=== PATIENT | female | born 1945 | race Caucasian/White ===

== ENCOUNTER → 2020-03-07 12:46 | Outpatient (BNVA) | payer MEDICARE, SELFPAY | PROVIDERS: PCP Internal Medicine; Referring Provider Internal Medicine; Visit Provider Surgery | DX: M67.442 Ganglion, left hand (principal) | CPT/HCPCS: 10160; 20612; 99212 ==

== ENCOUNTER 2020-04-12 14:21 | Outpatient (REF) | payer MEDICARE, SELFPAY ==
--- NOTE | 2020-04-12 14:32 | MM_ITS ---
EXAMINATION: MM SCREENING DIGITAL BREAST TOMOSYNTHESIS, BILATERAL CLINICAL INFORMATION: Screening. Asymptomatic. The lifetime risk of breast cancer based on the Tyrer-Cuzick Model is 5.7%. COMPARISON: Mammography: 03/27/2019 and studies dating back to 02/03/2012 TECHNIQUE: Digital breast tomosynthesis is performed in both the craniocaudal and mediolateral oblique views along with computer-aided detection (CAD). Synthesized 2D images are generated from the tomosynthesis. FINDINGS: There are scattered areas of fibroglandular density (ACR BI-RADS breast composition Category b). In the retroareolar region of the right breast slightly inferiorly and approximately 3 cm from nipple, there is a 5 mm circumscribed density which has been enlarging over time. Ultrasound of this is recommended. In the retroareolar region of the left breast on mediolateral oblique film only, there is a question of architectural distortion likely representing superimposition of fibroglandular tissue. Adjacent to this, there is also noted to be a small density with calcification in it just inferior to the nipple. Spot magnification view in mediolateral oblique and 90 degree mediolateral view recommended. MM/MM tomosynthesis screening BI IMPRESSION: Bilateral breast findings for supplementary imaging, as described. ASSESSMENT: BI-RADS 0: Incomplete - Need additional imaging evaluation. RECOMMENDATION: Right breast ultrasound. Left breast spot magnification films possibly with ultrasound to follow. This patient's information was entered into a reminder system with a target due date for their next mammogram.
--- NOTE | 2020-04-12 14:32 | MM_ITS ---
EXAMINATION: BONE DENSITOMETRY CLINICAL INDICATION: Osteoporosis. COMPARISON: None (current study represents initial baseline exam). TECHNIQUE: Using a [employer] DXA System (software version: 13.1) manufactured by [employer], dual-energy x-ray absorptiometry was performed of the lumbar spine and left hip. The images are of good technical quality. Summary results are attached. FINDINGS: AP SPINE L1-L3 (excluding L4): The data of L1-L4 has been changed to exclude the L4 vertebral body, because degenerative changes at this level may cause overestimation of lumbar spine density. BMD 1.489 g/cm2, Z-score 3.8, T-score 2.7, normal. LEFT FEMUR, NECK: BMD 0.885 g/cm2, Z-score 0.4, T-score -1.1, osteopenia. LEFT FEMUR, TOTAL: BMD 0.987 g/cm2, Z-score 1.1, T-score -0.2, normal. IDENTIFIED RISK FACTORS: Menopause, family history (parental hip fracture). HISTORY OF FRACTURE: None listed. MEDICATIONS: Calcium supplements or multivitamin, vitamin D. MM/XR DEXA axial skeleton IMPRESSION: 1. DIAGNOSIS: Osteopenia based on the lowest T-score value of -1.1 in the femoral neck applying World Health Organization criteria. 2. 10-YEAR FRACTURE RISK PREDICTION, FRAX: Major osteoporotic fracture (clinical spine, forearm, hip or shoulder) 15.0%. Hip fracture 6.0%. 3. Treatment Recommendations: NOF guidelines recommend consideration for treatment in postmenopausal women and men age 50 and older presenting with the following: -A hip or vertebral (clinical or morphometric) fracture. -T-score less than or equal to -2.5 at the femoral neck or spine after appropriate evaluation to exclude secondary causes. -Low bone mass at the hip or spine and a 10-year fracture probability by FRAX of greater than or equal to 3% for hip fracture or greater than or equal to 20% for major osteoporotic fracture based on the [place] adapted WHO algorithm. 4. Other Recommendations: All treatment decisions require clinical judgment and consideration of individual patient factors, including patient preferences, comorbidities, previous drug use, risk factors not captured in the FRAX model (e.g. frailty, falls, vitamin D deficiency, increased bone turnover, interval significant decline in bone density) and possible under or overestimation of fracture risk by FRAX. Additional medical evaluation for secondary cause of low bone mineral density may be appropriate. FUTURE SCAN RECOMMENDATION: People with diagnosed cases of osteoporosis or at high risk for fracture should have regular bone mineral density tests. For patients eligible for Medicare, routine testing is allowed once every 2 years. The testing frequency can be increased to one year for patients who have rapidly progressing disease, those who are receiving or discontinuing medical therapy to restore bone mass, or have additional risk factors.
== END 2020-04-12 14:22 | disposition home or self-care (01) ==
LOC: HO.MAMMO 14:21
PROVIDERS: PCP Internal Medicine; Visit Provider Obstetrics & Gynecology
DX: Z13.820 Encounter for screening for osteoporosis (principal); Z78.0 Asymptomatic menopausal state; Z12.31 Encounter for screening mammogram for malignant neoplasm of breast
CPT/HCPCS: 77063; 77067; 77080

== ENCOUNTER → 2020-04-22 12:11 | Outpatient (BNVA) | payer MEDICARE, SELFPAY | PROVIDERS: Visit Provider Obstetrics & Gynecology | DX: Z91.89 Other specified personal risk factors, not elsewhere classified (principal) | CPT/HCPCS: 99212 ==

== ENCOUNTER 2020-05-09 10:19 | Outpatient (REF) | payer MEDICARE, SELFPAY ==
--- NOTE | 2020-05-09 | US_ITS ---
EXAMINATION: MM DIAGNOSTIC DIGITAL MAMMOGRAPHY, LEFT US DIAGNOSTIC ULTRASOUND BREAST, RIGHT CLINICAL INFORMATION: Recall from screening for ultrasound assessment nodule anterior right breast and for 2 findings left MLO view, architectural changes superior retroareolar and question calcification/nodule inferior retroareolar. COMPARISON: Mammography: 04/12/2020, 03/27/2019, 03/17/2018, 03/11/2017 TECHNIQUE: Digital mammography is performed in the following views: Magnification left CC, magnification left ML x3, magnification left MLO. Ultrasound right breast is targeted to the area of clinical concern anterior lower outer breast. Grayscale imaging and color Doppler are performed without and with harmonics. FINDINGS: Mammography: There are scattered areas of fibroglandular density (ACR BI-RADS breast composition Category b). Additional views left breast demonstrates no architectural abnormality or nodule. There are some scattered calcifications in the breast without interval changes inferior retroareolar. Left breast may be reassessed again at next bilateral screening mammography, due in 12 months. Ultrasound: Targeted ultrasound demonstrates a circumscribed nearly anechoic nodule retroareolar 8:00 position measuring around 4 mm. There is no associated color flow. There is likely slight increased through-transmission of sound breast seen on ultrasound image 04/20. Increased through-transmission of sound difficult to perceive at real-time imaging. There is no posterior shadowing. As a precaution, this will be reassessed with ultrasound in 6 months. Results are discussed with the patient at time of visit. US/US breast RT limited IMPRESSION: 1. Right: Probable small cyst retroareolar 8:00 position. 2. Left: Additional views show no suspicious finding. ASSESSMENT: BI-RADS 3: Probably Benign RECOMMENDATION: Targeted right breast ultrasound in 6 months. This patient's information was entered into a reminder system with a target due date for their next mammogram.
== END 2020-05-09 10:20 | disposition home or self-care (01) ==
LOC: HO.MAMMO 10:19
PROVIDERS: PCP Internal Medicine; Visit Provider Obstetrics & Gynecology
DX: R92.2 Inconclusive mammogram (principal)
CPT/HCPCS: 76642; 77065

== ENCOUNTER → 2020-05-23 11:43 | Outpatient (BNVA) | payer MEDICARE, SELFPAY | PROVIDERS: PCP Internal Medicine; Visit Provider Obstetrics & Gynecology | DX: N63.0 Unspecified lump in unspecified breast (principal) | CPT/HCPCS: Q3014 ==

== ENCOUNTER → 2020-06-04 13:05 | Outpatient (BNVA) | payer MEDICARE, SELFPAY | PROVIDERS: PCP Internal Medicine; Visit Provider Surgery | DX: N63.0 Unspecified lump in unspecified breast (principal) | CPT/HCPCS: 99202 ==

== ENCOUNTER 2020-11-06 11:59 | Outpatient (REF) | payer MEDICARE, SELFPAY ==
--- NOTE | ~2020-11-06 | US_ITS ---
EXAMINATION: US DIAGNOSTIC ULTRASOUND BREAST, RIGHT CLINICAL INFORMATION: Right breast retroareolar density. Question complex cyst. COMPARISON: 05/09/2020 TECHNIQUE: Ultrasound of the breast is performed with real-time bravo-scale imaging and color Doppler. FINDINGS: In the retroareolar region of the right breast, there is again noted to be smoothly marginated hypoechoic lesion with some mild posterior through sound transmission and no distal sound shadowing identified. This likely represents a complex cyst. Results are discussed with the patient at time of visit. US/US breast RT limited IMPRESSION: Stable right breast retroareolar lesion most likely representing a complex cyst. Repeat right breast ultrasound recommended at time of yearly bilateral mammography in 6 months. ASSESSMENT: BI-RADS 3: Probably Benign. RECOMMENDATION: Diagnostic right breast ultrasound in 6 months at time of yearly screening mammogram. This patient's information was entered into a reminder system with a target due date for their next mammogram.
== END 2020-11-06 12:00 | disposition home or self-care (01) ==
LOC: HO.MAMMO 11:59
PROVIDERS: PCP Internal Medicine; Visit Provider Internal Medicine
DX: R92.2 Inconclusive mammogram (principal)
CPT/HCPCS: 76642

== ENCOUNTER 2020-11-16 11:36 | Emergency (ER) | payer MEDICARE, SELFPAY ==
--- NOTE | ~2020-11-16 | XR_ITS ---
EXAMINATION: XR ABDOMEN KUB CLINICAL INDICATION: Evaluate for constipation COMPARISON: None TECHNIQUE: AP view of the abdomen. FINDINGS: No bowel dilatation to suggest obstruction. Moderate stool burden within the large bowel. XR/XR abdomen 1V IMPRESSION: Moderate stool burden. No obstruction.
[2020-11-16 11:41] VITALS: BP 151/85; PULSE 74; RESP 16; TEMP 35.7; O2SAT 100; BMI 25.0
--- NOTE | 2020-11-16 13:37 | ED_ITS ---
HPI - General Adult General Chief complaint: General Medical Stated complaint: CONSTIPATION UNABLE TO SIT DOWN Time Seen by Provider: 11/16/20 12:55 Source: patient Mode of arrival: ambulatory Limitations: no limitations History of Present Illness HPI narrative: 75-year-old female came in for evaluation of burning sensation in the rectum for 1 day. 75-year-old female with history of constipation using stool softener, patient had 3 bowel movement this morning, passing gas, no abdominal pain, no fever, no chills. Patient feels pressure in the rectal area. Patient declined nausea or vomiting. Related Data Home Medications Medication Instructions Recorded Confirmed calcium-vitamin D3-vitamin K 500 1 tab PO DAILY 02/14/20 11/14/20 mg-100 unit-40 mcg chewable tablet cholecalciferol (vitamin D3) 25 25 mcg PO DAILY 02/14/20 11/14/20 mcg (1,000 unit) capsule docusate sodium 100 mg capsule 100 mg PO BID 02/14/20 11/14/20 polyethylene glycol 3350 17 gram 17 g PO DAILY 02/14/20 11/14/20 oral powder packet multivitamin with minerals-folic tab PO 03/07/20 11/14/20 acid 0.4 mg tablet alendronate 70 mg tablet 70 mg PO QWEEK 05/23/20 11/14/20 Previous Rx's Medication Instructions Recorded lorazepam 0.5 mg tablet 0.5 mg PO DAILY PRN #90 tab 06/24/20 zolpidem 10 mg tablet 10 mg PO BEDTIME #90 tab 06/24/20 amoxicillin 250 mg capsule 250 mg PO Q8H #30 cap 10/23/20 Allergies Allergy/AdvReac Type Severity Reaction Status Date / Time No Known Allergies Allergy Verified 11/14/20 11:04 Review of Systems Review of Systems: All other systems are reviewed and are negative Constitutional: Reports as per HPI and Reports no additional constitutional complaints Eyes: Reports as per HPI and Reports no additional eye complaints Reports system reviewed and no additional complaints, except as documented Cardiovascular: Reports as per HPI and Reports no additional cardiovascular complaints Respiratory: Reports as per HPI and Reports no additional respiratory complaints Gastrointestinal: Reports as per HPI and Reports no additional gastrointestinal complaints Genitourinary: Reports no additional female genitourinary complaints Musculoskeletal: Reports no additional musculoskeletal complaints Skin/Breast: Reports system reviewed and no additional complaints, except as docu Psychiatric: Reports no additional psychiatric complaints Endocrine: Reports no additional endocrine complaints Hematologic/Lymphatic: Reports no additional hematologic/lymphatic complaints Allergic/Immunologic: Reports no additional allergic/immunologic complaints Reports system reviewed and no additional complaints, except as documented and Reports Abnormal speech present [facility] Past Medical History Medical History Anxiety Chronic constipation Epidermal cyst Ganglion cyst of finger Surgical History No pertinent past surgical history Family History Family History Father No problems noted. Mother No problems noted. Social History Social History Housing: Condominium Alcohol intake: current Alcohol intake frequency: holidays/special occasions only Patient Tobacco Use Status: Former Tobacco user Tobacco use type: Cigarette e-Cigarette/Vaping Use: Never Used Second Hand Smoke Exposure: No Advance Directives: Yes Advance Directives Information Provided: No Advance Directives on File: No service: No Current occupational status: retired Physical Exam Vital Signs: Vital Signs: Last Vital Signs Temp 97.4 F 11/16/20 13:40 Pulse 64 11/16/20 13:40 Resp 18 11/16/20 13:40 BP 100/83 11/16/20 13:40 Pulse Ox 96 11/16/20 13:40 Body Mass Index 25.0 Vital signs have been reviewed as appeared to be correct. Blood pressure normal. Heart rate normal. Respiration rate normal. Temperature normal. Oxygen saturation normal. Appearance: Alert. Oriented X3. No acute distress. Head: Normal external exam. Normocephalic. Atraumatic. No Damon signs noted. No raccoon eyes noted Eyes: PERRLA. EOMI. Conjunctiva and sclera normal. Eyelids normal. ENT: TM's Normal. Pharynx normal. Uvula midline. Moist mucous membranes. No trismus noted. No drooling noted. No muffled voice noted. Neck: Normal inspection. Neck supple. FROM. No adenopathy. Thyroid Normal. No meningeal signs. No neck mass noted. CVS: Normal heart rate and rhythm. Heart sound normal. No murmurs noted. Pulses normal throughout. Respiratory: No respiratory distress. Painless inspiration. Breath sounds normal. No wheezes/rales/rhonchi noted. Chest nontender. No accessory muscle usage noted or decreased air movement noted. Abdomen: Soft and nontender. Bowel sounds normal in all 4 quadrants. No distention noted. No organomegaly noted. No visible injury noted. Rectal exam: Empty vault, no external/internal hemorrhoid, no fluctuation, no mass. Back: No CVA tenderness. Full range of motion noted. Skin: Skin warm and dry. Normal skin color. Normal skin turgor. No rashes/lesions/lacerations noted. Extremities: No lower extremity edema. Extremities exhibit normal range of motion. Extremities nontender. Neuro: Oriented X 3. No motor deficit. No sensory deficit. Reflexes normal. Course Course Course Narrative: Assessment and plan. This is a 75-year-old female very anxious came in with rectal burning, patient with history of constipation, patient had 3 bowel movements this morning, no abdominal pain, no abdominal tenderness. No stool in the rectal vault, x-ray of the abdomen and pelvis showed stool but no bowel obstruction pattern, labs are unremarkable no leukocytosis with normal electrolytes. Patient was reassured follow-up with her PCP. Medical Decision Making Lab Data Lab results reviewed: Yes I reviewed the patient's lab results. Result diagrams: 11/16/20 13:36 11/16/20 13:36 Labs: Lab Results 11/16/20 11/16/20 Range/Units 13:36 13:36 WBC 6.7 (4.8-10.8) X10*3/uL RBC 4.16 L (4.20-5.50) X10*6/uL Hgb 12.3 (12.0-16.0) g/dl Hct 38.9 (37-47) % MCV 93.5 (80-98) fL MCH 29.6 (27.0-33.0) pg MCHC 31.6 (31.0-35.0) g/dl RDW 13.0 (11.0-16.0) % Plt Count 292 (160-400) X10*3/uL MPV 9.2 L (9.4-12.3) fL Immature Gran % (Auto) 0.1 (0.0-0.4) % Neut % (Auto) 79.3 H (45-73) % Lymph % (Auto) 13.6 L (20-40) % [place] % (Auto) 6.3 (2-11) % Eos % (Auto) 0.6 (0-4) % Baso % (Auto) 0.1 (0-2) % Lymph # (Auto) 0.9 L (1.2-4.9) X10*3/uL [place] # (Auto) 0.4 (0.1-1.2) X10*3/uL Eos # (Auto) 0.0 (0.0-0.4) X10*3/uL Baso # (Auto) 0.0 (0.0-0.2) X10*3/uL Abs Immat Gran (auto) 0.01 (0.00-0.03) X10*3/uL Absolute Neuts (auto) 5.3 (2.0-8.3) X10*3/uL Absolute Nucleated RBC 0.000 (0.0-0.012) X10*3/uL Nucleated RBC % (auto) 0.0 (0.0-0.2) /100WBC Sodium 143 (135-145) mmol/L Potassium 4.4 (3.3-5.1) mmol/L Chloride 108 (96-108) mmol/L Carbon Dioxide 27 (22-29) mmol/L Anion Gap 12 (12-20) BUN 9 (9-16) mg/dL Creatinine 0.76 (0.5-1.4) mg/dL Estim Creat Clear Calc 62.1 Estimated GFR > 60 Random Glucose 100 (60-115) mg/dL Calcium 9.7 (8.4-10.2) mg/dL Total Bilirubin 0.5 (0.0-1.0) mg/dL AST 15 (5-31) U/L ALT 14 (0-31) U/L Alkaline Phosphatase 54 (39-117) U/L Total Protein 6.4 L (6.5-8.0) g/dL Albumin 3.9 (3.5-5.0) g/dL Imaging Data KUB: Radiologist's impression: Moderate stool burden. No obstruction. Discharge Plan Discharge Clinical Impression: Anxiety, Anal or rectal pain Patient Disposition: Home, Self-Care Instructions: Rectal Pain (ED) Prescriptions: No Action amoxicillin 250 mg capsule 250 mg PO Q8H Qty: 30 RF: 0 zolpidem 10 mg tablet 10 mg PO BEDTIME Qty: 90 RF: 5 lorazepam 0.5 mg tablet 0.5 mg PO DAILY PRN (Reason: agitation) Qty: 90 RF: 5 calcium-vitamin D3-vitamin K 500-100-40 mg-unit-mcg tablet,chewable 1 tab PO DAILY RF: 0 cholecalciferol (vitamin D3) 25 mcg (1,000 unit) capsule 25 mcg PO DAILY RF: 0 polyethylene glycol 3350 [Miralax] 17 gram powder in packet 17 g PO DAILY RF: 0 docusate sodium [Colace] 100 mg capsule 100 mg PO BID RF: 0 alendronate [Fosamax] 70 mg tablet 70 mg PO QWEEK RF: 0 One Daily Womens 50 Plus 0.4 mg tablet PO RF: 0 Referrals: Levi Hunt MD [Primary Care Provider] - 2 days
[2020-11-16 13:40] VITALS: BP 100/83; PULSE 64; RESP 18; TEMP 36.3; O2SAT 96
[2020-11-16 13:42] LABS: MANUAL DIFF FLAG NO
[2020-11-16 13:43] LABS: Basophils Percent Auto 0.1 % (0-2); Eosinophils Percent Auto 0.6 % (0-4); Hematocrit 38.9 % (37-47); Hemoglobin 12.3 g/dl (12.0-16.0); Imm Gran Abs Auto 0.01 X10*3/uL (0.00-0.03); Imm Gran Pct Auto 0.1 % (0.0-0.4); Lymphocytes Absolute Auto 0.9 X10*3/uL (1.2-4.9); Lymphocytes Percent Auto 13.6 % (20-40); Mean Corpuscular HGB Conc 31.6 g/dl (31.0-35.0); Mean Corpuscular Hemoglobin 29.6 pg (27.0-33.0); Mean Corpuscular Volume 93.5 fL (80-98); Mean Platelet Volume 9.2 fL (9.4-12.3); Monocytes Absolute Auto 0.4 X10*3/uL (0.1-1.2); Monocytes Percent Auto 6.3 % (2-11); Neutrophils Absolute Auto 5.3 X10*3/uL (2.0-8.3); Neutrophils Percent Auto 79.3 % (45-73); Platelet Count 292 X10*3/uL (160-400); Red Blood Count 4.16 X10*6/uL (4.20-5.50); White Blood Count 6.7 X10*3/uL (4.8-10.8)
[2020-11-16 14:16] LABS: Alanine Aminotransferase 14 U/L (0-31); Albumin Level 3.9 g/dL (3.5-5.0); Alkaline Phosphatase 54 U/L (39-117); Anion Gap 12 (12-20); Aspartate Amino Transferase 15 U/L (5-31); Bilirubin Total 0.5 mg/dL (0.0-1.0); Blood Urea Nitrogen 9 mg/dL (9-16); Calcium 9.7 mg/dL (8.4-10.2); Carbon Dioxide 27 mmol/L (22-29); Chloride 108 mmol/L (96-108); Creatinine Clr Calc Pharmacy 62.1; Estimated Glomerular Filt Rate > 60; Glucose Random 100 mg/dL (60-115); Potassium 4.4 mmol/L (3.3-5.1); Sodium 143 mmol/L (135-145); Total Protein 6.4 g/dL (6.5-8.0)
== END 2020-11-16 14:54 | disposition home or self-care (01) ==
PROVIDERS: Emergency Provider Emergency Medicine; PCP Internal Medicine
DX: K62.89 Other specified diseases of anus and rectum (principal); F41.9 Anxiety disorder, unspecified; Z79.899 Other long term (current) drug therapy
CPT/HCPCS: 36415; 74018; 80053; 85025; 99283; 99284

== ENCOUNTER 2020-11-18 14:39 | Outpatient (REF) | payer MEDICARE, SELFPAY ==
--- NOTE | ~2020-11-18 | XR_ITS ---
EXAMINATION: XR LUMBOSACRAL SPINE CLINICAL INFORMATION: Back pain COMPARISON: None TECHNIQUE: Three views of the lumbosacral spine. FINDINGS: There is mild curvature of the mid lumbar spine to the left. Bone alignment is otherwise normal. No fracture or dislocation is seen. There is evidence of multilevel degenerative spondylosis and degenerative disc disease greatest at L1-L2, L4-L5 and L5-S1. There is lower lumbar spine facet arthritis. XR/XR lumbar spine 2-3V IMPRESSION: Mild scoliosis and multilevel degenerative changes.
== END 2020-11-18 14:40 | disposition home or self-care (01) ==
LOC: HO.LAB 14:39
PROVIDERS: PCP Internal Medicine; Visit Provider Internal Medicine
DX: M54.9 Dorsalgia, unspecified (principal)
CPT/HCPCS: 72100

== ENCOUNTER 2020-11-24 11:26 | Emergency (ER) | payer MEDICARE, SELFPAY ==
--- NOTE | ~2020-11-24 | CT_ITS ---
EXAMINATION: CT PELVIS WITH CONTRAST CLINICAL INFORMATION: Sacral edema/swelling/tenderness. Rule out fluid collection. COMPARISON: CT abdomen and pelvis 01/01/2019 TECHNIQUE: Helical scanning was performed with submillimeter collimation through the pelvis with the use of oral contrast and during bolus intravenous injection of 85 mL of Omnipaque 350 intravenous contrast. Sagittal and coronal multiplanar 2-D reconstructions were obtained. This CT examination was performed using dose optimization techniques as appropriate, variously including the following: *Automated exposure control *Adjustment of mA and/or kV according to patient size (this includes techniques or standardized protocols for targeted exams where dose is matched to indication/reason for exam; i.e. extremities or head) *Use of iterative reconstruction technique DLP: 291 mGy-cm FINDINGS: PELVIS: The imaged small and large bowel are normal in caliber. No bowel inflammatory changes are appreciated. There is no free pelvic fluid. There is a coarse calcification within the left aspect of the uterine body likely relating to calcified, degenerated fibroids. The bladder is decompressed and normal in contour. No ureteral or bladder calculi are seen. The distal aorta is normal in caliber. Unremarkable appearance of the iliac arteries and the proximal femoral vessels are patent. No significant hernia identified. No pelvic lymphadenopathy is seen. OSSEOUS STRUCTURES: There are degenerative changes of the imaged lumbosacral spine without acute or aggressive bony abnormality identified. Joint space narrowing of the bilateral hips compatible degenerative osteoarthritis and mild/moderate degenerative changes of the sacroiliac joints are present. There is mild soft tissue edema overlying the soft tissues posterior and distal to the coccyx without underlying fluid collection identified. Would correlate with physical exam findings for sacral decubitus ulcer. CT/CT pelvis w con IMPRESSION: Soft tissue edema overlying and distal to the distal coccyx may relate to decubitus ulcer. No evidence of an underlying fluid collection or osseous erosion is identified.
[2020-11-24 11:40] VITALS: BP 155/80; PULSE 72; RESP 17; TEMP 36.8; O2SAT 94; BMI 25.2
--- NOTE | 2020-11-24 12:54 | ED_ITS ---
HPI - Back Pain/Injury General Chief Complaint: Back Pain/Injury Stated Complaint: Lower bone pain Time Seen by Provider: 11/24/20 11:43 Source: patient Mode of arrival: ambulatory Limitations: no limitations History of Present Illness HPI Narrative: 75-year-old female with a past medical history of anxiety here with complaints of low back pain for approximately 1 week. She tells me she was seen here about 6 days ago in the emergency department and had lab work and an x-ray of her abdominal area because she was also having some associated diarrhea. This was all normal and was recommended she follow-up with her primary care doctor. She saw her primary care doctor on November 18 and had an outpatient x-ray of her low spine which showed degenerative changes but no other acute findings. She has had continued pain. She is unable to sit down because of the pain that she experiences in her low spine. It is improved if she is lying on her static or standing. No radiation of pain. No numbness or tingling. No bowel or bladder incontinence. She was suffering from constipation and so was taking a stool softener and now she has had some loose stools which alternates day by day. She may have 3 episodes of loose stool 1 day and 4-5 the next day. No associated abdominal pain. No black or bloody stools. She does have urinary urgency and frequency which is quite common for her and she does not feel like this is worsened. No fevers or chills. Related Data Home Medications Medication Instructions Recorded Confirmed calcium-vitamin D3-vitamin K 500 1 tab PO DAILY 02/14/20 11/14/20 mg-100 unit-40 mcg chewable tablet cholecalciferol (vitamin D3) 25 25 mcg PO DAILY 02/14/20 11/14/20 mcg (1,000 unit) capsule docusate sodium 100 mg capsule 100 mg PO BID 02/14/20 11/14/20 polyethylene glycol 3350 17 gram 17 g PO DAILY 02/14/20 11/14/20 oral powder packet multivitamin with minerals-folic tab PO 03/07/20 11/14/20 acid 0.4 mg tablet alendronate 70 mg tablet 70 mg PO QWEEK 05/23/20 11/14/20 Previous Rx's Medication Instructions Recorded lorazepam 0.5 mg tablet 0.5 mg PO DAILY PRN #90 tab 06/24/20 zolpidem 10 mg tablet 10 mg PO BEDTIME #90 tab 06/24/20 amoxicillin 250 mg capsule 250 mg PO Q8H #30 cap 10/23/20 cyclobenzaprine 5 mg PO TID 3 Days #9 tab 11/24/20 lidocaine [Lidoderm] 1 patch TOPICAL DAILY #15 ea 11/24/20 Allergies Allergy/AdvReac Type Severity Reaction Status Date / Time No Known Allergies Allergy Verified 11/24/20 11:40 Review of Systems Review of Systems: Yes all other systems are reviewed and are negative Constitutional: Constitutional: Reports no additional constitutional complaints, Denies body ache(s), Denies chills, Denies fever(s), Denies headache(s) and Denies weakness Eyes: Eyes: Reports no additional eye complaints and Denies change in vision ENT: Reports system reviewed and no additional complaints, except as documented, Denies dizziness, Denies headache(s), Denies nasal congestion, Denies nasal discharge and Denies neck pain Cardiovascular: Cardiovascular: Reports no additional cardiovascular complaints, Denies chest pain, Denies leg edema and Denies dyspnea Respiratory: Respiratory: Reports no additional respiratory complaints, Denies cough and Denies dyspnea Gastrointestinal: Gastrointestinal: Reports no additional gastrointestinal complaints, Denies abdominal pain, Denies diarrhea, Reports loose stools, Denies nausea and Denies vomiting Genitourinary: Genitourinary: Reports no additional female genitourinary complaints and Denies urinary incontinence Comments: urinary frequency Musculoskeletal: Musculoskeletal: Reports no additional musculoskeletal complaints, Reports back pain, Denies arthralgias, Denies joint swelling, Denies neck pain, Denies numbness and Denies tingling Integumentary/Breasts: Skin/Breast: Reports system reviewed and no additional complaints, except as docu and Denies rash Neurologic: Reports system reviewed and no additional complaints, except as documented, Denies Abnormal speech present, Denies dizziness, Denies headache(s), Denies numbness, Denies tingling and Denies weakness PMFSH Past Medical History Attestation statement: The following information was validated with the patient. Source: old records reviewed and nursing notes reviewed Medical History Anxiety Back pain Chronic constipation Epidermal cyst Ganglion cyst of finger Surgical History No pertinent past surgical history Family History Family History Father No problems noted. Mother No problems noted. Social History Social History Housing: [facility] Alcohol intake: current Alcohol intake frequency: holidays/special occasions only Patient Tobacco Use Status: Former Tobacco user Tobacco use type: Cigarette e-Cigarette/Vaping Use: Never Used Second Hand Smoke Exposure: No Use of substances other than those prescribed or required for medical reasons: No Advance Directives: Yes Advance Directives Information Provided: Yes Advance Directives on File: No service: No Current occupational status: retired Physical Exam Vital Signs: Vital Signs: Last Vital Signs Temp 97.6 F 11/24/20 14:45 Pulse 92 11/24/20 14:45 Resp 16 11/24/20 14:45 BP 147/77 H 11/24/20 14:45 Pulse Ox 97 11/24/20 14:45 Body Mass Index 25.2 Const: General: cooperative, healthy appearing, comfortable and no acute d istress Orientation/consciousness: patient oriented x3 Limitations: no limitations HENMT: Head: Yes normal to inspection Ears: hearing grossly normal bilaterally General nose exam: Normal external nose present Face and sinus: Yes normal facial exam Mouth: Normal oral and palatal mucosa present Throat: Yes posterior oropharynx normal Eyes: General: appearance normal, both eyes and all related structures Pupils: Equal, round and reactive pupils present Neck: Neck: Yes normal visual inspection Chest: Chest palpation & inspection: normal inspection of the chest Resp: Effort & Inspection: normal respiratory effort Auscultation: clear to auscultation bilaterally Cardio: Rate: regular rate Rhythm: regular rhythm Peripheral pulses: Peripheral pulses 2+ throughout GI: Inspection: Yes normal to inspection Palpation (GI): Soft to palpation and nontender Auscultation: normal bowel sounds Back/Spine/Pelvis: Other: To the left lower sacral spine there is an area of swelling. There is tenderness over this site as well as over the central sacrum. There is no obvious warmth, redness, induration. Nonpitting edema. Patient does not have pain with straight leg raise.. Thoracic/Lumbar Spine: thoracic and lumbar spine normal to inspection Skin: General skin exam: no rashes or lesions noted Neuro: General: patient oriented x3, no focal motor deficits and normal sensation to monofilament Cranial nerves: Yes CN's II-XII intact bilaterally, Yes Equal, round and reactive pupils present, Yes Bilaterally intact EOM present, Yes Nystagmus not present, Yes Normal facial strength present and Yes Midline tongue present Cognition (Neuro): normal cognition Speech: No Abnormal speech present Gait exam (Neuro): Normal gait present Motor exam (neuro): 5/5 motor strength present throughout Sensory Exam: Normal double simultaneous stimulation for sensation Deep tendon reflexes (DTR's): Right patellar reflex intensity grade: 2+ and Left patellar reflex intensity grade: 2+ Extrem: General: Yes normal to inspection Course Course Course Narrative: Continues low back pain for greater than 1 week despite supportive care. Did have outpatient lumbar x-rays by her primary care doctor which showed degenerative changes but no acute bony abnormality. She is now having continued pain which seems now worsened specially with sitting or lying down. No red flag symptoms or neurological deficits on exam. However, she does have an area of sacral swelling to the left side with quite a bit of tenderness over this site as well as her sacral mid spine. Will check labs, UA, CT to eval further. 1640- IMPRESSION: Soft tissue edema overlying and distal to the distal coccyx may relate to decubitus ulcer. No evidence of an underlying fluid collection or osseous erosion is identified. There are degenerative changes of the imaged lumbosacral spine without acute or aggressive bony abnormality identified. Joint space narrowing of the bilateral hips compatible degenerative osteoarthritis and mild/moderate degenerative changes of the sacroiliac joints are present. Labs and urine are unremarkable. ?lumbar strain. For persistent pain we discussed patient following up with PCP for possible MRI or physical therapy. No need for emergent MRI today with no red flag symptoms or neurological deficits. Patient is ambulatory with a steady gait. Will discharge home. Recommended [id number] Tylenol, low-dose muscle relaxants and medicated patches with PCP follow-up. Reviewed worrisome signs and symptoms and when to return to the emergency department. Comfortable d ischarge home. MDM - Back Pain/Injury Differential Diagnosis Differential diagnosis: Likely lumbar radiculopathy, sciatica and strain of lumbar region Medical Records Attestation: I reviewed the patient's medical records. Lab Data Attestation: I reviewed the patient's lab results. Result diagrams: 11/24/20 12:55 11/24/20 12:55 Labs: Lab Results 11/24/20 11/24/20 11/24/20 Range/Units 12:55 12:55 12:57 WBC 8.1 (4.8-10.8) X10*3/uL RBC 4.48 (4.20-5.50) X10*6/uL Hgb 13.4 (12.0-16.0) g/dl Hct 42.3 (37-47) % MCV 94.4 (80-98) fL MCH 29.9 (27.0-33.0) pg MCHC 31.7 (31.0-35.0) g/dl RDW 13.1 (11.0-16.0) % Plt Count 330 (160-400) X10*3/uL MPV 9.2 L (9.4-12.3) fL Immature Gran % (Auto) 0.2 (0.0-0.4) % Neut % (Auto) 79.2 H (45-73) % Lymph % (Auto) 13.3 L (20-40) % Mccreary % (Auto) 6.4 (2-11) % Eos % (Auto) 0.7 (0-4) % Baso % (Auto) 0.2 (0-2) % Lymph # (Auto) 1.1 L (1.2-4.9) X10*3/uL Mccreary # (Auto) 0.5 (0.1-1.2) X10*3/uL Eos # (Auto) 0.1 (0.0-0.4) X10*3/uL Baso # (Auto) 0.0 (0.0-0.2) X10*3/uL Abs Immat Gran (auto) 0.02 (0.00-0.03) X10*3/uL Absolute Neuts (auto) 6.4 (2.0-8.3) X10*3/uL Absolute Nucleated RBC 0.000 (0.0-0.012) X10*3/uL Nucleated RBC % (auto) 0.0 (0.0-0.2) /100WBC Sodium 141 (135-145) mmol/L Potassium 4.4 (3.3-5.1) mmol/L Chloride 105 (96-108) mmol/L Carbon Dioxide 30 H (22-29) mmol/L Anion Gap 10 L (12-20) BUN 10 (9-16) mg/dL Creatinine 0.83 (0.5-1.4) mg/dL Estim Creat Clear Calc 57.0 Estimated GFR > 60 Random Glucose 97 (60-115) mg/dL Calcium 10.6 H D (8.4-10.2) mg/dL Urine Color STRAW Urine Appearance CLEAR Urine pH 6.5 (5.0-8.0) Ur Specific [place] <= 1.005 (1.005-1.025) Urine Protein NEG (NEG-TRACE) MG/DL Urine Glucose (UA) NEG (NEG) MG/DL Urine Ketones NEG (NEG) MG/DL Urine Blood NEG (NEG) Urine Nitrite NEG (NEG) Ur Leukocyte Esterase 1+ H (NEG) Urine RBC 0 (0) /HPF Urine WBC 1-4 (0-4) /HPF Ur Squamous Epith Cells 1+ /LPF Urine Bacteria NONE /LPF Imaging Data CT scan - abdomen: Attestation: I personally reviewed and interpreted this imaging study as follows: Radiologist's impression: IMPRESSION: Soft tissue edema overlying and distal to the distal coccyx may relate to decubitus ulcer. No evidence of an underlying fluid collection or osseous erosion is identified. Discharge Plan Discharge Clinical Impression: Strain of lumbar region Patient Disposition: Home, Self-Care Instructions: Acute Low Back Pain (ED) Additional Instructions: Your CT scan shows age related changes in the spine but no fractures. There is a small area of swelling we discussed but no fluid collection Apply heat or ice to the area whichever feels better Take tylenol 1000mg every 6 hours as needed for pain. Max dose in 24 hrs (4000mg). Take the flexeril at nighttime at first to see how you feel. It might make you a little bit sleepy. Follow-up with your primary care doctor this week. Prescriptions: New lidocaine [Lidoderm] 5 % adhesive patch,medicated 1 patch topical DAILY Qty: 15 RF: 0 cyclobenzaprine 5 mg tablet 5 mg PO TID 3 Days Qty: 9 RF: 0 No Action amoxicillin 250 mg capsule 250 mg PO Q8H Qty: 30 RF: 0 zolpidem 10 mg tablet 10 mg PO BEDTIME Qty: 90 RF: 5 lorazepam 0.5 mg tablet 0.5 mg PO DAILY PRN (Reason: agitation) Qty: 90 RF: 5 calcium-vitamin D3-vitamin K 500-100-40 mg-unit-mcg tablet,chewable 1 tab PO DAILY RF: 0 cholecalciferol (vitamin D3) 25 mcg (1,000 unit) capsule 25 mcg PO DAILY RF: 0 polyethylene glycol 3350 [Miralax] 17 gram powder in packet 17 g PO DAILY RF: 0 docusate sodium [Colace] 100 mg capsule 100 mg PO BID RF: 0 alendronate [Fosamax] 70 mg tablet 70 mg PO QWEEK RF: 0 One Daily Womens 50 Plus 0.4 mg tablet PO RF: 0 Referrals: Levi Hunt MD [Primary Care Provider] - 2 days Interventions: ED Discharge Assessment Last Done: 11/24/20 16:09 Discharge Date/Time: 11/24/20 16:10
[2020-11-24 13:04] LABS: Glucose Urine UA NEG (NEG); Leukocyte Esterase Urine 1+ (NEG); Nitrite Urine NEG (NEG); PH 6.5 (5.0-8.0); Specific Gravity - Urine <= 1.005 (1.005-1.025); UACC Culture Trigger YES; Urine Blood NEG (NEG); Urine Ketones NEG (NEG); Urine Protein NEG (NEG-TRACE)
[2020-11-24 13:05] LABS: Appearance Urine CLEAR; Color Urine STRAW
[2020-11-24 13:05] LABS: Basophils Percent Auto 0.2 % (0-2); Eosinophils Absolute Auto 0.1 X10*3/uL (0.0-0.4); Eosinophils Percent Auto 0.7 % (0-4); Hematocrit 42.3 % (37-47); Hemoglobin 13.4 g/dl (12.0-16.0); Imm Gran Abs Auto 0.02 X10*3/uL (0.00-0.03); Imm Gran Pct Auto 0.2 % (0.0-0.4); Lymphocytes Absolute Auto 1.1 X10*3/uL (1.2-4.9); Lymphocytes Percent Auto 13.3 % (20-40); MANUAL DIFF FLAG NO; Mean Corpuscular HGB Conc 31.7 g/dl (31.0-35.0); Mean Corpuscular Hemoglobin 29.9 pg (27.0-33.0); Mean Corpuscular Volume 94.4 fL (80-98); Mean Platelet Volume 9.2 fL (9.4-12.3); Monocytes Absolute Auto 0.5 X10*3/uL (0.1-1.2); Monocytes Percent Auto 6.4 % (2-11); Neutrophils Absolute Auto 6.4 X10*3/uL (2.0-8.3); Neutrophils Percent Auto 79.2 % (45-73); Platelet Count 330 X10*3/uL (160-400); Red Blood Count 4.48 X10*6/uL (4.20-5.50); Red Cell Distribution Width 13.1 % (11.0-16.0); White Blood Count 8.1 X10*3/uL (4.8-10.8)
[2020-11-24 13:31] LABS: RBC Urine 0 /HPF (0); Squamous Epithelial Cell Urine 1+ /LPF
[2020-11-24 13:35] LABS: Anion Gap 10 (12-20); Blood Urea Nitrogen 10 mg/dL (9-16); Calcium 10.6 mg/dL (8.4-10.2); Carbon Dioxide 30 mmol/L (22-29); Chloride 105 mmol/L (96-108); Estimated Glomerular Filt Rate > 60; Glucose Random 97 mg/dL (60-115); Potassium 4.4 mmol/L (3.3-5.1); Sodium 141 mmol/L (135-145)
[2020-11-24 14:45] VITALS: BP 147/77; PULSE 92; RESP 16; TEMP 36.4; O2SAT 97
[2020-11-24] MEDS: iohexoL 350 MG/ML 100 ML INFUS..BTL IV (14:53)
== END 2020-11-24 16:10 | disposition home or self-care (01) ==
PROVIDERS: Nurse Practitioner Family; Emergency Provider Emergency Medicine; PCP Internal Medicine
DX: S39.012A Strain of muscle, fascia and tendon of lower back, initial encounter (principal); X58.XXXA Exposure to other specified factors, initial encounter; Y93.9 Activity, unspecified; Y92.9 Unspecified place or not applicable; Y99.9 Unspecified external cause status; Z79.899 Other long term (current) drug therapy; F17.210 Nicotine dependence, cigarettes, uncomplicated; Z71.6 Tobacco abuse counseling
CPT/HCPCS: 36415; 72193; 80048; 81001; 81003; 85025; 87086; 99284; Q9967

== ENCOUNTER → 2020-12-24 09:13 | Outpatient (BNVA) | payer MEDICARE, SELFPAY | PROVIDERS: PCP Internal Medicine; Referring Provider Internal Medicine; Visit Provider Nurse Practitioner Family | DX: K59.1 Functional diarrhea (principal); K58.2 Mixed irritable bowel syndrome; K64.9 Unspecified hemorrhoids | CPT/HCPCS: 99202 ==

== ENCOUNTER 2020-12-26 09:25 | Outpatient (REF) | payer MEDICARE, SELFPAY ==
--- NOTE | ~2020-12-26 | US_ITS ---
EXAMINATION: MM DIAGNOSTIC DIGITAL BREAST TOMOSYNTHESIS, BILATERAL US DIAGNOSTIC ULTRASOUND BREAST, BILATERAL CLINICAL INFORMATION: Due for yearly. Also follow-up probable small complicated cyst 8:00 right breast. The lifetime risk of breast cancer based on the Tyrer-Cuzick Model is 2%. COMPARISON: Mammography: 05/09/2020, 04/12/2020 (BI-RADS 0), 03/27/2019, 03/17/2018, 03/11/2017; targeted ultrasound right breast 05/09/2020, 11/06/2020. TECHNIQUE: Digital breast tomosynthesis is performed in both the craniocaudal and mediolateral oblique views along with computer-aided detection (CAD). Synthesized 2D images are generated from the tomosynthesis. Ultrasound right breast is targeted to the retroareolar lower outer breast. Grayscale imaging and color Doppler are performed without and with harmonics. FINDINGS: There are scattered areas of fibroglandular density (ACR BI-RADS breast composition Category b). Parenchymal pattern is similar to prior study. There is no developing density or interval mass or architectural abnormality or abnormal calcifications. The left breast is unremarkable. The right breast has biopsy clip marker upper outer quadrant. Small nodularity for follow-up mid 8:00 position is stable. No interval architectural abnormality. No abnormal calcifications. Ultrasound right breast demonstrates nearly anechoic circumscribed nodule 7:00-8:00 position 2 cm from nipple just under 5 mm. No associated color flow. No posterior shadowing. No significant change from prior ultrasound exams. Finding will be reassessed again at time of next bilateral annual diagnostic mammography, due in 12 months. Results are discussed with the patient at time of visit.
[2020-12-26 10:13] LABS: MANUAL DIFF FLAG NO
[2020-12-26 10:24] LABS: Basophils Percent Auto 0.1 % (0-2); Eosinophils Absolute Auto 0.1 X10*3/uL (0.0-0.4); Eosinophils Percent Auto 1.2 % (0-4); Hematocrit 42.6 % (37-47); Hemoglobin 13.7 g/dl (12.0-16.0); Imm Gran Abs Auto 0.02 X10*3/uL (0.00-0.03); Imm Gran Pct Auto 0.3 % (0.0-0.4); Lymphocytes Absolute Auto 1.1 X10*3/uL (1.2-4.9); Lymphocytes Percent Auto 14.2 % (20-40); Mean Corpuscular HGB Conc 32.2 g/dl (31.0-35.0); Mean Corpuscular Hemoglobin 29.7 pg (27.0-33.0); Mean Corpuscular Volume 92.4 fL (80-98); Mean Platelet Volume 9.4 fL (9.4-12.3); Monocytes Absolute Auto 0.4 X10*3/uL (0.1-1.2); Neutrophils Absolute Auto 6.1 X10*3/uL (2.0-8.3); Neutrophils Percent Auto 79.2 % (45-73); Platelet Count 332 X10*3/uL (160-400); Red Blood Count 4.61 X10*6/uL (4.20-5.50); Red Cell Distribution Width 12.9 % (11.0-16.0); White Blood Count 7.7 X10*3/uL (4.8-10.8)
[2020-12-26 10:53] LABS: C Reactive Protein 0.17 mg/dL (< or = 0.50)
[2020-12-26 11:11] LABS: Alanine Aminotransferase 15 U/L (0-31); Albumin Level 4.3 g/dL (3.5-5.0); Alkaline Phosphatase 65 U/L (39-117); Anion Gap 13 (12-20); Aspartate Amino Transferase 17 U/L (5-31); Bilirubin Total 0.6 mg/dL (0.0-1.0); Blood Urea Nitrogen 13 mg/dL (9-16); Calcium 9.6 mg/dL (8.4-10.2); Carbon Dioxide 25 mmol/L (22-29); Chloride 106 mmol/L (96-108); Cholesterol 196 mg/dL; Estimated Glomerular Filt Rate > 60; Glucose Fasting 124 mg/dL (60-99); HDL Cholesterol 57 mg/dL; LDL Cholesterol Calculated 117 mg/dl; Potassium 4.4 mmol/L (3.3-5.1); Sodium 140 mmol/L (135-145); Total Protein 7.1 g/dL (6.5-8.0); Triglycerides 110 mg/dL
[2020-12-26 11:17] LABS: Thyroid Stimulating Hormone 0.59 uIU/mL (0.32-4.0)
== END 2020-12-26 09:26 | disposition home or self-care (01) ==
LOC: HO.LAB 09:25
PROVIDERS: Absent Provider Internal Medicine; PCP Internal Medicine; Visit Provider Nurse Practitioner Family
DX: Z00.00 Encounter for general adult medical examination without abnormal findings (principal); K58.9 Irritable bowel syndrome, unspecified; R19.7 Diarrhea, unspecified; E03.9 Hypothyroidism, unspecified; E11.9 Type 2 diabetes mellitus without complications
CPT/HCPCS: 36415; 80053; 80061; 83993; 84443; 85025; 86140; 87045; 87046; 87177; 87209

== ENCOUNTER 2021-01-18 14:16 | Emergency (ER) | payer MEDICARE, SELFPAY ==
[2021-01-18 17:21] VITALS: BP 166/89; PULSE 71; RESP 18; TEMP 36.8; O2SAT 98; BMI 24.2
--- NOTE | 2021-01-18 17:57 | ED.GENADULT ---
HPI - General Adult General Chief complaint: Extremity Problem Stated complaint: leg weakness Time Seen by Provider: 01/18/21 17:23 Source: patient Mode of arrival: ambulatory Limitations: no limitations History of Present Illness HPI narrative: 75-year-old female who presents emergency department for evaluation of weakness of her lower extremities. The patient states that she has been having difficulty with her bowels over the past 3-6 weeks. She states that she has had episodes of constipation and she has also had frequent soft bowel movements. She states that she has been a managed by GI and is currently taking a fiber supplement, Senokot and is on a gluten free diet. She states that over the past 3 weeks she has had 4-5 soft bowel movements per day. She denied any blood or mucus in her bowel movements. She states that since Wednesday (6 days prior to evaluation) she has been feeling weakness in her lower extremities. She states that she has no difficulty walking. She states however when she stands for period of time she feels like her legs are weak. She states that this happens especially when she is taking a shower she feels like standing in the shower her legs get weak and she may fall. She denied any numbness of her lower extremities. She denied any lower back pain. She denied fever, chills, nausea, vomiting, chest pain, shortness of breath, abdominal pain. Related Data Home Medications Medication Instructions Recorded Confirmed calcium-vitamin D3-vitamin K 500 1 tab PO DAILY 02/14/20 01/16/21 mg-100 unit-40 mcg chewable tablet cholecalciferol (vitamin D3) 25 25 mcg PO DAILY 02/14/20 01/16/21 mcg (1,000 unit) capsule multivitamin with minerals-folic tab PO 03/07/20 01/16/21 acid 0.4 mg tablet (One Daily Womens 50 Plus) artifi.tears(hypromellose)(PF) 0.3 1 drp OPHTHALMIC (EYE) Q2-4H PRN 12/24/20 01/16/21 % eye drops Previous Rx's Medication Instructions Recorded methylcellulose (laxative) 500 mg 500 mg PO DAILY #30 tab 12/24/20 tablet (Citrucel) lorazepam 0.5 mg tablet 0.5 mg PO DAILY PRN #90 tab 12/31/20 zolpidem 10 mg tablet 10 mg PO BEDTIME #90 tab 12/31/20 sennosides 8.6 mg tablet (Natural 8.6 mg PO DAILY #30 tab 01/07/21 Senna Laxative) Allergies Allergy/AdvReac Type Severity Reaction Status Date / Time No Known Allergies Allergy Verified 01/16/21 13:27 Review of Systems Review of Systems: Yes all other systems are reviewed and are negative ON LICENSE OF [facility] Past Medical History ON LICENSE OF [facility] Narrative: Social history: The patient denies tobacco use. She is a former smoker and stop smoking in 2000. She believes that she smoked for 30 years. She occasionally drinks alcohol. She denies drug use. Medical History Anxiety Back pain Chronic constipation Epidermal cyst Ganglion cyst of finger Surgical History No pertinent past surgical history Family History Family History Father No problems noted. Mother No problems noted. Social History [facility] Alcohol intake: current Alcohol intake frequency: holidays/special occasions only Patient Tobacco Use Status: Former Tobacco user Tobacco use type: Cigarette e-Cigarette/Vaping Use: Never Used Second Hand Smoke Exposure: No Advance Directives: No service: No Current occupational status: retired Physical Exam Vital Signs: Vital Signs: Last Vital Signs Temp 98.3 F 01/18/21 17:21 Pulse 71 01/18/21 17:21 Resp 18 01/18/21 17:21 BP 166/89 H 01/18/21 17:21 Pulse Ox 98 01/18/21 17:21 Body Mass Index 24.2 Const: General: cooperative and no acute distress Orientation/consciousness: oriented to person and oriented to place Limitations: no limitations HENMT: Head: Yes normal to inspection, Yes normocephalic and Yes atraumatic Ears: external ears normal General nose exam: Normal external nose present Face and sinus: Yes normal facial exam Mouth: Normal oral and palatal mucosa present Throat: Yes posterior oropharynx normal Eyes: General: appearance normal, both eyes and all related structures Pupils: Equal, round and reactive pupils present Neck: Neck: Yes normal visual inspection, Yes no lymphadenopathy, Yes trachea midline and Yes supple Chest: Chest palpation & inspection: normal inspection of the chest and normal palpation of entire chest wall Resp: Effort & Inspection: normal respiratory effort and able to speak in complete sentences Auscultation: clear to auscultation bilaterally Cardio: Rate: regular rate Rhythm: regular rhythm Heart sounds: S1 normal heart sound present, S2 normal heart sound present and no murmurs GI: Inspection: Yes normal to inspection Palpation (GI): Soft to palpation, nontender and no guarding Auscultation: normal bowel sounds : General: Yes no CVA tenderness Back/Spine/Pelvis: Back: no CVA tenderness Skin: General skin exam: no rashes or lesions noted Neuro: General: oriented to person and oriented to place Cranial nerves: Yes CN's II-XII intact bilaterally and Yes Equal, round and reactive pupils present Cognition (Neuro): normal cognition Motor exam (neuro): 5/5 motor strength present throughout Sensory Exam: other (Normal light touch to both lower extremities) Extrem: General: Yes normal to inspection Psych: Appearance: grossly normal Speech and movement: Normal speech and movement present Affect: normal affect Attitude: cooperative Thought process: Normal thought process present Thought content: Normal thought content present Course Course Course Narrative: 75-year-old female who presents emergency department for evaluation of weakness of her lower extremities x6 days. The patient has been having issues with her bowels and is currently taking fiber supplements, Senokot and is on a gluten free diet. She states that she has no difficulty walking but feels that her legs are weak especially if she standing in the shower. The patient's physical examination revealed a normal neurologic exam with normal strength of her lower extremities and normal light touch. At this time I do not have a clear etiology for the patient's perceived weakness but I will check a CBC and electrolytes to make sure that there is no electrolyte abnormality causing the symptoms. 2023: The patient's laboratory evaluation was unremarkable. At this time I do not have a clear etiology for the patient's symptoms. I advised the patient to stay on her recommendations from her GI doctor. I told her however if her weakness and got worse to the point where she is having difficulty walking or falling or if she develops numbness or weakness in other parts of her body then she should return to the emergency department otherwise she should follow-up with her PCP for re-evaluation. Medical Decision Making Lab Data Result diagrams: 01/18/21 18:13 01/18/21 18:14 Labs: Lab Results 01/18/21 01/18/21 01/18/21 Range/Units 18:13 18:13 18:14 WBC 7.5 (4.8-10.8) X10*3/uL RBC 4.58 (4.20-5.50) X10*6/uL Hgb 13.8 (12.0-16.0) g/dl Hct 42.7 (37-47) % MCV 93.2 (80-98) fL MCH 30.1 (27.0-33.0) pg MCHC 32.3 (31.0-35.0) g/dl RDW 13.1 (11.0-16.0) % Plt Count 312 (160-400) X10*3/uL MPV 9.3 L (9.4-12.3) fL Immature Gran % (Auto) 0.3 (0.0-0.4) % Neut % (Auto) 74.6 H (45-73) % Lymph % (Auto) 19.6 L (20-40) % [place]ell % (Auto) 4.7 (2-11) % Eos % (Auto) 0.7 (0-4) % Baso % (Auto) 0.1 (0-2) % Lymph # (Auto) 1.5 (1.2-4.9) X10*3/uL [place]ell # (Auto) 0.4 (0.1-1.2) X10*3/uL Eos # (Auto) 0.1 (0.0-0.4) X10*3/uL Baso # (Auto) 0.0 (0.0-0.2) X10*3/uL Abs Immat Gran (auto) 0.02 (0.00-0.03) X10*3/uL Absolute Neuts (auto) 5.6 (2.0-8.3) X10*3/uL Absolute Nucleated RBC 0.000 (0.0-0.012) X10*3/uL Nucleated RBC % (auto) 0.0 (0.0-0.2) /100WBC Sodium 143 (135-145) mmol/L Potassium 4.2 (3.3-5.1) mmol/L Chloride 106 (96-108) mmol/L Carbon Dioxide 30 H (22-29) mmol/L Anion Gap 11 L (12-20) BUN 7 L (9-16) mg/dL Creatinine 0.78 (0.5-1.4) mg/dL Estim Creat Clear Calc 58.3 Estimated GFR > 60 Random Glucose 111 (60-115) mg/dL Calcium 10.0 (8.4-10.2) mg/dL Magnesium 2.3 (1.6-2.6) mg/dL Total Bilirubin 0.5 (0.0-1.0) mg/dL AST 16 (5-31) U/L ALT 16 (0-31) U/L Alkaline Phosphatase 60 (39-117) U/L Total Protein 7.0 (6.5-8.0) g/dL Albumin 4.3 (3.5-5.0) g/dL Lipase 20 (8-78) U/L Discharge Plan Discharge Clinical Impression: Bilateral leg weakness Patient Disposition: Home, Self-Care Additional Instructions: On your physical examination you have normal sensation and normal strength of your legs which is reassuring. We did a complete blood count and comprehensive metabolic panel and magnesium level on you. All of these tests were normal which is reassuring. I do not have a clear cause for your weakness in your legs but I think it is okay to send you home. If the weakness gets worse to the point where having trouble walking or your falling or if she started developed numbness in your legs or numbness or weakness in your arms then please return to the emergency department so we can re-evaluate you. Follow-up with your doctor in 2 days. Please return to the emergency department if your symptoms get worse or if you develop any symptoms that are concerning to you. Prescriptions: No Action lorazepam 0.5 mg tablet 0.5 mg PO DAILY PRN (Reason: agitation) Qty: 90 RF: 5 zolpidem 10 mg tablet 10 mg PO BEDTIME Qty: 90 RF: 5 sennosides [Natural Senna Laxative] 8.6 mg tablet 8.6 mg PO DAILY Qty: 30 RF: 2 calcium-vitamin D3-vitamin K 500-100-40 mg-unit-mcg tablet,chewable 1 tab PO DAILY RF: 0 cholecalciferol (vitamin D3) 25 mcg (1,000 unit) capsule 25 mcg PO DAILY RF: 0 One Daily Womens 50 Plus 0.4 mg tablet PO RF: 0 artifi.tears(hypromellose)(PF) 0.3 % drops 1 drp ophthalmic (eye) Q2-4H PRNRF: 0 Citrucel 500 mg tablet 500 mg PO DAILY Qty: 30 RF: 2
[2021-01-18 18:18] LABS: MANUAL DIFF FLAG NO
[2021-01-18 18:37] LABS: Basophils Percent Auto 0.1 % (0-2); Eosinophils Absolute Auto 0.1 X10*3/uL (0.0-0.4); Eosinophils Percent Auto 0.7 % (0-4); Hematocrit 42.7 % (37-47); Hemoglobin 13.8 g/dl (12.0-16.0); Imm Gran Abs Auto 0.02 X10*3/uL (0.00-0.03); Imm Gran Pct Auto 0.3 % (0.0-0.4); Lymphocytes Absolute Auto 1.5 X10*3/uL (1.2-4.9); Lymphocytes Percent Auto 19.6 % (20-40); Mean Corpuscular HGB Conc 32.3 g/dl (31.0-35.0); Mean Corpuscular Hemoglobin 30.1 pg (27.0-33.0); Mean Corpuscular Volume 93.2 fL (80-98); Mean Platelet Volume 9.3 fL (9.4-12.3); Monocytes Absolute Auto 0.4 X10*3/uL (0.1-1.2); Monocytes Percent Auto 4.7 % (2-11); Neutrophils Absolute Auto 5.6 X10*3/uL (2.0-8.3); Neutrophils Percent Auto 74.6 % (45-73); Platelet Count 312 X10*3/uL (160-400); Red Blood Count 4.58 X10*6/uL (4.20-5.50); Red Cell Distribution Width 13.1 % (11.0-16.0); White Blood Count 7.5 X10*3/uL (4.8-10.8)
[2021-01-18 18:42] LABS: Magnesium 2.3 mg/dL (1.6-2.6)
[2021-01-18 18:44] LABS: Alanine Aminotransferase 16 U/L (0-31); Albumin Level 4.3 g/dL (3.5-5.0); Alkaline Phosphatase 60 U/L (39-117); Anion Gap 11 (12-20); Aspartate Amino Transferase 16 U/L (5-31); Bilirubin Total 0.5 mg/dL (0.0-1.0); Blood Urea Nitrogen 7 mg/dL (9-16); Carbon Dioxide 30 mmol/L (22-29); Chloride 106 mmol/L (96-108); Creatinine Clr Calc Pharmacy 58.3; Estimated Glomerular Filt Rate > 60; Glucose Random 111 mg/dL (60-115); Lipase 20 U/L (8-78); Potassium 4.2 mmol/L (3.3-5.1); Sodium 143 mmol/L (135-145)
[2021-01-18 20:29] VITALS: BP 150/88; PULSE 66; RESP 16; O2SAT 96
== END 2021-01-18 20:32 | disposition home or self-care (01) ==
PROVIDERS: Emergency Provider Emergency Medicine Emergency Medical Services; PCP Internal Medicine
DX: R53.1 Weakness (principal)
CPT/HCPCS: 36415; 80053; 83690; 83735; 85025; 99283; 99284

== ENCOUNTER → 2021-01-28 09:01 | Outpatient (BNVA) | payer MEDICARE, SELFPAY | PROVIDERS: PCP Internal Medicine; Visit Provider Nurse Practitioner Family | DX: K58.2 Mixed irritable bowel syndrome (principal); K59.00 Constipation, unspecified; K64.9 Unspecified hemorrhoids; R19.7 Diarrhea, unspecified | CPT/HCPCS: Q3014 ==

== ENCOUNTER 2021-02-13 12:22 | Emergency (ER) | payer MEDICARE, SELFPAY ==
--- NOTE | ~2021-02-13 | CT_ITS ---
EXAMINATION: CT SINUS WITHOUT CONTRAST CLINICAL INFORMATION: Head pressure COMPARISON: None TECHNIQUE: Axial images obtained through the sinuses. Coronal and sagittal reformatted images are performed at the CT scanner. This CT examination was performed using dose optimization techniques as appropriate, variously including the following: *Automated exposure control *Adjustment of mA and/or kV according to patient size (this includes techniques or standardized protocols for targeted exams where dose is matched to indication/reason for exam; i.e. extremities or head) *Use of iterative reconstruction technique DLP: 90.07 mGy-cm FINDINGS: FRONTAL SINUSES AND DRAINAGE PATHWAYS: Normal. MAXILLARY SINUSES AND DRAINAGE PATHWAYS: Normal. The infundibula are patent. ETHMOID SINUSES: Normal. No mucosal thickening or fluid collection. SPHENOID SINUSES AND DRAINAGE PATHWAYS: Normal. The sphenoid ostia are patent. NASAL CAVITY/NASOPHARYNX: The nasal cavity is clear. There is no nasal septal deviation/spurring. The nasopharynx is symmetric. Orbits and retrobulbar structures are unremarkable. TMJ joints are normal. CT/CT sinus wo con IMPRESSION: Normal paranasal sinuses.
--- NOTE | ~2021-02-13 | CT_ITS ---
EXAMINATION: CT HEAD WITHOUT CONTRAST CLINICAL INFORMATION: Head pressure. COMPARISON: None TECHNIQUE: Contiguous axial imaging was performed from the skull base to vertex without intravenous administration of contrast. Coronal and sagittal reformatted images are performed at CT scanner This CT examination was performed using dose optimization techniques as appropriate, variously including the following: *Automated exposure control *Adjustment of mA and/or kV according to patient size (this includes techniques or standardized protocols for targeted exams where dose is matched to indication/reason for exam; i.e. extremities or head) *Use of iterative reconstruction technique DLP: 642.91 mGy-cm FINDINGS: There is no evidence of acute intracranial hemorrhage or territorial infarction. No abnormal mass effect or midline shift is seen. [place] to white matter differentiation is well preserved. No extra-axial fluid collections are identified. There is generalized global volume loss. There is moderate prominence of the ventricles and the sulci . There is mild hypodensity of the periventricular white matter due to chronic small vessel ischemic disease. There are vascular calcifications of the internal carotid arteries bilaterally. The osseous structures and soft tissues are normal. The mastoid air cells and visualized portions of the paranasal sinuses are well aerated. CT/CT head/brain wo con IMPRESSION: No acute intracranial pathology.
[2021-02-13 12:43] VITALS: BP 126/84; PULSE 65; RESP 18; TEMP 36.8; O2SAT 97; BMI 23.5
[2021-02-13 13:10] LABS: COVID-19 Test Negative (Negative)
--- NOTE | 2021-02-13 21:03 | ED.GENADULT ---
HPI - General Adult General Chief complaint: Headache Stated complaint: head pressure Time Seen by Provider: 02/13/21 17:35 Source: patient Limitations: no limitations History of Present Illness HPI narrative: This is a 75-year-old female who complains of a feeling of pressure in her head for the last few days. She notes it is worse when she is in certain positions or when she turns her head. She does have a history of sinusitis and does have some pressure in sinuses. She has a feeling of pressure especially in her forehead. She denies any nausea vomiting. She denies any neck pain. She denies any fever. She notes that the pressure feeling is much worse when she is lying down. She has had sensation of seeing spots in her vision. She denies any history of migraines. She said it is not a headache per se that she has been more of a feeling of pressure. She notes she did take lorazepam this morning, does not take it every day. Related Data Home Medications Medication Instructions Recorded Confirmed calcium-vitamin D3-vitamin K 500 1 tab PO DAILY 02/14/20 02/10/21 mg-100 unit-40 mcg chewable tablet cholecalciferol (vitamin D3) 25 25 mcg PO DAILY 02/14/20 02/10/21 mcg (1,000 unit) capsule multivitamin with minerals-folic tab PO 03/07/20 02/10/21 acid 0.4 mg tablet (One Daily Womens 50 Plus) artifi.tears(hypromellose)(PF) 0.3 1 drp OPHTHALMIC (EYE) Q2-4H PRN 12/24/20 02/10/21 % eye drops polyethylene glycol 3350 17 17 g PO DAILY 02/10/21 02/10/21 gram/dose oral powder (Miralax) Previous Rx's Medication Instructions Recorded lorazepam 0.5 mg tablet 0.5 mg PO DAILY PRN #90 tab 12/31/20 zolpidem 10 mg tablet 10 mg PO BEDTIME #90 tab 12/31/20 sennosides 8.6 mg tablet (Natural 8.6 mg PO DAILY #30 tab 01/07/21 Senna Laxative) methylcellulose (laxative) 500 mg 500 mg PO BID #60 tab 01/21/21 tablet (Citrucel) hydrocortisone 2.5 % topical cream 1 appl SC BID PRN #30 g 01/28/21 with perineal applicator (Proctosol HC) fluticasone propionate 50 2 spray INTRANASAL DAILY #16 g 02/13/21 mcg/actuation nasal spray,suspension (Children's Flonase Allergy Relief) Allergies Allergy/AdvReac Type Severity Reaction Status Date / Time No Known Allergies Allergy Verified 02/13/21 12:43 Review of Systems Review of Systems: Yes all other systems are reviewed and are negative Constitutional: Constitutional: Reports as per HPI, Denies chills and Denies fever(s) Eyes: Eyes: Reports as per HPI ENT: Denies nasal congestion Cardiovascular: Cardiovascular: Reports no additional cardiovascular complaints Respiratory: Respiratory: Reports no additional respiratory complaints Gastrointestinal: Gastrointestinal: Denies nausea and Denies vomiting Neurologic: Denies Sensory deficit (Neuro) [facility] Past Medical History Medical History Anxiety Back pain Chronic constipation Epidermal cyst Ganglion cyst of finger Surgical History No pertinent past surgical history Family History Family History Father No problems noted. Mother No problems noted. Social History Social History Housing: Condominium Alcohol intake: current Alcohol intake frequency: holidays/special occasions only Patient Tobacco Use Status: Former Tobacco user Tobacco use type: Cigarette e-Cigarette/Vaping Use: Never Used Second Hand Smoke Exposure: No Advance Directives: No Advance Directives Information Provided: No service: No Current occupational status: retired Physical Exam Vital Signs: Vital Signs: Last Vital Signs Temp 98.3 F 02/13/21 12:43 Pulse 65 02/13/21 12:43 Resp 18 02/13/21 12:43 BP 126/84 02/13/21 12:43 Pulse Ox 97 02/13/21 12:43 Body Mass Index 23.5 Const: Other: Patient no distress, sitting up on edge of the gurney, polite General: cooperative, no acute distress and alert Orientation/consciousness: patient oriented x3 HENMT: Head: Yes normal to inspection Face and sinus: Yes other (No tenderness over the frontal or maxillary sinuses. No temporal tendernes) Eyes: General: appearance normal, both eyes and all related structures Eyelids: Yes eyelids normal Conjunctivae: conjunctivae normal Pupils: Equal, round and reactive pupils present Neck: Neck: Yes normal visual inspection and Yes supple Chest: Chest palpation & inspection: normal inspection of the chest Resp: Effort & Inspection: normal respiratory effort Auscultation: clear to auscultation bilaterally Cardio: Rate: regular rate Rhythm: regular rhythm Heart sounds: S1 normal heart sound present, S2 normal heart sound present, no gallops, no murmurs and no rubs GI: Palpation (GI): Soft to palpation, nontender and Other GI palpation findings present (Non-distended) Auscultation: normal bowel sounds Skin: General skin exam: no rashes or lesions noted Neuro: General: patient oriented x3, no focal motor deficits and CN's II-XI intact bilaterally Cranial nerves: Yes Equal, round and reactive pupils present Cognition (Neuro): normal cognition Motor exam (neuro): 5/5 motor strength present throughout Sensory Exam: No Sensory deficit (Neuro) Extrem: General: Yes normal to inspection and Yes no pedal edema Psych: Appearance: grossly normal Affect: normal affect Medical Decision Making MDM Narrative Medical decision making narrative: Patient with complaints of pressure in her head, feeling like her sinuses are blocked, not responding to saline drops. Patient seems perhaps mildly demented, but is polite and thankful. Patient reassured that her brain and sinus CTs were negative. Patient seems to have some anxiety component. Will treat with Flonase to see if that helps her symptoms, patient is safe for outpatient follow-up with her primary care physician Lab Data Labs: Lab Results 02/13/21 Range/Units 12:48 COVID-19 (SAEED) Negative (Negative) COVID-19 Clin Com See Note Imaging Data CT scan - head: Radiologist's impression: FINDINGS: There is no evidence of acute intracranial hemorrhage or territorial infarction. No abnormal mass effect or midline shift is seen. [place] to white matter differentiation is well preserved. No extra-axial fluid collections are identified. There is generalized global volume loss. There is moderate prominence of the ventricles and the sulci . There is mild hypodensity of the periventricular white matter due to chronic small vessel ischemic disease. There are vascular calcifications of the internal carotid arteries bilaterally. The osseous structures and soft tissues are normal. The mastoid air cells and visualized portions of the paranasal sinuses are well aerated. ? CT/CT head/brain wo con IMPRESSION: No acute intracranial pathology. CT sinuses: Radiologist's impression: ?IMPRESSION: Normal paranasal sinuses.? ? Discharge Plan Discharge Clinical Impression: Sinus pressure Patient Disposition: Home, Self-Care Instructions: Acute Headache (ED) Additional Instructions: Try the Flonase as prescribed. [facility]. Prescriptions: New fluticasone propionate [Children's Flonase Allergy Rlf] 50 mcg/actuation spray,suspension 2 spray intranasal DAILY Qty: 16 RF: 0 No Action lorazepam 0.5 mg tablet 0.5 mg PO DAILY PRN (Reason: agitation) Qty: 90 RF: 5 zolpidem 10 mg tablet 10 mg PO BEDTIME Qty: 90 RF: 5 sennosides [Natural Senna Laxative] 8.6 mg tablet 8.6 mg PO DAILY Qty: 30 RF: 2 Citrucel 500 mg tablet 500 mg PO BID Qty: 60 RF: 2 calcium-vitamin D3-vitamin K 500-100-40 mg-unit-mcg tablet,chewable 1 tab PO DAILY RF: 0 cholecalciferol (vitamin D3) 25 mcg (1,000 unit) capsule 25 mcg PO DAILY RF: 0 polyethylene glycol 3350 [Miralax] 17 gram/dose powder 17 g PO DAILY RF: 0 hydrocortisone [Proctosol HC] 2.5 % cream with perineal applicator 1 appl SC BID PRN (Reason: hemorrhoids) Qty: 30 RF: 0 One Daily Womens 50 Plus 0.4 mg tablet PO RF: 0 artifi.tears(hypromellose)(PF) 0.3 % drops 1 drp ophthalmic (eye) Q2-4H PRNRF: 0
[2021-02-13] MEDS: LORazepam 0.5 MG TABLET PO (21:07)
[2021-02-13 22:00] VITALS: BP 142/89; PULSE 72; RESP 18; TEMP 36.4; O2SAT 95
--- NOTE | 2021-02-13 22:28 | PC.NURSE ---
pt a&o , no sob or chest pain. pt reports improvement of headache. pt denies any dizziness or lightheadedness. pt has a stable gait. Plan is to discharge home.
== END 2021-02-13 23:02 | disposition home or self-care (01) ==
PROVIDERS: Emergency Provider Emergency Medicine; PCP Internal Medicine
DX: J34.89 Other specified disorders of nose and nasal sinuses (principal); Z20.822 Contact with and (suspected) exposure to COVID-19
CPT/HCPCS: 36415; 70450; 70486; 87635; 99284

== ENCOUNTER 2021-02-15 14:13 | Emergency (ER) | payer MEDICARE, SELFPAY ==
[2021-02-15 15:20] VITALS: BP 143/77; PULSE 65; RESP 16; TEMP 37; O2SAT 97; BMI 23.5
[2021-02-15 18:01] VITALS: BP 155/74; PULSE 57
--- NOTE | 2021-02-15 18:01 | ECG_ITS ---
Test Reason : HEADACHE Blood Pressure : / mmHG Vent. Rate : 061 BPM Atrial Rate : 061 BPM P-R Int : 190 ms QRS Dur : 070 ms QT Int : 418 ms P-R-T Axes : 038 017 022 degrees QTc Int : 420 ms Sinus rhythm with Premature supraventricular complexes Otherwise normal ECG No previous ECGs available Referred By: Lyndsay Asencio Electronically Signed By:JOVITA AYALA MD
[2021-02-15 18:02] VITALS: BP 146/80; PULSE 73
[2021-02-15 18:03] VITALS: BP 146/85; PULSE 72
[2021-02-15 18:04] VITALS: RESP 17; O2SAT 99
[2021-02-15] MEDS: 0.9 % Sodium Chloride 1,000 ML 999 ML IV (18:22)
[2021-02-15 18:28] LABS: MANUAL DIFF FLAG NO
[2021-02-15] MEDS: Acetaminophen 325 MG TABLET 650 MG PO (18:28)
[2021-02-15 18:30] LABS: Basophils Percent Auto 0.3 % (0-2); Eosinophils Absolute Auto 0.1 X10*3/uL (0.0-0.4); Eosinophils Percent Auto 1.5 % (0-4); Hematocrit 43.7 % (37-47); Hemoglobin 14.6 g/dl (12.0-16.0); Imm Gran Abs Auto 0.01 X10*3/uL (0.00-0.03); Imm Gran Pct Auto 0.1 % (0.0-0.4); Lymphocytes Absolute Auto 1.7 X10*3/uL (1.2-4.9); Lymphocytes Percent Auto 25.6 % (20-40); Mean Corpuscular HGB Conc 33.4 g/dl (31.0-35.0); Mean Corpuscular Hemoglobin 30.5 pg (27.0-33.0); Mean Corpuscular Volume 91.2 fL (80-98); Mean Platelet Volume 9.1 fL (9.4-12.3); Monocytes Absolute Auto 0.4 X10*3/uL (0.1-1.2); Neutrophils Absolute Auto 4.4 X10*3/uL (2.0-8.3); Neutrophils Percent Auto 66.5 % (45-73); Platelet Count 320 X10*3/uL (160-400); Red Blood Count 4.79 X10*6/uL (4.20-5.50); Red Cell Distribution Width 12.8 % (11.0-16.0); White Blood Count 6.7 X10*3/uL (4.8-10.8)
--- NOTE | 2021-02-15 18:41 | ED_ITS ---
HPI - General Adult General Chief complaint: Headache Stated complaint: headache, blurred vision Time Seen by Provider: 02/15/21 16:27 Source: patient Mode of arrival: ambulatory Limitations: no limitations History of Present Illness HPI narrative: 75-year-old female presents with complaints of pressure in her head during bowel movements and seeing white spots during bowel movements. States when she stands up she gets lightheaded, and feels that her sinuses become full.. These symptoms have been going on for 2 days, but today at 11:30 a.m. she felt more lightheaded than usual and her headache was worse. States her headache has common gone since when she was seen in the ER. On February 13, two days ago, she was seen in the emergency department, and had a normal head CT and a normal sinus CT, and was diagnosed with sinus pressure and given Flonase, which she has been using. On February 10 she saw her PCP for multiple complaints of dizziness and seeing spots. States she became very nervous and took lorazepam at noon today. States she has been having more bowel movements than normal today. She is on fiber to bulk up her stool, but she had 6 bowel movements today, all of which were normal, no diarrhea, no dark, tarry, or bloody stool. complaint: headche Onset (ago): day(s) (3) Location: head Radiation: non-radiation Severity: mild Severity scale (1-10): 3 Quality: aching Pain Consistency: intermittent Relieving factors: medication Exacerbating factors: movement Associated symptoms: denies other symptoms Treatments prior to arrival: other (tylenol this morning) Related Data Home Medications Medication Instructions Recorded Confirmed calcium-vitamin D3-vitamin K 500 1 tab PO DAILY 02/14/20 02/10/21 mg-100 unit-40 mcg chewable tablet cholecalciferol (vitamin D3) 25 25 mcg PO DAILY 02/14/20 02/10/21 mcg (1,000 unit) capsule multivitamin with minerals-folic tab PO 03/07/20 02/10/21 acid 0.4 mg tablet (One Daily Womens 50 Plus) artifi.tears(hypromellose)(PF) 0.3 1 drp OPHTHALMIC (EYE) Q2-4H PRN 12/24/20 02/10/21 % eye drops polyethylene glycol 3350 17 17 g PO DAILY 02/10/21 02/10/21 gram/dose oral powder (Miralax) Previous Rx's Medication Instructions Recorded lorazepam 0.5 mg tablet 0.5 mg PO DAILY PRN #90 tab 12/31/20 zolpidem 10 mg tablet 10 mg PO BEDTIME #90 tab 12/31/20 sennosides 8.6 mg tablet (Natural 8.6 mg PO DAILY #30 tab 01/07/21 Senna Laxative) methylcellulose (laxative) 500 mg 500 mg PO BID #60 tab 01/21/21 tablet (Citrucel) hydrocortisone 2.5 % topical cream 1 appl LA BID PRN #30 g 01/28/21 with perineal applicator (Proctosol HC) fluticasone propionate 50 2 spray INTRANASAL DAILY #16 g 02/13/21 mcg/actuation nasal spray,suspension (Children's Flonase Allergy Relief) amoxicillin 875 mg-potassium 1 tab PO BID 10 Days #20 tab 02/15/21 clavulanate 125 mg tablet (Augmentin) Allergies Allergy/AdvReac Type Severity Reaction Status Date / Time No Known Allergies Allergy Verified 02/13/21 12:43 Review of Systems Constitutional: Constitutional: Denies anorexia, Denies body ache(s), Denies chills, Denies fatigue, Denies fever(s), Reports headache(s), Denies malaise, Denies poor appetite and Denies weakness Eyes: Eyes: Denies blurry vision, Denies diplopia and Reports spots in vision ENT: Denies vertigo, Reports dizziness, Denies otalgia, Denies facial pain, Reports headache(s), Denies mouth pain, Reports nasal congestion, Denies nasal discharge, Denies post nasal drip, Reports sinus pain, Reports sinus pressure and Denies sore throat Cardiovascular: Cardiovascular: Denies chest pain, Denies syncope, Denies leg edema, Reports lightheadedness, Denies Loss of Consciousness, Denies palpitations and Denies dyspnea Respiratory: Respiratory: Denies chest congestion, Denies cough and Denies dyspnea Gastrointestinal: Gastrointestinal: Denies abdominal pain, Denies hematochezia, Denies constipation, Denies diarrhea and Denies vomiting Comments: Frequent stools Musculoskeletal: Musculoskeletal: Reports no additional musculoskeletal complaints Integumentary/Breasts: Skin/Breast: Reports rash (Around the anus) Neurologic: Denies Abnormal speech present, Denies confusion, Denies vertigo, Reports dizziness, Denies syncope, Reports headache(s), Denies Sensory deficit (Neuro) and Denies weakness Psychiatric: Psychiatric: Reports anxiety, Denies confusion and Denies depression Endocrine: Endocrine: Denies fatigue and Denies palpitations PMFSH Past Medical History Medical History Anxiety Back pain Chronic constipation Epidermal cyst Ganglion cyst of finger Surgical History No pertinent past surgical history Family History Family History Father No problems noted. Mother No problems noted. Social History Social History Housing: [facility] Alcohol intake: never Patient Tobacco Use Status: Former Tobacco user Tobacco use type: Cigarette e-Cigarette/Vaping Use: Never Used Second Hand Smoke Exposure: No Use of substances other than those prescribed or required for medical reasons: No Advance Directives: No Advance Directives Information Provided: No service: No Current occupational status: retired Physical Exam Vital Signs: Vital Signs: Last Vital Signs Temp 98.8 F 02/15/21 19: Pulse 62 02/15/21 19:01 Resp 16 02/15/21 19:01 BP 132/61 02/15/21 19: Pulse Ox 99 02/15/21 19:01 Body Mass Index 23.5 Const: General: no acute distress, alert and awake; No confusion Nutritional Appearance: well nourished Orientation/consciousness: patient oriented x3 and No confusion Limitations: no limitations HENMT: Head: Yes normal to inspection, Yes normocephalic and Yes atraumatic Ears: hearing grossly normal bilaterally, external ears normal and Abnormal EAC present excessive cerumen bilateral General nose exam: Normal external nose present Face and sinus: Yes normal facial exam, No sinuses nontender and Yes sinus tenderness (Frontal) Mouth: Normal oral and palatal mucosa present Throat: Yes posterior oropharynx normal Eyes: Conjunctivae: conjunctivae normal Pupils: Equal, round and reactive pupils present EOM: EOMs intact bilaterally and No Nystagmus present Neck: Neck: Yes full ROM, Yes no lymphadenopathy and Yes supple Resp: Effort & Inspection: normal respiratory effort and able to speak in complete sentences Auscultation: clear to auscultation bilaterally, no crackles, no rales, no rhonchi and no wheezes Cardio: Rate: regular rate Rhythm: regular rhythm Heart sounds: S1 normal heart sound present and S2 normal heart sound present GI: Inspection: Yes normal to inspection Palpation (GI): Soft to palpation, nontender, no guarding and not rigid Percussion: Yes normal to percussion Auscultation: normal bowel sounds Rectal Exam - Female: External hemorrhoid(s) present, No Lesions present (GI), No Anal fissure(s) present, hemorrhoids and No tenderness Skin: Other: Erythema around anus Neuro: General: patient oriented x3 and No confusion Cranial nerves: Yes CN's II-XII intact bilaterally, Yes Facial sensation intact/muscles of mastication intact, Yes Equal, round and reactive pupils present, Yes Normal accommodation reflex present, Yes Bilaterally intact EOM present, Yes Normal f acial strength present, Yes Midline tongue present, Yes Ability to bilaterally rotate head present, Yes Ability to bilaterally elevate shoulders present and No Nystagmus present Cognition (Neuro): normal cognition Speech: No Abnormal speech present Gait exam (Neuro): Normal gait present Motor exam (neuro): 5/5 motor strength present throughout and Pronator motor function not present Sensory Exam: No Sensory deficit (Neuro) Deep tendon reflexes (DTR's): Right patellar reflex intensity grade: 1+ and Left patellar reflex intensity grade: 1+ Coordination: [id number] test normal, [id number] test normal, tandem gait normal, does not sway with eyes open and Normal rapid alternating movements of the distal upper extremity present (Neuro) Romberg Test: Negative Pupils: Normal pupillary reactivity/response: bilateral Extrem: General: Yes normal to inspection and Yes full ROM Psych: Appearance: grossly normal Affect: normal affect Attitude: cooperative Thought process: Normal thought process present Course Course Course Narrative: 75-year-old female with a past medical history of constipation and anxiety presents for a headache today when standing up. Patient has had several days feeling full in her head, visual complaints, and feeling lightheaded after a bowel movement. Patient states she had many stools today and her anus is sore. On exam, patient has a normal neurological exam, she can walk. Patient is tender over her frontal sinuses to palpation. She has hemorrhoids that are not swollen or tender, but she does have redness around her anus. Patient had a normal head CT and sinus CT 2 days ago. Discussed utility of more imaging with Dr. Woodson, decided against another CT; we will get labs, ekg, check troponin. Patient's orthostatics are negative. Patient's EKG shows sinus at a rate of 61, no ST depressions or elevations. Reevaluation(s) Reevaluation #1: Labs within normal limits, a troponin 7.6 with symptoms that have gone on for at least 2 days. Patient's friend is at bedside and reminds her that she was treated with a Z-Richar for sinusitis 1 month ago. Patient is feeling better with Tylenol and fluids. States her headache has resolved completely. Will treat with Augmentin, told patient to use Desitin diaper cream for her sore anus. Counseled patient to follow-up with her primary care provider. Medical Decision Making Lab Data Result diagrams: 02/15/21 18:13 02/15/21 18:13 Labs: Lab Results 02/15/21 02/15/21 02/15/21 Range/Units 18:13 18:13 18:13 WBC 6.7 (4.8-10.8) X10*3/uL RBC 4.79 (4.20-5.50) X10*6/uL Hgb 14.6 (12.0-16.0) g/dl Hct 43.7 (37-47) % MCV 91.2 (80-98) fL MCH 30.5 (27.0-33.0) pg MCHC 33.4 (31.0-35.0) g/dl RDW 12.8 (11.0-16.0) % Plt Count 320 (160-400) X10*3/uL MPV 9.1 L (9.4-12.3) fL Immature Gran % (Auto) 0.1 (0.0-0.4) % Neut % (Auto) 66.5 (45-73) % Lymph % (Auto) 25.6 (20-40) % Henry % (Auto) 6.0 (2-11) % Eos % (Auto) 1.5 (0-4) % Baso % (Auto) 0.3 (0-2) % Lymph # (Auto) 1.7 (1.2-4.9) X10*3/uL Henry # (Auto) 0.4 (0.1-1.2) X10*3/uL Eos # (Auto) 0.1 (0.0-0.4) X10*3/uL Baso # (Auto) 0.0 (0.0-0.2) X10*3/uL Abs Immat Gran (auto) 0.01 (0.00-0.03) X10*3/uL Absolute Neuts (auto) 4.4 (2.0-8.3) X10*3/uL Absolute Nucleated RBC 0.000 (0.0-0.012) X10*3/uL Nucleated RBC % (auto) 0.0 (0.0-0.2) /100WBC Sodium 141 (135-145) mmol/L Potassium 3.7 (3.3-5.1) mmol/L Chloride 104 (96-108) mmol/L Carbon Dioxide 28 (22-29) mmol/L Anion Gap 13 (12-20) BUN 6 L (9-16) mg/dL Creatinine 0.77 (0.5-1.4) mg/dL Estim Creat Clear Calc 61.4 Estimated GFR > 60 Random Glucose 98 (60-115) mg/dL Calcium 10.1 (8.4-10.2) mg/dL Total Bilirubin 0.9 (0.0-1.0) mg/dL AST 21 (5-31) U/L ALT 18 (0-31) U/L Alkaline Phosphatase 64 (39-117) U/L Troponin I High Sens 7.6 (<3.5-17.0) ng/L Total Protein 7.6 (6.5-8.0) g/dL Albumin 4.5 (3.5-5.0) g/dL ECG Data Interpretation: Normal sinus at a rate of 61, LA 190, QRS 70, QTC 420, normal axis, no ST depressions or ST elevations, T-wave inversion in lead V1. Otherwise normal EKG Discharge Plan Discharge Clinical Impression: Sinusitis Qualifiers: Sinusitis location: frontal Chronicity: acute Recurrence: non-recurrent Qualified Code(s): J01.10 - Acute frontal sinusitis, unspecified Patient Disposition: Home, Self-Care Instructions: Sinusitis (ED) Additional Instructions: Please fill the prescription for antibiotic and take it twice a day every 12 hours. Please start tonight. Please get [id number] diaper rash ointment, one brand I think works well as called Desitin. Apply that around your anus after a bowel movement. Please call your primary care provider for follow-up from today's emergency room visit on Wednesday. Please return to the emergency room if you have sudden worsening headache, changes in your ability to walk, weakness on 1 side of her body or the other, chest pain, shortness of breath, or any other new or concerning symptoms Prescriptions: New amoxicillin-pot clavulanate [Augmentin] 875-125 mg tablet 1 tab PO BID 10 Days Qty: 20 RF: 0 No Action lorazepam 0.5 mg tablet 0.5 mg PO DAILY PRN (Reason: agitation) Qty: 90 RF: 5 zolpidem 10 mg tablet 10 mg PO BEDTIME Qty: 90 RF: 5 sennosides [Natural Senna Laxative] 8.6 mg tablet 8.6 mg PO DAILY Qty: 30 RF: 2 Citrucel 500 mg tablet 500 mg PO BID Qty: 60 RF: 2 fluticasone propionate [Children's Flonase Allergy Rlf] 50 mcg/actuation spray,suspension 2 spray intranasal DAILY Qty: 16 RF: 0 calcium-vitamin D3-vitamin K 500-100-40 mg-unit-mcg tablet,chewable 1 tab PO DAILY RF: 0 cholecalciferol (vitamin D3) 25 mcg (1,000 unit) capsule 25 mcg PO DAILY RF: 0 polyethylene glycol 3350 [Miralax] 17 gram/dose powder 17 g PO DAILY RF: 0 hydrocortisone [Proctosol HC] 2.5 % cream with perineal applicator 1 appl LA BID PRN (Reason: hemorrhoids) Qty: 30 RF: 0 One Daily Womens 50 Plus 0.4 mg tablet PO RF: 0 artifi.tears(hypromellose)(PF) 0.3 % drops 1 drp ophthalmic (eye) Q2-4H PRNRF: 0
[2021-02-15 18:53] LABS: Alanine Aminotransferase 18 U/L (0-31); Albumin Level 4.5 g/dL (3.5-5.0); Alkaline Phosphatase 64 U/L (39-117); Anion Gap 13 (12-20); Aspartate Amino Transferase 21 U/L (5-31); Bilirubin Total 0.9 mg/dL (0.0-1.0); Blood Urea Nitrogen 6 mg/dL (9-16); Calcium 10.1 mg/dL (8.4-10.2); Carbon Dioxide 28 mmol/L (22-29); Chloride 104 mmol/L (96-108); Creatinine Clr Calc Pharmacy 61.4; Estimated Glomerular Filt Rate > 60; Glucose Random 98 mg/dL (60-115); Potassium 3.7 mmol/L (3.3-5.1); Sodium 141 mmol/L (135-145); Total Protein 7.6 g/dL (6.5-8.0)
[2021-02-15 18:55] LABS: Troponin-I High Sensitivity 7.6 ng/L (<3.5-17.0)
[2021-02-15 19:01] VITALS: BP 132/61; PULSE 62; RESP 16; TEMP 37.1; O2SAT 99
--- NOTE | 2021-02-15 19:05 | PC.NURSE ---
assumed care of pt. PT RESTING IN STRETCHER, ORTHO BEING OBTAINED. WILL CONTINUE TO MONITOR PT. PT AWAKE AND SITTING UP IN STRETCHER AND SPEAKING WITH FRIEND AT BEDSIDE.
== END 2021-02-15 19:53 | disposition home or self-care (01) ==
PROVIDERS: Physician Assistant; Emergency Provider Emergency Medicine; PCP Internal Medicine
DX: J01.10 Acute frontal sinusitis, unspecified (principal); H53.8 Other visual disturbances; R51.9 Headache, unspecified; Z79.899 Other long term (current) drug therapy; Z87.891 Personal history of nicotine dependence
CPT/HCPCS: 36415; 80053; 84484; 85025; 93005; 96360; 99284; 99285

== ENCOUNTER 2021-02-22 13:07 | Emergency (ER) | payer MEDICARE, SELFPAY ==
--- NOTE | ~2021-02-22 | CT_ITS ---
EXAMINATION: CT HEAD WITHOUT CONTRAST CLINICAL INFORMATION: Dizziness COMPARISON: 02/13/2021 TECHNIQUE: Contiguous axial imaging was performed from the skull base to vertex without intravenous administration of contrast. This CT examination was performed using dose optimization techniques as appropriate, variously including the following: *Automated exposure control *Adjustment of mA and/or kV according to patient size (this includes techniques or standardized protocols for targeted exams where dose is matched to indication/reason for exam; i.e. extremities or head) *Use of iterative reconstruction technique DLP: 633 mGy-cm FINDINGS: There is no evidence of acute intracranial hemorrhage or territorial infarction. No abnormal mass effect or midline shift is seen. [place] to white matter differentiation is well preserved. No extra-axial fluid collections are identified. The ventricles are normal in size. There is no abnormal attenuation within the brain parenchyma. The osseous structures and soft tissues are normal. The mastoid air cells and visualized portions of the paranasal sinuses are well aerated. CT/CT head/brain wo con IMPRESSION: No acute intracranial pathology.
--- NOTE | ~2021-02-22 | CT_ITS ---
EXAMINATION: CT ANGIOGRAM HEAD AND NECK CLINICAL INFORMATION: Dizziness. Visual changes with changes in head position. COMPARISON: 02/13/2021 TECHNIQUE: Test bolus sequences followed by intravenous administration 70 mL of Omnipaque 350 intravenous contrast. Helical imaging was performed in the axial plane from the mediastinum to the skull vertex. Delayed postcontrast imaging of the head was also performed. The data was processed at the echo technologist's workstation for generation of MIP sequences. Three-dimensional volume rendered reformatted images were also generated at an offline 3-D workstation. This CT examination was performed using dose optimization techniques as appropriate, variously including the following: *Automated exposure control *Adjustment of mA and/or kV according to patient size (this includes techniques or standardized protocols for targeted exams where dose is matched to indication/reason for exam; i.e. extremities or head) *Use of iterative reconstruction technique The degree of stenosis determined by NASCET criteria. DLP: 1416 mGy-cm FINDINGS: SOFT TISSUES AND LUNG APICES: Mild centrilobular emphysema. CTA NECK: The aortic arch has a classic configuration and the major arch vessel origins are non-stenotic. Left vertebral artery is dominant. Both vertebral origins are widely patent. Both common carotid arteries are normal in course and caliber. Both internal carotid arteries demonstrate mild atherosclerotic plaque without significant stenosis. CTA HEAD: There is normal opacification of the major intracranial vessels. No acute proximal large vessel occlusion, focal flow-limiting stenosis, or saccular intracranial aneurysm is identified. No abnormal parenchymal enhancement or regional oligemia is visualized. HEAD (delayed): No intracranial mass, intercerebral edema, hemorrhage, or midline shift is evident. The ventricles and sulci are stable in size and configuration. No extra-axial collections are appreciated. No pathologic intracranial enhancement. Dural sinuses are patent. The paranasal sinuses are well-aerated and clear. CT/CT angio head neck IMPRESSION: No arterial occlusion within the intracranial or extracranial arterial vasculature.
[2021-02-22 13:28] VITALS: BP 134/75; PULSE 62; RESP 16; TEMP 36.2; O2SAT 95; BMI 23.5
[2021-02-22 16:10] LABS: MANUAL DIFF FLAG NO
[2021-02-22 16:16] LABS: Basophils Percent Auto 0.3 % (0-2); Eosinophils Absolute Auto 0.1 X10*3/uL (0.0-0.4); Eosinophils Percent Auto 1.1 % (0-4); Hematocrit 41.2 % (37-47); Hemoglobin 13.3 g/dl (12.0-16.0); Imm Gran Abs Auto 0.01 X10*3/uL (0.00-0.03); Imm Gran Pct Auto 0.1 % (0.0-0.4); Lymphocytes Absolute Auto 1.8 X10*3/uL (1.2-4.9); Lymphocytes Percent Auto 25.8 % (20-40); Mean Corpuscular HGB Conc 32.3 g/dl (31.0-35.0); Mean Corpuscular Hemoglobin 29.8 pg (27.0-33.0); Mean Corpuscular Volume 92.4 fL (80-98); Mean Platelet Volume 9.6 fL (9.4-12.3); Monocytes Absolute Auto 0.4 X10*3/uL (0.1-1.2); Neutrophils Absolute Auto 4.7 X10*3/uL (2.0-8.3); Neutrophils Percent Auto 67.7 % (45-73); Platelet Count 288 X10*3/uL (160-400); Red Blood Count 4.46 X10*6/uL (4.20-5.50); Red Cell Distribution Width 13.2 % (11.0-16.0)
[2021-02-22 16:26] LABS: COVID-19 Test Negative (Negative); IDNOW Serial# 9DD0AD1C
[2021-02-22 16:30] LABS: Alanine Aminotransferase 15 U/L (0-31); Albumin Level 4.1 g/dL (3.5-5.0); Alkaline Phosphatase 52 U/L (39-117); Anion Gap 12 (12-20); Aspartate Amino Transferase 16 U/L (5-31); Bilirubin Total 0.5 mg/dL (0.0-1.0); Blood Urea Nitrogen 6 mg/dL (9-16); Calcium 9.5 mg/dL (8.4-10.2); Carbon Dioxide 29 mmol/L (22-29); Chloride 104 mmol/L (96-108); Creatinine Clr Calc Pharmacy 60.5; Estimated Glomerular Filt Rate > 60; Glucose Random 90 mg/dL (60-115); Potassium 4.2 mmol/L (3.3-5.1); Sodium 141 mmol/L (135-145); Total Protein 6.6 g/dL (6.5-8.0)
[2021-02-22 17:36] VITALS: BP 143/83; PULSE 63; RESP 14; O2SAT 97
--- NOTE | 2021-02-22 17:55 | ECG_ITS ---
Test Reason : head pressure Blood Pressure : / mmHG Vent. Rate : 053 BPM Atrial Rate : 053 BPM P-R Int : 156 ms QRS Dur : 066 ms QT Int : 426 ms P-R-T Axes : 052 000 006 degrees QTc Int : 399 ms Sinus bradycardia Otherwise normal ECG When compared with ECG of 15-FEB-2021 18:59, Premature supraventricular complexes are no longer Present Referred By: Kate Donaldson Electronically Signed By:JOVITA AYALA MD
[2021-02-22] MEDS: Meclizine HCl 25 MG TABLET 50 MG PO (19:30)
[2021-02-22] MEDS: LORazepam 0.5 MG TABLET PO (19:31)
--- NOTE | 2021-02-22 19:35 | ED.DIZZY ---
HPI - Dizziness General Chief Complaint: Dizziness <JENNIFER Carr Last Filed: 02/22/21 21:02> Stated Complaint: DIZZY FACIAL SWELLING <JENNIFER Carr Last Filed: 02/22/21 21:02> Time Seen by Provider: 02/22/21 17:31 <JENNIFER Carr Last Filed: 02/22/21 21:02> Source: patient <JENNIFER Carr Last Filed: 02/22/21 21:02> Mode of arrival: ambulatory <JENNIFER Carr Last Filed: 02/22/21 21:02> Limitations: no limitations <JENNIFER Carr Last Filed: 02/22/21 21:02> History of Present Illness HPI Narrative: 75-year-old female with a past medical history of anxiety disorder, chronic back pain, and chronic constipation presenting to the ED with complaints of a head pressure on the top of her head that started approximately 2 weeks ago and has been intermittent for the past 2 weeks. She reports every time she stands up she also has associated dizziness. She feels like she is spinning not the room. She reports she has associated visual changes when she looks up she sees to clear have circles. She reports she was seen here and diagnosed with a sinus infection and sent home on nasal spray and Augmentin although the Augmentin made her severely constipated therefore her PCP told her to discontinue the Augmentin. She denies any head trauma, neck pain/stiffness, chest pain or shortness of breath, palpitations, dyspnea exertion, orthopnea, sore throat, cough, abdominal pain, back pain at this time, dysuria, hematuria, focal weakness, general weakness, rashes, black or bloody stools, hematuria, recent travel or sick contacts or any other symptoms complaints or concerns at this time. <JENNIFER Carr Last Filed: 02/22/21 21:02> MD elicited complaint: dizziness and other (And headaches) <JENNIFER Carr Last Filed: 02/22/21 21:02> Onset (ago): week(s) (For the past 2 weeks) <JENNIFER Carr Last Filed: 02/22/21 21:02> Timing: gradual onset and intermittent <JENNIFER Carr Last Filed: 02/22/21 21:02> Severity: similar to previous episodes <JENNIFER Carr - Last Filed: 02/22/21 21:02> Description: sense of movement <JENNIFER Carr - Last Filed: 02/22/21 21:02> Context: change in body position <JENNIFER Carr - Last Filed: 02/22/21 21:02> History of similar symptoms: Yes <JENNIFER Carr - Last Filed: 02/22/21 21:02> Exacerbating factors: movement/ambulation, change in body position and standing <JENNIFER Carr - Last Filed: 02/22/21 21:02> Relieving factors: rest <JENNIFER Carr - Last Filed: 02/22/21 21:02> Associated symptoms: other (Headaches) <JENNIFER Carr - Last Filed: 02/22/21 21:02> Associated neuro symptoms: vision changes <JENNIFER Carr - Last Filed: 02/22/21 21:02> Related Data Home Medications: Home Medications Medication Instructions Recorded Confirmed calcium-vitamin D3-vitamin K 500 1 tab PO DAILY 02/14/20 02/18/21 mg-100 unit-40 mcg chewable tablet cholecalciferol (vitamin D3) 25 25 mcg PO DAILY 02/14/20 02/18/21 mcg (1,000 unit) capsule multivitamin with minerals-folic tab PO 03/07/20 02/18/21 acid 0.4 mg tablet (One Daily Womens 50 Plus) artifi.tears(hypromellose)(PF) 0.3 1 drp OPHTHALMIC (EYE) Q2-4H PRN 12/24/20 02/18/21 % eye drops polyethylene glycol 3350 17 17 g PO DAILY 02/10/21 02/18/21 gram/dose oral powder (Miralax) Previous Rx's Medication Instructions Recorded lorazepam 0.5 mg tablet 0.5 mg PO DAILY PRN #90 tab 12/31/20 zolpidem 10 mg tablet 10 mg PO BEDTIME #90 tab 12/31/20 sennosides 8.6 mg tablet (Natural 8.6 mg PO DAILY #30 tab 01/07/21 Senna Laxative) methylcellulose (laxative) 500 mg 500 mg PO BID #60 tab 01/21/21 tablet (Citrucel) hydrocortisone 2.5 % topical cream 1 appl NH BID PRN #30 g 01/28/21 with perineal applicator (Proctosol HC) amoxicillin 875 mg-potassium 1 tab PO BID 10 Days #20 tab 02/15/21 clavulanate 125 mg tablet (Augmentin) fluticasone propionate 50 2 spray INTRANASAL DAILY #16 g 02/18/21 mcg/actuation nasal spray,suspension (Children's Flonase Allergy Relief) meclizine 50 mg tablet (Antivert) 50 mg PO DAILY PRN #14 tab 02/22/21 <JENNIFER Carr Last Filed: 02/22/21 21:02> Allergies/Adverse Reactions: Allergies Allergy/AdvReac Type Severity Reaction Status Date / Time No Known Allergies Allergy Verified 02/18/21 09:59 <JENNIFER Carr Last Filed: 02/22/21 21:02> Review of Systems Review of Systems: Constitutional : No Fever, No Chills, No Night Sweats, No Fatigue, No Malaise ENT/Mouth : No Ear Pain, No Nasal Congestion, No Sinus Pain, No sore throat, No Rhinorrhea Eyes: No Eye Pain, No Swelling, No Redness, No Foreign Body, No Discharge, No Vision Changes Cardiovascular : No Chest Pain, No SOB, No Dyspnea on Exertion, No Orthopnea, No Palpitations Respiratory : No Cough, No Sputum, No Wheezing, No Dyspnea Gastrointestinal : No Nausea, No Vomiting, No Diarrhea, No Constipation, No abdominal Pain, No Hematochezia, No Melena Genitourinary : No Dysuria, No Urinary Frequency, No Urinary Incontinence, No Urgency, No Flank Pain Musculoskeletal : No joint pain, No Myalgias Skin : No lacerations Neuro : Positive intermittent dizziness worse with standing and intermittent head pressure on the top of her head No Focal weakness, no general weakness, No Numbness, No Paresthesias, No Loss of Consciousness <JENNIFER Carr Last Filed: 02/22/21 21:02> Yes all other systems are reviewed and are negative <JENNIFER Carr Last Filed: 02/22/21 21:02> PMFSH Past Medical History Attestation statement: The following information was validated with the patient. <JENNIFER Carr Last Filed: 02/22/21 21:02> Medical History: Medical History Anxiety Back pain Chronic constipation Epidermal cyst Ganglion cyst of finger <JENNIFER Carr - Last Filed: 02/22/21 21:02> Surgical History: Surgical History No pertinent past surgical history <JENNIFER Carr - Last Filed: 02/22/21 21:02> Family History Family History: Family History Father No problems noted. Mother No problems noted. <JENNIFER Carr - Last Filed: 02/22/21 21:02> Social History Social History: Social History Housing: Condominium Alcohol intake: never Patient Tobacco Use Status: Former Tobacco user Tobacco use type: Cigarette e-Cigarette/Vaping Use: Never Used Second Hand Smoke Exposure: Yes Advance Directives: No Advance Directives Information Provided: No service: No Current occupational status: retired <JENNIFER Carr - Last Filed: 02/22/21 21:02> Physical Exam Vital Signs: Vital Signs: Last Vital Signs Temp 98.0 F 02/22/21 22:54 Pulse 62 02/22/21 22:59 Resp 20 02/22/21 22:54 BP 149/68 H 02/22/21 22:59 Pulse Ox 97 02/22/21 22:54 Body Mass Index 23.5 Vital signs have been reviewed as normal and appeared to be correct. Blood pressure normal. Heart rate normal. Respiration rate normal. Temperature normal. Oxygen saturation normal. <JENNIFER Carr - Last Filed: 02/22/21 21:02> Vital Signs: Last Vital Signs Temp 98.0 F 02/22/21 22:54 Pulse 62 02/22/21 22:59 Resp 20 02/22/21 22:54 BP 149/68 H 02/22/21 22:59 Pulse Ox 97 02/22/21 22:54 Body Mass Index 23.5 <Veda Miller MD - Last Filed: 02/23/21 00:23> Vital Signs: Last Vital Signs Temp 98.0 F 02/22/21 22:54 Pulse 62 02/22/21 22:59 Resp 20 02/22/21 22:54 BP 149/68 H 02/22/21 22:59 Pulse Ox 97 02/22/21 22:54 Body Mass Index 23.5 <Graciela Downs ACCESS SPECIALIST - Last Filed: 02/22/21 22:40> Appearance: Alert. Oriented X3. No acute distress. Head: Normal external exam. Normocephalic. Atraumatic. Able to rotate head bilaterally. Eyes: PERRLA. EOMI. No nystagmus noted. Conjunctiva and sclera normal. Eyelids normal. Corneal reflex normal. ENT: EAC normal. TM's Normal. Hearing normal. Pharynx normal. Uvula midline. tongue midline. Moist mucous membranes. No trismus noted. No drooling noted. No muffled voice noted. No nystagmus noted. Neck: Normal inspection. Neck supple. FROM. No adenopathy. Trachea midline. Thyroid Normal. No meningeal signs. No neck mass noted. CVS: Normal heart rate and rhythm. Heart sound normal. No murmurs noted. Pulses normal throughout. Respiratory: No respiratory distress. Painless inspiration. Breath sounds normal. No wheezes/rales/rhonchi noted. Chest nontender. No accessory muscle usage noted or decreased air movement noted. Abdomen: Soft and nontender. Bowel sounds normal in all 4 quadrants. No distention noted. No organomegaly noted. No visible injury noted. Back: No CVA tenderness. Full range of motion noted. Skin: Skin warm and dry. Normal skin color. Normal skin turgor. No rashes/lesions/lacerations noted. Extremities: No lower extremity edema. Extremities exhibit normal range of motion. Extremities nontender. Able to shrug shoulders bilaterally and keep up against resistance. Neuro: Oriented X 3. No motor deficit. No sensory deficit. Reflexes normal. Moving all extremities. No focal motor deficits. Cranial nerves II-XI intact bilaterally. Facial strength normal. Normal cognition. Speech normal. Gait normal. Strength 5/5 throughout. No pronator drift. No tremor noted. No fasciculations noted. No rigidity noted. Muscle tone normal throughout. No asterixis noted. [id number] test normal. Heel to lara test normal. Tandem gait normal. Does not sway with eyes open. Romberg test negative. Rapid alternating movement upper extremity normal. Rapid alternating movement lower extremity normal. Hand drop from overhead Misses face. NIHSS score 0. <JENNIFER Carr - Last Filed: 02/22/21 21:02> Course Course Course Narrative: 17:55pm - 75-year-old female with a past medical history of anxiety disorder, chronic back pain, and chronic constipation presenting to the ED with complaints of a head pressure on the top of her head that started approximately 2 weeks ago and has been intermittent for the past 2 weeks. She reports every time she stands up she also has associated dizziness. She feels like she is spinning not the room. She reports she has associated visual changes when she looks up she sees to clear have circles. She reports she was seen here and diagnosed with a sinus infection and sent home on nasal spray and Augmentin although the Augmentin made her severely constipated therefore her PCP told her to discontinue the Augmentin. On exam patient is alert and oriented x3. Not in any acute distress. No focal neuro deficits are noted. Normal steady gait. NIH SS score 0. Patient not a candidate for tPA as she has non disabling symptoms and her symptoms started approximately 2 weeks ago. Were obtained in triage and all within normal limits. COVID swab negative. Plan: Therefore at this time will repeat CT scan of brain, obtain an EKG and perform orthostatic vitals. Provide Ativan so the patient can tolerate CT scan along with give 50 mg of anti for for possible vertigo then re-evaluate. <JENNIFER Carr - Last Filed: 02/22/21 21:02> Reevaluation(s) Reevaluation #1: - still awaiting CT scan of brain and orthostatic vitals. If negative patient can be discharged with anti for instructions return if any new or worsening symptoms and to follow up with primary care provider. Sign out to RICK Owens at this time pending CT scan and orthostatic vitals. <JENNIFER Carr - Last Filed: 02/22/21 21:02> Time: 21:02 <JENNIFER Carr - Last Filed: 02/22/21 21:02> Reevaluation #2: Patient re-evaluated and all investigations were reviewed. Although patient endorses that she still feels ?funny in the head? she endorses that she is feeling somewhat better. There are no acute findings to better explain patient's presentation as both the noncontrast CT of the head as well as the CT angio of head and neck are within normal limits. Patient was strongly encouraged to continue her workup and evaluation with her primary care provider. <Veda Miller MD - Last Filed: 02/23/21 00:23> MDM - Dizziness Medical Records Attestation: I reviewed the patient's medical records. <JENNIFER Carr - Last Filed: 02/22/21 21:02> Lab Data Attestation: I reviewed the patient's lab results. <JENNIFER Carr - Last Filed: 02/22/21 21:02> Result diagrams: : 02/22/21 16:03 02/22/21 16:02 <JENNIFER Carr - Last Filed: 02/22/21 21:02> Labs: Lab Results 02/22/21 02/22/21 02/22/21 Range/Units 16:02 16:02 16:03 WBC 7.0 (4.8-10.8) X10*3/uL RBC 4.46 (4.20-5.50) X10*6/uL Hgb 13.3 (12.0-16.0) g/dl Hct 41.2 (37-47) % MCV 92.4 (80-98) fL MCH 29.8 (27.0-33.0) pg MCHC 32.3 (31.0-35.0) g/dl RDW 13.2 (11.0-16.0) % Plt Count 288 (160-400) X10*3/uL MPV 9.6 (9.4-12.3) fL Immature Gran % (Auto) 0.1 (0.0-0.4) % Neut % (Auto) 67.7 (45-73) % Lymph % (Auto) 25.8 (20-40) % Pender % (Auto) 5.0 (2-11) % Eos % (Auto) 1.1 (0-4) % Baso % (Auto) 0.3 (0-2) % Lymph # (Auto) 1.8 (1.2-4.9) X10*3/uL Pender # (Auto) 0.4 (0.1-1.2) X10*3/uL Eos # (Auto) 0.1 (0.0-0.4) X10*3/uL Baso # (Auto) 0.0 (0.0-0.2) X10*3/uL Abs Immat Gran (auto) 0.01 (0.00-0.03) X10*3/uL Absolute Neuts (auto) 4.7 (2.0-8.3) X10*3/uL Absolute Nucleated RBC 0.000 (0.0-0.012) X10*3/uL Nucleated RBC % (auto) 0.0 (0.0-0.2) /100WBC Sodium 141 (135-145) mmol/L Potassium 4.2 (3.3-5.1) mmol/L Chloride 104 (96-108) mmol/L Carbon Dioxide 29 (22-29) mmol/L Anion Gap 12 (12-20) BUN 6 L (9-16) mg/dL Creatinine 0.78 (0.5-1.4) mg/dL Estim Creat Clear Calc 60.5 Estimated GFR > 60 Random Glucose 90 (60-115) mg/dL Calcium 9.5 (8.4-10.2) mg/dL Total Bilirubin 0.5 (0.0-1.0) mg/dL AST 16 (5-31) U/L ALT 15 (0-31) U/L Alkaline Phosphatase 52 (39-117) U/L Total Protein 6.6 (6.5-8.0) g/dL Albumin 4.1 (3.5-5.0) g/dL COVID-19 (SAEED) Negative (Negative) COVID-19 Clin Com See Note <JENNIFER Carr - Last Filed: 02/22/21 21:02> Lab Results 02/22/21 02/22/21 02/22/21 Range/Units 16:02 16:02 16:03 WBC 7.0 (4.8-10.8) X10*3/uL RBC 4.46 (4.20-5.50) X10*6/uL Hgb 13.3 (12.0-16.0) g/dl Hct 41.2 (37-47) % MCV 92.4 (80-98) fL MCH 29.8 (27.0-33.0) pg MCHC 32.3 (31.0-35.0) g/dl RDW 13.2 (11.0-16.0) % Plt Count 288 (160-400) X10*3/uL MPV 9.6 (9.4-12.3) fL Immature Gran % (Auto) 0.1 (0.0-0.4) % Neut % (Auto) 67.7 (45-73) % Lymph % (Auto) 25.8 (20-40) % Pender % (Auto) 5.0 (2-11) % Eos % (Auto) 1.1 (0-4) % Baso % (Auto) 0.3 (0-2) % Lymph # (Auto) 1.8 (1.2-4.9) X10*3/uL Pender # (Auto) 0.4 (0.1-1.2) X10*3/uL Eos # (Auto) 0.1 (0.0-0.4) X10*3/uL Baso # (Auto) 0.0 (0.0-0.2) X10*3/uL Abs Immat Gran (auto) 0.01 (0.00-0.03) X10*3/uL Absolute Neuts (auto) 4.7 (2.0-8.3) X10*3/uL Absolute Nucleated RBC 0.000 (0.0-0.012) X10*3/uL Nucleated RBC % (auto) 0.0 (0.0-0.2) /100WBC Sodium 141 (135-145) mmol/L Potassium 4.2 (3.3-5.1) mmol/L Chloride 104 (96-108) mmol/L Carbon Dioxide 29 (22-29) mmol/L Anion Gap 12 (12-20) BUN 6 L (9-16) mg/dL Creatinine 0.78 (0.5-1.4) mg/dL Estim Creat Clear Calc 60.5 Estimated GFR > 60 Random Glucose 90 (60-115) mg/dL Calcium 9.5 (8.4-10.2) mg/dL Total Bilirubin 0.5 (0.0-1.0) mg/dL AST 16 (5-31) U/L ALT 15 (0-31) U/L Alkaline Phosphatase 52 (39-117) U/L Total Protein 6.6 (6.5-8.0) g/dL Albumin 4.1 (3.5-5.0) g/dL COVID-19 (SAEED) Negative (Negative) COVID-19 Clin Com See Note <Veda Miller MD - Last Filed: 02/23/21 00:23> Lab Results 02/22/21 02/22/21 02/22/21 Range/Units 16:02 16:02 16:03 WBC 7.0 (4.8-10.8) X10*3/uL RBC 4.46 (4.20-5.50) X10*6/uL Hgb 13.3 (12.0-16.0) g/dl Hct 41.2 (37-47) % MCV 92.4 (80-98) fL MCH 29.8 (27.0-33.0) pg MCHC 32.3 (31.0-35.0) g/dl RDW 13.2 (11.0-16.0) % Plt Count 288 (160-400) X10*3/uL MPV 9.6 (9.4-12.3) fL Immature Gran % (Auto) 0.1 (0.0-0.4) % Neut % (Auto) 67.7 (45-73) % Lymph % (Auto) 25.8 (20-40) % Pender % (Auto) 5.0 (2-11) % Eos % (Auto) 1.1 (0-4) % Baso % (Auto) 0.3 (0-2) % Lymph # (Auto) 1.8 (1.2-4.9) X10*3/uL Pender # (Auto) 0.4 (0.1-1.2) X10*3/uL Eos # (Auto) 0.1 (0.0-0.4) X10*3/uL Baso # (Auto) 0.0 (0.0-0.2) X10*3/uL Abs Immat Gran (auto) 0.01 (0.00-0.03) X10*3/uL Absolute Neuts (auto) 4.7 (2.0-8.3) X10*3/uL Absolute Nucleated RBC 0.000 (0.0-0.012) X10*3/uL Nucleated RBC % (auto) 0.0 (0.0-0.2) /100WBC Sodium 141 (135-145) mmol/L Potassium 4.2 (3.3-5.1) mmol/L Chloride 104 (96-108) mmol/L Carbon Dioxide 29 (22-29) mmol/L Anion Gap 12 (12-20) BUN 6 L (9-16) mg/dL Creatinine 0.78 (0.5-1.4) mg/dL Estim Creat Clear Calc 60.5 Estimated GFR > 60 Random Glucose 90 (60-115) mg/dL Calcium 9.5 (8.4-10.2) mg/dL Total Bilirubin 0.5 (0.0-1.0) mg/dL AST 16 (5-31) U/L ALT 15 (0-31) U/L Alkaline Phosphatase 52 (39-117) U/L Total Protein 6.6 (6.5-8.0) g/dL Albumin 4.1 (3.5-5.0) g/dL COVID-19 (SAEED) Negative (Negative) COVID-19 Clin Com See Note <Graciela Downs NP - Last Filed: 02/22/21 22:40> ECG Data Attestation: I personally reviewed and interpreted this ECG as follows: <JENNIFER Carr - Last Filed: 02/22/21 21:02> ECG interpretation date: 02/22/21 <JENNIFER Carr - Last Filed: 02/22/21 21:02> ECG interpretation time: 18:37 <JENNIFER Carr - Last Filed: 02/22/21 21:02> Interpretation: Sinus bradycardia ventricular rate of 53 with a normal NH interval normal QRS duration normal QT/QTC interval. No acute ischemic changes are noted. Similar compared to prior EKG on 02/15/2021 <JENNIFER Carr - Last Filed: 02/22/21 21:02> Discharge Plan Discharge Clinical Impression: Dizziness, Generalized headaches <JENNIFER Carr - Last Filed: 02/22/21 21:02> Patient Disposition: Home, Self-Care <JENNIFER Carr - Last Filed: 02/22/21 21:02> Instructions: Dizziness (ED), General Headache (ED) <JENNIFER Carr - Last Filed: 02/22/21 21:02> Additional Instructions: 1. Resume all home medications as prescribed. 2. Follow-up with your primary care provider on Wednesday morning for re-evaluation further outpatient investigations and management. Return to the ER for acute worsening of your symptoms. <JENNIFER Carr - Last Filed: 02/22/21 21:02> Prescriptions: New Antivert 50 mg tablet 50 mg PO DAILY PRN (Reason: dizziness) Qty: 14 RF: 0 No Action lorazepam 0.5 mg tablet 0.5 mg PO DAILY PRN (Reason: agitation) Qty: 90 RF: 5 zolpidem 10 mg tablet 10 mg PO BEDTIME Qty: 90 RF: 5 sennosides [Natural Senna Laxative] 8.6 mg tablet 8.6 mg PO DAILY Qty: 30 RF: 2 Citrucel 500 mg tablet 500 mg PO BID Qty: 60 RF: 2 fluticasone propionate [Children's Flonase Allergy Rlf] 50 mcg/actuation spray,suspension 2 spray intranasal DAILY Qty: 16 RF: 1 amoxicillin-pot clavulanate [Augmentin] 875-125 mg tablet 1 tab PO BID 10 Days Qty: 20 RF: 0 calcium-vitamin D3-vitamin K 500-100-40 mg-unit-mcg tablet,chewable 1 tab PO DAILY RF: 0 cholecalciferol (vitamin D3) 25 mcg (1,000 unit) capsule 25 mcg PO DAILY RF: 0 polyethylene glycol 3350 [Miralax] 17 gram/dose powder 17 g PO DAILY RF: 0 hydrocortisone [Proctosol HC] 2.5 % cream with perineal applicator 1 appl NH BID PRN (Reason: hemorrhoids) Qty: 30 RF: 0 One Daily Womens 50 Plus 0.4 mg tablet PO RF: 0 artifi.tears(hypromellose)(PF) 0.3 % drops 1 drp ophthalmic (eye) Q2-4H PRNRF: 0 <JENNIFER Carr - Last Filed: 02/22/21 21:02> Referrals: Levi Hunt MD [Primary Care Provider] - 2 days <JENNIFER Carr - Last Filed: 02/22/21 21:02> Print Language: Frisian <JENNIFER Carr - Last Filed: 02/22/21 21:02>
[2021-02-22 22:54] VITALS: BP 142/66; PULSE 48; RESP 20; TEMP 36.7; O2SAT 97
[2021-02-22 22:57] VITALS: BP 152/68; PULSE 53
[2021-02-22 22:59] VITALS: BP 149/68; PULSE 62
[2021-02-22] MEDS: iohexoL 350 MG/ML 100 ML INFUS..BTL 70 ML IV (23:44)
== END 2021-02-23 00:52 | disposition home or self-care (01) ==
PROVIDERS: Emergency Provider Internal Medicine; PCP Internal Medicine
DX: R42 Dizziness and giddiness (principal); R51.9 Headache, unspecified; Z20.822 Contact with and (suspected) exposure to COVID-19
CPT/HCPCS: 36415; 70450; 70496; 70498; 80053; 85025; 87635; 93005; 99284; Q9967

== ENCOUNTER → 2021-03-03 09:43 | Outpatient (BNVA) | payer MEDICARE, SELFPAY | PROVIDERS: PCP Internal Medicine; Referring Provider Internal Medicine; Visit Provider Nurse Practitioner Family | DX: K59.09 Other constipation (principal); K58.2 Mixed irritable bowel syndrome; Z87.891 Personal history of nicotine dependence | CPT/HCPCS: 99212 ==

== ENCOUNTER → 2021-03-04 13:40 | Outpatient (BNVA) | payer MEDICARE, SELFPAY | PROVIDERS: PCP Internal Medicine; Visit Provider Obstetrics & Gynecology ==

== ENCOUNTER → 2021-03-05 10:52 | Outpatient (BNVA) | payer MEDICARE, SELFPAY | PROVIDERS: PCP Internal Medicine; Referring Provider Internal Medicine; Visit Provider Surgery | DX: K64.4 Residual hemorrhoidal skin tags (principal); K64.8 Other hemorrhoids | CPT/HCPCS: 46600; 99202 ==

== ENCOUNTER 2021-04-28 11:59 | Outpatient (REF) | payer MEDICARE, SELFPAY ==
--- NOTE | ~2021-04-28 | MM_ITS ---
EXAMINATION: MM DIAGNOSTIC DIGITAL BREAST TOMOSYNTHESIS, BILATERAL US DIAGNOSTIC ULTRASOUND BREAST, BILATERAL CLINICAL INFORMATION: Due for yearly. Also follow-up probable small complicated cyst 8:00 right breast. The lifetime risk of breast cancer based on the Tyrer-Cuzick Model is 2%. COMPARISON: Mammography: 05/09/2020, 04/12/2020 (BI-RADS 0), 03/27/2019, 03/17/2018, 03/11/2017; targeted ultrasound right breast 05/09/2020, 11/06/2020. TECHNIQUE: Digital breast tomosynthesis is performed in both the craniocaudal and mediolateral oblique views along with computer-aided detection (CAD). Synthesized 2D images are generated from the tomosynthesis. Ultrasound right breast is targeted to the retroareolar lower outer breast. Grayscale imaging and color Doppler are performed without and with harmonics. FINDINGS: There are scattered areas of fibroglandular density (ACR BI-RADS breast composition Category b). Parenchymal pattern is similar to prior study. There is no developing density or interval mass or architectural abnormality or abnormal calcifications. The left breast is unremarkable. The right breast has biopsy clip marker upper outer quadrant. Small nodularity for follow-up mid 8:00 position is stable. No interval architectural abnormality. No abnormal calcifications. Ultrasound right breast demonstrates nearly anechoic circumscribed nodule 7:00-8:00 position 2 cm from nipple just under 5 mm. No associated color flow. No posterior shadowing. No significant change from prior ultrasound exams. Finding will be reassessed again at time of next bilateral annual diagnostic mammography, due in 12 months. Results are discussed with the patient at time of visit. MM/MM tomosynthesis diagnostic BI IMPRESSION: 1. Right: Probable small complicated cyst 7:00-8:00 position, stable. 2. Left: No mammographic evidence of malignancy. ASSESSMENT: BI-RADS 3: Probably Benign RECOMMENDATION: Diagnostic mammography and targeted right breast ultrasound at time of next annual exam, due in 12 months. This patient's information was entered into a reminder system with a target due date for their next mammogram.
== END 2021-04-28 12:00 | disposition home or self-care (01) ==
LOC: HO.MAMMO 11:59
PROVIDERS: Absent Provider Obstetrics & Gynecology; Visit Provider Internal Medicine
DX: N60.01 Solitary cyst of right breast (principal)
CPT/HCPCS: 76642; 77062; 77066

== ENCOUNTER → 2021-04-29 10:21 | Outpatient (BNVA) | payer MEDICARE, SELFPAY | PROVIDERS: PCP Internal Medicine; Referring Provider Internal Medicine; Visit Provider Nurse Practitioner Family | DX: K58.2 Mixed irritable bowel syndrome (principal) | CPT/HCPCS: 99212 ==

== ENCOUNTER 2021-07-01 11:00 | Outpatient (RCR) | payer MEDICARE, SELFPAY ==
--- NOTE | 2021-05-13 12:30 | MHC.PT.EP ---
[facility] [place] Office [place] [facility] [place] [facility] [address] Layla Delgadillo [address] [phone] F: [phone] F: [phone] F: [phone] F: [phone] Physical Therapy Plan of Care Date of Evaluation: Date of Surgery: n/a Diagnosis: B leg weakness Assessment: Patient is a 75 year old female presenting to PT with complaints of B leg weakness. Pt reports onset of weakness began about 1 month ago due to being laid up following and IBS attack. She presents today with impairments in leg strength, balance, and LE endurance. Pt's current occupation is retired, with baseline physical activities including stair negotiation, ambulation, standing, and ADLs. 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 Clinical presentation today is most consistent with signs and sx associated with B LE weakness s/p being laid up from IBS attack and pt will benefit from skilled PT to address the following problems and impairments noted upon evaluation: leg strength, balance, and LE endurance. These problems limit the patient with the following functional activities: ambulation, stair negotiation, standing, ADLs. The prescribed treatment plan of care is medically necessary. Co-morbidities of IBS were identified and taken into considerations of plan of care. Pt was educated on HEP, role of PT, prognosis, POC. Frequency and Duration: The patient will be seen 2x week x 4 weeks Short Term Goals: Pt will demonstrate improved LE strength by 1/3 grade for all muscles in 2 weeks. Pt will demonstrate tandem B with min to no sway in 2 weeks. Sales Support Rep Goals: Pt will demonstrate improved LEFI score by 9 points in 4 weeks for improved LE functional mobility. Pt will demonstrate improved 30 second chair stand score to 10 STS in 4 weeks for improved LE strength and endurance. Treatment Plan: Modalities to reduce pain, spasms and effusion. Manual therapy to restore motion and function. Therapeutic exercise to improve strength and flexibility. Neuromuscular re-education for posture and balance. Therapeutic activities to return to functional activities of daily living. Electronically signed by: Genevieve Mcfarlane, PT, DPT, ATC Please sign and return to therapist. Thank you for your referral.
--- NOTE | 2021-07-01 12:36 | MHC.PT.DC ---
[facility] [place] [facility] [place] [facility] [place] Office [address] Layla Delgadillo [address] [phone] F: [phone] F: [phone] F: [phone] F: [phone] Physical Therapy Discharge Report Diagnosis: B leg weakness Date of Surgery: n/a Date of Evaluation: 05/13/21 Date of Discharge: 07/01/21 Treatments to Date: 11 Cancellations to Date: 1 No Shows to Date: 0 Discharge Status: Achieved Goals Improved Function Independent with HEP Discharge Summary: Pt has made good improvements with skilled PT. She is reporting improvements in her overall general LE strength. 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 She is independent and compliant with her HEP and I am confident that with continuation of her HEP she will meet her senior care goals. She is very happy with her progress at this point but at times does doubt her self which appears to be the most limiting factor at this time. Overall max benefits of PT have been provided and skilled PT is no longer indicated at this time. Pt is in agreement with d/c today. Electronically signed by: Genevieve Mcfarlane, PT, DPT, ATC Please sign and return to therapist. Thank you for your referral.
== END 2021-07-01 12:36 | disposition home or self-care (01) ==
LOC: HO.PTCHIC 11:00
PROVIDERS: PCP Internal Medicine; Visit Provider Internal Medicine
DX: R29.898 Other symptoms and signs involving the musculoskeletal system (principal)
CPT/HCPCS: 97110; 97161

== ENCOUNTER → 2021-07-25 11:38 | Outpatient (BNVA) | payer MEDICARE, SELFPAY | PROVIDERS: Visit Provider Obstetrics & Gynecology | DX: N90.89 Other specified noninflammatory disorders of vulva and perineum (principal) | CPT/HCPCS: Q3014 ==

== ENCOUNTER → 2021-07-29 10:24 | Outpatient (BNVA) | payer MEDICARE, SELFPAY | PROVIDERS: Referring Provider Internal Medicine; Visit Provider Nurse Practitioner Family | DX: N81.10 Cystocele, unspecified (principal); K58.2 Mixed irritable bowel syndrome | CPT/HCPCS: 99212 ==

== ENCOUNTER → 2021-09-12 10:45 | Outpatient (BNVA) | payer MEDICARE, SELFPAY | PROVIDERS: PCP Internal Medicine; Visit Provider Nurse Practitioner Family | DX: K58.2 Mixed irritable bowel syndrome (principal); K59.01 Slow transit constipation | CPT/HCPCS: 99212 ==

== ENCOUNTER 2021-12-09 09:50 | Outpatient (REF) | payer MEDICARE, SELFPAY ==
[2021-12-09 11:21] LABS: Alanine Aminotransferase 16 U/L (0-31); Albumin Level 4.1 g/dL (3.5-5.0); Alkaline Phosphatase 65 U/L (39-117); Anion Gap 14 (12-20); Aspartate Amino Transferase 18 U/L (5-31); Bilirubin Total 0.6 mg/dL (0.0-1.0); Blood Urea Nitrogen 17 mg/dL (9-16); Calcium 9.6 mg/dL (8.4-10.2); Carbon Dioxide 29 mmol/L (22-29); Chloride 104 mmol/L (96-108); Estimated Glomerular Filt Rate > 60; Glucose Random 97 mg/dL (60-115); Potassium 4.7 mmol/L (3.3-5.1); Sodium 142 mmol/L (135-145); Total Protein 6.7 g/dL (6.5-8.0)
[2021-12-09 11:35] LABS: Vitamin D 25-OH Total 55.9 ng/mL (>30)
== END 2021-12-09 09:51 | disposition home or self-care (01) ==
LOC: HO.LAB 09:50
PROVIDERS: Absent Provider Internal Medicine; PCP Internal Medicine; Visit Provider Nurse Practitioner Family
DX: M85.80 Other specified disorders of bone density and structure, unspecified site (principal)
CPT/HCPCS: 36415; 80053; 82306; 99202

== ENCOUNTER → 2021-12-15 10:57 | Outpatient (BNVA) | payer MEDICARE, SELFPAY | PROVIDERS: PCP Internal Medicine; Visit Provider Nurse Practitioner Family | DX: K58.2 Mixed irritable bowel syndrome (principal) | CPT/HCPCS: 99212 ==

== ENCOUNTER 2021-12-23 13:33 | Outpatient (REF) | payer MEDICARE, SELFPAY ==
--- NOTE | ~2021-12-23 | XR_ITS ---
EXAMINATION: LEFT HAND AND WRIST CLINICAL INFORMATION: Pain COMPARISON: None TECHNIQUE: 3 views FINDINGS: There is degenerative change, at the first CMC joint space and between the multangular bones and the scaphoid. There is advanced degenerative change of the third DIP joint. There is no erosive change. There is no acute fracture or dislocation or destructive process. XR/XR hand wrist LT IMPRESSION: Degenerative change noted.
== END 2021-12-23 13:34 | disposition home or self-care (01) ==
LOC: HO.HMGCX 13:33
PROVIDERS: PCP Internal Medicine; Visit Provider Physician Assistant
DX: M25.432 Effusion, left wrist (principal)
CPT/HCPCS: 73110; 73130

== ENCOUNTER 2022-02-23 08:38 | Outpatient (REF) | payer MEDICARE, SELFPAY ==
[2022-02-23 11:20] LABS: MANUAL DIFF FLAG NO
[2022-02-23 11:49] LABS: Basophils Percent Auto 0.3 % (0-2); Eosinophils Percent Auto 2.8 % (0-4); Hematocrit 43.4 % (37.0-47.0); Hemoglobin 13.9 g/dl (12.0-16.0); Imm Gran Pct Auto 0.2 % (0.0-0.4); Lymphocytes Percent Auto 26.5 % (20-40); Mean Corpuscular Volume 93.7 fL (80.0-98.0); Mean Platelet Volume 9.7 fL (9.4-12.3); Monocytes Percent Auto 5.9 % (2-11); Neutrophils Percent Auto 64.3 % (45-73); Platelet Count 303 X10*3/uL (160-400); Red Blood Count 4.63 X10*6/uL (4.20-5.50); Red Cell Distribution Width 13.2 % (11.0-16.0); White Blood Count 5.8 X10*3/uL (4.8-10.8)
[2022-02-23 11:50] LABS: Eosinophils Absolute Auto 0.2 X10*3/uL (0.0-0.4); Imm Gran Abs Auto 0.01 X10*3/uL (0.00-0.03); Lymphocytes Absolute Auto 1.5 X10*3/uL (1.2-4.9); Monocytes Absolute Auto 0.3 X10*3/uL (0.1-1.2); Neutrophils Absolute Auto 3.7 x10*3/uL (2.0-8.3)
[2022-02-23 12:07] LABS: Alanine Aminotransferase 15 U/L (0-31); Albumin Level 4.3 g/dL (3.5-5.0); Alkaline Phosphatase 67 U/L (39-117); Anion Gap 13 (12-20); Aspartate Amino Transferase 18 U/L (5-31); Bilirubin Total 0.8 mg/dL (0.0-1.0); Blood Urea Nitrogen 18 mg/dL (9-16); Calcium 9.4 mg/dL (8.4-10.2); Carbon Dioxide 29 mmol/L (22-29); Chloride 104 mmol/L (96-108); Cholesterol 195 mg/dL; Estimated Glomerular Filt Rate 58; Glucose Fasting 110 mg/dL (60-99); HDL Cholesterol 66 mg/dL; LDL Cholesterol Calculated 113 mg/dl; Potassium 4.2 mmol/L (3.3-5.1); Sodium 142 mmol/L (135-145); Total Protein 7.1 g/dL (6.5-8.0); Triglycerides 80 mg/dL
[2022-02-23 12:34] LABS: Thyroid Stimulating Hormone 1.14 uIU/mL (0.32-4.0)
== END 2022-02-23 08:39 | disposition home or self-care (01) ==
LOC: HO.HMGCLDS 08:38
PROVIDERS: PCP Internal Medicine; Visit Provider Internal Medicine
DX: Z13.0 Encounter for screening for diseases of the blood and blood-forming organs and certain disorders involving the immune mechanism (principal); I10 Essential (primary) hypertension; E78.5 Hyperlipidemia, unspecified; E03.9 Hypothyroidism, unspecified
CPT/HCPCS: 36415; 80053; 80061; 84443; 85025

== ENCOUNTER → 2022-03-17 11:02 | Outpatient (BNVA) | payer MEDICARE, SELFPAY | PROVIDERS: PCP Internal Medicine; Visit Provider Nurse Practitioner Family | DX: K58.2 Mixed irritable bowel syndrome (principal) | CPT/HCPCS: 99212 ==

== ENCOUNTER 2022-04-21 10:27 | Outpatient (REF) | payer MEDICARE, SELFPAY ==
--- NOTE | ~2022-04-21 | MM_ITS ---
EXAMINATION: BONE DENSITOMETRY CLINICAL INDICATION: Other specified disorders of bone density and structure. COMPARISON: Baseline BD dated 04/12/2020. TECHNIQUE: Using a gate5 DXA System (software version: 13.1) manufactured by [employer], dual-energy x-ray absorptiometry was performed of the lumbar spine and left hip. The images are of good technical quality. Summary results are attached. FINDINGS: AP SPINE L1-L4: Current: BMD 1.560 g/cm2, Z-score 4.8, T-score 3.2, normal, 0.2% increase from baseline (<5% change is not significant). Baseline: BMD 1.557 g/cm2. LEFT FEMUR, NECK: Current: BMD 0.870 g/cm2, Z-score 0.7, T-score -1.2, osteopenia. Baseline: BMD 0.885 g/cm2. LEFT FEMUR, TOTAL: Current: BMD 0.956 g/cm2, Z-score 1.3, T-score -0.4, normal, 3.1% decrease from baseline (<5% change is not significant). Baseline: BMD 0.987 g/cm2. IDENTIFIED RISK FACTORS: Menopause. HISTORY OF FRACTURE: None listed. MEDICATIONS: Calcium supplements or multivitamin, vitamin D. MM/XR DEXA axial skeleton IMPRESSION: 1. DIAGNOSIS: Osteopenia based on the lowest T-score value of -1.2 in the femoral neck applying World Health Organization criteria. 2. 10-YEAR FRACTURE RISK PREDICTION, FRAX: Major osteoporotic fracture (clinical spine, forearm, hip or shoulder) 10.8%. Hip fracture 2.0%. 3. Treatment Recommendations: NOF guidelines recommend consideration for treatment in postmenopausal women and men age 50 and older presenting with the following: -A hip or vertebral (clinical or morphometric) fracture. -T-score less than or equal to -2.5 at the femoral neck or spine after appropriate evaluation to exclude secondary causes. -Low bone mass at the hip or spine and a 10-year fracture probability by FRAX of greater than or equal to 3% for hip fracture or greater than or equal to 20% for major osteoporotic fracture based on the [place] adapted WHO algorithm. 4. Other Recommendations: All treatment decisions require clinical judgment and consideration of individual patient factors, including patient preferences, comorbidities, previous drug use, risk factors not captured in the FRAX model (e.g. frailty, falls, vitamin D deficiency, increased bone turnover, interval significant decline in bone density) and possible under or overestimation of fracture risk by FRAX. Additional medical evaluation for secondary cause of low bone mineral density may be appropriate. FUTURE SCAN RECOMMENDATION: People with diagnosed cases of osteoporosis or at high risk for fracture should have regular bone mineral density tests. For patients eligible for Medicare, routine testing is allowed once every 2 years. The testing frequency can be increased to one year for patients who have rapidly progressing disease, those who are receiving or discontinuing medical therapy to restore bone mass, or have additional risk factors.
== END 2022-04-21 10:28 | disposition home or self-care (01) ==
LOC: HO.MAMMO 10:27
PROVIDERS: PCP Internal Medicine; Visit Provider Obstetrics & Gynecology
DX: Z13.820 Encounter for screening for osteoporosis (principal); M85.80 Other specified disorders of bone density and structure, unspecified site; Z78.0 Asymptomatic menopausal state
CPT/HCPCS: 77080

== ENCOUNTER 2022-04-29 10:51 | Outpatient (REF) | payer MEDICARE, SELFPAY ==
--- NOTE | ~2022-04-29 | MM_ITS ---
EXAMINATION: MM DIAGNOSTIC DIGITAL BREAST TOMOSYNTHESIS, BILATERAL US BREAST TARGETED LIMITED, RIGHT CLINICAL INFORMATION: One-year followup right breast nodule. Screening left breast study. The lifetime risk of breast cancer based on the Tyrer-Cuzick Model is 3%. COMPARISON: Mammography: 04/28/2021 and studies dating back to 03/05/2015. TECHNIQUE: Digital breast tomosynthesis is performed in both the craniocaudal and mediolateral oblique views along with computer-aided detection (CAD). Synthesized 2D images are generated from the tomosynthesis. Spot magnification views of the right breast in craniocaudal and 90 degree mediolateral views. Targeted right breast ultrasound. FINDINGS: The breasts are heterogeneously dense, which may obscure small masses (ACR BI-RADS breast composition Category c). There is a stable parenchymal pattern of the left breast without new abnormal dominant mass or suspicious grouping of microcalcifications. Within the anterior aspect of the right breast superior medial aspect there is a new grouping of calcifications which have a probably benign appearance. Six-month follow-up magnification views of the right breast recommended. Targeted right breast ultrasound again demonstrates a 3 x 3 x 3 mm cyst 7 o'clock position approximately 2 cm from the nipple of the right breast. This is similar in appearance to previous studies and is stable for greater than 2 years. Results are discussed with the patient at time of visit. MM/MM tomosynthesis diagnostic BI IMPRESSION: Stable right breast cyst no longer needing follow-up. New grouping of calcifications anterior aspect of the right breast for which 6 month follow-up magnification views are recommended. ASSESSMENT: BI-RADS 3: Probably Benign. RECOMMENDATION: Diagnostic mammography in 6 months. This patient's information was entered into a reminder system with a target due date for their next mammogram.
== END 2022-04-29 10:52 | disposition home or self-care (01) ==
LOC: HO.MAMMO 10:51
PROVIDERS: PCP Internal Medicine; Visit Provider Obstetrics & Gynecology
DX: N60.01 Solitary cyst of right breast (principal)
CPT/HCPCS: 76642; 77062; 77066

== ENCOUNTER 2022-06-11 10:26 | Outpatient (REF) | payer MEDICARE, SELFPAY ==
[2022-06-11 17:56] LABS: Urine Cytology See Pathology rpt
== END 2022-06-11 10:27 | disposition home or self-care (01) ==
LOC: HO.LAB 10:26
PROVIDERS: PCP Internal Medicine; Visit Provider Nurse Practitioner Family
DX: R35.0 Frequency of micturition (principal); N81.10 Cystocele, unspecified
CPT/HCPCS: 51798; 88112; 99202

== ENCOUNTER → 2022-06-16 11:08 | Outpatient (BNVA) | payer MEDICARE, SELFPAY | PROVIDERS: PCP Internal Medicine; Visit Provider Nurse Practitioner Family | DX: K58.2 Mixed irritable bowel syndrome (principal); K59.09 Other constipation; K64.4 Residual hemorrhoidal skin tags; K64.8 Other hemorrhoids; N81.10 Cystocele, unspecified; K62.89 Other specified diseases of anus and rectum | CPT/HCPCS: 99212 ==

== ENCOUNTER 2022-08-06 11:20 | Outpatient (REF) | payer MEDICARE, SELFPAY ==
--- NOTE | ~2022-08-06 | US_ITS ---
EXAMINATION: US RETROPERITONEAL COMPLETE (RENAL) CLINICAL INFORMATION: Frequency of micturition. COMPARISON: X-ray abdomen KUB 11/16/2020. CT abdomen and pelvis without contrast 01/01/2019. TECHNIQUE: Real-time imaging of the kidneys and bladder. FINDINGS: RIGHT KIDNEY: 10.4 x 5.8 x 5.0 cm (SAG x AP x TRV). The kidney is normal in size and echogenicity. Renal cortical thickness is normal. No calculi or focal parenchymal lesions. No hydronephrosis. Congenital lobation. LEFT KIDNEY: 11.6 x 4.0 x 5.7 cm (SAG x AP x TRV). The kidney is normal in size and echogenicity. Renal cortical thickness is normal. No calculi or focal parenchymal lesions. No hydronephrosis. Congenital lobation. BLADDER: Well distended and normal. Bilateral ureteral jets are demonstrated. Prevoid bladder volume is 455 mL. Postvoid bladder volume is 13.4 mL. US/US retroperitoneal comp IMPRESSION: No acute sonographic abnormalities.
== END 2022-08-06 11:21 | disposition home or self-care (01) ==
LOC: HO.HMGCX 11:20
PROVIDERS: PCP Internal Medicine; Visit Provider Nurse Practitioner Family
DX: R35.0 Frequency of micturition (principal)
CPT/HCPCS: 76770

== ENCOUNTER → 2022-08-18 11:36 | Outpatient (BNVA) | payer MEDICARE, SELFPAY | PROVIDERS: PCP Internal Medicine; Visit Provider Nurse Practitioner Family | DX: R35.0 Frequency of micturition (principal); R31.29 Other microscopic hematuria | CPT/HCPCS: Q3014 ==

== ENCOUNTER → 2022-08-27 10:52 | Outpatient (BNVA) | payer MEDICARE, SELFPAY | PROVIDERS: PCP Internal Medicine; Visit Provider Nurse Practitioner Family | DX: M85.80 Other specified disorders of bone density and structure, unspecified site (principal) | CPT/HCPCS: 99212 ==

== ENCOUNTER → 2022-09-02 11:20 | Outpatient (BNVA) | payer MEDICARE, SELFPAY | PROVIDERS: PCP Internal Medicine; Visit Provider Nurse Practitioner Family | DX: K59.09 Other constipation (principal); K64.4 Residual hemorrhoidal skin tags; K64.8 Other hemorrhoids; K58.2 Mixed irritable bowel syndrome | CPT/HCPCS: 99212 ==

== ENCOUNTER → 2022-09-17 10:57 | Outpatient (BNVA) | payer MEDICARE, SELFPAY | PROVIDERS: PCP Internal Medicine; Visit Provider Obstetrics & Gynecology | DX: N81.10 Cystocele, unspecified (principal) | CPT/HCPCS: 99212 ==

== ENCOUNTER 2022-11-05 10:59 | Outpatient (REF) | payer MEDICARE, SELFPAY ==
--- NOTE | ~2022-11-05 | MM_ITS ---
EXAMINATION: MM DIAGNOSTIC DIGITAL BREAST TOMOSYNTHESIS, RIGHT CLINICAL INFORMATION: Short interval 6-month follow-up probable benign calcifications anterior upper inner right breast initially noted on prior diagnostic exam 04/29/2022. TC score 3%. COMPARISON: Prior mammography exams including most recent 04/29/2022. TECHNIQUE: Digital breast tomosynthesis is performed in both the craniocaudal and mediolateral oblique views along with computer-aided detection (CAD). Synthesized 2D images are generated from the tomosynthesis. FINDINGS: There are scattered areas of fibroglandular density (ACR BI-RADS breast composition Category b). Parenchymal pattern is similar to prior studies and there is no developing density, significant mass, or architectural abnormality. There is a biopsy clip marker again seen upper outer quadrant anterior depth and a few scattered benign coarse calcifications. The group of 3 calcifications for follow-up anterior upper inner right breast show interval coarsening and coalescence consistent with benign calcification. The axilla and skin contours are unremarkable. Results are discussed with the patient at time of visit. MM/MM tomosynthesis diagnostic RT IMPRESSION: The group of 3 calcifications for follow-up anterior upper inner right breast show interval coarsening and coalescence consistent with benign calcification. ASSESSMENT: BI-RADS 2: Benign RECOMMENDATION: Routine annual mammography screening. This patient's information was entered into a reminder system with a target due date for their next mammogram.
== END 2022-11-05 11:00 | disposition home or self-care (01) ==
LOC: HO.MAMMO 10:59
PROVIDERS: Visit Provider Obstetrics & Gynecology
DX: R92.1 Mammographic calcification found on diagnostic imaging of breast (principal)
CPT/HCPCS: 77061; 77065

== ENCOUNTER 2022-11-06 11:22 | Outpatient (AMB) | payer MEDICARE, SELFPAY ==
[2022-11-06 11:35] VITALS: BP 135/87; PULSE 57; BMI 25.5
--- NOTE | 2022-11-06 11:35 | A.OFFVIS_ITS ---
Intake Vital Signs 11/06/22 11:35 Height 5 ft 7.5 in Weight 165 lb 5.547 oz BMI 25.5 BP 135/87 Blood Pressure Location Lt brachial Position Sitting Pulse 57 Intake Visit Reasons: 2 month fu Intake Note: Bernice presents in office as a est.patient for a 2month f/u for IBS PT CC: pt reports that her gluteus dusty is uncomfortable when pt is sitting down pt denies any other GI Issues Can Conveyor Feeder Required: No Accompanied by: Self / Same As Patient Allergies alendronate sodium [From Fosamax] Adverse Reaction (Severe, Verified 11/06/22 11:36) Muscle Pain Medication List - Last Reconciled 11/06/22 by Pinky Vasquez, BIRD RAISER-LAZARO [email or web address](hypromellose)(PF) 0.3% 1 drp ophthalmic (eye) Q2-4H PRN B-complex with vitamin C (Super B Complex-Vitamin C tablet) 1 tab PO DAILY calcium-vitamin D3-vitamin K 500-100-40 mg-unit-mcg 1 tab PO DAILY cholecalciferol (vitamin D3) 25 mcg PO DAILY docusate sodium (Colace) 100 mg PO DAILY lorazepam 0.5 mg PO DAILY PRN multivit with min-folic acid 0.4 mg (One Daily Womens 50 Plus) tabs PO vitamin A and D 1 appl topical BEDTIME zolpidem 5 - 10 mg PO BEDTIME HPI 2 month fu HPI Details LAST VISIT: Chronic constipation Continue current regimen. Patient was instructed to increase fluid intake and activity to promote better bowel motility. Patient states that she is not constipated at the moment and is able to move her bowels 2 to 3 times a day Internal and external hemorrhoids without complication Patient denies any rectal pain except for occasional feeling burning. Patient is trying vitamin a and D ointment and reports that it is working IBS (irritable bowel syndrome) Continue current diet, elimination diet as discussed during visit. I will see patient in 3 months, sooner on as needed basis. Patient is agreeable to this plan and verbalizes understanding of instructions. She was given the opportunity to ask questions and all questions answered. TODAY'S VISIT Patient is here today for follow-up. Patient states that she has been feeling better, however she continues to have rectal discomfort. 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 Patient reports rectal burning. Denies any diarrhea or constipation. Moves her bowels twice a day. No pain when moving her bowels. Patient denies any abdominal pain or discomfort. Denies melena, hematochezia, unintentional weight loss or ribbon like stools. Patient denies dyspepsia, dysphagia or odynophagia [facility] Medical History Anxiety Back pain Chronic constipation Constipation Diarrhea Epidermal cyst Ganglion cyst of finger IBS (irritable bowel syndrome) Internal and external hemorrhoids without complication Surgical History Hx of removal of cyst Family History Father No problems noted. Mother No problems noted. Social History Housing: Condominium Alcohol intake: current Alcohol intake frequency: holidays/special occasions only Patient Tobacco Use Status: Former Tobacco user Tobacco use type: Cigarette e-Cigarette/Vaping Use: Never Used Second Hand Smoke Exposure: Yes service: No Current occupational status: retired Cognitive needs: No Hearing needs: No Vision needs: Yes Female Reproductive History Menstrual Age of Menarche: 11 Review of Systems Const Denies weight gain and Denies weight loss ENT Reports no additional complaints, Denies dysphagia and Denies odynophagia Card Reports no additional complaints Resp Reports no additional complaints GI Denies abdominal pain, Denies belching, Denies melena, Denies bloating, Denies change in bowel habits, Denies dysphagia, Denies excessive flatus, Denies dyspepsia, Denies heartburn, Denies diarrhea, Denies loose stools, Denies nausea, Denies odynophagia and Denies vomiting Reports no additional complaints Musc Reports no additional complaints Neuro Reports no additional complaints Psych Reports no additional complaints Endo Reports no additional complaints Physical Exam Vital Signs: Last Vital Signs Pulse 57 11/06/22 11:35 BP 135/87 11/06/22 11:35 BMI result Body Mass Index 25.5 Const General: healthy appearing, no acute distress and well developed Nutritional Appearance: well nourished Orientation/consciousness: patient oriented x3 HEENT Head: Yes normal to inspection, Yes normocephalic and Yes atraumatic Face and sinus: Yes normal facial exam Mouth: Normal oral and palatal mucosa present Throat: Yes posterior oropharynx normal, Yes tonsils normal and Yes uvula midline Eyes General: appearance normal, both eyes and all related structures Neck Neck: Yes normal visual inspection, Yes full ROM and Yes trachea midline Thyroid: Thyroid normal Resp Effort & Inspection: normal respiratory effort, able to speak in complete sentences, no tracheal deviation and symmetric chest movement Auscultation: clear to auscultation bilaterally Cardio Rate: regular rate Heart sounds: S1 normal heart sound present and S2 normal heart sound present GI Inspection: Yes normal to inspection and No distended Palpation (GI): Soft to palpation, not firm, nontender and No hepatosplenomegaly present Auscultation: normal bowel sounds Rectal Exam - Female: Internal hemorrhoid(s) present, No Rectal prolapse, No Anal fissure(s) present and Excoriation present (GI) (Mild) General: Yes no CVA tenderness Back/Spine/Pelvis Back: no CVA tenderness Skin General skin exam: elasticity normal, turgor normal and dry skin Neuro General: patient oriented x3 Psych Appearance: grossly normal Mental Status: mental status grossly normal Speech and movement: Normal speech and movement present Affect: normal affect Assessment & Plan Assessment & Plan (1) Chronic constipation: Code(s): K59.09 - Other constipation Plan: Continue current bowel regimen with Colace and occasional fiber. Moving bowels twice a day. Patient was encouraged to increase fluid intake and activity to promote better bowel motility. (2) Rectal pain: Code(s): K62.89 - Other specified diseases of anus and rectum Plan: Patient reports rectal pain. 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 Patient has internal hemorrhoids, mildly excoriated area most likely from urine leaking. Patient will be given script for tract also. Patient was encouraged to wear feminine pads for better absorption. I will see her in 2 months, sooner on as needed basis. Patient is agreeable to this plan and verbalizes understanding of instructions. She was given the opportunity to ask questions and all questions answered. Thank you for allowing me to participate in her care Medications: New hydrocortisone 2.5% (Proctosol HC) 1 appl WI BID-QID PRN 30 grams 2RF hemorrhoids K64.9 - Unspecified hemorrhoids Coding Level of Care Code Est Pt Level 3 (32380) Diagnoses Chronic constipation K59.09 Rectal pain K62.89 Time Spent (min) 25 Comment 15 minutes spent with patient and additional 10 minutes spent reviewing her records
== END 2022-11-06 12:11 | disposition home or self-care (01) ==
PROVIDERS: PCP Internal Medicine; Visit Provider Nurse Practitioner Family
DX: K59.09 Other constipation (principal); K62.89 Other specified diseases of anus and rectum
CPT/HCPCS: 99213

== ENCOUNTER → 2022-11-06 11:22 | Outpatient (BNVA) | payer MEDICARE, SELFPAY | PROVIDERS: PCP Internal Medicine; Visit Provider Nurse Practitioner Family | DX: K59.09 Other constipation (principal); K62.89 Other specified diseases of anus and rectum | CPT/HCPCS: 99212 ==

== ENCOUNTER 2022-12-25 11:15 | Outpatient (AMB) | payer MEDICARE, SELFPAY ==
--- NOTE | 2022-12-25 11:23 | MHC.OFFVIS ---
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 Moving bowels twice a day. Patient was encouraged to increase fluid intake and activity to promote better bowel motility. Rectal pain Patient reports rectal pain. 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 Patient has internal hemorrhoids, mildly excoriated area most likely from urine leaking. Patient will be given script for tract also. Patient was encouraged to wear feminine pads for better absorption. I will see her in 2 months, sooner on as needed basis. Patient is agreeable to this plan and verbalizes understanding of instructions. She was given the opportunity to ask questions and all questions answered. ? Thank you for allowing me to participate in her care Plan Medications New hydrocortisone 2.5% (Proctosol HC) 1 appl NC BID-QID PRN 30 grams 2RF hemorrhoids K64.9 TODAY'S VISIT Patient is here today for follow-up. Patient reports that she tried Proctosol, however she states that it was not helpful. Patient states that she has severe rectal burning when she used that and she stopped it. She is using vitamin A and D ointment and it reports that she is doing better. She continues to have rectal discomfort and burning when sitting. Patient reports that she is moving her bowels better 1-2 bowel movements a day. Patient is having good appetite. Denies any diarrhea. Patient denies melena, hematochezia, unintentional weight loss or ribbon like stools. Patient denies any dyspepsia, dysphagia or odynophagia. Overall patient states that she is feeling better. [facility] Medical History Anxiety Back pain Chronic constipation Constipation Diarrhea Epidermal cyst Ganglion cyst of finger IBS (irritable bowel syndrome) Internal and external hemorrhoids without complication Surgical History Hx of removal of cyst Family History Father No problems noted. Mother No problems noted. [facility] Alcohol intake: current Alcohol intake frequency: holidays/special occasions only Patient Tobacco Use Status: Former Tobacco user Tobacco use type: Cigarette e-Cigarette/Vaping Use: Never Used Second Hand Smoke Exposure: Yes service: No Current occupational status: retired Cognitive needs: No Hearing needs: No Vision needs: Yes Female Reproductive History Menstrual Age of Menarche: 11 Review of Systems Const Denies weight gain and Denies weight loss ENT Reports no additional complaints, Denies dysphagia and Denies odynophagia Card Reports no additional complaints Resp Reports no additional complaints GI Denies abdominal pain, Denies belching, Denies melena, Denies bloating, Denies change in bowel habits, Denies dysphagia, Denies excessive flatus, Denies dyspepsia, Denies heartburn, Denies diarrhea, Denies loose stools, Denies nausea, Denies odynophagia, Denies vomiting and Reports other (Rectal burning) Reports no additional complaints Musc Reports no additional complaints Neuro Reports no additional complaints Psych Reports no additional complaints Endo Reports no additional complaints Physical Exam Vital Signs: BMI result Body Mass Index 26.2 Const General: healthy appearing, no acute distress and well developed Nutritional Appearance: well nourished Orientation/consciousness: patient oriented x3 HEENT Head: Yes normal to inspection, Yes normocephalic and Yes atraumatic Face and sinus: Yes normal facial exam Mouth: Normal oral and palatal mucosa present Throat: Yes posterior oropharynx normal, Yes tonsils normal and Yes uvula midline Eyes General: appearance normal, both eyes and all related structures Neck Neck: Yes normal visual inspection, Yes full ROM and Yes trachea midline Thyroid: Thyroid normal Resp Effort & Inspection: normal respiratory effort, able to speak in complete sentences, no tracheal deviation and symmetric chest movement Auscultation: clear to auscultation bilaterally Cardio Rate: regular rate Heart sounds: S1 normal heart sound present and S2 normal heart sound present GI Inspection: Yes normal to inspection and No distended Palpation (GI): Soft to palpation, not firm, nontender and No hepatosplenomegaly present Auscultation: normal bowel sounds Rectal Exam - Female: normal sphincter tone and other (Excoriated rectal area) Other: Cystocele General: Yes no CVA tenderness Back/Spine/Pelvis Back: no CVA tenderness Skin General skin exam: elasticity normal, turgor normal and dry skin Neuro General: patient oriented x3 Psych Appearance: grossly normal Mental Status: mental status grossly normal Speech and movement: Normal speech and movement present Assessment & Plan Assessment & Plan (1) IBS (irritable bowel syndrome): Code(s): K58.9 - Irritable bowel syndrome without diarrhea Qualifiers: Irritable bowel syndrome type: with both diarrhea and constipation Qualified Code(s): K58.2 - Mixed irritable bowel syndrome Plan: Continue current low FODMAP diet. Patient can continue Colace daily. Encouraged to drink plenty fluids. (2) Chronic constipation: Code(s): K59.09 - Other constipation Plan: Increase fluid intake and activity to promote better bowel motility. Continue Colace. Patient can also use [id number] Citrucel if needed. (3) Burning sensation of rectum: Code(s): R20.8 - Other disturbances of skin sensation Plan: Excoriated rectal area most likely due to leaking urine. Patient was encouraged to apply past. Cystocele noted. Patient will be following up with her electrotype servicer. I will see her in 3 months, sooner on as needed basis. Patient is agreeable to this plan and verbalizes understanding of instructions she was given the opportunity to ask questions and all questions answered. Thank you for allowing me participate in care Coding Level of Care Code Est Pt Level 3 (34357) Diagnoses Irritable bowel syndrome with both constipation and diarrhea K58.2 Irritable bowel syndrome type: with both diarrhea and constipation Chronic constipation K59.09 Burning sensation of rectum R20.8 Time Spent (min) 25 Comment 15 minutes spent with patient and additional 10 minutes spent reviewing her records
[2022-12-25 11:24] VITALS: BMI 26.2
== END 2022-12-25 12:06 | disposition home or self-care (01) ==
PROVIDERS: PCP Internal Medicine; Visit Provider Nurse Practitioner Family
DX: K58.2 Mixed irritable bowel syndrome (principal); K59.09 Other constipation; R20.8 Other disturbances of skin sensation
CPT/HCPCS: 99213

== ENCOUNTER → 2022-12-25 11:15 | Outpatient (BNVA) | payer MEDICARE, SELFPAY | PROVIDERS: PCP Internal Medicine; Visit Provider Nurse Practitioner Family | DX: K58.2 Mixed irritable bowel syndrome (principal); K59.09 Other constipation; R20.8 Other disturbances of skin sensation | CPT/HCPCS: 99212 ==

== ENCOUNTER 2023-01-21 15:12 | Outpatient (AMB) | payer MEDICARE, SELFPAY ==
--- NOTE | 2023-01-21 16:19 | A.OFFVIS_ITS ---
Intake Intake Visit Reasons: cystocele follow up/DO NOT RS Allergies alendronate sodium [From Fosamax] Adverse Reaction (Severe, Verified 12/25/22 11:24) Muscle Pain HPI HPI Comments History of Present Illness Details Presenting for follow-up in question regarding her cystocele, the patient is complaining of bulge per vagina every now and then other concerns [facility] Medical History IBS (irritable bowel syndrome) Internal and external hemorrhoids without complication Constipation Back pain Diarrhea Ganglion cyst of finger Anxiety Chronic constipation Epidermal cyst Surgical History Hx of removal of cyst Family History Father No problems noted. Mother No problems noted. Social History [facility]: [facility] Alcohol intake: current Alcohol intake frequency: holidays/special occasions only Patient Tobacco Use Status: Former Tobacco user Tobacco use type: Cigarette e-Cigarette/Vaping Use: Never Used Second Hand Smoke Exposure: Yes service: No Current occupational status: retired Cognitive needs: No Hearing needs: No Vision needs: Yes Female Reproductive History Menstrual Age of Menarche: 11 Review of Systems Const All systems reviewed & are unremarkable except as noted in HPI and below Physical Exam General: Yes no CVA tenderness External Female Exam: normal external appearance and normal appearance of the urethra Speculum Exam - Vagina: normal appearance of the vagina, normal palpation, no lesions, no masses and other (Mild cystocele and bilateral paravaginal defects) Speculum Exam - Cervix: normal appearance of the cervix, normal palpation, no lesions, no masses and nontender Bimanual exam- vagina & uterus: normal bimanual exam, normal palpation, uterine size normal, normal palpation, uterine shape normal, No Cervical tenderness pr esent and non-tender Bimanual Exam- Adnexa, other: normal adnexae Back/Spine/Pelvis Back: no CVA tenderness Assessment & Plan Assessment & Plan (1) Female cystocele: Code(s): N81.10 - Cystocele, unspecified Plan: Discussed with the patient the finding on her pelvic exam, mild cystocele with bilateral paravaginal defects. Discussed with the patient options of treatment including expectant management, pessary or surgical treatment. All pros and cons, risks and benefits of each were discussed with the patient, the patient would like to proceed with expectant management at this point and will call back if symptoms get worse. All questions answered, the patient verbalized understanding. Coding Level of Care Code Est Pt Level 3 (13193) Diagnoses Female cystocele N81.10
== END 2023-01-21 15:36 | disposition home or self-care (01) ==
PROVIDERS: PCP Internal Medicine; Visit Provider Obstetrics & Gynecology
DX: N81.10 Cystocele, unspecified (principal)
CPT/HCPCS: 99213

== ENCOUNTER → 2023-01-21 15:12 | Outpatient (BNVA) | payer MEDICARE, SELFPAY | PROVIDERS: PCP Internal Medicine; Visit Provider Obstetrics & Gynecology | DX: N81.10 Cystocele, unspecified (principal) | CPT/HCPCS: 99212 ==

== ENCOUNTER 2023-02-26 08:46 | Outpatient (REF) | payer MEDICARE, SELFPAY ==
[2023-02-26 11:19] LABS: MANUAL DIFF FLAG NO
[2023-02-26 12:00] LABS: Basophils Percent Auto 0.4 % (0-2); Eosinophils Absolute Auto 0.2 X10*3/uL (0.0-0.4); Hematocrit 42.7 % (37.0-47.0); Hemoglobin 13.8 g/dl (12.0-16.0); Imm Gran Abs Auto 0.01 X10*3/uL (0.00-0.03); Imm Gran Pct Auto 0.2 % (0.0-0.4); Lymphocytes Absolute Auto 1.2 X10*3/uL (1.2-4.9); Lymphocytes Percent Auto 22.9 % (20-40); Mean Corpuscular HGB Conc 32.3 g/dl (31.0-35.0); Mean Corpuscular Hemoglobin 30.2 pg (27.0-33.0); Mean Corpuscular Volume 93.4 fL (80.0-98.0); Mean Platelet Volume 9.8 fL (9.4-12.3); Monocytes Absolute Auto 0.4 X10*3/uL (0.1-1.2); Monocytes Percent Auto 7.4 % (2-11); Neutrophils Absolute Auto 3.6 x10*3/uL (2.0-8.3); Neutrophils Percent Auto 66.1 % (45-73); Platelet Count 308 X10*3/uL (160-400); Red Blood Count 4.57 X10*6/uL (4.20-5.50); Red Cell Distribution Width 13.2 % (11.0-16.0); White Blood Count 5.4 X10*3/uL (4.8-10.8)
[2023-02-26 12:14] LABS: Alanine Aminotransferase 20 U/L (0-31); Albumin Level 4.1 g/dL (3.5-5.0); Alkaline Phosphatase 78 U/L (39-117); Anion Gap 14 (12-20); Aspartate Amino Transferase 23 U/L (5-31); Bilirubin Total 0.8 mg/dL (0.0-1.0); Blood Urea Nitrogen 16 mg/dL (9-16); Calcium 9.6 mg/dL (8.4-10.2); Carbon Dioxide 26 mmol/L (22-29); Chloride 104 mmol/L (96-108); Cholesterol 198 mg/dL (<200); Estimated Glomerular Filt Rate > 60; Glucose Fasting 116 mg/dL (60-99); HDL Cholesterol 67 mg/dL (>40); LDL Cholesterol Calculated 117 mg/dL (<100); Potassium 4.2 mmol/L (3.3-5.1); Sodium 140 mmol/L (135-145); Total Protein 7.1 g/dL (6.5-8.0); Triglycerides 70 mg/dL (<150)
[2023-02-26 12:15] LABS: Thyroid Stimulating Hormone 0.88 uIU/mL (0.32-4.0)
== END 2023-02-26 08:47 | disposition home or self-care (01) ==
LOC: HO.HMGCLDS 08:46
PROVIDERS: PCP Internal Medicine; Visit Provider Internal Medicine
DX: K58.2 Mixed irritable bowel syndrome (principal); E78.5 Hyperlipidemia, unspecified; E03.9 Hypothyroidism, unspecified; D64.9 Anemia, unspecified; N28.9 Disorder of kidney and ureter, unspecified; K59.09 Other constipation; R20.8 Other disturbances of skin sensation
CPT/HCPCS: 36415; 80053; 80061; 84443; 85025; 99212

== ENCOUNTER 2023-02-26 11:27 | Outpatient (AMB) | payer MEDICARE, SELFPAY ==
--- NOTE | 2023-02-26 11:36 | MHC.OFFVIS ---
Intake Vital Signs 02/26/23 11:38 Height 5 ft 7.5 in Weight 168 lb BMI 25.9 BP 128/64 Blood Pressure Location Lt brachial Position Sitting Pulse 93 Intake Visit Reasons: 2 month follow up Intake Note: Patient follow up rectal irritation Patient cc: rectal irritation, denies any other GI issues. Fish Header Required: No Accompanied by: Self / Same As Patient Allergies alendronate sodium [From Fosamax] Adverse Reaction (Severe, Verified 02/26/23 11:35) Muscle Pain HPI 2 month follow up HPI Details LAST VISIT: IBS (irritable bowel syndrome) Continue current low FODMAP diet. Patient can continue Colace daily. Encouraged to drink plenty fluids. Chronic constipation Increase fluid intake and activity to promote better bowel motility. Continue Colace. Patient can also use [id number] Citrucel if needed. Burning sensation of rectum Excoriated rectal area most likely due to leaking urine. Patient was encouraged to apply past. Cystocele noted. Patient will be following up with her biodiesel process control technician. I will see her in 3 months, sooner on as needed basis. Patient is agreeable to this plan and verbalizes understanding of instructions she was given the opportunity to ask questions and all questions answered. TODAY'S VISIT Patient is here today for follow-up. Patient reports that she seen her biodiesel process control technician who told her that she is not qualifying for surgery. Patient continues to have rectal irritation. She reports that she will try to get used to it. She is taking Citrucel fiber gummies and Colace on a needed basis. Patient reports that she is moving her bowels without any issues. Denies any diarrhea. Patient denies melena hematochezia, unintentional weight loss or ribbon like stools. Patient reports that she has good appetite. Feeling more comfortable leaving the house now, trying different food. Patient denies dyspepsia, dysphagia or odynophagia. Patient denies any other GI concerning symptoms [facility] Medical History IBS (irritable bowel syndrome) Internal and external hemorrhoids without complication Constipation Back pain Diarrhea Ganglion cyst of finger Anxiety Chronic constipation Epidermal cyst Surgical History Hx of removal of cyst Family History Father No problems noted. Mother No problems noted. [facility] Alcohol intake: current Alcohol intake frequency: holidays/special occasions only Patient Tobacco Use Status: Former Tobacco user Tobacco use type: Cigarette e-Cigarette/Vaping Use: Never Used Second Hand Smoke Exposure: Yes service: No Current occupational status: retired Cognitive needs: No Hearing needs: No Vision needs: Yes Female Reproductive History Menstrual Age of Menarche: 11 Review of Systems Const Denies weight gain and Denies weight loss ENT Reports no additional complaints, Denies dysphagia and Denies odynophagia Card Reports no additional complaints Resp Reports no additional complaints GI Denies abdominal pain, Denies belching, Denies melena, Denies bloating, Denies change in bowel habits, Denies dysphagia, Denies excessive flatus, Denies dyspepsia, Denies heartburn, Denies diarrhea, Denies loose stools, Denies nausea, Denies odynophagia and Denies vomiting Reports no additional complaints Musc Reports no additional complaints Neuro Reports no additional complaints Psych Reports no additional complaints Endo Reports no additional complaints Physical Exam Vital Signs: Last Vital Signs Pulse 93 02/26/23 11:38 BP 128/64 02/26/23 11:38 BMI result Body Mass Index 25.9 Const General: healthy appearing, no acute distress and well developed Nutritional Appearance: well nourished Orientation/consciousness: patient oriented x3 HEENT Head: Yes normal to inspection, Yes normocephalic and Yes atraumatic Face and sinus: Yes normal facial exam Mouth: Normal oral and palatal mucosa present Throat: Yes posterior oropharynx normal, Yes tonsils normal and Yes uvula midline Eyes General: appearance normal, both eyes and all related structures Neck Neck: Yes normal visual inspection, Yes full ROM and Yes trachea midline Thyroid: Thyroid normal Resp Effort & Inspection: normal respiratory effort, able to speak in complete sentences, no tracheal deviation and symmetric chest movement Auscultation: clear to auscultation bilaterally Cardio Rate: regular rate Heart sounds: S1 normal heart sound present and S2 normal heart sound present GI Inspection: Yes normal to inspection and No distended Palpation (GI): Soft to palpation, not firm, nontender and No hepatosplenomegaly present Auscultation: normal bowel sounds General: Yes no CVA tenderness Back/Spine/Pelvis Back: no CVA tenderness Skin General skin exam: elasticity normal, turgor normal and dry skin Neuro General: patient oriented x3 Psych Appearance: grossly normal Mental Status: mental status grossly normal Speech and movement: Normal speech and movement present Assessment & Plan Assessment & Plan (1) IBS (irritable bowel syndrome): Code(s): K58.9 - Irritable bowel syndrome without diarrhea Qualifiers: Irritable bowel syndrome type: with both diarrhea and constipation Qualified Code(s): K58.2 - Mixed irritable bowel syndrome (2) Chronic constipation: Code(s): K59.09 - Other constipation (3) Burning sensation of rectum: Code(s): R20.8 - Other disturbances of skin sensation Plan Continue with current bowel regimen. Patient was encouraged to continue high-fiber diet. Continue introducing food. She I will see patient in 4 months, sooner on as needed basis. Patient is agreeable to this plan and verbalizes understanding of instructions. She was given the opportunity to ask questions and all questions answered. Thank you for allowing me to participate in her care Coding Level of Care Code Est Pt Level 3 (54366) Diagnoses Irritable bowel syndrome with both constipation and diarrhea K58.2 Irritable bowel syndrome type: with both diarrhea and constipation Chronic constipation K59.09 Burning sensation of rectum R20.8 Time Spent (min) 25 Comment 15 minutes spent with patient and additional 10 minutes spent reviewing her records
[2023-02-26 11:38] VITALS: BP 128/64; PULSE 93; BMI 25.9
== END 2023-02-26 12:16 | disposition home or self-care (01) ==
PROVIDERS: PCP Internal Medicine; Visit Provider Nurse Practitioner Family
DX: K58.2 Mixed irritable bowel syndrome (principal); K59.09 Other constipation; R20.8 Other disturbances of skin sensation
CPT/HCPCS: 99213

== ENCOUNTER 2023-03-11 12:54 | Outpatient (AMB) | payer MEDICARE, SELFPAY ==
--- NOTE | 2023-03-11 13:00 | A.OFFPC_ITS ---
Vital Signs 03/11/23 13:01 Height 5 ft 7.5 in Weight 172 lb 2 oz BMI 26.6 BP 130/60 Blood Pressure Location Lt brachial Position Sitting Pulse 71 Pulse Source Pulse Oximeter Pulse Oximetry (%) 98 Oxygen Delivery Method Room Air Intake Visit Reasons: Annual Exam Intake Note: Patient is here today for a physical. 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: Not Required per policy Accompanied by: Self / Same As Patient Allergies alendronate sodium [From Fosamax] Adverse Reaction (Severe, Verified 03/11/23 13:00) Muscle Pain Tobacco use date assessed: 03/11/23 Fall risk assessment: No Falls in past year Last assessed Fall Risk: 03/11/23 Dental Screening Dental Screen Date: 03/11/23 Did you have a dental visit in the last 12 months?: No Did you have a dental problem in the last 6 months where you did not have access to dental care?: No Was dental information given to patient?: No HPI Annual Exam HPI Details IBS doing well [facility] Medical History IBS (irritable bowel syndrome) Internal and external hemorrhoids without complication Constipation Back pain Diarrhea Ganglion cyst of finger Anxiety Chronic constipation Epidermal cyst Surgical History Hx of removal of cyst Family History Father No problems noted. Mother No problems noted. Social History Housing: Condominium Alcohol intake: current Alcohol intake frequency: holidays/special occasions only Patient Tobacco Use Status: Former Tobacco user Tobacco use type: Cigarette e-Cigarette/Vaping Use: Never Used Second Hand Smoke Exposure: Yes service: No Current occupational status: retired Cognitive needs: No Hearing needs: No Vision needs: Yes Female Reproductive History Menstrual Age of Menarche: 11 Questionnaire PHQ-9 Over the last 2 weeks, how often have you been bothered by any of the following problems? Depression Screening Interpretation: Negative Depression Screening Done: Yes Source: Developed by Drs. Esdras Camejo, Callie Crews, Coleman Velasquez and colleagues, with an educational cecelia from [employer]. Thrive Questionnaire Date Thrive assessed: 08/28/22 RAVEN-7 AMB Questionnaire RAVEN-7 Date RAVEN - 7 assessed: 08/28/22 Source: Developed by Drs. Esdras Camejo, Callie Crews, Coleman Velasquez and colleagues, with an educational cecelia from [employer]. Review of Systems Const Denies chills, Denies fatigue, Denies headache(s) and Denies weight loss Eyes Denies change in vision, Denies diplopia and Denies eye pain ENT Denies vertigo, Denies dizziness, Denies headache(s) and Denies nasal discharge Card Denies chest pain, Denies rapid heart rate and Denies dyspnea on exertion Resp Denies chest congestion, Denies cough, Denies pain with cough and Denies dyspnea on exertion GI Denies abdominal pain, Denies hematochezia and Denies change in bowel habits Musc Denies myalgias, Denies arthralgias and Denies joint swelling Skin/Breast Denies lesions and Denies unusual bruising Neuro Denies vertigo, Denies dizziness, Denies headache(s) and Denies focal weakness Endo Denies fatigue Physical exam (Primary Care) Vital Signs: Last Vital Signs Pulse 71 03/11/23 13:01 BP 130/60 03/11/23 13:01 Pulse Ox 98 03/11/23 13:01 Oxygen Delivery Method Room Air 03/11/23 13:01 BMI result Body Mass Index 26.6 Tobacco/Smoking Status: Tobacco use Status Tobacco use date assessed 03/11/23 03/11/23 13:06 Patient Tobacco Use Status Former Tobacco user 03/11/23 13:06 Tobacco use type Cigarette 03/11/23 13:06 e-Cigarette/Vaping Use Never Used 03/11/23 13:06 Depression Screening Interpretation: Negative Thrive Assessment: Date of Thrive Assessment Date Thrive assessed 08/28/22 03/11/23 13:06 Advance Care Planning discussion: On file, no changes Forms completed: Health Care Proxy Const General: cooperative, healthy appearing and no acute distress Orientation/consciousness: oriented to person, oriented to place and oriented to time HENMT Head: Yes normal to inspection, Yes normocephalic and Yes atraumatic Mouth: Normal oral and palatal mucosa present and tongue normal Throat: Yes posterior oropharynx normal and Yes uvula midline Eyes General: appearance normal, both eyes and all related structures Neck Neck: Yes normal visual inspection, Yes full ROM and Yes no lymphadenopathy Thyroid: Thyroid normal Carotids: normal carotid upstroke Chest Chest palpation & inspection: normal inspection of the chest Resp Effort & Inspection: normal respiratory effort and able to speak in complete sentences Auscultation: clear to auscultation bilaterally Cardio Jugular venous distension: no JVD Palpation: normal PMI Rate: regular rate Rhythm: regular rhythm Heart sounds: S1 normal heart sound present and S2 normal heart sound present GI Inspection: Yes normal to inspection Palpation (GI): Soft to palpation and No hepatosplenomegaly present Auscultation: normal bowel sounds General: Yes no CVA tenderness Back/Spine/Pelvis Back: no CVA tenderness Skin General skin exam: no rashes or lesions noted Neuro General: oriented to person, oriented to place and oriented to time Extrem General: Yes normal to inspection and Yes full ROM Office Procedures Flu Questionnaire Does the patient have a severe egg allergy?: No Does the patient have severe life threatening allergies?: No Does the patient have a fever or illness today?: No Has the patient ever had Guillain-[place] Syndrome?: No Has the patient ever had any past reaction to a flu shot?: No Immunizations flu vacc [id number] 6mos up(PF) 60 mcg(15 mcgx4)/0.5 mL IM syringe Performing Provider: Levi Hunt MD [facility] Administered by: LEONARD Sarkar on 03/11/23 13:28 Dose Route Admin Location Dispensed Lot Number Expiration Date NDC Facilities Maintenance Engineer 0.5 mL IM Right Deltoid 0.5 mL [id number] 11/07/23 71029-860-13 [employer] VIS Given Date VIS Provided VIS Publication Date 03/11/23 Single Vaccine 20 Eligibility Eligibility Date Funding Source Not [facility] Eligible 03/11/23 Private Assessment and Plan Assessment & Plan (1) Physical exam: Code(s): Z00.00 - Encounter for general adult medical examination without abnormal findings Plan: stable (2) IBS (irritable bowel syndrome): Code(s): K58.9 - Irritable bowel syndrome without diarrhea Qualifiers: Irritable bowel syndrome type: with both diarrhea and constipation Qualified Code(s): K58.2 - Mixed irritable bowel syndrome Plan: cont with gi Orders: Orders Influenza [id number] Immunization 03/11/23 Z23 - Encounter for immunization Coding Level of Care Code Est Pt Prev Care >65y(44849) Diagnoses Physical exam Z00.00 Irritable bowel syndrome with both constipation and diarrhea K58.2 Irritable bowel syndrome type: with both diarrhea and constipation Additional Codes Vital Signs *Quality* - Advance Care Planning discussion: On file, no changes ([id number])
[2023-03-11 13:01] VITALS: BP 130/60; PULSE 71; O2SAT 98; BMI 26.6
== END 2023-03-11 13:29 | disposition home or self-care (01) ==
PROVIDERS: Visit Provider Internal Medicine
DX: Z23 Encounter for immunization (principal)
CPT/HCPCS: 1123F; 90471; 90686; 99397

== ENCOUNTER 2023-04-15 10:33 | Outpatient (AMB) | payer MEDICARE, SELFPAY ==
[2023-04-15 10:36] VITALS: BP 118/76; BMI 26.5
--- NOTE | 2023-04-15 10:36 | MHC.OFFVIS ---
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 No complaints. Last Pap/HPV was many years ago no history of abnormal Pap smears last 25 years Last Mammogram was BI-RADS 2 in 10/30 Last DEXA scan was in 04/30 was in the low risk category [facility] Medical History IBS (irritable bowel syndrome) Internal and external hemorrhoids without complication Constipation Back pain Diarrhea Ganglion cyst of finger Anxiety Chronic constipation Epidermal cyst Surgical History Hx of removal of cyst Family History Father No problems noted. Mother No problems noted. Social History Housing: Condominium Alcohol intake: current Alcohol intake frequency: holidays/special occasions only Patient Tobacco Use Status: Former Tobacco user Tobacco use type: Cigarette e-Cigarette/Vaping Use: Never Used Second Hand Smoke Exposure: Yes service: No Current occupational status: retired Cognitive needs: No Hearing needs: No Vision needs: Yes Female Reproductive History Menstrual Age of Menarche: 11 Total pregnancies: 2 Full term: 2 Number of Living Children: 2 Date of Mammogram: 11/05/22 Review of Systems Const All systems reviewed & are unremarkable except as noted in HPI and below Card Reports as per HPI Resp Reports as per HPI GI Reports as per HPI and Reports no additional complaints Reports as per HPI Physical Exam Vital Signs: Last Vital Signs BP 118/76 04/15/23 10:36 BMI result Body Mass Index 26.5 Const General: cooperative, healthy appearing and comfortable Chest Chest palpation & inspection: normal inspection of the chest and normal palpation of entire chest wall Breast/axilla inspection: normal inspection of the breasts and normal inspection of the axillae Breast/axilla palpation: normal palpation of the breasts, normal palpation of the axillae and no axillary lymphadenopathy Resp Effort & Inspection: normal respiratory effort Auscultation: clear to auscultation bilaterally Percussion: percussion normal Cardio Palpation: normal PMI Rate: regular rate Rhythm: regular rhythm Heart sounds: no murmurs and no rubs Peripheral pulses: Peripheral pulses 2+ throughout GI Inspection: Yes normal to inspection Palpation (GI): Soft to palpation, nontender, no guarding, not rigid and No hepatosplenomegaly present Percussion: Yes normal to percussion Auscultation: normal bowel sounds Rectal Exam - Female: deferred General: Yes bladder normal to palpation External Female Exam: No lesion Speculum Exam - Vagina: normal appearance of the vagina, normal palpation, normal vaginal discharge, not erythematous and other ([id number] cystocele with central and bilateral paravaginal defects) Speculum Exam - Cervix: normal appearance of the cervix, normal palpation and Other cervical findings present (Moderate uterine prolapse) Bimanual exam- vagina & uterus: normal bimanual exam, normal palpation, uterine size normal, bladder normal to palpation, consistency normal and normal palpation Bimanual Exam- Adnexa, other: normal adnexae, no masses and no tenderness Assessment & Plan Assessment & Plan (1) Female cystocele: Comment: Central and bilateral paravaginal defects With moderate uterine prolapse Code(s): N81.10 - Cystocele, unspecified Plan: Discussed with the patient the finding on pelvic exam, moderate cystocele central and bilateral paravaginal defects with moderate uterine prolapse. Options of treatment were discussed with the patient including expectant management, pessary is or surgical treatment. All pros and cons, risks and benefits of each were discussed with the patient, the patient decided to proceed with expectant management for the time being and will call back in case her symptoms get worse (2) Well woman exam: Code(s): Z01.419 - Encounter for gynecological examination (general) (routine) without abnormal findings Plan: Co testing not indicated since the patient 's age is above 65 with no history of abnormal Pap smears last 25 years. Counseled the patient about the recommended dietary allowance of 1200 mg of Calcium & 800 IU of vitamin D. Instructions given the patient to schedule next screen Mammogram in 11/01 The patient was instructed to perform monthly self-breast exams and to schedule a 2 week DEXA scan follow-up appointment and an annual exam in a year; All questions answered and the patient verbalized understanding. Coding Level of Care Code Est Pt Prev Care >65y(12890) Diagnoses Female cystocele N81.10 Well woman exam Z01.419
== END 2023-04-15 11:09 | disposition home or self-care (01) ==
LOC: HO.HWS 10:33
PROVIDERS: PCP Internal Medicine; Visit Provider Obstetrics & Gynecology
DX: Z01.419 Encounter for gynecological examination (general) (routine) without abnormal findings (principal); N81.10 Cystocele, unspecified
CPT/HCPCS: 99397

== ENCOUNTER → 2023-04-15 10:33 | Outpatient (BNVA) | payer MEDICARE, SELFPAY | PROVIDERS: PCP Internal Medicine; Visit Provider Obstetrics & Gynecology ==

== ENCOUNTER 2023-05-06 11:42 | Outpatient (REF) | payer MEDICARE, SELFPAY ==
--- NOTE | ~2023-05-06 | MM_ITS ---
EXAMINATION: MM SCREENING DIGITAL BREAST TOMOSYNTHESIS, BILATERAL CLINICAL INFORMATION: Screening. Asymptomatic. COMPARISON: Mammography: This study is compared with prior exams dating back to 2019. TECHNIQUE: Digital breast tomosynthesis is performed in both the craniocaudal and mediolateral oblique views along with computer-aided detection (CAD). Synthesized 2D images are generated from the tomosynthesis. FINDINGS: There are scattered areas of fibroglandular density (ACR BI-RADS breast composition Category b). There are no significant masses, abnormal calcifications, or other abnormalities. There is a tissue marker present in the right breast from prior benign percutaneous biopsy. MM/MM tomosynthesis screening BI IMPRESSION: No mammographic evidence of malignancy. ASSESSMENT: BI-RADS BI-RADS 2 - Benign Findings RECOMMENDATION: Routine annual mammography screening. 1 year F/U This examination should not preclude the clinical evaluation of a suspicious palpable abnormality. This patient's information was entered into a reminder system with a target due date for their next mammogram.
== END 2023-05-06 11:43 | disposition home or self-care (01) ==
LOC: HO.MAMMO 11:42
PROVIDERS: PCP Internal Medicine; Visit Provider Internal Medicine
DX: Z12.31 Encounter for screening mammogram for malignant neoplasm of breast (principal)
CPT/HCPCS: 77063; 77067

== ENCOUNTER → 2023-05-06 11:45 | Outpatient (BNV) | payer MEDICARE, SELFPAY | PROVIDERS: PCP Internal Medicine; Visit Provider Radiology Diagnostic Radiology | DX: Z12.31 Encounter for screening mammogram for malignant neoplasm of breast (principal) | CPT/HCPCS: 77063; 77067 ==

== ENCOUNTER 2023-07-02 10:58 | Outpatient (AMB) | payer MEDICARE, SELFPAY ==
[2023-07-02 10:59] VITALS: BP 140/61; PULSE 73; BMI 26.5
--- NOTE | 2023-07-02 10:59 | MHC.OFFVIS ---
Intake Vital Signs 07/02/23 10:59 Height 5 ft 7.5 in Weight 172 lb BMI 26.5 BP 140/61 H Blood Pressure Location Lt brachial Position Sitting Pulse 73 Pulse Source Monitor Intake Visit Reasons: 4 month follow up Intake Note: Patient states she's been better with her diet still working on it daily. 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 Patient was encouraged to continue high-fiber diet. Continue introducing food. She I will see patient in 4 months, sooner on as needed basis. Patient is agreeable to this plan and verbalizes understanding of instructions. She was given the opportunity to ask questions and all questions answered. TODAY'S VISIT Patient is here today for follow-up. Patient reports that since last time I have seen her she has been feeling well. Patient denies any episodes of postprandial loose stools like she experienced in the past. Reports that she has a bowel movement every day sometimes twice a day. Patient does not experience any symptoms of acid reflux. Patient denies dyspepsia, dysphagia or odynophagia. Denies any melena, hematochezia, unintentional weight loss or ribbon like stools. Patient reports to have good appetite and tries variety of food. Patient states that she did elimination diet and now is able to tolerate more food. Patient also admits that she is less anxious about leaving the house and worrying about having when out ? [facility] Medical History IBS (irritable bowel syndrome) Internal and external hemorrhoids without complication Constipation Back pain Diarrhea Ganglion cyst of finger Anxiety Chronic constipation Epidermal cyst Surgical History Hx of removal of cyst Family History Father No problems noted. Mother No problems noted. [facility] Alcohol intake: current Alcohol intake frequency: holidays/special occasions only Patient Tobacco Use Status: Former Tobacco user Tobacco use type: Cigarette e-Cigarette/Vaping Use: Never Used Second Hand Smoke Exposure: Yes service: No Current occupational status: retired Cognitive needs: No Hearing needs: No Vision needs: Yes Female Reproductive History Menstrual Age of Menarche: 11 Review of Systems Const Denies weight gain and Denies weight loss ENT Reports no additional complaints, Denies dysphagia and Denies odynophagia Card Reports no additional complaints Resp Reports no additional complaints GI Denies abdominal pain, Denies belching, Denies melena, Denies bloating, Denies change in bowel habits, Denies dysphagia, Denies excessive flatus, Denies dyspepsia, Denies heartburn, Denies diarrhea, Denies loose stools, Denies nausea, Denies odynophagia and Denies vomiting Musc Reports no additional complaints Neuro Reports no additional complaints Psych Reports no additional complaints Endo Reports no additional complaints Physical Exam Vital Signs: Last Vital Signs Pulse 73 07/02/23 10:59 BP 140/61 H 07/02/23 10:59 BMI result Body Mass Index 26.5 Const General: healthy appearing, no acute distress and well developed Nutritional Appearance: well nourished Orientation/consciousness: patient oriented x3 Resp Effort & Inspection: normal respiratory effort, able to speak in complete sentences, no tracheal deviation and symmetric chest movement Auscultation: clear to auscultation bilaterally Cardio Jugular venous distension: no JVD Rate: regular rate Heart sounds: S1 normal heart sound present, S2 normal heart sound present, no gallops and no murmurs GI Inspection: Yes normal to inspection and No distended Palpation (GI): Soft to palpation, not firm, nontender and No hepatosplenomegaly present Auscultation: normal bowel sounds General: Yes no CVA tenderness Back/Spine/Pelvis Back: no CVA tenderness Skin General skin exam: elasticity normal, turgor normal and dry skin Neuro General: patient oriented x3 Psych Appearance: grossly normal Mental Status: mental status grossly normal Assessment & Plan Assessment & Plan (1) IBS (irritable bowel syndrome): Code(s): K58.9 - Irritable bowel syndrome without diarrhea Qualifiers: Irritable bowel syndrome type: with both diarrhea and constipation Qualified Code(s): K58.2 - Mixed irritable bowel syndrome (2) Chronic constipation: Code(s): K59.09 - Other constipation (3) Burning sensation of rectum: Code(s): R20.8 - Other disturbances of skin sensation Plan Continue current diet, continue high-fiber diet. Increase fluid intake and activity to promote better bowel motility. Continue elimination diet. I will see her in 4 months, sooner on as needed basis. Patient is agreeable to this plan and verbalizes understanding of instructions. She was given the opportunity to ask questions and all questions answered. Thank you for allowing me to participate in her care Coding Level of Care Code Est Pt Level 3 (72975) Diagnoses Irritable bowel syndrome with both constipation and diarrhea K58.2 Irritable bowel syndrome type: with both diarrhea and constipation Chronic constipation K59.09 Burning sensation of rectum R20.8 Time Spent (min) 25 Comment 15 minutes spent with patient and additional 10 minutes spent reviewing her records
== END 2023-07-02 11:28 | disposition home or self-care (01) ==
PROVIDERS: PCP Internal Medicine; Visit Provider Nurse Practitioner Family
DX: K58.2 Mixed irritable bowel syndrome (principal); K59.09 Other constipation; R20.8 Other disturbances of skin sensation
CPT/HCPCS: 99213

== ENCOUNTER → 2023-07-02 10:58 | Outpatient (BNVA) | payer MEDICARE, SELFPAY | PROVIDERS: PCP Internal Medicine; Visit Provider Nurse Practitioner Family | DX: K58.2 Mixed irritable bowel syndrome (principal); K59.09 Other constipation; R20.8 Other disturbances of skin sensation | CPT/HCPCS: 99212 ==

== ENCOUNTER 2023-07-20 13:56 | Outpatient (AMB) | payer MEDICARE, SELFPAY ==
--- NOTE | 2023-07-20 14:23 | A.OFFVIS_ITS ---
Intake Vital Signs 07/20/23 14:28 Height 5 ft 7.5 in Weight 171 lb 15.369 oz BMI 26.5 BP 132/78 Intake Visit Reasons: Prolapse / ? pessary Blending Coordinator Required: No Information Interpreted: non-clinical & clinical Inspector Wreath: Inspector Wreath Present (Charmaine Gar SAMEER) Accompanied by: Self / Same As Patient Allergies alendronate sodium [From Fosamax] Adverse Reaction (Severe, Verified 07/20/23 14:29) Muscle Pain Post menopausal: Yes HPI HPI Comments History of Present Illness Details Presenting interested in pessary trial regarding cystocele and uterine prolapse. [facility] Medical History IBS (irritable bowel syndrome) Internal and external hemorrhoids without complication Constipation Back pain Diarrhea Ganglion cyst of finger Anxiety Chronic constipation Epidermal cyst Surgical History Hx of removal of cyst Family History Father No problems noted. Mother No problems noted. [facility] Alcohol intake: current Alcohol intake frequency: holidays/special occasions only Patient Tobacco Use Status: Former Tobacco user Tobacco use type: Cigarette e-Cigarette/Vaping Use: Never Used Second Hand Smoke Exposure: Yes service: No Current occupational status: retired Cognitive needs: No Hearing needs: No Vision needs: Yes Female Reproductive History Menstrual Age of Menarche: 11 Review of Systems Const All systems reviewed & are unremarkable except as noted in HPI and below Physical Exam General: Yes no CVA tenderness External Female Exam: normal external appearance and normal appearance of the urethra Speculum Exam - Vagina: normal appearance of the vagina, normal palpation, no lesions and no masses Speculum Exam - Cervix: normal appearance of the cervix, normal palpation, no lesions, no masses and nontender Bimanual exam- vagina & uterus: normal bimanual exam, normal palpation, uterine size normal, normal palpation, uterine shape normal, No Cervical tenderness present and non-tender Bimanual Exam- Adnexa, other: normal adnexae Back/Spine/Pelvis Back: no CVA tenderness Assessment & Plan Assessment & Plan (1) Female cystocele: Comment: Central and bilateral paravaginal defects With moderate uterine prolapse Code(s): N81.10 - Cystocele, unspecified Plan: Ring pessary #4 inserted in the vagina. Afterwards the pt did not feel it in, and did not have any pain or pressure. After Valsalva x 3 ( lying down, sitting and standing up ) pessary stayed in and pt was able to void freely with the pessary in the vagina. At the end the patient was instructed to come back in 24 hours, then in 3 days and then in 1 week for a f/u visits. Meanwhile the patient was instructed to call if vaginal pain, pressure or discharge occurs. Vaginal Trimosan Gel is to be used x2-3 x/week. The patient verbalized understanding and all questions were answered. Coding Level of Care Code Est Pt Level 3 (63655) Diagnoses Female cystocele N81.10
[2023-07-20 14:28] VITALS: BP 132/78; BMI 26.5
== END 2023-07-20 14:49 | disposition home or self-care (01) ==
LOC: HO.HWS 13:58
PROVIDERS: PCP Internal Medicine; Visit Provider Obstetrics & Gynecology
DX: N81.10 Cystocele, unspecified (principal)
CPT/HCPCS: 99213

== ENCOUNTER → 2023-07-20 13:56 | Outpatient (BNVA) | payer MEDICARE, SELFPAY | PROVIDERS: PCP Internal Medicine; Visit Provider Obstetrics & Gynecology | DX: N81.10 Cystocele, unspecified (principal) | CPT/HCPCS: 99212 ==

== ENCOUNTER 2023-07-21 13:58 | Outpatient (AMB) | payer MEDICARE, SELFPAY ==
[2023-07-21 14:03] VITALS: BMI 26.5
--- NOTE | 2023-07-21 14:03 | MHC.OFFVIS ---
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 Information Interpreted: non-clinical & clinical Application Support Analyst: Application Support Analyst Present (Charmaine ESTRELLA) Accompanied by: Self / Same As Patient Allergies alendronate sodium [From Fosamax] Adverse Reaction (Severe, Verified 07/21/23 14:12) Muscle Pain Post menopausal: Yes HPI HPI Comments History of Present Illness Details Presenting for follow-up after # 4 ring pessary insertion, had a bowel movement and it slipped out afterwards, no other complaint PFSH Medical History IBS (irritable bowel syndrome) Internal and external hemorrhoids without complication Constipation Back pain Diarrhea Ganglion cyst of finger Anxiety Chronic constipation Epidermal cyst Surgical History Hx of removal of cyst Family History Father No problems noted. Mother No problems noted. Social History Housing: Condominium Alcohol intake: current Alcohol intake frequency: holidays/special occasions only Patient Tobacco Use Status: Former Tobacco user Tobacco use type: Cigarette e-Cigarette/Vaping Use: Never Used Second Hand Smoke Exposure: Yes service: No Current occupational status: retired Cognitive needs: No Hearing needs: No Vision needs: Yes Female Reproductive History Menstrual Age of Menarche: 11 Review of Systems Const All systems reviewed & are unremarkable except as noted in HPI and below Reports as per HPI and Reports no additional complaints GI Reports no additional complaints Reports no additional complaints Physical Exam Vital Signs: BMI result Body Mass Index 26.5 Assessment & Plan Assessment & Plan (1) Female cystocele: Comment: Central and bilateral paravaginal defects With moderate uterine prolapse Code(s): N81.10 - Cystocele, unspecified Plan: Attempted insertion of donut pessary size 5, could not fit in, offered referral to Urogynecology, the patient declined. Will order different sizes of Gellhorn pessary. Instruction given to patient to schedule a follow-up appointment for pessary trial when the Gellhorn pessary is unavailable. All questions answered, the patient verbalized understanding Coding Level of Care Code Est Pt Level 3 (07773) Diagnoses Female cystocele N81.10
== END 2023-07-21 15:25 | disposition home or self-care (01) ==
LOC: HO.HWS 13:58
PROVIDERS: PCP Internal Medicine; Visit Provider Obstetrics & Gynecology
DX: N81.10 Cystocele, unspecified (principal)
CPT/HCPCS: 99213

== ENCOUNTER → 2023-07-21 13:58 | Outpatient (BNVA) | payer MEDICARE, SELFPAY | PROVIDERS: PCP Internal Medicine; Visit Provider Obstetrics & Gynecology | DX: N81.10 Cystocele, unspecified (principal); Z96.0 Presence of urogenital implants | CPT/HCPCS: 99212 ==

== ENCOUNTER 2023-08-19 13:35 | Outpatient (AMB) | payer MEDICARE, SELFPAY ==
--- NOTE | 2023-08-19 14:06 | MHC.OFFVIS ---
Intake Intake Visit Reasons: 1y follow up Intake Note: Patient presents today for a follow up Meds- None Allergies to Antibiotic- No Known Allergies Blood Thinner- None Post Void Residual: 36ml Foster Care Therapist Required: No Accompanied by: Self / Same As Patient Allergies alendronate sodium [From Fosamax] Adverse Reaction (Severe, Verified 08/19/23 14:53) Muscle Pain Medication List - Last Reconciled 08/19/23 by ANNA Acharya-LAZARO [email or web address].tears(hypromellose)(PF) 0.3% 1 drp ophthalmic (eye) Q2-4H PRN B-complex with vitamin C (Super B Complex-Vitamin C tablet) 1 tab PO DAILY calcium-vitamin D3-vitamin K 500-100-40 mg-unit-mcg 1 tab PO DAILY cholecalciferol (vitamin D3) 25 mcg PO DAILY docusate sodium (Colace) 100 mg PO DAILY multivit with min-folic acid 0.4 mg (One Daily Womens 50 Plus) tabs PO vitamin A and D 1 appl topical BEDTIME zolpidem 5 - 10 mg (0.5 - 1 x 10 mg) PO BEDTIME HPI HPI Comments History of Present Illness Details Bernice is a pleasant 78-year-old female patient of . She has a past medical history of IBS, constipation, and anxiety. She presents to the office today for follow-up of her microscopic hematuria and cystocele. In discussion with the patient today she reports to be doing and feeling well. She reports having followed up with absorption plant operator helper Dr. Beltrán and has been undergoing appointments for adequate sizing of a pessary. She discusses feeling at times she is not bothered by her cystocele however has moments where she does feel it is bothersome as she experiences lower urinary tract symptoms of urinary urgency, frequency, and episodes of incontinence. Previous workup has included a retroperitoneal ultrasound noting bilateral kidneys with no calculi, lesions, and or hydronephrosis. The bladder is well distended and normal. Bilateral ureteral jets are demonstrated. Pre void bladder volume is 455 mL. Postvoid bladder volume is 13 mL. Discussed no acute sonographic abnormalities noted. Discussed further treatment options here in our office for cystoceles. However, patient reports she would like to await call back from Dr. Beltrán's office as they have ordered a different pessary for her. Discussed if unable to undergo adequate sizing of pessary with absorption plant operator helper to call office for further assistance in management. She otherwise denies any bothersome urinary issues or concerns. In office urinalysis results reviewed with the patient today. PVR 36ml's. [facility] Medical History IBS (irritable bowel syndrome) Internal and external hemorrhoids without complication Constipation Back pain Diarrhea Ganglion cyst of finger Anxiety Chronic constipation Epidermal cyst Surgical History Hx of removal of cyst Family History Father No problems noted. Mother No problems noted. [facility] Alcohol intake: current Alcohol intake frequency: holidays/special occasions only Patient Tobacco Use Status: Former Tobacco user Tobacco use type: Cigarette e-Cigarette/Vaping Use: Never Used Second Hand Smoke Exposure: Yes service: No Current occupational status: retired Cognitive needs: No Hearing needs: No Vision needs: Yes Female Reproductive History Menstrual Age of Menarche: 11 Review of Systems Const All systems reviewed & are unremarkable except as noted in HPI and below Reports as per HPI Eyes Reports no additional complaints ENT Reports no additional complaints Card Reports no additional complaints Resp Reports no additional complaints GI Reports as per HPI Reports no additional complaints Musc Reports no additional complaints Neuro Reports no additional complaints Psych Reports no additional complaints Endo Reports no additional complaints Physical Exam Const General: cooperative, healthy appearing, comfortable, no acute distress, well developed, alert and awake Orientation/consciousness: patient oriented x3 Limitations: no limitations HEENT Head: Yes normal to inspection, Yes normocephalic and Yes atraumatic Ears: hearing grossly normal bilaterally Eyes General: appearance normal, both eyes and all related structures Neck Neck: Yes normal visual inspection and Yes trachea midline Chest Chest palpation & inspection: normal inspection of the chest Resp Effort & Inspection: able to speak in complete sentences Cardio Rate: regular rate GI Inspection: Yes normal to inspection General: Yes no CVA tenderness Back/Spine/Pelvis Back: no CVA tenderness Skin General skin exam: no rashes or lesions noted Neuro General: patient oriented x3 Extrem General: Yes normal to inspection Psych Appearance: grossly normal and well kempt Mental Status: mental status grossly normal Speech and movement: Clear speech present Affect: normal affect Attitude: cooperative Thought process: Normal thought process present Thought content: Normal thought content present Insight: Fair insight present (Psych) Judgement: Fair judgement present (Psych) Office Procedures Post Void Residual Post Residual Void Post Void Residual (PVR): 36 36301-Pyyt Void Residual by ultrasound Results AMB Urinalysis, Automated UA Leukoctes 70 Ricardo/uL Last Edit by Rubia Amaya [facility] on 08/19/23 14:28 UA Nitrite Negative Last Edit by Rubia Amayayvette Amaya [facility] on 08/19/23 14:28 UA Urobilinogen 0.2 mg/dL Last Edit by Rubia Amayayvette Amaya [facility] on 08/19/23 14:28 UA Protein 0 mg/dL Last Edit by Rubia Amayayvette Amaya [facility] on 08/19/23 14:28 UA pH 7.0 Last Edit by Rubia Amayayvette Amaya [facility] on 08/19/23 14:28 UA Blood 0 Alfredo/uL Last Edit by Rubia Amayayvette Amaya [facility] on 08/19/23 14:28 UA Specific [place] 1.015 Last Edit by Rubia Amayayvette Amaya [facility] on 08/19/23 14:28 UA Ketone Negative Last Edit by Rubia Amaya [facility] on 08/19/23 14:28 UA Bilirubin 0 mg/dL Last Edit by Rubia Amayayvette Amaya [facility] on 08/19/23 14:28 UA Glucose 0 mg/dL Last Edit by Rubia Amayayvette Amaya [facility] on 08/19/23 14:28 Results Reviewed Results Reviewed: Laboratory Last Values Urine pH (Auto) 7.0 08/19/23 14:08 Specific [place] (Auto) 1.015 08/19/23 14:08 Urine Protein (Auto) 0 mg/dL 08/19/23 14:08 Glucose (UA)(Auto) 0 mg/dL 08/19/23 14:08 Urine Ketones (Auto) Negative 08/19/23 14:08 Urine Blood (Auto) 0 Alfredo/uL 08/19/23 14:08 Urine Nitrite (Auto) Negative 08/19/23 14:08 Urine Bilirubin (Auto) 0 mg/dL 08/19/23 14:08 Urine Urobilinogen (Auto) 0.2 mg/dL 08/19/23 14:08 Leukocyte Esterase (Auto) 70 Ricardo/uL 08/19/23 14:08 Assessment & Plan Assessment & Plan (1) Microhematuria: Code(s): R31.29 - Other microscopic hematuria (2) Female cystocele: Code(s): N81.10 - Cystocele, unspecified Plan In office urinalysis results reviewed with the patient today; as noted above; no microscopic hematuria noted on urinalysis today. PVR 36 mL. Discussed at length further treatment options for cystocele; this was discussed at length Discussed near future in office cystoscopy and or urodynamics for further assessment evaluation. She currently denies any bothersome urinary issues or concerns. Follow-up in 1 year with PVR; or sooner with any issues, concerns, and or questions. Orders: Orders AMB Urinalysis Automated Today R33.9 - Retention of urine, unspecified AMB Post Void Residual by ultrasound Today R33.9 - Retention of urine, unspecified Patient Instructions: The patient had an opportunity to ask questions regarding the treatment plan. All questions were answered. Physical exam, labs, and imaging were discussed and reviewed in detail. As well as risks, benefits, and discussion of treatment choices. No major barriers to understanding were identified. The patient expressed understanding and agreement with the above treatment plan. The patient was made aware they should contact our office by phone for worsening of their current condition, the appearance of new symptoms, or with any questions or concerns. Compliance is encouraged with any medications and follow up testing that is ordered. It is a privilege to be allowed the opportunity to participate in? your urological care.? Again, if you have any questions or concerns If you have any questions or concerns please do not hesitate to contact me. The office is [phone]. This note is constructed using voice recognition software. While every effort has been made to ensure accuracy cement mixer errors may have been included. Yours sincerely, SHANEKA Acharya Coding Level of Care Code Est Pt Level 3 (87802) Diagnoses Microhematuria R31.29 Female cystocele N81.10 CPT Codes Post Residual Void - PVR CPT Code: 34633-Ivke Void Residual by ultrasound ([id number])
== END 2023-08-19 14:49 | disposition home or self-care (01) ==
PROVIDERS: Visit Provider Nurse Practitioner Family
DX: R31.29 Other microscopic hematuria (principal); N81.10 Cystocele, unspecified
CPT/HCPCS: 99213

== ENCOUNTER → 2023-08-19 13:35 | Outpatient (BNVA) | payer MEDICARE, SELFPAY | PROVIDERS: Visit Provider Nurse Practitioner Family | DX: R31.29 Other microscopic hematuria (principal); N81.10 Cystocele, unspecified | CPT/HCPCS: 51798; 81003; 99212 ==

== ENCOUNTER 2023-08-27 10:21 | Outpatient (AMB) | payer MEDICARE, SELFPAY ==
--- NOTE | 2023-08-27 10:22 | A.OFFVIS_ITS ---
Vital Signs 08/27/23 10:29 Height 5 ft 7.5 in Weight 172 lb 13.478 oz BMI 26.7 BP 110/68 Blood Pressure Location Rt brachial Position Sitting Pulse 94 Pulse Source Pulse Oximeter Pulse Oximetry (%) 96 Oxygen Delivery Method Room Air Intake Visit Reasons: osteoporisis Intake Note: Patient last seen 08/27/22 by Tamanna, presents today for yearly follow up. Inspector Rubber Stamp Die Required: No Accompanied by: Self / Same As Patient Allergies alendronate sodium [From Fosamax] Adverse Reaction (Severe, Verified 08/27/23 10:22) Muscle Pain HPI Comments Details: Ms. Queen 78 year old female patient presents for evaluation of right knee pain and swelling and left knee pain. She reports knee pain: she was at Hockey game and going up and down the stairs has cause pain. They sometimes get warm. She is concerns that when she stands up it feels like the right lateral knee pulls and also if the lays and stretches her legs. She is very concerned because she likes to keep active but every time she gets up the knee reminds her that she has to go slow. Initial visit: Patient reports that her bone density was most recently followed by her vocational rehabilitation supervisor provider. Bone density from April 2020 showed osteopenia -1.1 in the femoral neck with major osteoporotic risk fracture 15% and hip fracture is 6%. She reports that she was on Fosamax from 2019 to 2020 and tolerated medication without issue. She states that she developed a sinus infection requiring antibiotics and experienced bone and muscle pain for 2 days. She states that the Fosamax was thought to be interacting with the antibiotic or somehow contributing to the joint pain. She was advised to hold Fosamax for a week then restart it. Patient reports that she did not restart the Fosamax out of fear that she would experience muscle and joint pain again. She reports that during this time she spent long hours on the couch and was diagnosed with irritable bowel syndrome. She also admits to having depression at this time, she states she continues to have bouts of depression. She admits to anxiety and sleep disturbance and is lorazepam prn and zolpidem. Patient denies ever fracturing a bone. She is a former smoker for 20 years. Rare alcohol use. No longterm steroid use. She states that she is active running errands every day. She is taking calcium and vitamin D. She reports some intermittent discomfort in the lower back, she states this is positional and denies pain. She denies any concerns today. She states that she follows with GI for irritable bowel. [facility] Medical History IBS (irritable bowel syndrome) Internal and external hemorrhoids without complication Constipation Back pain Diarrhea Ganglion cyst of finger Anxiety Chronic constipation Epidermal cyst Surgical History Hx of removal of cyst Family History Father No problems noted. Mother No problems noted. Social History Housing: Condominium Alcohol intake: current Alcohol intake frequency: holidays/special occasions only Patient Tobacco Use Status: Former Tobacco user Tobacco use type: Cigarette e-Cigarette/Vaping Use: Never Used Second Hand Smoke Exposure: Yes service: No Current occupational status: retired Cognitive needs: No Hearing needs: No Vision needs: Yes Female Reproductive History Menstrual Age of Menarche: 11 Review of Systems Const All systems reviewed & are unremarkable except as noted in HPI and below Physical Exam Vital signs reviewed. Constitutional: Non-toxic appearing. No acute distress. Well-developed and well-nourished. HEENT: Normocephalic and atraumatic. External auditory canals without erythema or edema bilaterally. Skin: Warm and dry. No rashes or lesions noted. Neck: Full and painless range of motion. No cervical lymphadenopathy. Cardio: Regular rate and rhythm. No murmurs, gallops, or rubs. No lower extremity edema. No JVD. Pulmonary: No respiratory distress. No accessory muscle usage. Musculoskeletal: Normal range of motion in joints throughout the body. Valgus deformity to right leg. Mild Swelling to right knee, with tenderness and warmth. No swelling to left knee. Neuro: Alert and oriented x4. Cranial nerves 2-12 grossly intact. No focal deficits appreciated. Results Reviewed Results Reviewed: Laboratory Tests 12/09/21 02/23/22 02/23/22 10:07 08:41 08:41 WBC 5.8 RBC 4.63 Hgb 13.9 Hct 43.4 Plt Count 303 Sodium 142 Potassium 4.2 BUN 18 H Creatinine 0.94 Fasting Glucose 110 H AST 18 ALT 15 Triglycerides 80 Cholesterol 195 LDL Cholesterol, Calc 113 HDL Cholesterol 66 25-OH Vitamin D Total 55.9 TSH 1.14 Date of Service: 04/21/22 Procedure(s): XR DEXA axial skeleton Accession Number(s): [id number] EXAMINATION: BONE DENSITOMETRY CLINICAL INDICATION: Other specified disorders of bone density and structure. COMPARISON: Baseline BD dated 04/12/2020. TECHNIQUE: Using a [employer] DXA System (software version: 13.1) manufactured by [employer], dual-energy x-ray absorptiometry was performed of the lumbar spine and left hip. The images are of good technical quality. Summary results are attached. FINDINGS: AP SPINE L1-L4: Current: BMD 1.560 g/cm2, Z-score 4.8, T-score 3.2, normal, 0.2% increase from baseline (<5% change is not significant). Baseline: BMD 1.557 g/cm2. LEFT FEMUR, NECK: Current: BMD 0.870 g/cm2, Z-score 0.7, T-score -1.2, osteopenia. Baseline: BMD 0.885 g/cm2. LEFT FEMUR, TOTAL: Current: BMD 0.956 g/cm2, Z-score 1.3, T-score -0.4, normal, 3.1% decrease from baseline (<5% change is not significant). Baseline: BMD 0.987 g/cm2. IDENTIFIED RISK FACTORS: Menopause. HISTORY OF FRACTURE: None listed. MEDICATIONS: Calcium supplements or multivitamin, vitamin D. MM/XR DEXA axial skeleton IMPRESSION: 1. DIAGNOSIS: Osteopenia based on the lowest T-score value of -1.2 in the femoral neck applying World Health Organization criteria.? ? 2. 10-YEAR FRACTURE RISK PREDICTION, FRAX: Major osteoporotic fracture (clinical spine, forearm, hip or shoulder) 10.8%. Hip fracture 2.0%. Laboratory Tests 02/26/23 08:54 WBC 5.4 RBC 4.57 Hgb 13.8 Hct 42.7 Creatinine 0.84 AST 23 ALT 20 Assessment & Plan Assessment & Plan (1) Pain and swelling of right knee: Code(s): M25.561 - Pain in right knee; M25.461 - Effusion, right knee Category: Medical (2) Left knee pain: Code(s): M25.562 - Pain in left knee Category: Medical Qualifiers: Chronicity: acute Qualified Code(s): M25.562 - Pain in left knee Plan # Right Knee Swelling and Pain/Left knee pain: Will start Meloxicam and use topical Voltaren. Kidney and liver looks good on 02/2023 labs but will obtain updated CBC and CMP today. She will also apply Diclofenac gel to both knees . I also recommend a brace to use for the right knee to help with any instability for now. She can use when she is active. We will reassess in 1 month if not improved we will obtain Xray and consider steroid injection. I spent 25 minutes spent reviewing chart, evaluating patient and discussing treatment options and documenting. RTC 1 month Orders: Orders Comprehensive Met. Panel Today M25.461 - Effusion, right knee, M25.561 - Pain in right knee C Reactive Protein Today M25.461 - Effusion, right knee, M25.561 - Pain in right knee Uric Acid Today M25.461 - Effusion, right knee, M25.561 - Pain in right knee Erythrocyte Sedimentation Rate Today M25.461 - Effusion, right knee, M25.561 - Pain in right knee Complete Blood Count Auto Diff Today M25.461 - Effusion, right knee, M25.561 - Pain in right knee Immunoglobulins,IgG IgA IgM Today M25.461 - Effusion, right knee, M25.561 - Pain in right knee, M25.562 - Pain in left knee Immunofixation, Random Urine Today M25.461 - Effusion, right knee, M25.561 - Pain in right knee, M25.562 - Pain in left knee Protein Electrophoresis, Serum Today M25.461 - Effusion, right knee, M25.561 - Pain in right knee, M25.562 - Pain in left knee Medications: New meloxicam 15 mg PO DAILY 30 tabs 1RF M25.461 - Effusion, right knee, M25.561 - Pain in right knee diclofenac sodium 1% (Voltaren Arthritis Pain) apply to single knee, ankle, foot; for foot includes sole/toes/top of foot 4 grams topical QID 100 grams 0RF M25.461 - Effusion, right knee, M25.561 - Pain in right knee
[2023-08-27 10:29] VITALS: BP 110/68; PULSE 94; O2SAT 96; BMI 26.7
== END 2023-08-27 10:56 | disposition home or self-care (01) ==
PROVIDERS: PCP Internal Medicine; Visit Provider Nurse Practitioner Family
DX: M25.561 Pain in right knee (principal); M25.461 Effusion, right knee; M25.562 Pain in left knee
CPT/HCPCS: 99213

== ENCOUNTER 2023-08-27 11:08 | Outpatient (REF) | payer MEDICARE, SELFPAY ==
[2023-08-27 13:52] LABS: MANUAL DIFF FLAG NO
[2023-08-27 13:59] LABS: Basophils Percent Auto 0.5 % (0-2); Eosinophils Absolute Auto 0.1 X10*3/uL (0.0-0.4); Eosinophils Percent Auto 2.3 % (0-4); Hematocrit 41.5 % (37.0-47.0); Hemoglobin 13.5 g/dl (12.0-16.0); Imm Gran Abs Auto 0.01 X10*3/uL (0.00-0.03); Imm Gran Pct Auto 0.2 % (0.0-0.4); Mean Corpuscular HGB Conc 32.5 g/dl (31.0-35.0); Mean Corpuscular Hemoglobin 30.1 pg (27.0-33.0); Mean Corpuscular Volume 92.6 fL (80.0-98.0); Mean Platelet Volume 9.7 fL (9.4-12.3); Monocytes Absolute Auto 0.4 X10*3/uL (0.1-1.2); Monocytes Percent Auto 6.4 % (2-11); Neutrophils Absolute Auto 4.1 x10*3/uL (2.0-8.3); Neutrophils Percent Auto 72.6 % (45-73); Platelet Count 297 X10*3/uL (160-400); Red Blood Count 4.48 X10*6/uL (4.20-5.50); Red Cell Distribution Width 13.4 % (11.0-16.0); White Blood Count 5.6 X10*3/uL (4.8-10.8)
[2023-08-27 14:56] LABS: Erythrocyte Sedimentation Rate 7 MM/HR (0-20)
[2023-08-27 16:17] LABS: Alanine Aminotransferase 14 U/L (0-31); Alkaline Phosphatase 73 U/L (39-117); Anion Gap 8 (12-20); Aspartate Amino Transferase 18 U/L (5-31); Bilirubin Total 0.4 mg/dL (0.0-1.0); Blood Urea Nitrogen 14 mg/dL (9-16); Calcium 9.5 mg/dL (8.4-10.2); Carbon Dioxide 31 mmol/L (22-29); Chloride 106 mmol/L (96-108); Estimated Glomerular Filt Rate > 60; Glucose Random 113 mg/dL (60-115); Potassium 4.3 mmol/L (3.3-5.1); Sodium 141 mmol/L (135-145); Total Protein 6.9 g/dL (6.5-8.0); Uric Acid 4.1 mg/dL (2.4-5.7)
[2023-08-30 22:59] LABS: Prot Elec - Albumin 4.1 g/dL (3.8-4.8); Prot Elec - Alpha1 0.3 g/dL (0.2-0.3); Prot Elec - Alpha2 0.7 g/dL (0.5-0.9); Prot Elec - Beta 1 0.4 g/dL (0.4-0.6); Prot Elec - Beta 2 0.4 g/dL (0.2-0.5); Prot Elec - Gamma 0.9 g/dL (0.8-1.7); Prot Elec - Total Protein 6.7 g/dL (6.1-8.1)
[2023-09-02 22:43] LABS: IgA 250 mg/dL (70-320); IgG 1041 mg/dL (600-1540); IgM 29 mg/dL (50-300)
== END 2023-08-27 11:09 | disposition home or self-care (01) ==
LOC: HO.10HDL 11:08
PROVIDERS: PCP Internal Medicine; Visit Provider Nurse Practitioner Family
DX: M25.561 Pain in right knee (principal); M25.461 Effusion, right knee; M25.562 Pain in left knee
CPT/HCPCS: 80053; 82784; 84165; 84550; 85025; 85652; 86140; 86335; 99212

== ENCOUNTER 2023-10-06 12:29 | Outpatient (REF) | payer MEDICARE, SELFPAY ==
--- NOTE | ~2023-10-06 | XR_ITS ---
EXAMINATION: XR BILATERAL KNEES COMPARISON: None available. TECHNIQUE: 3 views of each knee. FINDINGS: RIGHT KNEE: The bones are diffusely demineralized. No significant joint effusion. Small tricompartmental osteophytes. Moderate narrowing of the patellofemoral and lateral compartments. LEFT KNEE: The bones are diffusely demineralized. No significant joint effusion. Tiny tricompartmental osteophytes. Mild narrowing of the medial and patellofemoral compartments. XR/XR knee RT 3V IMPRESSION: 1. Moderate degenerative changes right knee. 2. Mild degenerative changes left knee.
--- NOTE | ~2023-10-06 | XR_ITS ---
EXAMINATION: XR BILATERAL KNEES COMPARISON: None available. TECHNIQUE: 3 views of each knee. FINDINGS: RIGHT KNEE: The bones are diffusely demineralized. No significant joint effusion. Small tricompartmental osteophytes. Moderate narrowing of the patellofemoral and lateral compartments. LEFT KNEE: The bones are diffusely demineralized. No significant joint effusion. Tiny tricompartmental osteophytes. Mild narrowing of the medial and patellofemoral compartments. XR/XR knee LT 3V IMPRESSION: 1. Moderate degenerative changes right knee. 2. Mild degenerative changes left knee.
== END 2023-10-06 12:30 | disposition home or self-care (01) ==
LOC: HO.XRAY 12:29
PROVIDERS: PCP Internal Medicine; Visit Provider Nurse Practitioner Family
DX: M25.561 Pain in right knee (principal); M25.562 Pain in left knee; M25.461 Effusion, right knee
CPT/HCPCS: 73562; 99212

== ENCOUNTER 2023-10-06 12:29 | Outpatient (AMB) | payer MEDICARE, SELFPAY ==
--- NOTE | 2023-10-06 12:36 | MHC.OFFVIS ---
Vital Signs 10/06/23 12:42 Height 5 ft 7.5 in Weight 173 lb 1.006 oz BMI 26.7 BP 138/76 Blood Pressure Location Rt brachial Position Sitting Pulse 103 H Pulse Oximetry (%) 98 Intake Visit Reasons: Right Knee Pain/CM Intake Note: Patient last seen 08/27/23, presents today for follow up and test results. Patient would like to address cortisone injection today. Allergies alendronate sodium [From Fosamax] Adverse Reaction (Severe, Verified 10/06/23 12:41) Muscle Pain HPI Comments Details: 08/27/23:Ms. Queen 78 year old female patient presents for evaluation of right knee pain and swelling and left knee pain. Right Knee Swelling and Pain/Left knee pain improved on Meloxicam and topical Voltaren. She wants to continue to used them . 08/27/23:Ms. Queen 78 year old female patient presents for evaluation of right knee pain and swelling and left knee pain. She reports knee pain: she was at Hockey game and going up and down the stairs has cause pain. They sometimes get warm. She is concerns that when she stands up it feels like the right lateral knee pulls and also if the lays and stretches her legs. She is very concerned because she likes to keep active but every time she gets up the knee reminds her that she has to go slow. August 2022 Visit/Initial Cherrie Nolen Patient reports that her bone density was most recently followed by her news agent provider. Bone density from April 2020 showed osteopenia -1.1 in the femoral neck with major osteoporotic risk fracture 15% and hip fracture is 6%. She reports that she was on Fosamax from 2019 to 2020 and tolerated medication without issue. She states that she developed a sinus infection requiring antibiotics and experienced bone and muscle pain for 2 days. She states that the Fosamax was thought to be interacting with the antibiotic or somehow contributing to the joint pain. She was advised to hold Fosamax for a week then restart it. Patient reports that she did not restart the Fosamax out of fear that she would experience muscle and joint pain again. She reports that during this time she spent long hours on the couch and was diagnosed with irritable bowel syndrome. She also admits to having depression at this time, she states she continues to have bouts of depression. She admits to anxiety and sleep disturbance and is lorazepam prn and zolpidem. Patient denies ever fracturing a bone. She is a former smoker for 20 years. Rare alcohol use. No [facility] steroid use. She states that she is active running errands every day. She is taking calcium and vitamin D. She reports some intermittent discomfort in the lower back, she states this is positional and denies pain. She denies any concerns today. She states that she follows with GI for irritable bowel. [facility] Medical History (Updated 08/27/23 @ 10:58 by TORI Shultz) Left knee pain Pain and swelling of right knee IBS (irritable bowel syndrome) Internal and external hemorrhoids without complication Constipation Back pain Diarrhea Ganglion cyst of finger Anxiety Chronic constipation Epidermal cyst Surgical History Hx of removal of cyst Family History Father No problems noted. Mother No problems noted. [facility] Alcohol intake: current Alcohol intake frequency: holidays/special occasions only Patient Tobacco Use Status: Former Tobacco user Tobacco use type: Cigarette e-Cigarette/Vaping Use: Never Used Second Hand Smoke Exposure: Yes service: No Current occupational status: retired Cognitive needs: No Hearing needs: No Vision needs: Yes Female Reproductive History Menstrual Age of Menarche: 11 Review of Systems Const All systems reviewed & are unremarkable except as noted in HPI and below Physical Exam Vital Signs: Last Vital Signs Pulse 103 H 10/06/23 12:42 BP 138/76 10/06/23 12:42 Pulse Ox 98 10/06/23 12:42 BMI result Body Mass Index 26.7 Vital signs reviewed. Constitutional: Non-toxic appearing. No acute distress. Well-developed and well-nourished. HEENT: Normocephalic and atraumatic. External auditory canals without erythema or edema bilaterally. Skin: Warm and dry. No rashes or lesions noted. Neck: Full and painless range of motion. No cervical lymphadenopathy. Cardio: Regular rate and rhythm. No murmurs, gallops, or rubs. No lower extremity edema. No JVD. Pulmonary: No respiratory distress. No accessory muscle usage. Musculoskeletal: Normal range of motion in joints throughout the body. Valgus deformity to right leg. improved to right knee, mild tenderness and no warmth. No swelling to left knee. Neuro: Alert and oriented x4. Cranial nerves 2-12 grossly intact. No focal deficits appreciated. Results Reviewed Results Reviewed: Laboratory Tests 08/27/23 11:16 WBC 5.6 RBC 4.48 Hgb 13.5 Hct 41.5 ESR 7 Uric Acid 4.1 AST 18 ALT 14 C-Reactive Protein 0.10 IgG Total 1041 IgA Total 250 IgM 29 L Assessment & Plan Assessment & Plan (1) Pain and swelling of right knee: Code(s): M25.561 - Pain in right knee; M25.461 - Effusion, right knee Category: Medical (2) Left knee pain: Code(s): M25.562 - Pain in left knee Category: Medical Qualifiers: Chronicity: acute Qualified Code(s): M25.562 - Pain in left knee Plan # Right Knee Swelling and Pain/Left knee pain: Continue Meloxicam and use topical Voltaren as needed. Kidney and liver looks good on 08/2023 labs but will obtain updated CBC and CMP today. I also recommend a brace to use for the right knee to help with any instability for now. She can use when she is more active for longer periods. Patient will call if she desires cortisone injections I spent 20 minutes spent reviewing chart, evaluating patient and discussing treatment options and documenting. RTC as needed Orders: Orders XR knee LT 3V 10/06/23 M25.562 - Pain in left knee, M25.561 - Pain in right knee, M25.461 - Effusion, right knee XR knee RT 3V 10/06/23 M25.562 - Pain in left knee, M25.561 - Pain in right knee, M25.461 - Effusion, right knee Medications: Changed From meloxicam 15 mg PO DAILY 30 tabs 1RF M25.561 - Pain in right knee, M25.461 - Effusion, right knee To meloxicam 15 mg PO DAILY PRN 90 tabs 1RF Knee Pain M25.561 - Pain in right knee, M25.461 - Effusion, right knee Coding Level of Care Code Est Pt Level 3 (85693) Diagnoses Pain and swelling of right knee M25.561; M25.461 Acute pain of left knee M25.562 Chronicity: acute
[2023-10-06 12:42] VITALS: BP 138/76; PULSE 103; O2SAT 98; BMI 26.7
== END 2023-10-06 13:03 | disposition home or self-care (01) ==
PROVIDERS: PCP Internal Medicine; Visit Provider Nurse Practitioner Family
DX: M25.561 Pain in right knee (principal); M25.461 Effusion, right knee; M25.562 Pain in left knee
CPT/HCPCS: 99213

== ENCOUNTER 2023-11-03 10:25 | Outpatient (AMB) | payer MEDICARE, SELFPAY ==
--- NOTE | 2023-11-03 10:39 | MHC.OFFVIS ---
Vital Signs 11/03/23 10:44 Height 5 ft 7.5 in Weight 176 lb 5.917 oz BMI 27.2 BP 126/70 Blood Pressure Location Rt brachial Position Sitting Pulse 56 Pulse Source Pulse Oximeter Pulse Oximetry (%) 94 Oxygen Delivery Method Room Air Intake Visit Reasons: 4 month follow up constipation Intake Note: Bernice presents in office today for a scheduled 4 mos FUV. CC; Pt denies any new complications or concerns. Pt reports that she is still managing chronic sx OK. Still having some irregularities but she is doing OK otherwise. Pt also has an unrelated concern, pertaining to their L Leg. 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 Increase fluid intake and activity to promote better bowel motility. Continue elimination diet. I will see her in 4 months, sooner on as needed basis. Patient is agreeable to this plan and verbalizes understanding of instructions. She was given the opportunity to ask questions and all questions answered. ? TODAY'S VISIT: Patient is here today for follow-up. Patient reports that she has been feeling well for the most part. She continues to deal with her IBS. Patient is able to eat more food and is last restrictive when it comes to diet. Patient is able to go out and feels like she does not need to run to go to the bathroom immediately after she eats. Patient is taking her fiber supplements. She is drinking plenty fluids. Denies any melena, hematochezia. Denies dyspepsia, dysphagia or odynophagia. [facility] Medical History Left knee pain Pain and swelling of right knee IBS (irritable bowel syndrome) Internal and external hemorrhoids without complication Constipation Back pain Diarrhea Ganglion cyst of finger Anxiety Chronic constipation Epidermal cyst Surgical History Hx of removal of cyst Family History Father No problems noted. Mother No problems noted. Social History Housing: [facility] Alcohol intake: current Alcohol intake frequency: holidays/special occasions only Patient Tobacco Use Status: Former Tobacco user Tobacco use type: Cigarette e-Cigarette/Vaping Use: Never Used Second Hand Smoke Exposure: Yes service: No Current occupational status: retired Cognitive needs: No Hearing needs: No Vision needs: Yes Female Reproductive History Menstrual Age of Menarche: 11 Review of Systems Const Denies weight gain and Denies weight loss ENT Reports no additional complaints, Denies dysphagia and Denies odynophagia Card Reports no additional complaints Resp Reports no additional complaints GI Denies abdominal pain, Denies belching, Denies melena, Denies bloating, Denies change in bowel habits, Denies dysphagia, Denies excessive flatus, Denies dyspepsia, Denies heartburn, Denies diarrhea, Denies loose stools, Denies nausea, Denies odynophagia and Denies vomiting Musc Reports no additional complaints Neuro Reports no additional complaints Psych Reports no additional complaints Endo Reports no additional complaints Physical Exam Vital Signs: Last Vital Signs Pulse 56 11/03/23 10:44 BP 126/70 11/03/23 10:44 Pulse Ox 94 11/03/23 10:44 Oxygen Delivery Method Room Air 11/03/23 10:44 BMI result Body Mass Index 27.2 Const General: healthy appearing, no acute distress and well developed Nutritional Appearance: well nourished Orientation/consciousness: patient oriented x3 Resp Effort & Inspection: normal respiratory effort, able to speak in complete sentences, no tracheal deviation and symmetric chest movement Auscultation: clear to auscultation bilaterally Cardio Jugular venous distension: no JVD Rate: regular rate Heart sounds: S1 normal heart sound present, S2 normal heart sound present, no gallops and no murmurs GI Inspection: Yes normal to inspection and No distended Palpation (GI): Soft to palpation, not firm, nontender and No hepatosplenomegaly present Auscultation: normal bowel sounds General: Yes no CVA tenderness Back/Spine/Pelvis Back: no CVA tenderness Skin General skin exam: elasticity normal, turgor normal and dry skin Neuro General: patient oriented x3 Psych Appearance: grossly normal Mental Status: mental status grossly normal Assessment & Plan Assessment & Plan (1) IBS (irritable bowel syndrome): Code(s): K58.9 - Irritable bowel syndrome without diarrhea Category: Medical Qualifiers: Irritable bowel syndrome type: with both diarrhea and constipation Qualified Code(s): K58.2 - Mixed irritable bowel syndrome (2) Chronic constipation: Code(s): K59.09 - Other constipation Category: Medical (3) Burning sensation of rectum: Code(s): R20.8 - Other disturbances of skin sensation Plan Continue current diet regimen. Continue taking fiber. Increase fluid intake and activity to promote better bowel motility. Patient will continue avoiding dietary triggers. Avoid late night snacking. Staying upright for minimum 3 hours after meals discussed with patient. Patient will return in 4 months, she will call the office if she will develop any GI concerning symptoms. She is agreeable to this plan and verbalizes understanding of instructions. She was given the opportunity to ask questions and all questions answered. Thank you for allowing me to participate in her care Coding Level of Care Code Est Pt Level 3 (45960) Diagnoses Irritable bowel syndrome with both constipation and diarrhea K58.2 Irritable bowel syndrome type: with both diarrhea and constipation Chronic constipation K59.09 Burning sensation of rectum R20.8 Time Spent (min) 25 Comment 15 minutes spent with patient and additional 10 minutes spent reviewing her records
[2023-11-03 10:44] VITALS: BP 126/70; PULSE 56; O2SAT 94; BMI 27.2
== END 2023-11-03 11:15 | disposition home or self-care (01) ==
PROVIDERS: PCP Internal Medicine; Visit Provider Nurse Practitioner Family
DX: K58.2 Mixed irritable bowel syndrome (principal); K59.09 Other constipation; R20.8 Other disturbances of skin sensation
CPT/HCPCS: 99213

== ENCOUNTER → 2023-11-03 10:25 | Outpatient (BNVA) | payer MEDICARE, SELFPAY | PROVIDERS: PCP Internal Medicine; Visit Provider Nurse Practitioner Family | DX: K59.09 Other constipation (principal); K58.2 Mixed irritable bowel syndrome; R20.8 Other disturbances of skin sensation | CPT/HCPCS: 99212 ==

== ENCOUNTER 2024-02-25 09:34 | Outpatient (REF) | payer MEDICARE, SELFPAY ==
[2024-02-25 11:02] LABS: MANUAL DIFF FLAG NO
[2024-02-25 11:15] LABS: Basophils Percent Auto 0.2 % (0-2); Eosinophils Absolute Auto 0.1 X10*3/uL (0.0-0.4); Eosinophils Percent Auto 2.3 % (0-4); Hemoglobin 13.7 g/dl (12.0-16.0); Imm Gran Abs Auto 0.01 X10*3/uL (0.00-0.03); Imm Gran Pct Auto 0.2 % (0.0-0.4); Lymphocytes Absolute Auto 1.5 X10*3/uL (1.2-4.9); Lymphocytes Percent Auto 25.1 % (20-40); Mean Corpuscular HGB Conc 32.6 g/dl (31.0-35.0); Mean Corpuscular Volume 91.9 fL (80.0-98.0); Mean Platelet Volume 9.4 fL (9.4-12.3); Monocytes Absolute Auto 0.4 X10*3/uL (0.1-1.2); Monocytes Percent Auto 7.6 % (2-11); Neutrophils Absolute Auto 3.7 x10*3/uL (2.0-8.3); Neutrophils Percent Auto 64.6 % (45-73); Platelet Count 319 X10*3/uL (160-400); Red Blood Count 4.57 X10*6/uL (4.20-5.50); White Blood Count 5.8 X10*3/uL (4.8-10.8)
[2024-02-25 11:52] LABS: Alanine Aminotransferase 17 U/L (0-31); Albumin Level 4.3 g/dL (3.5-5.0); Alkaline Phosphatase 72 U/L (39-117); Anion Gap 12 (12-20); Aspartate Amino Transferase 21 U/L (5-31); Bilirubin Total 0.9 mg/dL (0.0-1.0); Blood Urea Nitrogen 17 mg/dL (9-16); Calcium 9.7 mg/dL (8.4-10.2); Carbon Dioxide 27 mmol/L (22-29); Chloride 106 mmol/L (96-108); Cholesterol 190 mg/dL (<200); Estimated Glomerular Filt Rate > 60; Glucose Fasting 118 mg/dL (60-99); HDL Cholesterol 63 mg/dL (>40); LDL Cholesterol Calculated 113 mg/dL (<100); Potassium 4.1 mmol/L (3.3-5.1); Sodium 141 mmol/L (135-145); Total Protein 7.2 g/dL (6.5-8.0); Triglycerides 72 mg/dL (<150)
[2024-02-25 12:13] LABS: Thyroid Stimulating Hormone 0.72 uIU/mL (0.32-4.0)
== END 2024-02-25 09:35 | disposition home or self-care (01) ==
LOC: HO.HMGCLDS 09:34
PROVIDERS: PCP Internal Medicine; Visit Provider Internal Medicine
DX: Z13.0 Encounter for screening for diseases of the blood and blood-forming organs and certain disorders involving the immune mechanism (principal); Z13.9 Encounter for screening, unspecified; Z13.220 Encounter for screening for lipoid disorders; Z13.29 Encounter for screening for other suspected endocrine disorder
CPT/HCPCS: 36415; 80053; 80061; 84443; 85025

== ENCOUNTER 2024-02-29 10:59 | Outpatient (AMB) | payer MEDICARE, SELFPAY ==
[2024-02-29 11:00] VITALS: BP 136/74; PULSE 74; O2SAT 96; BMI 26.0
--- NOTE | 2024-02-29 11:00 | A.OFFVIS_ITS ---
Vital Signs 02/29/24 11:00 Height 5 ft 7.5 in Weight 168 lb 6.931 oz BMI 26.0 BP 136/74 Blood Pressure Location Lt brachial Position Sitting Pulse 74 Pulse Source Pulse Oximeter Pulse Oximetry (%) 96 Oxygen Delivery Method Room Air Intake Visit Reasons: 4 month follow up Intake Note: Relevant Flags or Indicators ? Requires Sizing End Bander? Kyaw Bernice presents in office today for a scheduled 4 mos FUV. CC; Since last visit; labs ordered ? none. Rx ordered ? no. Diagnostics/images ordered ? none. Relevant GI Sx as reported per pt? Fecal abnormalities Pt does report having some pain with the rectum which is a chronic sx for her. Pt reports she has questions regarding their fiber supplements. ? Hx of any recent surgeries? None Sizing End Bander Required: No Allergies alendronate sodium [From Fosamax] Adverse Reaction (Severe, Verified 02/29/24 11:01) Muscle Pain HPI HPI 4 month follow up: Details: LAST VISIT: IBS (irritable bowel syndrome) Chronic constipation Burning sensation of rectum Plan Continue current diet regimen. Continue taking fiber. Increase fluid intake and activity to promote better bowel motility. Patient will continue avoiding dietary triggers. Avoid late night snacking. Staying upright for minimum 3 hours after meals discussed with patient. Patient will return in 4 months, she will call the office if she will develop any GI concerning symptoms. She is agreeable to this plan and verbalizes understanding of instructions. She was given the opportunity to ask questions and all questions answered. ? TODAY'S VISIT: Patient is here today for follow-up. Patient reports that she is doing fairly well moves her bowels daily. Takes fiber supplements every other day. Denies any diarrhea, constipation. Patient reports occasional pain, itching when having bowel movement. Patient uses A and D ointment and reports that it helps. Denies any nausea or vomiting. Denies any abdominal pain or discomfort. Patient denies melena, hematochezia, unintentional weight loss or ribbon like stools. Patient denies dyspepsia, dysphagia or odynophagia. Patient denies any other GI concerning symptoms. [facility] Medical History Left knee pain Pain and swelling of right knee IBS (irritable bowel syndrome) Internal and external hemorrhoids without complication Constipation Back pain Diarrhea Ganglion cyst of finger Anxiety Chronic constipation Epidermal cyst Surgical History Hx of removal of cyst Family History Father No problems noted. Mother No problems noted. Social History Housing: [facility] Alcohol intake: current Alcohol intake frequency: holidays/special occasions only Patient Tobacco Use Status: Former Tobacco user Tobacco use type: Cigarette e-Cigarette/Vaping Use: Never Used Second Hand Smoke Exposure: Yes service: No Current occupational status: retired Cognitive needs: No Hearing needs: No Vision needs: Yes Female Reproductive History Menstrual Age of Menarche: 11 Review of Systems Const Denies weight gain and Denies weight loss ENT Reports no additional complaints, Denies dysphagia and Denies odynophagia Card Reports no additional complaints Resp Reports no additional complaints GI Denies abdominal pain, Denies belching, Denies melena, Denies bloating, Denies change in bowel habits, Denies dysphagia, Denies excessive flatus, Denies dyspepsia, Denies heartburn, Denies diarrhea, Denies loose stools, Denies nausea, Denies odynophagia and Denies vomiting Musc Reports no additional complaints Neuro Reports no additional complaints Psych Reports no additional complaints Endo Reports no additional complaints Physical Exam Vital Signs: Last Vital Signs Pulse 74 02/29/24 11:00 BP 136/74 02/29/24 11:00 Pulse Ox 96 02/29/24 11:00 Oxygen Delivery Method Room Air 02/29/24 11:00 BMI result Body Mass Index 26.0 Const General: healthy appearing, no acute distress and well developed Nutritional Appearance: well nourished Orientation/consciousness: patient oriented x3 Resp Effort & Inspection: normal respiratory effort, able to speak in complete sentences, no tracheal deviation and symmetric chest movement Auscultation: clear to auscultation bilaterally Cardio Jugular venous distension: no JVD Rate: regular rate Heart sounds: S1 normal heart sound present, S2 normal heart sound present, no gallops and no murmurs GI Inspection: Yes normal to inspection and No distended Palpation (GI): Soft to palpation, not firm, nontender and No hepatosplenomegaly present Auscultation: normal bowel sounds General: Yes no CVA tenderness Back/Spine/Pelvis Back: no CVA tenderness Skin General skin exam: elasticity normal, turgor normal and dry skin Neuro General: patient oriented x3 Psych Appearance: grossly normal Mental Status: mental status grossly normal Assessment & Plan Assessment & Plan (1) IBS (irritable bowel syndrome): Code(s): K58.9 - Irritable bowel syndrome, unspecified Category: Medical Qualifiers: Irritable bowel syndrome type: with both diarrhea and constipation Qualified Code(s): K58.2 - Mixed irritable bowel syndrome (2) Chronic constipation: Code(s): K59.09 - Other constipation Category: Medical (3) Burning sensation of rectum: Code(s): R20.8 - Other disturbances of skin sensation Plan Continue high-fiber diet. Take fiber supplement daily. Increase fluid intake and activity to promote bowel motility. Avoid dietary triggers. Follow-up in 6 months, sooner on as needed basis Coding Level of Care Code Est Pt Level 3 (13222) Diagnoses Irritable bowel syndrome with both constipation and diarrhea K58.2 Irritable bowel syndrome type: with both diarrhea and constipation Chronic constipation K59.09 Burning sensation of rectum R20.8 Time Spent (min) 25 Comment 15 minutes spent with patient and additional 10 minutes spent reviewing her records
== END 2024-02-29 11:46 | disposition home or self-care (01) ==
PROVIDERS: PCP Internal Medicine; Visit Provider Nurse Practitioner Family
DX: K58.2 Mixed irritable bowel syndrome (principal); K59.09 Other constipation; R20.8 Other disturbances of skin sensation
CPT/HCPCS: 99213

== ENCOUNTER → 2024-02-29 10:59 | Outpatient (BNVA) | payer MEDICARE, SELFPAY | PROVIDERS: PCP Internal Medicine; Visit Provider Nurse Practitioner Family | DX: K58.2 Mixed irritable bowel syndrome (principal); K59.09 Other constipation; R20.8 Other disturbances of skin sensation | CPT/HCPCS: 99212 ==

== ENCOUNTER 2024-03-16 12:53 | Outpatient (AMB) | payer MEDICARE, SELFPAY ==
[2024-03-16 12:56] VITALS: BP 128/82; PULSE 100; O2SAT 93; BMI 25.5
--- NOTE | 2024-03-16 12:56 | MHC.PC.OV ---
Vital Signs 03/16/24 12:56 Height 5 ft 7.5 in Weight 165 lb BMI 25.5 BP 128/82 Blood Pressure Location Lt brachial Position Sitting Pulse 100 Pulse Source Pulse Oximeter Pulse Oximetry (%) 93 Oxygen Delivery Method Room Air Intake Visit Reasons: annual exam Intake Note: Pt requesting for zolpidem rx to be changed to 90 day supply. She also reports having post nasal drip, shes been taking pseudoephedrine which has helped but not gotten rid of it - requesting a zpack. 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 Accompanied by: Self / Same As Patient Allergies alendronate sodium [From Fosamax] Adverse Reaction (Severe, Verified 03/16/24 12:57) Muscle Pain Medication List - Last Reconciled 03/17/24 by MD vinnie Monet.tears(hypromellose)(PF) 0.3% 1 drp ophthalmic (eye) Q2-4H PRN B-complex with vitamin C (Super B Complex-Vitamin C tablet) 1 tab PO DAILY calcium-vitamin D3-vitamin K 500-100-40 mg-unit-mcg 1 tab PO DAILY cholecalciferol (vitamin D3) 25 mcg PO DAILY diclofenac sodium 1% (Voltaren Arthritis Pain) 4 grams topical QID multivit with min-folic acid 0.4 mg (One Daily Womens 50 Plus) tabs PO vitamin A and D 1 appl topical BEDTIME zolpidem 5 - 10 mg (0.5 - 1 x 10 mg) PO BEDTIME Tobacco use date assessed: 03/16/24 Fall risk assessment: No Falls in past year Last assessed Fall Risk: 03/16/24 Dental Screening Dental Screen Date: 03/16/24 Did you have a dental visit in the last 12 months?: No Did you have a dental problem in the last 6 months where you did not have access to dental care?: No Was dental information given to patient?: Patient declined HPI annual exam HPI Details healthy; doing well [facility] Medical History Left knee pain Pain and swelling of right knee IBS (irritable bowel syndrome) Internal and external hemorrhoids without complication Constipation Back pain Diarrhea Ganglion cyst of finger Anxiety Chronic constipation Epidermal cyst Surgical History Hx of removal of cyst Family History Father No problems noted. Mother No problems noted. Social History Housing: Condominium Alcohol intake: current Alcohol intake frequency: holidays/special occasions only Patient Tobacco Use Status: Former Tobacco user Tobacco use type: Cigarette e-Cigarette/Vaping Use: Never Used Second Hand Smoke Exposure: Yes service: No Current occupational status: retired Cognitive needs: No Hearing needs: No Vision needs: Yes Female Reproductive History Menstrual Age of Menarche: 11 Questionnaire PHQ-9 Over the last 2 weeks, how often have you been bothered by any of the following problems? 1. Little interest or pleasure in doing things: not at all 2. Feeling down, depressed, or hopeless: not at all 3. Trouble falling or staying asleep, or sleeping too much: not at all 4. Feeling tired or having little energy: not at all 5. Poor appetite or overeating: not at all 6. Feeling bad about yourself - or that you are a failure or have let yourself or your family down: not at all 7. Trouble concentrating on things, such as reading the newspaper or watching television: not at all 8. Moving or speaking so slowly that other people could have noticed. Or the opposite - being so fidgety or restless that you have been moving around a lot more than usual: not at all 9. Thoughts that you would be better off or of hurting yourself in some way: not at all Total score: 0 Depression Screening Interpretation: Negative Depression Screening Done: Yes 72608 - PHQ-9 Billing: Yes Source: Developed by Drs. Esdras Camejo, Callie Crews, Coleman Velasquez and colleagues, with an educational cecelia from [employer]. Thrive Questionnaire Date Thrive assessed: 03/16/24 I am a: Patient What is your living situation today?: I have a steady place to live Within the past 12 months, did the food you bought not last and you didn't have the money to get more?: Never true Within the past 12 months, did you worry whether your food would run out before you got money to buy more?: Never true Do you have trouble paying for medicines?: No Do you have trouble getting transportation to medical appointments?: No Do you have trouble paying your heating and electricity bill?: No Do you have trouble taking care of your child, family member or friend?: No Do you have trouble with day-to-day activities such as bathing, preparing meals, shopping, managing finances, etc.?: No Are you currently unemployed and looking for a job?: No Are you interested in more education?: No Please select the resources that you would like help with: None Currently or been in a relationship where the following occur: No concerns reported THRIVE Score: 0 AUDIT C Alcohol Use Questionnaire (AUDIT-C) 1. How often do you have a drink containing alcohol?: Monthly or less 2. How many drinks containing alcohol do you have on a typical day when you are drinking?: 1 or 2 Total Score: 1 RAVEN-7 AMB Questionnaire RAVEN-7 Date RAVEN - 7 assessed: 03/16/24 Feeling nervous, anxious, or on edge: 0 = Not at all Not being able to stop or control worryin = Not at all Worrying too much about different things: 0 = Not at all Trouble relaxin = Not at all Being so restless that it is hard to sit still: 0 = Not at all Becoming easily annoyed or irritable: 0 = Not at all Feeling afraid as if something awful might happen: 0 = Not at all Total RAVEN-7 score (0-4 normal; 5-9 mild; 10-14 moderate; 15-21 severe): 0 Source: Developed by Drs. Esdras Camejo, Callie Crews, Coleman Velasquez and colleagues, with an educational cecelia from [employer]. RAVEN-7 Assessment Billing RAVEN-7 Assessment Tool: RAVEN-7 Assessment 82420 Review of Systems Const Denies chills, Denies fatigue, Denies headache(s) and Denies weight loss Eyes Denies change in vision, Denies diplopia and Denies eye pain ENT Denies vertigo, Denies dizziness, Denies headache(s) and Denies nasal discharge Card Denies chest pain, Denies rapid heart rate and Denies dyspnea on exertion Resp Denies chest congestion, Denies cough, Denies pain with cough and Denies dyspnea on exertion GI Denies abdominal pain, Denies hematochezia and Denies change in bowel habits Musc Denies myalgias, Denies arthralgias and Denies joint swelling Skin/Breast Denies lesions and Denies unusual bruising Neuro Denies vertigo, Denies dizziness, Denies headache(s) and Denies focal weakness Endo Denies fatigue Physical exam (Primary Care) Vital Signs: Last Vital Signs Pulse 100 03/16/24 12:56 BP 128/82 03/16/24 12:56 Pulse Ox 93 03/16/24 12:56 Oxygen Delivery Method Room Air 03/16/24 12:56 BMI result Body Mass Index 25.5 Tobacco/Smoking Status: Tobacco use Status Tobacco use date assessed 03/16/24 03/16/24 12:58 Patient Tobacco Use Status Former Tobacco user 03/16/24 12:58 Tobacco use type Cigarette 03/16/24 12:58 e-Cigarette/Vaping Use Never Used 03/16/24 12:58 PHQ-9: PHQ-9 Score PHQ-9: Total score 0 03/16/24 13:32 Depression Screening Interpretation: Negative Thrive Assessment: Date of Thrive Assessment Date Thrive assessed 03/16/24 03/16/24 12:58 Currently or been in a relationship where the following occur: No concerns reported Const General: cooperative, healthy appearing and no acute distress Orientation/consciousness: oriented to person, oriented to place and oriented to time [facility] Head: Yes normal to inspection, Yes normocephalic and Yes atraumatic Mouth: Normal oral and palatal mucosa present and tongue normal Throat: Yes posterior oropharynx normal and Yes uvula midline Eyes General: appearance normal, both eyes and all related structures Neck Neck: Yes normal visual inspection, Yes full ROM and Yes no lymphadenopathy Thyroid: Thyroid normal Carotids: normal carotid upstroke Chest Chest palpation & inspection: normal inspection of the chest Resp Effort & Inspection: normal respiratory effort and able to speak in complete sentences Auscultation: clear to auscultation bilaterally Cardio Jugular venous distension: no JVD Palpation: normal PMI Rate: regular rate Rhythm: regular rhythm Heart sounds: S1 normal heart sound present and S2 normal heart sound present GI Inspection: Yes normal to inspection Palpation (GI): Soft to palpation and No hepatosplenomegaly present Auscultation: normal bowel sounds General: Yes no CVA tenderness Back/Spine/Pelvis Back: no CVA tenderness Skin General skin exam: no rashes or lesions noted Neuro General: oriented to person, oriented to place and oriented to time Extrem General: Yes normal to inspection and Yes full ROM Office Procedures Flu Questionnaire Does the patient have a severe egg allergy?: No Does the patient have severe life threatening allergies?: No Does the patient have a fever or illness today?: No Has the patient ever had Guillain-Leeds Syndrome?: No Has the patient ever had any past reaction to a flu shot?: No Immunizations Fluarix Triv [id number] (PF) 45 mcg (15 mcg x 3)/0.5 mL IM syringe Performing Provider: Levi Hunt MD [place] [facility] [place] [facility] Administered by: Margy Lozano LPN on 03/16/24 13:31 Dose Route Admin Location Dispensed Lot Number Expiration Date NDC Geographic Information Scientist 0.5 mL IM Left Deltoid 0.5 mL [id number] 11/06/24 [id number] [employer] VIS Given Date VIS Provided VIS Publication Date 03/16/24 Single Vaccine 20 Eligibility Eligibility Date Funding Source Not [facility] Eligible 03/16/24 Private Coding Level of Care Code Est Pt Prev Care >65y(68394) Diagnoses Physical exam Z00.00 Additional Codes RAVEN-7 Assessment Billing - RAVEN-7 Assessment Tool: RAVEN-7 Assessment 96993 ([id number]) PHQ-9 - 72283 - PHQ-9 Billing: Yes ([id number]) Assessment & Plan Assessment & Plan (1) Physical exam: Code(s): Z00.00 - Encounter for general adult medical examination without abnormal findings Category: Medical Plan stable; do labs Orders: Orders Influenza [id number] Immunization 03/16/24 Z23 - Encounter for immunization Lipid Panel Today Z13.220 - Encounter for screening for lipoid disorders Thyroid Stimulating Hormone Today Z13.29 - Encounter for screening for other suspected endocrine disorder Complete Blood Count Auto Diff Today Z13.0 - Encounter for screening for diseases of the blood and blood-forming organs and certain disorders involving the immune mechanism Comprehensive [place]. Panel Fast Today Z13.9 - Encounter for screening, unspecified Medications: Refilled zolpidem 5 - 10 mg (0.5 - 1 x 10 mg) PO BEDTIME 30 tabs 5RF
== END 2024-03-16 13:31 | disposition home or self-care (01) ==
LOC: HO.HMCH 12:54
PROVIDERS: PCP Internal Medicine; Visit Provider Internal Medicine
DX: Z00.00 Encounter for general adult medical examination without abnormal findings (principal)

== ENCOUNTER → 2024-03-16 12:53 | Outpatient (BNVA) | payer MEDICARE, SELFPAY | PROVIDERS: PCP Internal Medicine; Visit Provider Internal Medicine | DX: Z00.00 Encounter for general adult medical examination without abnormal findings (principal); Z23 Encounter for immunization; Z13.1 Encounter for screening for diabetes mellitus | CPT/HCPCS: 90471; 90656; 96127; 99397 ==

== ENCOUNTER 2024-04-04 10:28 | Outpatient (AMB) | payer MEDICARE, SELFPAY ==
[2024-04-04 10:32] VITALS: BP 126/74; PULSE 82; O2SAT 94; BMI 26.0
--- NOTE | 2024-04-04 10:32 | MHC.OFFVIS ---
Vital Signs 04/04/24 10:32 Height 5 ft 7.5 in Weight 168 lb 10.458 oz BMI 26.0 BP 126/74 Blood Pressure Location Lt brachial Position Sitting Pulse 82 Pulse Source Pulse Oximeter Pulse Oximetry (%) 94 Intake Visit Reasons: Knee OA/CM APPT Intake Note: Patient presents today for follow up on left knee arthritis lab review, she was last seen in the office by Hannah Damon on 10/06/23. Allergies alendronate sodium [From Fosamax] Adverse Reaction (Severe, Verified 04/04/24 10:35) Muscle Pain Medication List - Last Reconciled 04/04/24 by MD vinnie Goddard.tears(hypromellose)(PF) 0.3% 1 drp ophthalmic (eye) Q2-4H PRN B-complex with vitamin C (Super B Complex-Vitamin C tablet) 1 tab PO DAILY calcium-vitamin D3-vitamin K 500 mg-100 unit -40 mcg 1 tab PO DAILY cholecalciferol (vitamin D3) 25 mcg PO DAILY diclofenac sodium 1% (Voltaren Arthritis Pain) 4 grams topical QID loratadine (Allergy Relief (loratadine)) 10 mg PO DAILY PRN multivit with min-folic acid 0.4 mg (One Daily Womens 50 Plus) tabs PO vitamin A and D 1 appl topical BEDTIME zolpidem 5 - 10 mg (0.5 - 1 x 10 mg) PO BEDTIME HPI Comments Details: Patient is a 78-year-old female with anxiety who presents for follow up of polyarticular osteoarthritis involving bilateral hands and knees and osteopenia. Interval History: Patient last seen 10/06/2023 with Hannah Damon. At that time she was complaining of bilateral knee pain more so left than the right. And she was recommended topical diclofenac gel Today patient is raising about the topical diclofenac gel stating that she feels great with it Rheumatologic History: Osteopenia on vitamin-D and calcium supplementation - DEXA 04/2020 osteopenia T-score-1.1 in the femoral neck, hip fracture 6%. Patient took Fosamax for 1 year then discontinued due to muscle and bone pain. - DEXA 04/2022 osteopenia T-score-1.2 in the femoral neck. Patient does not want to start medication for osteopenia 08/2022. Next DEXA due 04/2024 Osteoarthritis involving the hands and bilateral knees Current Rheumatology Medication(s): Topical diclofenac gel PFSH Medical History (Updated 04/04/24 @ 11:16 by Patrizia Villarreal MD) Bilateral primary osteoarthritis of knee Left knee pain Pain and swelling of right knee IBS (irritable bowel syndrome) Internal and external hemorrhoids without complication Constipation Back pain Diarrhea Ganglion cyst of finger Anxiety Chronic constipation Epidermal cyst Surgical History Hx of removal of cyst Family History Father No problems noted. Mother No problems noted. Social History Housing: Condominium Alcohol intake: current Alcohol intake frequency: holidays/special occasions only Patient Tobacco Use Status: Former Tobacco user Tobacco use type: Cigarette e-Cigarette/Vaping Use: Never Used Second Hand Smoke Exposure: Yes service: No Current occupational status: retired Cognitive needs: No Hearing needs: No Vision needs: Yes Female Reproductive History Menstrual Age of Menarche: 11 Review of Systems Const Details: Review of Systems Constitutional: Denies fever, chills, weight loss ENT: Denies vision changes, eye pain or eye redness, dental caries, dry mouth GI: Denies nausea, vomiting, diarrhea, abdominal pain, change in BM Pulm: Denies SOB, MAY, hemoptysis, wheezing Cards: Denies chest pain, palpitations Skin: Denies Raynaud's, rash, nail changes, photosensitivity, 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 Heberden's nodes noted throughout DIPs. No synovitis noted to the MCPs, PIPs or DIPs. ?No tenderness to palpation of these joints. Wrists: ?Full range of motion at the wrists without pain. ?No tenderness to palpation or synovitis noted to the wrists. Elbows: Full range of motion without pain. No tenderness, weakness, swelling, increased warmth or erythema. Shoulders: Full range of motion without pain. No tenderness, weakness, swelling, increased warmth or erythema. Knees: ?Full range of motion. ?No tenderness, swelling, increased warmth or erythema. Bilateral crepitations noted SKIN Skin intact without rashes. Results Reviewed Results Reviewed: XR Right and Left Knee 09/2023 FINDINGS: RIGHT KNEE: The bones are diffusely demineralized. No significant joint effusion. Small tricompartmental osteophytes. Moderate narrowing of the patellofemoral and lateral compartments. LEFT KNEE: The bones are diffusely demineralized. No significant joint effusion. Tiny tricompartmental osteophytes. Mild narrowing of the medial and patellofemoral compartments. Assessment & Plan Assessment & Plan (1) Bilateral primary osteoarthritis of knee: Code(s): M17.0 - Bilateral primary osteoarthritis of knee Category: Medical Plan: #Bilateral knee OA Patient doing well on topical diclofenac. We will continue same. (2) Osteopenia with high risk of fracture: Comment: DEXA 04/2020 osteopenia T-score-1.1 in the femoral neck, hip fracture 6%. Patient took Fosamax for 1 year then discontinued due to muscle and bone pain. DEXA 04/2022 osteopenia T-score-1.2 in the femoral neck. Patient does not want to start medication for osteopenia 08/2022. Next DEXA due 04/2024 Code(s): M85.80 - Other specified disorders of bone density and structure, unspecified site Category: Medical Plan: #Osteopenia Due for DEXA Plan I spent 20 minutes reviewing the record and labs, seeing the patient, discussing the treatment plan and documenting in the medical record Orders: Orders XR DEXA axial skeleton Today M85.80 - Other specified disorders of bone density and structure, unspecified site Coding Level of Care Code Est Pt Level 3 (27203) Diagnoses Bilateral primary osteoarthritis of knee M17.0 Osteopenia with high risk of fracture M85.80
== END 2024-04-04 11:08 | disposition home or self-care (01) ==
PROVIDERS: PCP Internal Medicine; Visit Provider Student in an Organized Health Care Education/Training Program
DX: M17.0 Bilateral primary osteoarthritis of knee (principal); M85.80 Other specified disorders of bone density and structure, unspecified site
CPT/HCPCS: 99213

== ENCOUNTER → 2024-04-04 10:28 | Outpatient (BNVA) | payer MEDICARE, SELFPAY | PROVIDERS: PCP Internal Medicine; Visit Provider Student in an Organized Health Care Education/Training Program | DX: M17.0 Bilateral primary osteoarthritis of knee (principal); M85.80 Other specified disorders of bone density and structure, unspecified site | CPT/HCPCS: 99212 ==

== ENCOUNTER 2024-04-19 10:35 | Outpatient (AMB) | payer MEDICARE, SELFPAY ==
--- NOTE | 2024-04-19 10:39 | A.OFFVIS_ITS ---
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 The patient is doing well without the pessary, has bulge per vagina but no incontinence no frequency and no nocturia. Does not want pessary placed back in Last Pap/HPV was many years ago no history of abnormal Pap smear last 25 years Last Mammogram was BI-RADS 2 in 05/01 Last DEXA scan was in 04/30 Mammogram and DEXA scan scheduled on 05/11/2024 [facility] Medical History Bilateral primary osteoarthritis of knee Left knee pain Pain and swelling of right knee IBS (irritable bowel syndrome) Internal and external hemorrhoids without complication Constipation Back pain Diarrhea Ganglion cyst of finger Anxiety Chronic constipation Epidermal cyst Surgical History Hx of removal of cyst Family History Father No problems noted. Mother No problems noted. [facility] Alcohol intake: current Alcohol intake frequency: holidays/special occasions only Patient Tobacco Use Status: Former Tobacco user Tobacco use type: Cigarette e-Cigarette/Vaping Use: Never Used Second Hand Smoke Exposure: Yes service: No Current occupational status: retired Cognitive needs: No Hearing needs: No Vision needs: Yes Female Reproductive History Menstrual Age of Menarche: 11 Total pregnancies: 2 Full term: 2 Date of Mammogram: 05/06/23 (bi rad 2) Date of last Bone Density Screenin04/21/22 Review of Systems Const All systems reviewed & are unremarkable except as noted in HPI and below Card Reports as per HPI Resp Reports as per HPI GI Reports as per HPI and Reports no additional complaints Reports as per HPI Physical Exam Vital Signs: Last Vital Signs BP 128/76 04/19/24 10:52 BMI result Body Mass Index 25.5 Const General: cooperative, healthy appearing and comfortable Chest Chest palpation & inspection: normal inspection of the chest and normal palpation of entire chest wall Breast/axilla inspection: normal inspection of the breasts and normal inspection of the axillae Breast/axilla palpation: normal palpation of the breasts, normal palpation of the axillae and no axillary lymphadenopathy Resp Effort & Inspection: normal respiratory effort Auscultation: clear to auscultation bilaterally Percussion: percussion normal Cardio Palpation: normal PMI Rate: regular rate Rhythm: regular rhythm Heart sounds: no murmurs and no rubs Peripheral pulses: Peripheral pulses 2+ throughout GI Inspection: Yes normal to inspection Palpation (GI): Soft to palpation, nontender, no guarding, not rigid and No hepatosplenomegaly present Percussion: Yes normal to percussion Auscultation: normal bowel sounds Rectal Exam - Female: deferred General: Yes bladder normal to palpation External Female Exam: No lesion Speculum Exam - Vagina: normal appearance of the vagina, normal palpation, normal vaginal discharge, not erythematous and other (Large cystocele central and bilateral paravaginal defect) Speculum Exam - Cervix: normal appearance of the cervix and normal palpation Bimanual exam- vagina & uterus: normal bimanual exam, normal palpation, uterine size normal, bladder normal to palpation, consistency normal and normal palpation Bimanual Exam- Adnexa, other: normal adnexae, no masses and no tenderness Assessment & Plan Assessment & Plan (1) Female cystocele: Comment: Central and bilateral paravaginal defects With moderate uterine prolapse Code(s): N81.10 - Cystocele, unspecified Category: Medical Plan: Discussed with the patient the finding on pelvic exam. Since the patient is doing well and does not want pessary will keep pessary out. Instructions given the patient to call in case symptoms change, nocturia, frequency or incontinence or bulge per vagina. Co testing not indicated since the patient 's age is above 65 with no history of abnormal Pap smears last 25 years. Counseled the patient about the recommended dietary allowance of 1200 mg of Calcium & 800 IU of vitamin D. Mammogram and DEXA scan schedule . The patient was instructed to perform monthly self-breast exams and to schedule a 2 week DEXA scan follow-up appointment and an annual exam in a year; All questions answered and the patient verbalized understanding. Coding Level of Care Code Est Pt Level 3 (93845) Diagnoses Female cystocele N81.10
[2024-04-19 10:52] VITALS: BP 128/76; BMI 25.5
== END 2024-04-19 11:18 | disposition home or self-care (01) ==
PROVIDERS: PCP Internal Medicine; Visit Provider Obstetrics & Gynecology
DX: N81.10 Cystocele, unspecified (principal)
CPT/HCPCS: 99213

== ENCOUNTER → 2024-04-19 10:35 | Outpatient (BNVA) | payer MEDICARE, SELFPAY | PROVIDERS: PCP Internal Medicine; Visit Provider Obstetrics & Gynecology | DX: N81.10 Cystocele, unspecified (principal) | CPT/HCPCS: 99212 ==

== ENCOUNTER 2024-05-11 11:56 | Outpatient (REF) | payer MEDICARE, SELFPAY ==
--- NOTE | ~2024-05-11 | MM_ITS ---
EXAMINATION: MM SCREENING DIGITAL BREAST TOMOSYNTHESIS, BILATERAL CLINICAL INFORMATION: Screening. Asymptomatic. COMPARISON: Mammography: Comparison is made with available priors TECHNIQUE: Digital breast mammography with tomosynthesis is performed in both the craniocaudal and mediolateral oblique views along with computer-aided detection (CAD). FINDINGS: There are scattered areas of fibroglandular density (ACR BI-RADS breast composition Category b). Right marker clip. There are no significant masses, abnormal calcifications, or other abnormalities. MM/MM tomosynthesis screening BI IMPRESSION: No mammographic evidence of malignancy. ASSESSMENT: BI-RADS BI-RADS 2 - Benign Findings RECOMMENDATION: Routine annual mammography screening. 1 year F/U This examination should not preclude the clinical evaluation of a suspicious palpable abnormality. This patient's information was entered into a reminder system with a target due date for their next mammogram. Electronically signed by: Melony Max DO 05/20/2024 09:01 PM [facility]
--- NOTE | ~2024-05-11 | MM_ITS ---
EXAMINATION: Dual-Energy X-ray Absorptiometry - Bone Density Study HISTORY: Estrogen deficiency TECHNIQUE: [employer] Dual energy absorptiometry (DEXA) of the lumbar spine, total left hip, and femoral neck was performed. COMPARISON: Comparison is made with the prior examination dated 04/21/2022. FINDINGS: The bone mineral density of the lumbar spine is 1.563 with a T-score of 3.0, and a Z-score of 4.8. This represents a BMD change of -1.3% compared to the prior exam. This is not statistically significant. The bone mineral density of the left total hip is 0.904 with a T-score of -0.8, and a Z-score of 1.1. This represents BMD change of -5.4% compared to the prior exam. This is statistically significant. The bone mineral density of the left femoral neck is 0.887 with a T-score of -1.1, and a Z-score of 1.0. This represents BMD change of 2.0% compared to the prior exam. FRACTURE RISK: The FRAX index suggests a ten year probability of major osteoporotic fracture of 10.8%, and of hip fracture 2.1%. MM/XR DEXA axial skeleton IMPRESSION: Based on bone mineral density, the diagnosis is consistent with osteopenia. All bone density values are in grams per centimeter squared. At this facility, the least significant change in BMD with 95% confidence is 0.022 at the lumbar spine, 0.027 at the hip, and 0.023 at the distal 1/3 radius. Electronically signed by: Esdras Martínez MD 05/16/2024 10:06 AM [facility] [place]
== END 2024-05-11 11:57 | disposition home or self-care (01) ==
LOC: HO.MAMMO 11:56
PROVIDERS: PCP Internal Medicine; Visit Provider Obstetrics & Gynecology
DX: Z12.31 Encounter for screening mammogram for malignant neoplasm of breast (principal); M85.80 Other specified disorders of bone density and structure, unspecified site; Z78.0 Asymptomatic menopausal state
CPT/HCPCS: 77063; 77067; 77080

== ENCOUNTER → 2024-05-11 11:58 | Outpatient (BNV) | payer MEDICARE, SELFPAY | PROVIDERS: PCP Internal Medicine; Visit Provider Radiology Diagnostic Radiology | DX: Z12.31 Encounter for screening mammogram for malignant neoplasm of breast (principal) | CPT/HCPCS: 77063; 77067 ==

== ENCOUNTER 2024-05-19 12:46 | Outpatient (AMB) | payer MEDICARE, SELFPAY ==
--- NOTE | 2024-05-19 12:47 | A.OFFVIS_ITS ---
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 No additional symptoms PFSH Medical History Bilateral primary osteoarthritis of knee Left knee pain Pain and swelling of right knee IBS (irritable bowel syndrome) Internal and external hemorrhoids without complication Constipation Back pain Diarrhea Ganglion cyst of finger Anxiety Chronic constipation Epidermal cyst Surgical History Hx of removal of cyst Family History Father No problems noted. Mother No problems noted. Social History Housing: Condominium Alcohol intake: current Alcohol intake frequency: holidays/special occasions only Patient Tobacco Use Status: Former Tobacco user Tobacco use type: Cigarette e-Cigarette/Vaping Use: Never Used Second Hand Smoke Exposure: Yes service: No Current occupational status: retired Cognitive needs: No Hearing needs: No Vision needs: Yes Female Reproductive History Menstrual Age of Menarche: 11 Review of Systems Const All systems reviewed & are unremarkable except as noted in HPI and below Physical Exam General: Yes no CVA tenderness External Female Exam: normal external appearance and normal appearance of the urethra Speculum Exam - Vagina: normal appearance of the vagina, normal palpation, no lesions and no masses Speculum Exam - Cervix: normal appearance of the cervix, normal palpation, no lesions, no masses and nontender Bimanual exam- vagina & uterus: normal bimanual exam, normal palpation, uterine size normal, normal palpation, uterine shape normal, No Cervical tenderness present and non-tender Bimanual Exam- Adnexa, other: normal adnexae Back/Spine/Pelvis Back: no CVA tenderness Assessment & Plan Assessment & Plan (1) Postmenopausal bleeding: Code(s): N95.0 - Postmenopausal bleeding Category: Medical Plan: Discussed with the patient the differential diagnosis of post menopausal bleeding with normal pelvic exam including but not limited to, endometrial hyperplasia, cancer, polyps and other causes; co testing done, recommended ultrasound to measure the endometrial stripe; discussed with the patient that if the endometrial thickness is 4 mm or less the negative predictive value of endometrial pathology is 99%, otherwise If endometrial thickness is more than 4 mm will proceed with endometrial sampling versus hysteroscopy D&C polypectomy depending on the ultrasound findings. Instructed the patient to schedule an ultrasound with a follow-up appointment in 2 weeks. All questions answered, the patient verbalized understanding and agreed with the plan. This note was generated with a voice recognition program. Some errors may have been overlooked during the review of this note. Sometimes these errors may affect the content or meaning of a given sentence. Orders: Orders US pelvic and transvaginal Today N95.0 - Postmenopausal bleeding Coding Level of Care Code Est Pt Level 3 (70706) Diagnoses Postmenopausal bleeding N95.0
[2024-05-19 12:48] VITALS: BMI 25.5
== END 2024-05-19 13:02 | disposition home or self-care (01) ==
LOC: HO.HWS 12:46
PROVIDERS: PCP Internal Medicine; Visit Provider Obstetrics & Gynecology
DX: N95.0 Postmenopausal bleeding (principal)
CPT/HCPCS: 99213

== ENCOUNTER → 2024-05-19 12:46 | Outpatient (BNVA) | payer MEDICARE, SELFPAY | PROVIDERS: PCP Internal Medicine; Visit Provider Obstetrics & Gynecology | DX: N95.0 Postmenopausal bleeding (principal) | CPT/HCPCS: 99212 ==

== ENCOUNTER 2024-06-02 12:43 | Outpatient (REF) | payer MEDICARE, SELFPAY ==
--- NOTE | ~2024-06-02 | US_ITS ---
CLINICAL HISTORY: N95.0 - Postmenopausal bleeding US pelvis transvaginal Comparison: None Findings: Transvaginal scanning performed. Anteverted uterus is 5.7 cm length. Normal myometrium. No endometrial lesion, 3.0 mm thickness. Right ovary not visualized. Left ovary not visualized. No free fluid. IMPRESSION: 1. Normal pelvic ultrasound This document has been electronically signed by: Yoni Mariano MD on 06/03/2024 09:23:45
== END 2024-06-02 12:44 | disposition home or self-care (01) ==
LOC: HO.HMGCX 12:43
PROVIDERS: PCP Internal Medicine; Visit Provider Obstetrics & Gynecology
DX: N95.0 Postmenopausal bleeding (principal)
CPT/HCPCS: 76830; 76856

== ENCOUNTER → 2024-06-02 12:47 | Outpatient (BNV) | payer MEDICARE, SELFPAY | PROVIDERS: PCP Internal Medicine; Visit Provider Specialist | DX: N95.0 Postmenopausal bleeding (principal) | CPT/HCPCS: 76830; 76856 ==

== ENCOUNTER → 2024-06-14 12:31 | Outpatient (BNVA) | payer MEDICARE, SELFPAY | PROVIDERS: PCP Internal Medicine; Visit Provider Obstetrics & Gynecology | DX: N95.0 Postmenopausal bleeding (principal); M85.80 Other specified disorders of bone density and structure, unspecified site | CPT/HCPCS: 99212 ==

== ENCOUNTER 2024-06-19 10:58 | Outpatient (AMB) | payer MEDICARE, SELFPAY ==
[2024-06-19 11:03] VITALS: BMI 25.5
--- NOTE | 2024-06-19 11:03 | MHC.OFFVIS ---
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 Intelligence Analyst: Criminal Intelligence Analyst Present (Charmaine ESTRELLA) Accompanied by: Self / Same As Patient Allergies alendronate sodium [From Fosamax] Adverse Reaction (Severe, Verified 06/19/24 11:04) Muscle Pain Post menopausal: Yes HPI Comments Details: Presenting complaining of irritation in the mons pubis skin area no vaginal discharge or itching or any other concerns, no vaginal bleeding PFSH Medical History Bilateral primary osteoarthritis of knee Left knee pain Pain and swelling of right knee IBS (irritable bowel syndrome) Internal and external hemorrhoids without complication Constipation Back pain Diarrhea Ganglion cyst of finger Anxiety Chronic constipation Epidermal cyst Surgical History Hx of removal of cyst Family History Father No problems noted. Mother No problems noted. Social History Housing: Condominium Alcohol intake: current Alcohol intake frequency: holidays/special occasions only Patient Tobacco Use Status: Former Tobacco user Tobacco use type: Cigarette e-Cigarette/Vaping Use: Never Used Second Hand Smoke Exposure: Yes service: No Current occupational status: retired Cognitive needs: No Hearing needs: No Vision needs: Yes Female Reproductive History Menstrual Age of Menarche: 11 Review of Systems Const All systems reviewed & are unremarkable except as noted in HPI and below Physical Exam Vital Signs: BMI result Body Mass Index 25.5 General: Yes no CVA tenderness External Female Exam: normal external appearance and normal appearance of the urethra Speculum Exam - Vagina: normal appearance of the vagina, normal palpation, no lesions and no masses Speculum Exam - Cervix: normal appearance of the cervix, normal palpation, no lesions, no masses and nontender Bimanual exam- vagina & uterus: normal bimanual exam, normal palpation, uterine size normal, normal palpation, uterine shape normal, No Cervical tenderness present and non-tender Bimanual Exam- Adnexa, other: normal adnexae Back/Spine/Pelvis Back: no CVA tenderness Assessment & Plan Assessment & Plan (1) Vulvar irritation: Comment: Mons pubis Code(s): N90.89 - Other specified noninflammatory disorders of vulva and perineum Category: Medical Plan: Explained to the patient the more finding on pelvic exam, no evidence of erythema or lesions, recommended hydrocortisone cream b.i.d. for 3 days. Instructions given to patient to call back if symptoms persist get worse any development of lesions erythema or any other concerns. All questions answered, the patient verbalized understanding Coding Level of Care Code Est Pt Level 3 (63222) Diagnoses Vulvar irritation N90.89
== END 2024-06-19 11:15 | disposition home or self-care (01) ==
LOC: HO.HWS 10:58
PROVIDERS: PCP Internal Medicine; Visit Provider Obstetrics & Gynecology
DX: N90.89 Other specified noninflammatory disorders of vulva and perineum (principal)
CPT/HCPCS: 99213

== ENCOUNTER → 2024-06-19 10:58 | Outpatient (BNVA) | payer MEDICARE, SELFPAY | PROVIDERS: PCP Internal Medicine; Visit Provider Obstetrics & Gynecology | DX: N90.89 Other specified noninflammatory disorders of vulva and perineum (principal) | CPT/HCPCS: 99212 ==

== ENCOUNTER 2024-06-23 08:14 | Emergency (ER) | payer MEDICARE, SELFPAY ==
--- NOTE | ~2024-06-23 | XR_ITS ---
EXAMINATION: XR ANKLE 3 OR MORE VIEWS RIGHT HISTORY: pain COMPARISON: There are no prior studies available for comparison. FINDINGS: Three views of the right ankle are submitted. Osseous mineralization is normal. There is no fracture or dislocation. The joint spaces are preserved. The soft tissues are unremarkable. XR/XR ankle RT min 3V IMPRESSION: Unremarkable examination of the right ankle. Electronically signed by: Esdras Martínez MD 06/23/2024 09:14 AM [facility]
[2024-06-23 08:16] VITALS: BP 105/68; PULSE 72; RESP 16; TEMP 36.1; O2SAT 95; BMI 25.3
--- NOTE | 2024-06-23 09:58 | ED_ITS ---
HPI - Extremity Problem General Chief complaint: Extremity Problem Stated complaint: R ankle pain Time Seen by Provider: 06/23/24 09:49 Source: patient Mode of arrival: ambulatory Limitations: no limitations History of Present Illness ED Provider: Karlie Tamayo PA-C HPI Narrative: 78 yo female presents to the ER for evaluation of right ankle pain since yesterday afternoon. Pain described as a throbbing sensation on the outside of the right ankle. Worse with movement of the foot and ambulation. No swelling. No injury. No numbness, tingling, or weakness. No skin changes. no fevers. MD Complaint: joint pain Onset (ago): hour(s) Pain Consistency: constant Location: right and lower extremity Quality: other (throbbing) Radiation: proximal Relieving factors: rest Exacerbating factors: range of motion and walking Associated symptoms: denies other symptoms Related Data Home Medications ?Medication ?Instructions ?Recorded ?Confirmed calcium 500 mg-vitamin D3 100 1 tab PO DAILY 02/14/20 04/04/24 unit-vitamin K 40 mcg chewable tablet cholecalciferol (vitamin D3) 25 25 mcg PO DAILY 02/14/20 04/04/24 mcg (1,000 unit) capsule multivitamin with minerals-folic tab PO 03/07/20 04/04/24 acid 0.4 mg tablet (One Daily Womens 50 Plus) artifi.tears(hypromellose)(PF) 0.3 1 drp ophthalmic (eye) Q2-4H PRN 12/24/20 04/04/24 % eye drops B-complex with vitamin C (Super B 1 tab PO DAILY 03/05/21 04/04/24 Complex-Vitamin C tablet) vitamin A and D 1 appl topical BEDTIME 11/06/22 04/04/24 Previous Rx's ?Medication ?Instructions ?Recorded diclofenac sodium 1 % topical gel 4 g topical QID #100 grams 08/27/23 (Voltaren Arthritis Pain) loratadine 10 mg tablet (Allergy 10 mg PO DAILY PRN allergy 03/17/24 Relief (loratadine)) symptoms #30 tabs zolpidem 10 mg tablet 5 - 10 mg (0.5 - 1 x 10 mg) PO 03/17/24 BEDTIME #30 tabs Allergies Allergy/AdvReac Type Severity Reaction Status Date / Time alendronate sodium AdvReac Severe Muscle Pain Verified 06/23/24 08:18 [From Fosamax] Review of Systems Review of Systems: Yes all other systems are reviewed and are negative [facility] Past Medical History Medical History Bilateral primary osteoarthritis of knee Left knee pain Pain and swelling of right knee IBS (irritable bowel syndrome) Internal and external hemorrhoids without complication Constipation Back pain Diarrhea Ganglion cyst of finger Anxiety Chronic constipation Epidermal cyst Surgical History Hx of removal of cyst Family History Family History Father No problems noted. Mother No problems noted. Social History Social History Housing: Condominium Alcohol intake: current Alcohol intake frequency: holidays/special occasions only Patient Tobacco Use Status: Former Tobacco user Tobacco use type: Cigarette e-Cigarette/Vaping Use: Never Used Second Hand Smoke Exposure: Yes Advance Directives Date on File: 04/28/21 service: No Current occupational status: retired Cognitive needs: No Hearing needs: No Vision needs: Yes Physical Exam Vital Signs: Vital Signs: Last Vital Signs Temp 97.0 F 06/23/24 08:16 Pulse 72 06/23/24 08:16 Resp 16 06/23/24 08:16 BP 105/68 06/23/24 08:16 Pulse Ox 95 06/23/24 08:16 O2 Del Method Room Air 06/23/24 08:16 BMI result Body Mass Index 25.3 Appearance: Alert. Oriented X3. No acute distress. HEENT: normal inspection CVS: Normal heart rate and rhythm. Pulses normal. Respiratory: No respiratory distress. Skin: Skin warm and dry. Normal skin color. Normal skin turgor. No rashes. Extremities: normal inspection of the right foot and ankle. no swelling, ecchymosis. mild tenderness of the lateral malleolus. pain w/ plantarflexion and dorsiflexion. no calf swelling or tenderness. nontender foot Neuro: Oriented X 3. No motor deficit. No sensory deficit. normal steady gait, no limp Medical Decision Making Medical Decision Making MDM Narrative: 78 yo female presents to the ER for evaluation of right lateral ankle pain since yesterday. XR normal. likely mild strain/sprain. sxs much improved w/ placement of jorge l wrap on the ankle. steady gait. discussed RICE and outpatient follow up. stable for d/c home Differential Diagnosis Differential Diagnoses: The differential diagnosis associated with the presentation includes ankle sprain, ankle strain, tendonitis, ankle fracture Independent Interpretation I performed an independent interpretation of an: Plain X-Ray Interpretation: no acute fx of the ankle Radiology Impression Discussion of test interpretation with radiology: I have reviewed the radiologist's reading. External Record Review External record reviewed: Outpatient record and Prior outpatient labs Prescription Management I considered prescription management with: Pain Medication Chronic Conditions Patient?s care impacted by: Other (osteoarthritis ) Procedures Orthopedic Splinting/Casting Injury #1: Side: right Lower Extremity Injury Location: ankle Lower Extremity Immobilizer: Jorge L wrap Critical Care Time Critical Care Time Critical Care Time: No Discharge Plan Discharge Clinical Impression: Ankle sprain Qualifiers: Encounter type: initial encounter Involved ligament of ankle: unspecified ligament Laterality: right Qualified Code(s): S93.401A - Sprain of unspecified ligament of right ankle, initial encounter Patient Disposition: Home, Self-Care Instructions: Ankle Sprain (DC) Additional Instructions: Your x-ray today was normal. Rest your ankle and elevate your foot when possible. Recommend JORGE L wrap for support and compression. Use ice several times per day for the next 48 hours. You may bear weight as tolerated. Take Motrin and/or Tylenol as needed for pain. Follow up with your doctor as needed. Prescriptions: No Action loratadine [Allergy Relief (loratadine)] 10 mg tablet 10 mg PO DAILY PRN (Reason: allergy symptoms) Qty: 30 4RF zolpidem 10 mg tablet 5 - 10 mg PO BEDTIME Qty: 30 5RF calcium-vitamin D3-vitamin K 500-100-40 mg-unit-mcg tablet,chewable 1 tab PO DAILY Rx Instructions: chew thoroughly before swallowing; do not swallow whole cholecalciferol (vitamin D3) 25 mcg (1,000 unit) capsule 25 mcg PO DAILY One Daily Womens 50 Plus 0.4 mg tablet PO artifi.tears(hypromellose)(PF) 0.3 % drops 1 drp ophthalmic (eye) Q2-4H PRN B-complex with vitamin C [Super B Complex-Vitamin C] Tablet 1 tab PO DAILY diclofenac sodium [Voltaren Arthritis Pain] 1 % gel 4 g topical QID Qty: 100 0RF Rx Instructions: apply to single knee, ankle, foot; for foot includes sole/toes/top of foot vitamin A and D Ointment 1 appl topical BEDTIME Referrals: Levi Hunt MD [Primary Care Provider] - Print Language: Swedish
--- NOTE | 2024-06-23 10:05 | PC.NURSE ---
Pt comes to ED for c/o R ankle pain. Xray WNL PA applies alex wrap at beside with education. D/C instructions reviewed with Pt.
[2024-06-23 10:12] VITALS: BP 105/68; PULSE 72; RESP 16; TEMP 36.1; O2SAT 95
== END 2024-06-23 10:12 | disposition home or self-care (01) ==
LOC: HO.ED 10:06
PROVIDERS: Emergency Provider Emergency Medicine; PCP Internal Medicine
DX: S93.401A Sprain of unspecified ligament of right ankle, initial encounter (principal); M25.571 Pain in right ankle and joints of right foot; X58.XXXA Exposure to other specified factors, initial encounter; Y93.9 Activity, unspecified; Y92.9 Unspecified place or not applicable; Y99.8 Other external cause status
CPT/HCPCS: 29515; 73610; 99283; 99284

== ENCOUNTER → 2024-06-23 08:50 | Outpatient (BNV) | payer MEDICARE, SELFPAY | PROVIDERS: Emergency Provider Emergency Medicine; PCP Internal Medicine; Visit Provider Radiology Diagnostic Radiology | DX: M25.571 Pain in right ankle and joints of right foot (principal) | CPT/HCPCS: 73610 ==

== ENCOUNTER 2024-06-28 13:25 | Outpatient (AMB) | payer MEDICARE, SELFPAY ==
[2024-06-28 13:28] VITALS: BP 130/70; PULSE 83; TEMP 35.9; O2SAT 97; BMI 25.6
--- NOTE | 2024-06-28 13:28 | A.OFFPC_ITS ---
Vital Signs 06/28/24 13:28 Height 5 ft 7 in Weight 163 lb 4 oz BMI 25.6 BP 130/70 Blood Pressure Location Lt brachial Position Sitting Pulse 83 Pulse Source Pulse Oximeter Temp 96.6 F L Temp Source Temporal Artery Scan Pulse Oximetry (%) 97 Oxygen Delivery Method Room Air Intake Visit Reasons: (R) ankle sprain and calf muscle pulling Radiotelegraph Operator Required: No Public Works Technician: Not Required per policy Accompanied by: Self / Same As Patient Allergies alendronate sodium [From Fosamax] Adverse Reaction (Severe, Verified 06/28/24 13:28) Muscle Pain Medication List - Last Reconciled 06/28/24 by MD vinnie Monet.tears(hypromellose)(PF) 0.3% 1 drp ophthalmic (eye) Q2-4H PRN B-complex with vitamin C (Super B Complex-Vitamin C tablet) 1 tab PO DAILY calcium-vitamin D3-vitamin K 500 mg-100 unit -40 mcg 1 tab PO DAILY cholecalciferol (vitamin D3) 25 mcg PO DAILY diclofenac sodium 1% (Voltaren Arthritis Pain) 4 grams topical QID loratadine (Allergy Relief (loratadine)) 10 mg PO DAILY PRN multivit with min-folic acid 0.4 mg (One Daily Womens 50 Plus) tabs PO vitamin A and D 1 appl topical BEDTIME zolpidem 5 - 10 mg (0.5 - 1 x 10 mg) PO BEDTIME Tobacco use date assessed: 06/28/24 Fall risk assessment: No Falls in past year Last assessed Fall Risk: 06/28/24 Dental Screening Dental Screen Date: 06/28/24 Did you have a dental visit in the last 12 months?: No Did you have a dental problem in the last 6 months where you did not have access to dental care?: No Was dental information given to patient?: No HPI (R) ankle sprain and calf muscle pulling HPI Details sprained right anl;e a week ago;inversion injury; went to er; xr neg; still uncomfortable PFSH Medical History Bilateral primary osteoarthritis of knee Left knee pain Pain and swelling of right knee IBS (irritable bowel syndrome) Internal and external hemorrhoids without complication Constipation Back pain Diarrhea Ganglion cyst of finger Anxiety Chronic constipation Epidermal cyst Surgical History Hx of removal of cyst Family History Father No problems noted. Mother No problems noted. Social History [facility] Alcohol intake: current Alcohol intake frequency: holidays/special occasions only Patient Tobacco Use Status: Former Tobacco user Tobacco use type: Cigarette e-Cigarette/Vaping Use: Never Used Second Hand Smoke Exposure: Yes Advance Directives Date on File: 04/28/21 service: No Current occupational status: retired Cognitive needs: No Hearing needs: No Vision needs: Yes Female Reproductive History Menstrual Age of Menarche: 11 Questionnaire PHQ-9 Over the last 2 weeks, how often have you been bothered by any of the following problems? 1. Little interest or pleasure in doing things: not at all 2. Feeling down, depressed, or hopeless: not at all 3. Trouble falling or staying asleep, or sleeping too much: not at all 4. Feeling tired or having little energy: not at all 5. Poor appetite or overeating: not at all 6. Feeling bad about yourself - or that you are a failure or have let yourself or your family down: not at all 7. Trouble concentrating on things, such as reading the newspaper or watching television: not at all 8. Moving or speaking so slowly that other people could have noticed. Or the opposite - being so fidgety or restless that you have been moving around a lot more than usual: not at all 9. Thoughts that you would be better off or of hurting yourself in some way: not at all Total score: 0 Depression Screening Interpretation: Negative Depression Screening Done: Yes 57239 - PHQ-9 Billing: Yes Source: Developed by Drs. Esdras Camejo, Callie Crews, Coleman Velasquez and colleagues, with an educational cecelia from [employer]. Thrive Questionnaire Date Thrive assessed: 06/28/24 AUDIT C Alcohol Use Questionnaire (AUDIT-C) 1. How often do you have a drink containing alcohol?: Monthly or less 2. How many drinks containing alcohol do you have on a typical day when you are drinking?: 1 or 2 Total Score: 1 RAVEN-7 AMB Questionnaire RAVEN-7 Date RAVEN - 7 assessed: 06/28/24 Feeling nervous, anxious, or on edge: 0 = Not at all Not being able to stop or control worryin = Not at all Worrying too much about different things: 0 = Not at all Trouble relaxin = Not at all Being so restless that it is hard to sit still: 0 = Not at all Becoming easily annoyed or irritable: 0 = Not at all Feeling afraid as if something awful might happen: 0 = Not at all Total RAVEN-7 score (0-4 normal; 5-9 mild; 10-14 moderate; 15-21 severe): 0 Source: Developed by Drs. Esdras Camejo, Callie Crews, Coleman Velasquez and colleagues, with an educational cecelia from [employer]. RAVEN-7 Assessment Billing RAVEN-7 Assessment Tool: RAVEN-7 Assessment 81408 Review of Systems Const Denies chills, Denies headache(s) and Denies weight loss ENT Denies headache(s) Card Denies chest pain, Denies syncope, Denies irregular heart rhythm and Denies dyspnea Resp Denies chest congestion, Denies cough and Denies dyspnea GI Denies abdominal pain, Denies change in stool character, Denies nausea and Denies vomiting Musc Denies deformity and Denies joint swelling Neuro Denies syncope and Denies headache(s) Physical exam (Primary Care) Vital Signs: Last Vital Signs Temp 96.6 F L 06/28/24 13:28 Pulse 83 06/28/24 13:28 BP 130/70 06/28/24 13:28 Pulse Ox 97 06/28/24 13:28 Oxygen Delivery Method Room Air 06/28/24 13:28 BMI result Body Mass Index 25.6 Tobacco/Smoking Status: Tobacco use Status Tobacco use date assessed 06/28/24 06/28/24 13:31 Patient Tobacco Use Status Former Tobacco user 06/28/24 13:31 Tobacco use type Cigarette 06/28/24 13:31 e-Cigarette/Vaping Use Never Used 06/28/24 13:31 PHQ-9: PHQ-9 Score PHQ-9: Total score 0 06/28/24 13:37 Depression Screening Interpretation: Negative Thrive Assessment: Date of Thrive Assessment Date Thrive assessed 06/28/24 06/28/24 13:31 Const General: cooperative, comfortable, no acute distress and alert Neck Neck: Yes no lymphadenopathy Thyroid: Thyroid normal Resp Effort & Inspection: normal respiratory effort Auscultation: clear to auscultation bilaterally Percussion: percussion normal Cardio Jugular venous distension: no JVD Palpation: normal PMI Rate: regular rate Rhythm: regular rhythm Heart sounds: S1 normal heart sound present and S2 normal heart sound present GI Inspection: Yes normal to inspection Palpation (GI): No hepatosplenomegaly present Skin General skin exam: no rashes or lesions noted Extrem General: Yes no clubbing, cyanosis or edema Coding Level of Care Code Est Pt Level 3 (07248) Diagnoses Sprained ankle S93.409A Additional Codes RAVEN-7 Assessment Billing - RAVEN-7 Assessment Tool: RAVEN-7 Assessment 42984 ([id number]) PHQ-9 - 67413 - PHQ-9 Billing: Yes ([id number]) Assessment & Plan Assessment & Plan (1) Sprained ankle: Code(s): S93.409A - Sprain of unspecified ligament of unspecified ankle, initial encounter Plan: rest; ice and rx Medications: New naproxen (Naprosyn) 500 mg PO BID PRN 60 tabs 0RF pain
== END 2024-06-28 13:56 | disposition home or self-care (01) ==
PROVIDERS: PCP Internal Medicine; Visit Provider Internal Medicine
DX: S93.409A Sprain of unspecified ligament of unspecified ankle, initial encounter (principal)

== ENCOUNTER → 2024-06-28 13:25 | Outpatient (BNVA) | payer MEDICARE, SELFPAY | PROVIDERS: PCP Internal Medicine; Visit Provider Internal Medicine | DX: S93.401D Sprain of unspecified ligament of right ankle, subsequent encounter (principal) | CPT/HCPCS: 96127; 99212 ==

== ENCOUNTER 2024-06-29 08:15 | Outpatient (REF) | payer MEDICARE, SELFPAY | END 2024-06-29 08:16 | disposition home or self-care (01) | LOC: HO.LNP 08:15 | PROVIDERS: PCP Internal Medicine; Visit Provider Obstetrics & Gynecology | DX: N95.0 Postmenopausal bleeding (principal) | CPT/HCPCS: 58100; 88305 ==

== ENCOUNTER 2024-06-29 08:15 | Outpatient (AMB) | payer MEDICARE, SELFPAY ==
--- NOTE | 2024-06-29 08:20 | MHC.OFFVIS ---
Intake Visit Reasons: vaginal bleeding Stockroom Clerk: Stockroom Clerk Present (Charmaine Gar, SAMEER) Accompanied by: Self / Same As Patient Allergies alendronate sodium [From Fosamax] Adverse Reaction (Severe, Verified 06/29/24 08:24) Muscle Pain HPI Comments Details: Presenting after another episode of vaginal bleeding. The patient had an episode of postmenopausal bleeding this was followed by pelvic ultrasound done in 06/03 which showed the following: Findings: Transvaginal scanning performed. Anteverted uterus is 5.7 cm length. Normal myometrium. No endometrial lesion, 3.0 mm thickness. Right ovary not visualized. Left ovary not visualized. No free fluid. This was followed by another recurrent episodes of vaginal bleeding. No other additional symptoms PFSH Medical History Bilateral primary osteoarthritis of knee Left knee pain Pain and swelling of right knee IBS (irritable bowel syndrome) Internal and external hemorrhoids without complication Constipation Back pain Diarrhea Ganglion cyst of finger Anxiety Chronic constipation Epidermal cyst Surgical History Hx of removal of cyst Family History Father No problems noted. Mother No problems noted. Social History Housing: Condominium Alcohol intake: current Alcohol intake frequency: holidays/special occasions only Patient Tobacco Use Status: Former Tobacco user Tobacco use type: Cigarette e-Cigarette/Vaping Use: Never Used Second Hand Smoke Exposure: Yes Advance Directives Date on File: 04/28/21 service: No Current occupational status: retired Cognitive needs: No Hearing needs: No Vision needs: Yes Female Reproductive History Menstrual Age of Menarche: 11 Review of Systems Const All systems reviewed & are unremarkable except as noted in HPI and below Physical Exam General: Yes no CVA tenderness External Female Exam: normal external appearance and normal appearance of the urethra Speculum Exam - Vagina: normal appearance of the vagina, normal palpation, no lesions and no masses Speculum Exam - Cervix: normal appearance of the cervix, normal palpation, no lesions, no masses and nontender Bimanual exam- vagina & uterus: normal bimanual exam, normal palpation, uterine size normal, normal palpation, uterine shape normal, No Cervical tenderness present and non-tender Bimanual Exam- Adnexa, other: normal adnexae Back/Spine/Pelvis Back: no CVA tenderness Office Procedures Endometrial Biopsy Details: The patient was counseled regarding the indication and benefits of endometrial sampling to rule out endometrial pathology including not limited to endometrial hyperplasia or endometrial cancer and others; The alternatives (Either do nothing vs. hysteroscopy D&C) & the risks were discussed with the patient including but not limited: pain, uterine perforation, bleeding, infection, possible injury to bladder, bowel, ureter, possible need for blood transfusion with all its possible risks. The patient verbalized understanding all questions answered and signed consent. The patient was placed into the dorsal lithotomy position; a speculum was inserted in the vagina. Using aseptic technique for the procedure, the cervix was cleansed with Betadine. The anterior lip of the cervix was grasped with a single tooth tenaculum. The uterus was sounded to 6 cm with a 4 mm Pipelle was used. Minimal tissue was retrieved. Tissues samples were obtained and placed in formalin, in a patient labeled container and sent to the pathology department. At the end of the procedure, there was minimal bleeding noted The patient tolerated the procedure well and was discharged in good condition with the following instructions: Nothing in the vagina until the bleeding stops. No sex until the bleeding stops, to call if any of the following occurs: fever (>100.4), flu-like symptoms, abdominal pain, heavy bleeding, four smelling vaginal discharge. The patient was instructed to schedule a Follow up appointment in 2 weeks to discuss pathology results of the biopsy and treatment options. This note was generated with a voice recognition program. Some errors may have been overlooked during the review of this note. Sometimes these errors may affect the content or meaning of a given sentence. [id number] Biopsy Assessment & Plan Assessment & Plan (1) Postmenopausal bleeding: Code(s): N95.0 - Postmenopausal bleeding Category: Medical Plan: Discussed with the patient the possible causes of recurrent vaginal bleeding including but not limited to endometrial pathology including endometrial hyperplasia, carcinoma or a polyp. Recommended to the patient that the next step is an endometrial sampling via hysteroscopy D&C possible polypectomy versus endometrial biopsy to r/o endometrial pathology including hyperplasia or cancer. All the pros and cons risks and benefits of each approach were discussed with the patient, endometrial biopsy being less invasive, office procedure with less sensitivity and inability diagnose a polyp and removal versus hysteroscopy done under anesthesia more invasive more sensitive to endometrial cancer and possibility of diagnosing and endometrial polyp with the possibility of polypectomy. All questions were answered pt verbalized understanding and decided to proceed with endometrial biopsy. EMB done, see procedure Orders: Orders AMB Endometrial Biopsy Today N95.0 - Postmenopausal bleeding Coding Level of Care Code Procedure Only Diagnoses Postmenopausal bleeding N95.0 CPT Codes Endometrial Biopsy - CPT: 00324-Ogcblvwrfiz Biopsy ([id number])
== END 2024-06-29 09:09 | disposition home or self-care (01) ==
LOC: HO.HWS 08:15
PROVIDERS: PCP Internal Medicine; Visit Provider Obstetrics & Gynecology
DX: N95.0 Postmenopausal bleeding (principal)
CPT/HCPCS: 58100

== ENCOUNTER 2024-07-06 10:52 | Outpatient (REF) | payer MEDICARE, SELFPAY | END 2024-07-06 10:53 | disposition home or self-care (01) | LOC: HO.LNP 10:52 | PROVIDERS: PCP Internal Medicine; Visit Provider Obstetrics & Gynecology | DX: N95.0 Postmenopausal bleeding (principal) | CPT/HCPCS: 58100; 88305; 99212 ==

== ENCOUNTER 2024-07-06 10:52 | Outpatient (AMB) | payer MEDICARE, SELFPAY ==
--- NOTE | 2024-07-06 10:57 | A.OFFVIS_ITS ---
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 The patient has no complaints, no vaginal bleeding, no feverishness chills or abdominal pain. The endometrial biopsy pathology report showed the following: Endometrium, biopsy: - Scant superficial strips of benign endometrium. - Scant superficial strips of inflamed squamous and endocervical epithelium with reactive changes; mucoinflammatory material. - No atypia identified. Comment: The endometrium is relatively scant; consider resampling, as clinically appropriate The patient had an episode of vaginal bleeding in May 2024, this was followed with a pelvic ultrasound in 06/03/24 which showed the following: Transvaginal scanning performed. Anteverted uterus is 5.7 cm length. Normal myometrium. No endometrial lesion, 3.0 mm thickness. Right ovary not visualized. Left ovary not visualized. No free fluid. The patient developed recurrent vaginal bleeding, office EMB done with the above pathology [facility] Medical History Bilateral primary osteoarthritis of knee Left knee pain Pain and swelling of right knee IBS (irritable bowel syndrome) Internal and external hemorrhoids without complication Constipation Back pain Diarrhea Ganglion cyst of finger Anxiety Chronic constipation Epidermal cyst Surgical History Hx of removal of cyst Family History Father No problems noted. Mother No problems noted. Social History Housing: Condominium Alcohol intake: current Alcohol intake frequency: holidays/special occasions only Patient Tobacco Use Status: Former Tobacco user Tobacco use type: Cigarette e-Cigarette/Vaping Use: Never Used Second Hand Smoke Exposure: Yes Advance Directives Date on File: 04/28/21 service: No Current occupational status: retired Cognitive needs: No Hearing needs: No Vision needs: Yes Female Reproductive History Menstrual Age of Menarche: 11 Physical Exam Vital Signs: BMI result Body Mass Index 25.5 Office Procedures Endometrial Biopsy Details: The patient was counseled regarding the indication and benefits of endometrial sampling to rule out endometrial pathology including not limited to endometrial hyperplasia or endometrial cancer and others; The alternatives (Either do nothing vs. hysteroscopy D&C) & the risks were discussed with the patient including but not limited: pain, uterine perforation, bleeding, infection, possible injury to bladder, bowel, ureter, possible need for blood transfusion with all its possible risks. The patient verbalized understanding all questions answered and signed consent. The patient was placed into the dorsal lithotomy position; a speculum was inserted in the vagina. Using aseptic technique for the procedure, the cervix was cleansed with chlorhexidine. 10 cc of xylocaine 1% were injected at 2 , 4, 8 and 10:00 o'clock. The anterior lip of the cervix was grasped with a single tooth tenaculum. The uterus was sounded to 6 cm with a 4 mm Pipelle was used. Tissues samples were obtained and placed in formalin, in a patient labeled container and sent to the pathology department. At the end of the procedure, there was minimal bleeding noted The patient tolerated the procedure well and was discharged in good condition with the following instructions: Nothing in the vagina until the bleeding stops. No sex until the bleeding stops, to call if any of the following occurs: fever (>100.4), flu-like symptoms, abdominal pain, heavy bleeding, four smelling vaginal discharge. The patient was instructed to schedule a Follow up appointment in 2 weeks to discuss pathology results of the biopsy and treatment options. This note was generated with a voice recognition program. Some errors may have been overlooked during the review of this note. Sometimes these errors may affect the content or meaning of a given sentence. 46031-[id number] Biopsy Assessment & Plan Assessment & Plan (1) Postmenopausal bleeding: Code(s): N95.0 - Postmenopausal bleeding Category: Medical Plan: Discussed with the patient the results of endometrial biopsy pathology. Recommended to the patient that the next step is to repeat endometrial sampling via hysteroscopy D&C possible polypectomy versus office endometrial biopsy to r/o endometrial pathology including hyperplasia or cancer. All the pros and cons risks and benefits of each approach were discussed with the patient, endometrial biopsy being less invasive, office procedure with less sensitivity and inability diagnose a polyp and removal versus hysteroscopy done under anesthesia more invasive more sensitive to endometrial cancer and possibility of diagnosing and endometrial polyp with the possibility of polypectomy. All questions were answered pt verbalized understanding and decided to proceed with repeat EMB under paracervical block which was done, see procedure note Orders: Orders Surgical Today N95.0 - Postmenopausal bleeding AMB Endometrial Biopsy Today N95.0 - Postmenopausal bleeding Coding Level of Care Code Est Pt Level 3 (62886) Procedure Only Diagnoses Postmenopausal bleeding N95.0 CPT Codes Endometrial Biopsy - CPT: 78755-[id number] Biopsy ([id number])
[2024-07-06 10:59] VITALS: BMI 25.5
== END 2024-07-06 12:08 | disposition home or self-care (01) ==
PROVIDERS: PCP Internal Medicine; Visit Provider Obstetrics & Gynecology
DX: N95.0 Postmenopausal bleeding (principal)
CPT/HCPCS: 58100; 99213

== ENCOUNTER 2024-07-07 12:03 | Emergency (ER) | payer MEDICARE, SELFPAY ==
--- NOTE | ~2024-07-07 | XR_ITS ---
EXAMINATION: XR TIBIA AND FIBULA, RIGHT CLINICAL INFORMATION: pain COMPARISON: None available. TECHNIQUE: AP and lateral views of the right tibia and fibula were obtained. FINDINGS: No fracture, dislocation, or suspicious bone lesion. Normal bone mineralization. Normal alignment. Moderate degenerative changes noted in the knee joint, and mild degenerative changes in the ankle joint.. Soft tissues appear normal. XR/XR tibia fibula RT 2V IMPRESSION: No acute bony abnormalities. Electronically signed by: Bertin Lyons MD 07/07/2024 02:01 PM [facility]
--- NOTE | ~2024-07-07 | US_ITS ---
EXAMINATION: US TRIPLEX LOWER EXTREMITY, RIGHT CLINICAL INFORMATION: Right calf pain. COMPARISON: None available. TECHNIQUE: Color-flow triplex imaging with spectral analysis and compression Doppler were performed on the right lower extremity. FINDINGS: Respiratory variation, normal compression and augmented flow are noted throughout the right lower extremity. The visualized common femoral vein, superficial femoral vein, profunda femoral vein, popliteal vein and midcalf peroneal and posterior tibial venous segments show no evidence of deep venous thrombosis. There is no [place]'s cyst. US/US venous duplex LE RT IMPRESSION: No evidence of deep venous thrombosis involving the right lower extremity. Electronically signed by: Bertin Lyons MD 07/07/2024 01:33 PM EST
[2024-07-07 12:36] VITALS: BP 135/96; PULSE 63; RESP 20; TEMP 36.4; O2SAT 94; BMI 23.5
--- NOTE | 2024-07-07 12:37 | ED_ITS ---
HPI - Extremity Injury (Lower) General Chief Complaint: Extremity Injury, Lower Stated Complaint: R ankle/leg injury Time Seen by Provider: 07/07/24 22:57 Source: patient Limitations: no limitations History of Present Illness ED Provider: Lorena Smith PA-C HPI Narrative: 78-year-old female presents with ongoing right ankle pain. Two weeks ago the patient rolled her ankle, she was assessed had x-rays they were negative, she has been using a walking boot. Patient states the pain is persisting, and seems to be getting worse. Related Data Home Medications ?Medication ?Instructions ?Recorded ?Confirmed calcium 500 mg-vitamin D3 100 1 tab PO DAILY 02/14/20 06/28/24 unit-vitamin K 40 mcg chewable tablet cholecalciferol (vitamin D3) 25 25 mcg PO DAILY 02/14/20 06/28/24 mcg (1,000 unit) capsule multivitamin with minerals-folic tab PO 03/07/20 06/28/24 acid 0.4 mg tablet (One Daily Womens 50 Plus) artifi.tears(hypromellose)(PF) 0.3 1 drp ophthalmic (eye) Q2-4H PRN 12/24/20 06/28/24 % eye drops B-complex with vitamin C (Super B 1 tab PO DAILY 03/05/21 06/28/24 Complex-Vitamin C tablet) vitamin A and D 1 appl topical BEDTIME 11/06/22 06/28/24 Previous Rx's ?Medication ?Instructions ?Recorded diclofenac sodium 1 % topical gel 4 g topical QID #100 grams 08/27/23 (Voltaren Arthritis Pain) loratadine 10 mg tablet (Allergy 10 mg PO DAILY PRN allergy 03/17/24 Relief (loratadine)) symptoms #30 tabs zolpidem 10 mg tablet 5 - 10 mg (0.5 - 1 x 10 mg) PO 03/17/24 BEDTIME #30 tabs naproxen 500 mg tablet (Naprosyn) 500 mg PO BID PRN pain #60 tabs 06/28/24 Allergies Allergy/AdvReac Type Severity Reaction Status Date / Time iodine Allergy Intermediate Rash Verified 07/07/24 12:39 alendronate sodium AdvReac Severe Muscle Pain Verified 07/07/24 12:39 [From Fosamax] Review of Systems Review of Systems: Yes all other systems are reviewed and are negative Constitutional: Constitutional: Denies fatigue and Denies fever(s) Cardiovascular: Cardiovascular: Denies chest pain and Denies dyspnea Respiratory: Respiratory: Denies dyspnea Musculoskeletal: Musculoskeletal: Reports arthralgias and Denies joint swelling Endocrine: Endocrine: Denies fatigue PMFSH Past Medical History Attestation statement: The following information was validated with the patient. Medical History Bilateral primary osteoarthritis of knee Left knee pain Pain and swelling of right knee IBS (irritable bowel syndrome) Internal and external hemorrhoids without complication Constipation Back pain Diarrhea Ganglion cyst of finger Anxiety Chronic constipation Epidermal cyst Surgical History Hx of removal of cyst Family History Family History Father No problems noted. Mother No problems noted. Social History Social History Housing: Condominium Alcohol intake: current Alcohol intake frequency: holidays/special occasions only Patient Tobacco Use Status: Former Tobacco user Tobacco use type: Cigarette Smoked in Last 30 Days: No e-Cigarette/Vaping Use: Never Used Second Hand Smoke Exposure: Yes Use of substances other than those prescribed or required for medical reasons: No Advance Directives: Yes Advance Directives on File: Yes Advance Directives Date on File: 04/28/21 Do you have a plan to hurt others: No Plan service: No Current occupational status: retired Cognitive needs: No Hearing needs: No Vision needs: Yes Physical Exam Vital Signs: Vital Signs: Last Vital Signs Temp 97.8 F 07/07/24 23:51 Pulse 58 07/07/24 23:51 Resp 20 07/07/24 23:51 BP 144/85 H 07/07/24 23:51 Pulse Ox 97 07/07/24 23:51 O2 Del Method Room Air 07/07/24 23:51 BMI result Body Mass Index 23.5 Const: Other: Alert Orientation/consciousness: patient oriented x3 Resp: Effort & Inspection: normal respiratory effort Cardio: Other: Normal peripheral perfusion Skin: Other: Warm dry no rash Neuro: General: patient oriented x3, no focal motor deficits and CN's II-XI intact bilaterally Extrem: Other: No objective swelling of the right ankle, the pain is most prominent laterally, she can flex and extend, there was no ecchymosis Psych: Other: Cooperative Course Course Course Narrative: This is a Rapid Medical Exam performed in triage by Ruby Grimm PA-C. Full HPI, ROS and PE to be performed by primary ED provider. 78-year-old female presenting to the ED c/o persistent right ankle pain radiating proximally s/p twisting ankle a few weeks ago. Was evaluated in our ED on 06/23 had negative x-rays, however pain persists. PE: + Right ankle with mild swelling. Tender to palpation. Tenderness noted to have distal tib/ fib. Right calf tenderness noted. No pitting edema Plan: x-ray, ultrasound Medical Decision Making Medical Decision Making [facility] Narrative: 78-year-old female presents with ongoing right ankle pain. Two weeks ago the patient rolled her ankle, she was assessed had x-rays they were negative, she has been using a walking boot. Patient states the pain is persisting, and seems to be getting worse. Problem: We can ankle sprain History: Per patient I have considered the following differential diagnoses: Occult fracture, dislocation, sprain, DVT Plan: Doppler study and x-ray obtained from triage, there was no fracture there was no DVT, the patient has been ambulating, she is not using crutches, I have explained to her that she is not giving the joint any rest. Sending with home care instructions and a contact for our orthopedic service. The patient was in agreement with the plan. I have independently reviewed the following tests: X-ray right ankle: XR/XR tibia fibula RT 2V IMPRESSION: No acute bony abnormalities. Doppler study right lower extremity: US/US venous duplex LE RT IMPRESSION: No evidence of deep venous thrombosis involving the right lower extremity. Electronically signed by: Bertin Lyons MD 07/07/2024 01:33 PM [facility] Discharge Plan Discharge Clinical Impression: Right ankle sprain Patient Disposition: Home, Self-Care Instructions: Sprain (ED), R.I.C.E. Treatment (ED) Additional Instructions: The x-ray was again negative for fracture, the ultrasound of the leg revealed no clot. See home care instructions. Ice the area several times a day, when your resting elevate the leg above your heart. Use an athletic compression sleeve to help support the joint. You should minimize weight-bearing activity, so your injury can heal; purchase a walker. At this point you should follow up with our orthopedic service, I am providing you with their contact. Call to make an appointment. Prescriptions: No Action loratadine [Allergy Relief (loratadine)] 10 mg tablet 10 mg PO DAILY PRN (Reason: allergy symptoms) Qty: 30 4RF zolpidem 10 mg tablet 5 - 10 mg PO BEDTIME Qty: 30 5RF calcium-vitamin D3-vitamin K 500-100-40 mg-unit-mcg tablet,chewable 1 tab PO DAILY Rx Instructions: chew thoroughly before swallowing; do not swallow whole cholecalciferol (vitamin D3) 25 mcg (1,000 unit) capsule 25 mcg PO DAILY One Daily Womens 50 Plus 0.4 mg tablet PO artifi.tears(hypromellose)(PF) 0.3 % drops 1 drp ophthalmic (eye) Q2-4H PRN B-complex with vitamin C [Super B Complex-Vitamin C] Tablet 1 tab PO DAILY diclofenac sodium [Voltaren Arthritis Pain] 1 % gel 4 g topical QID Qty: 100 0RF Rx Instructions: apply to single knee, ankle, foot; for foot includes sole/toes/top of foot vitamin A and D Ointment 1 appl topical BEDTIME naproxen [Naprosyn] 500 mg tablet 500 mg PO BID PRN (Reason: pain) Qty: 60 0RF Referrals: Kvng Bustos MD [Physician] - (right ankle sprain) Interventions: ED Discharge Assessment Last Done: 07/07/24 23:51 Discharge Date/Time: 07/07/24 23:51 Print Language: Pashto
[2024-07-07 21:25] VITALS: BP 144/85; PULSE 58; RESP 20; TEMP 36.6; O2SAT 97
[2024-07-07 23:51] VITALS: BP 144/85; PULSE 58; RESP 20; TEMP 36.6; O2SAT 97
== END 2024-07-07 23:51 | disposition home or self-care (01) ==
PROVIDERS: Emergency Provider Internal Medicine; PCP Internal Medicine
DX: S93.401A Sprain of unspecified ligament of right ankle, initial encounter (principal); R60.0 Localized edema; M25.571 Pain in right ankle and joints of right foot; X58.XXXA Exposure to other specified factors, initial encounter; Y93.9 Activity, unspecified; Y92.9 Unspecified place or not applicable; Y99.8 Other external cause status; Z87.891 Personal history of nicotine dependence; Z79.899 Other long term (current) drug therapy
CPT/HCPCS: 51701; 73590; 93971; 99284

== ENCOUNTER → 2024-07-07 12:40 | Outpatient (BNV) | payer MEDICARE, SELFPAY | PROVIDERS: PCP Internal Medicine; Visit Provider Radiology Diagnostic Radiology | DX: M79.661 Pain in right lower leg (principal); M17.11 Unilateral primary osteoarthritis, right knee; M19.071 Primary osteoarthritis, right ankle and foot | CPT/HCPCS: 73590; 93971 ==

== ENCOUNTER 2024-07-13 08:17 | Outpatient (AMB) | payer MEDICARE, SELFPAY ==
[2024-07-13 08:18] VITALS: BMI 25.5
--- NOTE | 2024-07-13 08:18 | MHC.OFFVIS ---
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 The patient has no complaints, no vaginal bleeding, no feverishness chills or abdominal pain. The endometrial biopsy pathology report showed the following: Endometrium, biopsy: Fragments of benign endocervical glands; no endometrial tissue seen; negative for squamous intraepithelial lesion. The patient had an episode of vaginal bleeding which was followed by an ultrasound in 06/03 which showed the following: Transvaginal scanning performed. Anteverted uterus is 5.7 cm length. Normal myometrium. No endometrial lesion, 3.0 mm thickness. Right ovary not visualized. Left ovary not visualized. No free fluid. Vaginal bleeding recurred, 06/29/2024 office EMB was done, the pathology showed the following: Endometrium, biopsy: - Scant superficial strips of benign endometrium. - Scant superficial strips of inflamed squamous and endocervical epithelium with reactive changes; mucoinflammatory material. - No atypia identified. Comment: The endometrium is relatively scant; consider resampling, as clinically appropriate. So another EMB was done under paracervical block on 07/07/24 COUNT INCLUDES THE [facility] Medical History Bilateral primary osteoarthritis of knee Left knee pain Pain and swelling of right knee IBS (irritable bowel syndrome) Internal and external hemorrhoids without complication Constipation Back pain Diarrhea Ganglion cyst of finger Anxiety Chronic constipation Epidermal cyst Surgical History Hx of removal of cyst Family History Father No problems noted. Mother No problems noted. Social History Housing: Condominium Alcohol intake: current Alcohol intake frequency: holidays/special occasions only Patient Tobacco Use Status: Former Tobacco user Tobacco use type: Cigarette e-Cigarette/Vaping Use: Never Used Second Hand Smoke Exposure: Yes Advance Directives Date on File: 04/28/21 service: No Current occupational status: retired Cognitive needs: No Hearing needs: No Vision needs: Yes Female Reproductive History Menstrual Age of Menarche: 11 Review of Systems Const All systems reviewed & are unremarkable except as noted in HPI and below Reports as per HPI and Reports no additional complaints GI Reports no additional complaints Reports no additional complaints Physical Exam Vital Signs: BMI result Body Mass Index 25.5 Assessment & Plan Assessment & Plan (1) Postmenopausal bleeding: Code(s): N95.0 - Postmenopausal bleeding Category: Medical Plan: Discussed with the patient the results of endometrial biopsy pathology, no endometrial tissues for diagnosis. Recommended to the patient that the next step is to repeat endometrial sampling to r/o endometrial pathology including hyperplasia or cancer. Explained to the patient is endometrial pathology has not been ruled out at this point in spite of to office EMB is, therefore will refer to [facility] for further management. All questions were answered pt verbalized understanding . Instructed the patient to call our office back in case a referral appointment is not scheduled, missed or canceled so that we will assist on rescheduling another appointment, the patient verbalized understanding agreed with the plan. Coding Level of Care Code Est Pt Level 3 (66373) Diagnoses Postmenopausal bleeding N95.0
== END 2024-07-13 08:36 | disposition home or self-care (01) ==
LOC: HO.HWS 08:17
PROVIDERS: PCP Internal Medicine; Visit Provider Obstetrics & Gynecology
DX: N95.0 Postmenopausal bleeding (principal)
CPT/HCPCS: 99213

== ENCOUNTER → 2024-07-13 08:17 | Outpatient (BNVA) | payer MEDICARE, SELFPAY | PROVIDERS: PCP Internal Medicine; Visit Provider Obstetrics & Gynecology | DX: F41.9 Anxiety disorder, unspecified (principal); N95.0 Postmenopausal bleeding; Z98.890 Other specified postprocedural states | CPT/HCPCS: 96127; 99212 ==

== ENCOUNTER 2024-07-13 13:17 | Outpatient (AMB) | payer MEDICARE, SELFPAY ==
--- NOTE | 2024-07-13 13:21 | MHC.PC.OV ---
Vital Signs 07/13/24 13:22 Height 5 ft 7 in Weight 164 lb BMI 25.7 BP 142/70 H Pulse 82 Pulse Source Pulse Oximeter Temp 96.7 F L Pulse Oximetry (%) 94 Oxygen Delivery Method Room Air Intake Visit Reasons: 4 month f/u Policy Value Calculator Required: No Accompanied by: Self / Same As Patient Allergies iodine Allergy (Intermediate, Verified 07/13/24 13:26) Rash alendronate sodium [From Fosamax] Adverse Reaction (Severe, Verified 07/13/24 13:26) Muscle Pain Medication List - Last Reconciled 07/14/24 by MD vinnie Monet.tears(hypromellose)(PF) 0.3% 1 drp ophthalmic (eye) Q2-4H PRN B-complex with vitamin C (Super B Complex-Vitamin C tablet) 1 tab PO DAILY calcium-vitamin D3-vitamin K 500 mg-100 unit -40 mcg 1 tab PO DAILY cholecalciferol (vitamin D3) 25 mcg PO DAILY diclofenac sodium 1% (Voltaren Arthritis Pain) 4 grams topical QID loratadine (Allergy Relief (loratadine)) 10 mg PO DAILY PRN multivit with min-folic acid 0.4 mg (One Daily Womens 50 Plus) tabs PO naproxen (Naprosyn) 500 mg PO BID PRN vitamin A and D 1 appl topical BEDTIME zolpidem 5 - 10 mg (0.5 - 1 x 10 mg) PO BEDTIME Tobacco use date assessed: 06/28/24 Dental Screening Dental Screen Date: 06/28/24 HPI 4 month f/u HPI Details anxiety; stable; doing well PFSH Medical History Bilateral primary osteoarthritis of knee Left knee pain Pain and swelling of right knee IBS (irritable bowel syndrome) Internal and external hemorrhoids without complication Constipation Back pain Diarrhea Ganglion cyst of finger Anxiety Chronic constipation Epidermal cyst Surgical History Hx of removal of cyst Family History Father No problems noted. Mother No problems noted. Social History Housing: Condominium Alcohol intake: current Alcohol intake frequency: holidays/special occasions only Patient Tobacco Use Status: Former Tobacco user Tobacco use type: Cigarette e-Cigarette/Vaping Use: Never Used Second Hand Smoke Exposure: Yes Advance Directives Date on File: 04/28/21 service: No Current occupational status: retired Cognitive needs: No Hearing needs: No Vision needs: Yes Female Reproductive History Menstrual Age of Menarche: 11 Questionnaire PHQ-9 Over the last 2 weeks, how often have you been bothered by any of the following problems? 1. Little interest or pleasure in doing things: not at all 2. Feeling down, depressed, or hopeless: not at all 3. Trouble falling or staying asleep, or sleeping too much: not at all 4. Feeling tired or having little energy: not at all 5. Poor appetite or overeating: not at all 6. Feeling bad about yourself - or that you are a failure or have let yourself or your family down: not at all 7. Trouble concentrating on things, such as reading the newspaper or watching television: not at all 8. Moving or speaking so slowly that other people could have noticed. Or the opposite - being so fidgety or restless that you have been moving around a lot more than usual: not at all 9. Thoughts that you would be better off or of hurting yourself in some way: not at all Total score: 0 Depression Screening Interpretation: Negative Depression Screening Done: Yes 58651 - PHQ-9 Billing: Yes Source: Developed by Drs. Esdras Camejo, Callie Crews, Coleman Velasquez and colleagues, with an educational cecelia from [employer]. Thrive Questionnaire Date Thrive assessed: 07/13/24 I am a: Patient What is your living situation today?: I have a steady place to live Within the past 12 months, did the food you bought not last and you didn't have the money to get more?: Never true Within the past 12 months, did you worry whether your food would run out before you got money to buy more?: Never true Do you have trouble paying for medicines?: No Do you have trouble getting transportation to medical appointments?: No Do you have trouble paying your heating and electricity bill?: No Do you have trouble taking care of your child, family member or friend?: No Do you have trouble with day-to-day activities such as bathing, preparing meals, shopping, managing finances, etc.?: No Are you currently unemployed and looking for a job?: No Are you interested in more education?: No THRIVE Score: 0 AUDIT C Alcohol Use Questionnaire (AUDIT-C) 1. How often do you have a drink containing alcohol?: Monthly or less 2. How many drinks containing alcohol do you have on a typical day when you are drinking?: 1 or 2 Total Score: 1 RAVEN-7 AMB Questionnaire RAVEN-7 Date RAVEN - 7 assessed: 07/13/24 Feeling nervous, anxious, or on edge: 0 = Not at all Not being able to stop or control worryin = Not at all Worrying too much about different things: 0 = Not at all Trouble relaxin = Not at all Being so restless that it is hard to sit still: 0 = Not at all Becoming easily annoyed or irritable: 0 = Not at all Feeling afraid as if something awful might happen: 0 = Not at all Total RAVEN-7 score (0-4 normal; 5-9 mild; 10-14 moderate; 15-21 severe): 0 Source: Developed by Drs. Esdras Camejo, Callie Crews, Coleman Velasquez and colleagues, with an educational cecelia from [employer]. RAVEN-7 Assessment Billing RAVEN-7 Assessment Tool: RAVEN-7 Assessment 21953 Review of Systems Const Denies chills, Denies headache(s) and Denies weight loss ENT Denies headache(s) Card Denies chest pain, Denies syncope, Denies irregular heart rhythm and Denies dyspnea Resp Denies chest congestion, Denies cough and Denies dyspnea GI Denies abdominal pain, Denies change in stool character, Denies nausea and Denies vomiting Musc Denies deformity and Denies joint swelling Neuro Denies syncope and Denies headache(s) Physical exam (Primary Care) Vital Signs: Last Vital Signs Temp 96.7 F L 07/13/24 13:22 Pulse 82 07/13/24 13:22 BP 142/70 H 07/13/24 13:22 Pulse Ox 94 07/13/24 13:22 Oxygen Delivery Method Room Air 07/13/24 13:22 BMI result Body Mass Index 25.7 Tobacco/Smoking Status: Tobacco use Status Tobacco use date assessed 06/28/24 07/13/24 13:25 Patient Tobacco Use Status Former Tobacco user 07/13/24 13:25 Tobacco use type Cigarette 07/13/24 13:25 e-Cigarette/Vaping Use Never Used 07/13/24 13:25 PHQ-9: PHQ-9 Score PHQ-9: Total score 0 07/13/24 13:25 Depression Screening Interpretation: Negative Thrive Assessment: Date of Thrive Assessment Date Thrive assessed 07/13/24 07/13/24 13:25 Const General: cooperative, comfortable, no acute distress and alert Neck Neck: Yes no lymphadenopathy Thyroid: Thyroid normal Resp Effort & Inspection: normal respiratory effort Auscultation: clear to auscultation bilaterally Percussion: percussion normal Cardio Jugular venous distension: no JVD Palpation: normal PMI Rate: regular rate Rhythm: regular rhythm Heart sounds: S1 normal heart sound present and S2 normal heart sound present GI Inspection: Yes normal to inspection Palpation (GI): No hepatosplenomegaly present Skin General skin exam: no rashes or lesions noted Extrem General: Yes no clubbing, cyanosis or edema Coding Level of Care Code Est Pt Level 3 (65307) Diagnoses Anxiety F41.9 Additional Codes RAVEN-7 Assessment Billing - RAVEN-7 Assessment Tool: RAVEN-7 Assessment [id number] ([id number]) PHQ-9 - 43156 - PHQ-9 Billing: Yes ([id number]) Assessment & Plan Assessment & Plan (1) Anxiety: Code(s): F41.9 - Anxiety disorder, unspecified Category: Medical Plan: stable
[2024-07-13 13:22] VITALS: BP 142/70; PULSE 82; TEMP 35.9; O2SAT 94; BMI 25.7
== END 2024-07-13 13:43 | disposition home or self-care (01) ==
PROVIDERS: PCP Internal Medicine; Visit Provider Internal Medicine
DX: F41.9 Anxiety disorder, unspecified (principal)

== ENCOUNTER 2024-07-25 08:23 | Outpatient (REF) | payer MEDICARE, SELFPAY ==
--- NOTE | ~2024-07-25 | XR_ITS ---
EXAMINATION: XR ANKLE 3 OR MORE VIEWS RIGHT HISTORY: M25.571 - Pain in right ankle and joints of right foot COMPARISON: Comparison is made with the prior examination dated 06/23/2024. FINDINGS: Three views of the right ankle are submitted. Osseous mineralization is normal. There is no fracture or dislocation. The joint spaces are preserved. The soft tissues are unremarkable. XR/XR ankle RT min 3V IMPRESSION: Unremarkable examination of the right ankle. Electronically signed by: Esdras Martínez MD 07/25/2024 03:06 PM EDT
== END 2024-07-25 08:24 | disposition home or self-care (01) ==
LOC: HO.HOSX 08:23
DX: M25.571 Pain in right ankle and joints of right foot (principal); S93.401A Sprain of unspecified ligament of right ankle, initial encounter
CPT/HCPCS: 73610; 99202

== ENCOUNTER 2024-07-25 11:11 | Outpatient (AMB) | payer MEDICARE, SELFPAY ==
--- NOTE | 2024-07-25 11:21 | A.OFFVIS_ITS ---
Vital Signs 07/25/24 11:32 Height 5 ft 7 in Weight 164 lb BMI 25.7 Intake Visit Reasons: ER F/Up Rt Ankle Intake Note: Bernice is a 78 year old female who presents today as a new patient for a fracture care visit of her right ankle, DOI 06/23/24. Patient reports she rolled her ankle. At the ED she was advised to ice the area several times a day and when resting elevate the leg above her heart. Also to use an athletic compression sleeve to help support the joint. Patient shows that he pain is on the lateral aspect of the ankle and it radiates up behind her calf. She has tried tylenol with no relief. IMPRESSION (US of the right calf): No evidence of deep venous thrombosis involving the right lower extremity. Allergies iodine Allergy (Intermediate, Verified 07/13/24 13:26) Rash alendronate sodium [From Fosamax] Adverse Reaction (Severe, Verified 07/13/24 13:26) Muscle Pain HPI HPI ER F/Up Rt Ankle: Details: Bernice is a 78 year old female who presents today as a new patient for a fracture care visit of her right ankle, DOI 06/23/24. Patient reports she rolled her ankle. At the ED she was advised to ice the area several times a day and when resting elevate the leg above her heart. Also to use an athletic compression sleeve to help support the joint. Patient shows that he pain is on the lateral aspect of the ankle and it radiates up behind her calf. She has tried tylenol with no relief. IMPRESSION (US of the right calf): No evidence of deep venous thrombosis involving the right lower extremity. [facility] Medical History Bilateral primary osteoarthritis of knee Left knee pain Pain and swelling of right knee IBS (irritable bowel syndrome) Internal and external hemorrhoids without complication Constipation Back pain Diarrhea Ganglion cyst of finger Anxiety Chronic constipation Epidermal cyst Surgical History Hx of removal of cyst Family History Father No problems noted. Mother No problems noted. Social History Housing: Condominium Alcohol intake: current Alcohol intake frequency: holidays/special occasions only Patient Tobacco Use Status: Former Tobacco user Tobacco use type: Cigarette e-Cigarette/Vaping Use: Never Used Second Hand Smoke Exposure: Yes Advance Directives Date on File: 04/28/21 service: No Current occupational status: retired Cognitive needs: No Hearing needs: No Vision needs: Yes Female Reproductive History Menstrual Age of Menarche: 11 Review of Systems Const All systems reviewed & are unremarkable except as noted in HPI and below Physical Exam Vital Signs: BMI result Body Mass Index 25.7 Extrem Other: Patient's right ankle normal to inspection No erythema, ecchymosis, edema noted No lacerations, abrasions, open areas No evidence of infection Tenderness to palpation of the lateral R ankle, particularly just posterior to the lateral malleolus Patient reports no tenderness to palpation of the medial ankle, syndesmosis, or elsewhere on the L ankle Pain with all ROM, worst with inversion Distal sensation intact Capillary refill brisk Results Reviewed Results Reviewed: X rays taken in the office today and independently reviewed by me demonstrate no fracture or acute bony abnormality Assessment & Plan Assessment & Plan (1) Right ankle sprain: Code(s): S93.401A - Sprain of unspecified ligament of right ankle, initial encounter Category: Medical Plan 1. Sprain of right ankle Date of injury 06/23/2024 Patient is educated about this injury Patient is educated about the typical recovery course At this time, patient was referred to physical therapy for treatment of right ankle sprain Patient was advised that if she feels her ankle is unstable or is still in significant pain, resuming boot use might be useful, but patient states that this did more harm than good, and she feels more comfortable in her compression stockings and supportive footwear Patient will follow-up in 4-6 weeks for reassessment, sooner with any acute concerns Orders: Orders XR ankle RT min 3V Today M25.571 - Pain in right ankle and joints of right foot PT Evaluation and Treatment Today S93.401A - Sprain of unspecified ligament of right ankle, initial encounter Coding Level of Care Code New Pt Level 3 (72339) Diagnoses Right ankle sprain S93.401A
[2024-07-25 11:32] VITALS: BMI 25.7
== END 2024-07-25 11:52 | disposition home or self-care (01) ==
LOC: HO.HOS 11:12
PROVIDERS: PCP Internal Medicine
DX: S93.401A Sprain of unspecified ligament of right ankle, initial encounter (principal)
CPT/HCPCS: 99203

== ENCOUNTER → 2024-07-25 11:16 | Outpatient (BNV) | payer MEDICARE, SELFPAY | PROVIDERS: Visit Provider Radiology Diagnostic Radiology | DX: M25.571 Pain in right ankle and joints of right foot (principal) | CPT/HCPCS: 73610 ==

== ENCOUNTER 2024-08-11 10:52 | Outpatient (AMB) | payer MEDICARE, SELFPAY ==
--- NOTE | 2024-08-11 11:00 | MHC.OFFVIS ---
Vital Signs 08/11/24 11:01 Height 5 ft 7 in Weight 163 lb 9.328 oz BMI 25.6 BP 102/60 Blood Pressure Location Rt brachial Position Sitting Pulse 74 Pulse Source Pulse Oximeter Pulse Oximetry (%) 94 Oxygen Delivery Method Room Air Intake Visit Reasons: 6m cons IBS Intake Note: ESTABLISHED PATIENT for constipation mgmt. Chief Complaint; C/O occasional fecal abn / GI upset however according to baseline per pt. Pt also reports that she typically is doing well and avoiding triggers but sometimes will run into a few issues depending on intake. 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 Take fiber supplement daily. Increase fluid intake and activity to promote bowel motility. Avoid dietary triggers. Follow-up in 6 months, sooner on as needed basis TODAY'S VISIT: Patient is here today for follow-up. Patient reports that she has been doing well. Occasional rectal burning if she eats food that does not agrees with her and has multiple bowel movements like chips. Patient otherwise has been doing well. Patient is frustrated as she twisted her right ankle and just now is starting to feel better and able to walk and drive. Patient will start physical therapy next week. Patient denies dyspepsia, dysphagia or odynophagia. Denies melena, hematochezia, unintentional weight loss or ribbon like stools. Patient denies any GI concerning symptoms. Denies any mucus in her stool. [facility] Medical History Bilateral primary osteoarthritis of knee Left knee pain Pain and swelling of right knee IBS (irritable bowel syndrome) Internal and external hemorrhoids without complication Constipation Back pain Diarrhea Ganglion cyst of finger Anxiety Chronic constipation Epidermal cyst Surgical History History of biopsy Hx of removal of cyst Family History Father No problems noted. Mother No problems noted. Social History Housing: Condominium Alcohol intake: current Alcohol intake frequency: holidays/special occasions only Patient Tobacco Use Status: Former Tobacco user Tobacco use type: Cigarette e-Cigarette/Vaping Use: Never Used Second Hand Smoke Exposure: Yes Advance Directives Date on File: 04/28/21 service: No Current occupational status: retired Cognitive needs: No Hearing needs: No Vision needs: Yes Female Reproductive History Menstrual Age of Menarche: 11 Review of Systems Const Denies weight gain and Denies weight loss ENT Reports no additional complaints, Denies dysphagia and Denies odynophagia Card Reports no additional complaints Resp Reports no additional complaints GI Denies abdominal pain, Denies belching, Denies melena, Denies bloating, Denies change in bowel habits, Denies dysphagia, Denies excessive flatus, Denies dyspepsia, Denies heartburn, Denies diarrhea, Denies loose stools, Denies nausea, Denies odynophagia and Denies vomiting Musc Reports no additional complaints Neuro Reports no additional complaints Psych Reports no additional complaints Endo Reports no additional complaints Physical Exam Vital Signs: Last Vital Signs Pulse 74 08/11/24 11:01 BP 102/60 08/11/24 11:01 Pulse Ox 94 08/11/24 11:01 Oxygen Delivery Method Room Air 08/11/24 11:01 BMI result Body Mass Index 25.6 Const General: healthy appearing, no acute distress and well developed Nutritional Appearance: well nourished Orientation/consciousness: patient oriented x3 Resp Effort & Inspection: normal respiratory effort, able to speak in complete sentences, no tracheal deviation and symmetric chest movement Auscultation: clear to auscultation bilaterally Cardio Jugular venous distension: no JVD Rate: regular rate Heart sounds: S1 normal heart sound present, S2 normal heart sound present, no gallops and no murmurs GI Inspection: Yes normal to inspection and No distended Palpation (GI): Soft to palpation, not firm, nontender and No hepatosplenomegaly present Auscultation: normal bowel sounds General: Yes no CVA tenderness Back/Spine/Pelvis Back: no CVA tenderness Skin General skin exam: elasticity normal, turgor normal and dry skin Neuro General: patient oriented x3 Psych Appearance: grossly normal Mental Status: mental status grossly normal Assessment & Plan Assessment & Plan (1) IBS (irritable bowel syndrome): Code(s): K58.9 - Irritable bowel syndrome, unspecified Category: Medical Qualifiers: Irritable bowel syndrome type: with both diarrhea and constipation Qualified Code(s): K58.2 - Mixed irritable bowel syndrome (2) Chronic constipation: Code(s): K59.09 - Other constipation Category: Medical (3) Burning sensation of rectum: Code(s): R20.8 - Other disturbances of skin sensation Plan Patient will continue with fiber daily. Avoid dietary triggers, patient reports that she knows what food she should avoid. Patient reports that sometimes she will have chips even though she knows that she will have symptoms afterwards. Increase fluid intake and activity to promote better bowel motility. Patient reports that overall she has been doing much better. 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 Follow-up in 6 months, sooner on as needed basis. She is agreeable to this plan and verbalizes understanding of instructions. She was given the opportunity to ask questions and all questions answered. Thank you for allowing me to participate in her care Coding Level of Care Code Est Pt Level 3 (75079) Diagnoses Irritable bowel syndrome with both constipation and diarrhea K58.2 Irritable bowel syndrome type: with both diarrhea and constipation Chronic constipation K59.09 Burning sensation of rectum R20.8 Time Spent (min) 25 Comment 15 minutes spent with patient and additional 10 minutes spent reviewing her records
[2024-08-11 11:01] VITALS: BP 102/60; PULSE 74; O2SAT 94; BMI 25.6
== END 2024-08-11 11:29 | disposition home or self-care (01) ==
LOC: HO.HGI 10:53
PROVIDERS: PCP Internal Medicine; Visit Provider Nurse Practitioner Family
DX: K58.2 Mixed irritable bowel syndrome (principal); K59.09 Other constipation; R20.8 Other disturbances of skin sensation
CPT/HCPCS: 99213

== ENCOUNTER → 2024-08-11 10:52 | Outpatient (BNVA) | payer MEDICARE, SELFPAY | PROVIDERS: PCP Internal Medicine; Visit Provider Nurse Practitioner Family | DX: K58.2 Mixed irritable bowel syndrome (principal); K59.09 Other constipation; R20.8 Other disturbances of skin sensation | CPT/HCPCS: 99212 ==

== ENCOUNTER 2024-08-21 11:27 | Outpatient (AMB) | payer MEDICARE, SELFPAY ==
--- NOTE | 2024-08-21 11:31 | MHC.OFFVIS ---
Vital Signs 08/21/24 11:33 Height 5 ft 7 in Weight 163 lb BMI 25.5 Intake Visit Reasons: OV- Right ankle sprain DOI 06/23/24 Intake Note: Bernice is a 78 year old female who presents today for a follow up visit for her sprain of right ankle , DOI: 06/23/24. On 07/25/24 patient was referred to physical therapy for treatment. Patient reports her right ankle feels it is getting better however there is soreness that remains and some pulling. She expresses not being able to get into physical therapy right away and started 2 weeks ago. She has completed one visit of therapy so far howvere she is doing exercises at home. She took Tylenol at first for pain but discontinued this. Denies numbness and tingling. Allergies iodine Allergy (Intermediate, Verified 08/21/24 11:34) Rash alendronate sodium [From Fosamax] Adverse Reaction (Severe, Verified 08/21/24 11:34) Muscle Pain HPI HPI OV- Right ankle sprain DOI 06/23/24: Details: Bernice is a 78 year old female who presents today for a follow up visit for her sprain of right ankle , DOI: 06/23/24. On 07/25/24 patient was referred to physical therapy for treatment. Patient reports her right ankle feels it is getting better however there is soreness that remains and some pulling. She expresses not being able to get into physical therapy right away and started 2 weeks ago. She has completed one visit of therapy so far howvere she is doing exercises at home. She took Tylenol at first for pain but discontinued this. Denies numbness and tingling. [facility] Medical History Bilateral primary osteoarthritis of knee Left knee pain Pain and swelling of right knee IBS (irritable bowel syndrome) Internal and external hemorrhoids without complication Constipation Back pain Diarrhea Ganglion cyst of finger Anxiety Chronic constipation Epidermal cyst Surgical History History of biopsy Hx of removal of cyst Family History Father No problems noted. Mother No problems noted. Social History Housing: Condominium Alcohol intake: current Alcohol intake frequency: holidays/special occasions only Patient Tobacco Use Status: Former Tobacco user Tobacco use type: Cigarette e-Cigarette/Vaping Use: Never Used Second Hand Smoke Exposure: Yes Advance Directives Date on File: 04/28/21 service: No Current occupational status: retired Cognitive needs: No Hearing needs: No Vision needs: Yes Female Reproductive History Menstrual Age of Menarche: 11 Review of Systems Const All systems reviewed & are unremarkable except as noted in HPI and below Physical Exam Vital Signs: BMI result Body Mass Index 25.5 Extrem Other: Patient's right ankle normal to inspection No erythema, ecchymosis, edema noted No lacerations, abrasions, open areas No evidence of infection Tenderness to palpation of the lateral R ankle, particularly just posterior to the lateral malleolus, significantly improved Patient reports no tenderness to palpation of the medial ankle, syndesmosis, or elsewhere on the L ankle Pain with inversion of the right ankle, minimal discomfort with all other planes of range of motion Distal sensation intact Capillary refill brisk Assessment & Plan Assessment & Plan (1) Right ankle sprain: Code(s): S93.401A - Sprain of unspecified ligament of right ankle, initial encounter Category: Medical Plan 1. Sprain of right ankle Date of injury 06/23/2024 Patient is educated about this injury Patient is educated about the typical recovery course At this time, patient was referred to physical therapy for treatment of right ankle sprain Patient was advised that if she feels her ankle is unstable or is still in significant pain, resuming boot use might be useful, but patient states that this did more harm than good, and she feels more comfortable in her compression stockings and supportive footwear Patient will follow-up in 4-6 weeks for reassessment, sooner with any acute concerns Coding Level of Care Code Est Pt Level 3 (05220) Diagnoses Right ankle sprain S93.401A
[2024-08-21 11:33] VITALS: BMI 25.5
== END 2024-08-21 12:08 | disposition home or self-care (01) ==
LOC: HO.HOS 11:27
PROVIDERS: PCP Internal Medicine
DX: S93.401A Sprain of unspecified ligament of right ankle, initial encounter (principal)
CPT/HCPCS: 99213

== ENCOUNTER → 2024-08-21 11:27 | Outpatient (BNVA) | payer MEDICARE, SELFPAY | PROVIDERS: PCP Internal Medicine | DX: S93.401D Sprain of unspecified ligament of right ankle, subsequent encounter (principal); X58.XXXD Exposure to other specified factors, subsequent encounter | CPT/HCPCS: 99212 ==

== ENCOUNTER 2024-08-22 10:59 | Outpatient (AMB) | payer MEDICARE, SELFPAY ==
--- NOTE | 2024-08-22 11:05 | A.OFFVIS_ITS ---
Intake Visit Reasons: 1y/PVR Intake Note: Patient presents today for follow up on: urinary frequency Meds- None Allergies to Antibiotic- No Known Allergies Blood Thinner- None Post Void Residual: 42ml's Esthetician Facialist Required: No Accompanied by: Self / Same As Patient Allergies iodine Allergy (Intermediate, Verified 08/22/24 16:44) Rash alendronate sodium [From Fosamax] Adverse Reaction (Severe, Verified 08/22/24 16 :44) Muscle Pain Medication List - Last Reconciled 08/22/24 by ANNA Acharya-LAZARO [email or web address].tears(hypromellose)(PF) 0.3% 1 drp ophthalmic (eye) Q2-4H PRN B-complex with vitamin C (Super B Complex-Vitamin C tablet) 1 tab PO DAILY calcium-vitamin D3-vitamin K 500 mg-100 unit -40 mcg 1 tab PO DAILY cholecalciferol (vitamin D3) 25 mcg PO DAILY diclofenac sodium 1% (Voltaren Arthritis Pain) 4 grams topical QID multivit with min-folic acid 0.4 mg (One Daily Womens 50 Plus) tabs PO soluble corn fiber-inulin 1.7 gram (Metamucil (inulin-corn fiber)) tabs PO vitamin A and D 1 appl topical BEDTIME zolpidem 5 - 10 mg (0.5 - 1 x 10 mg) PO BEDTIME HPI Comments Details: Bernice is a pleasant 79-year-old female patient of . She has a past medical history of IBS, constipation, and anxiety. She presents to the office today for follow-up of her microscopic hematuria and cystocele. In discussion with the patient today she reports to be doing and feeling well. She currently denies any bothersome urinary issues or concerns. She reports having followed up with scorer helper for potential pessary however did not find this beneficial. In office urinalysis results reviewed with the patient today. PVR 36 mL. Previous workup has included a retroperitoneal ultrasound 07/30 noting bilateral kidneys with no calculi, lesions, and or hydronephrosis. The bladder is well distended and normal. Bilateral ureteral jets are demonstrated. Pre void bladder volume is 455 mL. Postvoid bladder volume is 13 mL. Discussed no acute sonographic abnormalities noted. We discussed further treatment options here in our office for cystoceles. However, patient does not feel she has any bothersome urinary issues or concerns and would like to continue with surveillance monitoring at this time. She denies urinary urgency, urinary frequency, incontinence, nocturia, hematuria, dysuria, foul smelling urine, changes to urinary stream, flank pain, fever, and or chills. She is happy with her current voiding parameters. She otherwise offers no other issues or concerns at this time. Plan The plan for the patient includes continuing with the current management approach for urinary symptoms without the reintroduction of the pessary. The education provided will enable her to recognize how lifestyle factors like fluid intake and diet can influence urinary frequency. Monitoring will continue, and adaptations in her routine are advised based on her current ability to manage urinary frequency without invasive interventions. Patient was informed and verbally consented to the use of an ambient scribe for clinic note documentation during this visit. Discussion Notes I discussed the management of her urinary symptoms, confirming that a conservative approach without the pessary is appropriate. We reviewed influences of dietary habits and fluid intake on urinary frequency, noting variability typical of age and past medical history. I explained precautions regarding fluid intake in situations where bathroom facilities might be limited. The patient expressed satisfaction with the current management plan and agreed to continue observing symptoms as advised. COUNTS INCLUDE 234 BEDS AT THE [facility] Medical History Bilateral primary osteoarthritis of knee Left knee pain Pain and swelling of right knee IBS (irritable bowel syndrome) Internal and external hemorrhoids without complication Constipation Back pain Diarrhea Ganglion cyst of finger Anxiety Chronic constipation Epidermal cyst Surgical History History of biopsy Hx of removal of cyst Family History Father No problems noted. Mother No problems noted. Social History Housing: Condominium Alcohol intake: current Alcohol intake frequency: holidays/special occasions only Patient Tobacco Use Status: Former Tobacco user Tobacco use type: Cigarette e-Cigarette/Vaping Use: Never Used Second Hand Smoke Exposure: Yes Advance Directives Date on File: 04/28/21 service: No Current occupational status: retired Cognitive needs: No Hearing needs: No Vision needs: Yes Female Reproductive History Menstrual Age of Menarche: 11 Review of Systems Const All systems reviewed & are unremarkable except as noted in HPI and below Reports as per HPI Eyes Reports no additional complaints ENT Reports no additional complaints Card Reports no additional complaints Resp Reports no additional complaints GI Reports as per HPI Reports no additional complaints Musc Reports no additional complaints Neuro Reports no additional complaints Psych Reports no additional complaints Endo Reports no additional complaints Physical Exam Const General: cooperative, healthy appearing, comfortable, no acute distress, well developed, alert and awake Orientation/consciousness: patient oriented x3 Limitations: no limitations HEENT Head: Yes normal to inspection, Yes normocephalic and Yes atraumatic Ears: hearing grossly normal bilaterally Eyes General: appearance normal, both eyes and all related structures Neck Neck: Yes normal visual inspection and Yes trachea midline Chest Chest palpation & inspection: normal inspection of the chest Resp Effort & Inspection: able to speak in complete sentences Cardio Rate: regular rate GI Inspection: Yes normal to inspection General: Yes no CVA tenderness Back/Spine/Pelvis Back: no CVA tenderness Skin General skin exam: no rashes or lesions noted Neuro General: patient oriented x3 Extrem General: Yes normal to inspection Psych Appearance: grossly normal and well kempt Mental Status: mental status grossly normal Speech and movement: Clear speech present Affect: normal affect Attitude: cooperative Thought process: Normal thought process present Thought content: Normal thought content present Insight: Fair insight present (Psych) Judgement: Fair judgement present (Psych) Office Procedures Post Void Residual Post Residual Void Post Void Residual (PVR): 42 [id number] Void Residual by ultrasound Results AMB Urinalysis, Automated UA Leukoctes 125 Ricardo/uL Last Edit by Rozina Robin on 08/22/24 12:12 UA Nitrite Last Edit by [email or web address] Robin on 08/22/24 12:12 UA Urobilinogen 0.2 mg/dL Last Edit by SinAre You a Humanmiguel Robin on 08/22/24 12:12 UA Protein 0 mg/dL Last Edit by Rozina Robin on 08/22/24 12:12 UA pH 6.0 Last Edit by Chadmiguel Baptisteclarisse on 08/22/24 12:12 UA Blood 0 Alfredo/uL Last Edit by Rozina Robin on 08/22/24 12:12 UA Specific [place] 1.005 Last Edit by Rozina Robin on 08/22/24 12:12 UA Ketone Last Edit by Rozina Robin on 08/22/24 12:12 UA Bilirubin 0 mg/dL Last Edit by Rozina Robin on 08/22/24 12:12 UA Glucose 0 mg/dL Last Edit by Rozina Robin on 08/22/24 12:12 Results Reviewed Results Reviewed: Laboratory Last Values Urine pH (Auto) 6.0 08/22/24 12:09 Specific [place] (Auto) 1.005 08/22/24 12:09 Urine Protein (Auto) 0 mg/dL 08/22/24 12:09 Glucose (UA)(Auto) 0 mg/dL 08/22/24 12:09 Urine Blood (Auto) 0 Alfredo/uL 08/22/24 12:09 Urine Bilirubin (Auto) 0 mg/dL 08/22/24 12:09 Urine Urobilinogen (Auto) 0.2 mg/dL 08/22/24 12:09 Leukocyte Esterase (Auto) 125 Ricardo/uL 08/22/24 12:09 Assessment & Plan Assessment & Plan (1) Microhematuria: Code(s): R31.29 - Other microscopic hematuria Category: Medical (2) Female cystocele: Code(s): N81.10 - Cystocele, unspecified Category: Medical (3) Urine frequency: Code(s): R35.0 - Frequency of micturition Category: Medical Plan In office urinalysis results reviewed with the patient today; as noted above. PVR 36 mL. Patient currently denies any bothersome urinary issues or concerns. She reports be happy with current voiding parameters. We discussed bladder triggers/irritants. We discussed healthy bathroom behaviors. Follow-up in 1 year with PVR; or sooner with any issues, concerns, and or questions. Orders: Orders AMB Urinalysis Automated Today Z13.9 - Encounter for screening, unspecified AMB Post Void Residual by ultrasound Today R35.0 - Frequency of micturition Patient Instructions: The patient had an opportunity to ask questions regarding the treatment plan. All questions were answered. Physical exam, labs, and imaging were discussed and reviewed in detail. As well as risks, benefits, and discussion of treatment choices. No major barriers to understanding were identified. The patient expressed understanding and agreement with the above treatment plan. The patient was made aware they should contact our office by phone for worsening of their current condition, the appearance of new symptoms, or with any questions or concerns. Compliance is encouraged with any medications and follow up testing that is ordered. It is a privilege to be allowed the opportunity to participate in? your urological care.? Again, if you have any questions or concerns If you have any questions or concerns please do not hesitate to contact me. The office is [phone]. This note is constructed using voice recognition software. While every effort has been made to ensure accuracy loss control consultant errors may have been included. Yours sincerely, SHANEKA Acharya Coding Level of Care Code Est Pt Level 3 (52549) Complex EM visit Add On G2211 Diagnoses Microhematuria R31.29 Female cystocele N81.10 Urine frequency R35.0 CPT Codes Post Residual Void - PVR CPT Code: 88108-[id number] Void Residual by ultrasound ([id number])
== END 2024-08-22 11:47 | disposition home or self-care (01) ==
LOC: HO.HUSH 10:59
PROVIDERS: PCP Internal Medicine; Visit Provider Nurse Practitioner Family
DX: R31.29 Other microscopic hematuria (principal); N81.10 Cystocele, unspecified; R35.0 Frequency of micturition; Z13.9 Encounter for screening, unspecified
CPT/HCPCS: 99213; G2211

== ENCOUNTER → 2024-08-22 10:59 | Outpatient (BNVA) | payer MEDICARE, SELFPAY | PROVIDERS: PCP Internal Medicine; Visit Provider Nurse Practitioner Family | DX: R31.29 Other microscopic hematuria (principal); R35.0 Frequency of micturition; N81.10 Cystocele, unspecified | CPT/HCPCS: 51798; 81003; 99212 ==

== ENCOUNTER 2024-08-29 15:26 | Outpatient (AMB) | payer MEDICARE, SELFPAY ==
[2024-08-29 15:43] VITALS: BP 118/66; PULSE 66; RESP 20; TEMP 36.1; O2SAT 95; BMI 25.5
--- NOTE | 2024-08-29 15:43 | MHC.PC.OV ---
Vital Signs 08/29/24 15:43 Height 5 ft 7 in Weight 163 lb BMI 25.5 BP 118/66 Blood Pressure Location Lt brachial Position Sitting Respiration 20 Pulse 66 Pulse Source Pulse Oximeter Temp 96.9 F Temp Source Temporal Artery Scan Pulse Oximetry (%) 95 Oxygen Delivery Method Room Air Intake Visit Reasons: Rash to forehead Forensic Specialist Required: No Accompanied by: Self / Same As Patient Allergies iodine Allergy (Intermediate, Verified 08/29/24 15:46) Rash alendronate sodium [From Fosamax] Adverse Reaction (Severe, Verified 08/29/24 15:46) Muscle Pain Medication List - Last Reconciled 08/29/24 by MD vinnie Forbes.tears(hypromellose)(PF) 0.3% 1 drp ophthalmic (eye) Q2-4H PRN B-complex with vitamin C (Super B Complex-Vitamin C tablet) 1 tab PO DAILY calcium-vitamin D3-vitamin K 500 mg-100 unit -40 mcg 1 tab PO DAILY cholecalciferol (vitamin D3) 25 mcg PO DAILY diclofenac sodium 1% (Voltaren Arthritis Pain) 4 grams topical QID ketoconazole 2% 1 appl topical 2XW multivit with min-folic acid 0.4 mg (One Daily Womens 50 Plus) tabs PO soluble corn fiber-inulin 1.7 gram (Metamucil (inulin-corn fiber)) tabs PO zolpidem 5 - 10 mg (0.5 - 1 x 10 mg) PO BEDTIME Tobacco use date assessed: 08/29/24 Fall risk assessment: No Falls in past year Last assessed Fall Risk: 08/29/24 Dental Screening Dental Screen Date: 08/29/24 Did you have a dental visit in the last 12 months?: No Did you have a dental problem in the last 6 months where you did not have access to dental care?: No Was dental information given to patient?: No HPI Rash to forehead HPI Details noted R scalp area redness and has been having prutitus on the occipital area some. 79-year-old female with a history of impaired glucose tolerance generalized anxiety disorder osteopenia coming in for an acute problem. This is 1st time I am seeing the patient. Patient is up-to-date with mammogram and bone density. Discussed about colon testing but was told that this is being tested by Gastroenterology. Otherwise patient complains of acute problem on the scalp having some rash. [facility] Medical History Bilateral primary osteoarthritis of knee Left knee pain Pain and swelling of right knee IBS (irritable bowel syndrome) Internal and external hemorrhoids without complication Constipation Back pain Diarrhea Ganglion cyst of finger Anxiety Chronic constipation Epidermal cyst Surgical History History of biopsy Hx of removal of cyst Family History Father No problems noted. Mother No problems noted. Social History Housing: Condominium Alcohol intake: current Alcohol intake frequency: holidays/special occasions only Patient Tobacco Use Status: Former Tobacco user Tobacco use type: Cigarette e-Cigarette/Vaping Use: Never Used Second Hand Smoke Exposure: Yes Advance Directives Date on File: 04/28/21 service: No Current occupational status: retired Cognitive needs: No Hearing needs: No Vision needs: No Female Reproductive History Menstrual Age of Menarche: 11 Questionnaire Thrive Questionnaire Date Thrive assessed: 08/29/24 I am a: Patient What is your living situation today?: I have a steady place to live Within the past 12 months, did the food you bought not last and you didn't have the money to get more?: Never true Within the past 12 months, did you worry whether your food would run out before you got money to buy more?: Never true Do you have trouble paying for medicines?: No Do you have trouble getting transportation to medical appointments?: No Do you have trouble paying your heating and electricity bill?: No Do you have trouble taking care of your child, family member or friend?: No Do you have trouble with day-to-day activities such as bathing, preparing meals, shopping, managing finances, etc.?: No Are you currently unemployed and looking for a job?: No Are you interested in more education?: No Currently or been in a relationship where the following occur: No concerns reported THRIVE Score: 0 AUDIT C Alcohol Use Questionnaire (AUDIT-C) 1. How often do you have a drink containing alcohol?: Monthly or less 2. How many drinks containing alcohol do you have on a typical day when you are drinking?: 1 or 2 Total Score: 1 Score Reviewed/Action Taken: No RAVEN-7 AMB Questionnaire RAVEN-7 Date RAVEN - 7 assessed: 07/13/24 Source: Developed by Drs. Esdras Camejo, Callie Crews, Coleman Velasquez and colleagues, with an educational cecelia from [employer]. Physical exam (Primary Care) Vital Signs: Last Vital Signs Temp 96.9 F 08/29/24 15:43 Pulse 66 08/29/24 15:43 Resp 20 08/29/24 15:43 BP 118/66 08/29/24 15:43 Pulse Ox 95 08/29/24 15:43 Oxygen Delivery Method Room Air 08/29/24 15:43 BMI result Body Mass Index 25.5 Tobacco/Smoking Status: Tobacco use Status Tobacco use date assessed 08/29/24 08/29/24 15:52 Patient Tobacco Use Status Former Tobacco user 08/29/24 15:52 Tobacco use type Cigarette 08/29/24 15:52 e-Cigarette/Vaping Use Never Used 08/29/24 15:52 Thrive Assessment: Date of Thrive Assessment Date Thrive assessed 08/29/24 08/29/24 15:52 Currently or been in a relationship where the following occur: No concerns reported Const General: alert; No acute distress HENMT Other: Scalp noted with multiple areas of scaly erythema toes rash 1-2 cm around Eyes Conjunctivae: conjunctivae normal Resp Auscultation: clear to auscultation bilaterally Cardio Rate: regular rate Rhythm: regular rhythm GI Inspection: Yes normal to inspection Extrem General: Yes normal to inspection and No edema Coding Level of Care Code Est Pt Level 4 (76394) Diagnoses Dermatitis, seborrheic L21.9 Insomnia G47.00 Osteopenia M85.80 Impaired fasting blood sugar R73.01 Right ankle sprain S93.401A Assessment & Plan Assessment & Plan (1) Dermatitis, seborrheic: Code(s): L21.9 - Seborrheic dermatitis, unspecified Category: Medical Plan: Patient is given ketoconazole shampoo to use twice a day week. If the rash does not improve will get dermatology. (2) Insomnia: Code(s): G47.00 - Insomnia, unspecified Category: Medical Plan: Continuing with zolpidem to help with sleep (3) Osteopenia: Code(s): M85.80 - Other specified disorders of bone density and structure, unspecified site Category: Medical Plan: Patient is up-to-date with bone density discussed about calcium and vitamin-D (4) Impaired fasting blood sugar: Code(s): R73.01 - Impaired fasting glucose Category: Medical Plan: Decrease the amount of carbohydrate intake, pasta, bread, rice and potatoes are all sugar and that is aside from all the sweet stuff, remember that fruits are good but they are Sweet also. (5) Right ankle sprain: Code(s): S93.401A - Sprain of unspecified ligament of right ankle, initial encounter Category: Medical Plan: seeing ORtho and going for PT Orders: Orders Lipid Panel Today Z13.220 - Encounter for screening for lipoid disorders Thyroid Stimulating Hormone Today Z13.29 - Encounter for screening for other suspected endocrine disorder UA CC w/rflx Micro + Cult Today R30.0 - Dysuria, R73.01 - Impaired fasting glucose Vitamin B12 and Folate Today R73.01 - Impaired fasting glucose Vitamin D 25-OH Total Today R73.01 - Impaired fasting glucose Comprehensive Met. Panel Today R73.01 - Impaired fasting glucose Complete Blood Count Auto Diff Today Z13.0 - Encounter for screening for diseases of the blood and blood-forming organs and certain disorders involving the immune mechanism Comprehensive Justice. Panel Fast Today Z13.9 - Encounter for screening, unspecified Hemoglobin A1c Today R73.01 - Impaired fasting glucose Free T4 (Free Thyroxine) Today R73.01 - Impaired fasting glucose Medications: New ketoconazole 2% 1 appl topical 2XW 120 mL 0RF L21.9 - Seborrheic dermatitis, unspecified
== END 2024-08-29 16:31 | disposition home or self-care (01) ==
LOC: HO.HMCH 15:27
PROVIDERS: PCP Internal Medicine; Visit Provider Internal Medicine
DX: L21.9 Seborrheic dermatitis, unspecified (principal); G47.00 Insomnia, unspecified; M85.80 Other specified disorders of bone density and structure, unspecified site; R73.01 Impaired fasting glucose; S93.401A Sprain of unspecified ligament of right ankle, initial encounter

== ENCOUNTER → 2024-08-29 15:26 | Outpatient (BNVA) | payer MEDICARE, SELFPAY | PROVIDERS: PCP Internal Medicine; Visit Provider Internal Medicine | DX: L21.9 Seborrheic dermatitis, unspecified (principal); G47.00 Insomnia, unspecified; M85.80 Other specified disorders of bone density and structure, unspecified site; R73.01 Impaired fasting glucose; S93.401A Sprain of unspecified ligament of right ankle, initial encounter; X58.XXXA Exposure to other specified factors, initial encounter; Y93.9 Activity, unspecified; Y92.9 Unspecified place or not applicable; Y99.9 Unspecified external cause status | CPT/HCPCS: 99212 ==

== ENCOUNTER 2024-09-14 11:21 | Outpatient (AMB) | payer MEDICARE, SELFPAY ==
[2024-09-14 11:23] VITALS: BP 110/70; PULSE 82; O2SAT 95; BMI 25.2
--- NOTE | 2024-09-14 11:23 | MHC.PC.OV ---
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 Patient does have a rash on the right leg and discussed that physical therapy has doing been doing massages on the right leg. Otherwise questions on diet came up as the patient has impaired glucose tolerance on the last blood work having an elevated blood sugar. [facility] Medical History Bilateral primary osteoarthritis of knee Left knee pain Pain and swelling of right knee IBS (irritable bowel syndrome) Internal and external hemorrhoids without complication Constipation Back pain Diarrhea Ganglion cyst of finger Anxiety Chronic constipation Epidermal cyst Surgical History History of biopsy Hx of removal of cyst Family History Father No problems noted. Mother No problems noted. Social History Housing: Condominium Alcohol intake: current Alcohol intake frequency: holidays/special occasions only Patient Tobacco Use Status: Former Tobacco user Tobacco use type: Cigarette e-Cigarette/Vaping Use: Never Used Second Hand Smoke Exposure: Yes Advance Directives Date on File: 04/28/21 service: No Current occupational status: retired Current occupational exposures/hazards: No Cognitive needs: No Hearing needs: No Vision needs: No Female Reproductive History Menstrual Age of Menarche: 11 Questionnaire PHQ-9 Over the last 2 weeks, how often have you been bothered by any of the following problems? 1. Little interest or pleasure in doing things: not at all 2. Feeling down, depressed, or hopeless: not at all 3. Trouble falling or staying asleep, or sleeping too much: not at all 4. Feeling tired or having little energy: not at all 5. Poor appetite or overeating: not at all 6. Feeling bad about yourself - or that you are a failure or have let yourself or your family down: not at all 7. Trouble concentrating on things, such as reading the newspaper or watching television: not at all 8. Moving or speaking so slowly that other people could have noticed. Or the opposite - being so fidgety or restless that you have been moving around a lot more than usual: not at all 9. Thoughts that you would be better off or of hurting yourself in some way: not at all Total score: 0 Source: Developed by Drs. Esdras Camejo, Callie Crews, Coleman Velasquez and colleagues, with an educational cecelia from [employer]. Thrive Questionnaire Date Thrive assessed: 09/14/24 I am a: Patient What is your living situation today?: I have a steady place to live Within the past 12 months, did the food you bought not last and you didn't have the money to get more?: Never true Within the past 12 months, did you worry whether your food would run out before you got money to buy more?: Never true Do you have trouble paying for medicines?: No Do you have trouble getting transportation to medical appointments?: No Do you have trouble paying your heating and electricity bill?: No Do you have trouble taking care of your child, family member or friend?: No Do you have trouble with day-to-day activities such as bathing, preparing meals, shopping, managing finances, etc.?: No Are you currently unemployed and looking for a job?: No Are you interested in more education?: No Please select the resources that you would like help with: None Currently or been in a relationship where the following occur: No concerns reported THRIVE Score: 0 AUDIT C Alcohol Use Questionnaire (AUDIT-C) 1. How often do you have a drink containing alcohol?: Monthly or less 2. How many drinks containing alcohol do you have on a typical day when you are drinking?: 1 or 2 3. How often do you have six or more drinks on one occasion?: Never Total Score: 1 RAVEN-7 AMB Questionnaire RAVEN-7 Date RAVEN - 7 assessed: 09/14/24 Feeling nervous, anxious, or on edge: 0 = Not at all Not being able to stop or control worryin = Not at all Worrying too much about different things: 1 = Several days Trouble relaxin = Not at all Being so restless that it is hard to sit still: 0 = Not at all Becoming easily annoyed or irritable: 0 = Not at all Feeling afraid as if something awful might happen: 0 = Not at all Total RAVEN-7 score (0-4 normal; 5-9 mild; 10-14 moderate; 15-21 severe): 1 Source: Developed by Drs. Esdras Camejo, Callie Crews, Coleman Velasquez and colleagues, with an educational cecelia from [employer]. Physical exam (Primary Care) Vital Signs: Last Vital Signs Pulse 82 09/14/24 11:23 BP 110/70 09/14/24 11:23 Pulse Ox 95 09/14/24 11:23 Oxygen Delivery Method Room Air 09/14/24 11:23 BMI result Body Mass Index 25.2 Tobacco/Smoking Status: Tobacco use Status Tobacco use date assessed 08/29/24 09/14/24 11:30 Patient Tobacco Use Status Former Tobacco user 09/14/24 11:30 Tobacco use type Cigarette 09/14/24 11:30 e-Cigarette/Vaping Use Never Used 09/14/24 11:30 PHQ-9: PHQ-9 Score PHQ-9: Total score 0 09/14/24 11:39 Thrive Assessment: Date of Thrive Assessment Date Thrive assessed 09/14/24 09/14/24 11:30 Currently or been in a relationship where the following occur: No concerns reported Const General: alert; No acute distress Eyes Conjunctivae: conjunctivae normal Resp Auscultation: clear to auscultation bilaterally Cardio Rate: regular rate Rhythm: regular rhythm GI Inspection: Yes normal to inspection Extrem General: Yes normal to inspection and No edema Ankle/foot/toe images: 1. R lower 1/2 of leg multiple broken blood vessesl in the shape of oval - pressure massage done 2. Coding Level of Care Code Est Pt Level 4 (81893) Diagnoses Impaired fasting blood sugar R73.01 Sprain of right ankle, unspecified ligament, subsequent encounter S93.401D Encounter type: subsequent encounter Involved ligament of ankle: unspecified ligament Dermatitis, seborrheic L21.9 Contusion of right lower leg, sequela S80.11XS Encounter type: sequela Laterality: right Assessment & Plan Assessment & Plan (1) Impaired fasting blood sugar: Code(s): R73.01 - Impaired fasting glucose Category: Medical Plan: Decrease the amount of carbohydrate intake, pasta, bread, rice and potatoes are all sugar and that is aside from all the sweet stuff, remember that fruits are good but they are Sweet also. (2) Right ankle sprain: Code(s): S93.401A - Sprain of unspecified ligament of right ankle, initial encounter Category: Medical Qualifiers: Encounter type: subsequent encounter Involved ligament of ankle: unspecified ligament Qualified Code(s): S93.401D - Sprain of unspecified ligament of right ankle, subsequent encounter Plan: Patient has been sent for physical therapy (3) Dermatitis, seborrheic: Code(s): L21.9 - Seborrheic dermatitis, unspecified Category: Medical Plan: Patient was prescribed ketoconazole shampoo (4) Superficial bruising of lower leg: Code(s): S80.10XA - Contusion of unspecified lower leg, initial encounter Category: Medical Qualifiers: Encounter type: sequela Laterality: right Qualified Code(s): S80.11XS - Contusion of right lower leg, sequela Plan: Reassurance.
== END 2024-09-14 11:51 | disposition home or self-care (01) ==
LOC: HO.HMCH 11:22
PROVIDERS: Visit Provider Internal Medicine
DX: R73.01 Impaired fasting glucose (principal); S93.401D Sprain of unspecified ligament of right ankle, subsequent encounter; L21.9 Seborrheic dermatitis, unspecified; S80.11XS Contusion of right lower leg, sequela

== ENCOUNTER → 2024-09-14 11:21 | Outpatient (BNVA) | payer MEDICARE, SELFPAY | PROVIDERS: PCP Internal Medicine; Visit Provider Internal Medicine | DX: L21.9 Seborrheic dermatitis, unspecified (principal); F41.9 Anxiety disorder, unspecified; R73.01 Impaired fasting glucose; S93.401D Sprain of unspecified ligament of right ankle, subsequent encounter; S80.11XD Contusion of right lower leg, subsequent encounter; J21.9 Acute bronchiolitis, unspecified; X58.XXXD Exposure to other specified factors, subsequent encounter | CPT/HCPCS: 96127; 99212 ==

== ENCOUNTER 2024-09-22 10:29 | Outpatient (AMB) | payer MEDICARE, SELFPAY ==
[2024-09-22 10:32] VITALS: BMI 25.2
--- NOTE | 2024-09-22 10:32 | MHC.OFFVIS ---
Vital Signs 09/22/24 10:32 Height 5 ft 7 in Weight 161 lb BMI 25.2 Intake Visit Reasons: OV - Right ankle sprain DOI 06/23/24 Intake Note: Bernice is a 78 year old female who presents today for a follow up of her Right Ankle Sprain about 3 months s/p injury on 06/23/24. Pt states her ankle is feeling better but states she can only do PT once a week but states she also does at home exercises which she states is very helpful. Pt states she will get some swelling in her ankle at times. Allergies iodine Allergy (Intermediate, Verified 09/22/24 10:32) Rash alendronate sodium [From Fosamax] Adverse Reaction (Severe, Verified 09/22/24 10:32) Muscle Pain HPI HPI OV - Right ankle sprain DOI 06/23/24: Details: Bernice is a 78 year old female who presents today for a follow up of her Right Ankle Sprain about 3 months s/p injury on 06/23/24. Pt states her ankle is feeling better but states she can only do PT once a week but states she also does at home exercises which she states is very helpful. Pt states she will get some swelling in her ankle at times. [facility] Medical History Bilateral primary osteoarthritis of knee Left knee pain Pain and swelling of right knee IBS (irritable bowel syndrome) Internal and external hemorrhoids without complication Constipation Back pain Diarrhea Ganglion cyst of finger Anxiety Chronic constipation Epidermal cyst Surgical History History of biopsy Hx of removal of cyst Family History Father No problems noted. Mother No problems noted. Social History Housing: Condominium Alcohol intake: current Alcohol intake frequency: holidays/special occasions only Patient Tobacco Use Status: Former Tobacco user Tobacco use type: Cigarette e-Cigarette/Vaping Use: Never Used Second Hand Smoke Exposure: Yes Advance Directives Date on File: 04/28/21 service: No Current occupational status: retired Current occupational exposures/hazards: No Cognitive needs: No Hearing needs: No Vision needs: No Female Reproductive History Menstrual Age of Menarche: 11 Review of Systems Const All systems reviewed & are unremarkable except as noted in HPI and below Physical Exam Vital Signs: BMI result Body Mass Index 25.2 Extrem Other: Patient's right ankle normal to inspection No erythema, ecchymosis, edema noted No lacerations, abrasions, open areas No evidence of infection No further Tenderness to palpation of the lateral R ankle, particularly just posterior to the lateral malleolus Patient reports no tenderness to palpation of the medial ankle, syndesmosis, or elsewhere on the L ankle No discomfort with any active or passive range motion of the right ankle Active range of motion of the right 1 intact Distal sensation intact Capillary refill brisk Assessment & Plan Assessment & Plan (1) Right ankle sprain: Code(s): S93.401A - Sprain of unspecified ligament of right ankle, initial encounter Category: Medical Qualifiers: Encounter type: subsequent encounter Involved ligament of ankle: unspecified ligament Qualified Code(s): S93.401D - Sprain of unspecified ligament of right ankle, subsequent encounter Plan 1. Sprain of right ankle Date of injury 06/23/2024 Patient is educated about this injury Patient is educated about the typical recovery course At this time, patient should continue with PT for right ankle sprain Begin a gradual return back to full normal activity at this time If patient notices an increase in pain, she should call our office for another appointment Patient is amenable to this plan Patient will follow-up as needed with any acute concerns Coding Level of Care Code Est Pt Level 3 (34040) Diagnoses Sprain of right ankle, unspecified ligament, subsequent encounter S93.401D Encounter type: subsequent encounter Involved ligament of ankle: unspecified ligament
== END 2024-09-22 10:53 | disposition home or self-care (01) ==
LOC: HO.HOS 10:30
PROVIDERS: PCP Internal Medicine
DX: S93.401D Sprain of unspecified ligament of right ankle, subsequent encounter (principal)
CPT/HCPCS: 99213

== ENCOUNTER → 2024-09-22 10:29 | Outpatient (BNVA) | payer MEDICARE, SELFPAY | PROVIDERS: PCP Internal Medicine | DX: S93.401D Sprain of unspecified ligament of right ankle, subsequent encounter (principal) | CPT/HCPCS: 99212 ==

== ENCOUNTER 2024-10-09 08:11 | Outpatient (REF) | payer MEDICARE, SELFPAY ==
[2024-10-09 10:05] LABS: MANUAL DIFF FLAG NO
[2024-10-09 10:23] LABS: Basophils Percent Auto 0.4 % (0-2); Eosinophils Absolute Auto 0.1 X10*3/uL (0.0-0.4); Eosinophils Percent Auto 2.2 % (0-4); Hematocrit 40.6 % (37.0-47.0); Hemoglobin 13.2 g/dl (12.0-16.0); Imm Gran Abs Auto 0.01 X10*3/uL (0.00-0.03); Imm Gran Pct Auto 0.2 % (0.0-0.4); Lymphocytes Absolute Auto 1.1 X10*3/uL (1.2-4.9); Lymphocytes Percent Auto 19.8 % (20-40); Mean Corpuscular HGB Conc 32.5 g/dl (31.0-35.0); Mean Corpuscular Hemoglobin 29.8 pg (27.0-33.0); Mean Corpuscular Volume 91.6 fL (80.0-98.0); Mean Platelet Volume 9.6 fL (9.4-12.3); Monocytes Absolute Auto 0.3 X10*3/uL (0.1-1.2); Monocytes Percent Auto 5.6 % (2-11); Neutrophils Absolute Auto 3.9 x10*3/uL (2.0-8.3); Neutrophils Percent Auto 71.8 % (45-73); Platelet Count 289 X10*3/uL (160-400); Red Blood Count 4.43 X10*6/uL (4.20-5.50); Red Cell Distribution Width 13.2 % (11.0-16.0); White Blood Count 5.4 X10*3/uL (4.8-10.8)
[2024-10-09 10:25] LABS: Estimated Average Glucose 120 mg/dL; Hemoglobin A1c % 5.8 % (<6.0)
[2024-10-09 10:31] LABS: Appearance Urine Cloudy; Color Urine Yellow; Glucose Urine UA Negative (Negative); Leukocyte Esterase Urine Large (3+) (Negative); Nitrite Urine Negative (Negative); UMIC TRIGGER UACC YES; Urine Blood Negative (Negative); Urine Ketones Negative (Negative); Urine Protein Negative (Neg-Trace)
[2024-10-09 10:35] LABS: Bacteria Urine 1+ (None Seen); RBC Urine 0-2 /HPF (0-2); UACC Culture Trigger YES
[2024-10-09 10:36] LABS: Alanine Aminotransferase 19 U/L (0-31); Albumin Level 4.2 g/dL (3.5-5.0); Alkaline Phosphatase 69 U/L (39-117); Anion Gap 11 (12-20); Aspartate Amino Transferase 26 U/L (5-31); Bilirubin Total 0.8 mg/dL (0.0-1.0); Blood Urea Nitrogen 17 mg/dL (9-16); Calcium 9.5 mg/dL (8.4-10.2); Carbon Dioxide 29 mmol/L (22-29); Chloride 107 mmol/L (96-108); Cholesterol 189 mg/dL (<200); Estimated Glomerular Filt Rate > 60; Glucose Fasting 110 mg/dL (60-99); Glucose Random 110 mg/dL (60-115); HDL Cholesterol 64 mg/dL (>40); LDL Cholesterol Calculated 113 mg/dL (<100); Potassium 4.2 mmol/L (3.3-5.1); Sodium 143 mmol/L (135-145); Triglycerides 60 mg/dL (<150)
[2024-10-09 10:56] LABS: Thyroid Stimulating Hormone 1.02 uIU/mL (0.32-4.0); Vitamin D 25-OH Total 93.7 ng/mL (>30)
[2024-10-09 11:10] LABS: Folate 15.3 ng/mL (> or = 4.0); Vitamin B12 726 pg/mL (200-900)
== END 2024-10-09 08:12 | disposition home or self-care (01) ==
LOC: HO.HMGCLDS 08:11
PROVIDERS: Visit Provider Internal Medicine
DX: Z13.220 Encounter for screening for lipoid disorders (principal); Z13.29 Encounter for screening for other suspected endocrine disorder; R73.01 Impaired fasting glucose; Z13.0 Encounter for screening for diseases of the blood and blood-forming organs and certain disorders involving the immune mechanism; Z13.9 Encounter for screening, unspecified; R30.0 Dysuria
CPT/HCPCS: 36415; 80053; 80061; 81001; 82306; 82607; 82746; 83036; 84439; 84443; 85025; 87086

== ENCOUNTER 2024-10-10 12:07 | Outpatient (AMB) | payer MEDICARE, SELFPAY ==
[2024-10-10 12:37] VITALS: BP 124/76; PULSE 76; TEMP 36.8; O2SAT 92; BMI 25.2
--- NOTE | 2024-10-10 12:37 | MHC.OFFWIV ---
Intake Vital Signs 10/10/24 12:37 Height 5 ft 7 in Weight 161 lb BMI 25.2 BP 124/76 Blood Pressure Location Lt brachial Position Sitting Pulse 76 Pulse Source Pulse Oximeter Temp 98.2 F Temp Source Oral Pulse Oximetry (%) 92 Oxygen Delivery Method Room Air Intake Visit Reasons: EP pimple on RT upper thigh Intake Note: Pt presents to the office today for a red bump on her right thigh x4 days. Pt states it can be itchy. Patient Tobacco Use Status: Former Tobacco user Allergies iodine Allergy (Intermediate, Verified 10/10/24 12:39) Rash alendronate sodium [From Fosamax] Adverse Reaction (Severe, Verified 10/10/24 12:39) Muscle Pain HPI HPI Comments History of Present Illness Details History of Present Illness The patient is a 79-year-old female presenting with a bump on the right upper leg. She states that she noticed that she had a red, raised bump on the right upper leg. She states that she feels like something is under it. She states that it is red. She states that she has no discharge or bleeding. She has no streaking or induration. She has no other rashes or lesions. She denies fever, chills, joint pain, or bites. She denies new lotions, soaps, detergents, clothes, foods, medications, or pets. Physical Exam General: Cooperative, healthy appearing, comfortable, no acute distress and well developed Orientation: Patient oriented x3 Respiratory: Normal respiratory effort and able to speak in complete sentences. Clear to auscultation bilaterally Cardiovascular: Regular rate and rhythm. Nor mal S1 and S2 Skin: Single, raised, small, non-tender, blanchable, non-fluctant No streaking noted. No induration noted. Patient was informed and verbally consented to the use of an ambient scribe for clinic note documentation during this visit. [facility] Medical History Bilateral primary osteoarthritis of knee Left knee pain Pain and swelling of right knee IBS (irritable bowel syndrome) Internal and external hemorrhoids without complication Constipation Back pain Diarrhea Ganglion cyst of finger Anxiety Chronic constipation Epidermal cyst Surgical History History of biopsy Hx of removal of cyst Family History Father No problems noted. Mother No problems noted. Social History Housing: Condominium Alcohol intake: current Alcohol intake frequency: holidays/special occasions only Patient Tobacco Use Status: Former Tobacco user Tobacco use type: Cigarette e-Cigarette/Vaping Use: Never Used Second Hand Smoke Exposure: Yes Advance Directives Date on File: 04/28/21 service: No Current occupational status: retired Current occupational exposures/hazards: No Cognitive needs: No Hearing needs: No Vision needs: No Female Reproductive History Menstrual Age of Menarche: 11 Review of Systems Const All systems reviewed & are unremarkable except as noted in HPI and below Physical Exam Vital Signs: Last Vital Signs Temp 98.2 F 10/10/24 12:37 Pulse 76 10/10/24 12:37 BP 124/76 10/10/24 12:37 Pulse Ox 92 10/10/24 12:37 Oxygen Delivery Method Room Air 10/10/24 12:37 BMI result Body Mass Index 25.2 Assessment & Plan Assessment & Plan (1) Skin lesion: Code(s): L98.9 - Disorder of the skin and subcutaneous tissue, unspecified Plan Most likely folliculitis vs pustule vs abscess plan- -warm compresses to the area -tylenol or motrin as needed -bactroban ointment BID -f/u with PCP Coding Level of Care Code Est Pt Level 3 (36052) Diagnoses Skin lesion L98.9
== END 2024-10-10 13:28 | disposition home or self-care (01) ==
PROVIDERS: Visit Provider Physician Assistant Medical
DX: L98.9 Disorder of the skin and subcutaneous tissue, unspecified (principal)

== ENCOUNTER → 2024-10-10 12:07 | Outpatient (BNVA) | payer MEDICARE, SELFPAY | PROVIDERS: Visit Provider Physician Assistant Medical | DX: M17.0 Bilateral primary osteoarthritis of knee (principal); L98.9 Disorder of the skin and subcutaneous tissue, unspecified | CPT/HCPCS: 99212 ==

== ENCOUNTER 2024-10-19 13:00 | Outpatient (RCR) | payer MEDICARE, SELFPAY ==
--- NOTE | 2024-08-16 14:23 | MHC.PT.EP ---
[facility] [place] [facility] [place] Office [address] [phone] F: [phone] F: [phone] F: [phone] F: [phone] Physical Therapy Plan of Care Date of Evaluation: 08/16/24 Date of Surgery: Diagnosis: right ankle sprain Assessment: Patient is a 61 year old R handed female who presents with s/s consistent with R ankle sprain. She does not work but likes to stay active and go to the movies. Patient past medical history includes anxiety and bilateral knee pain. Current impairments include pain, balance, ROM, strength, activity tolerance and functional mobility. Functional limitations include decreased ability to walk, stand, negotiate stairs, and enter into the community. Patient is motivated with good rehab potential. Skilled PT will address impairments and functional limitations in order to achieve goals. Frequency and Duration: The patient will be seen 1x/week for 5 weeks Short Term Goals: I with HEP - 2 weeks AROM Full and pain free - 3 weeks Amb 15 minutes or longer without increased pain - 3 weeks Transmission Mechanic Goals: Amb 30 minutes or longer without increased pain - 5 weeks LEFS 40/80 - 5 weeks Strength 4/5 grossly - 5 weeks SLB > 5 seconds on firm - 5 weeks Treatment Plan: Modalities to reduce pain, spasms and effusion. Manual therapy to restore motion and function. Therapeutic exercise to improve strength and flexibility. Neuromuscular re-education for posture and balance. Therapeutic activities to return to functional activities of daily living. Electronically signed by: Deion Desai, PT Please sign and return to therapist. Thank you for your referral.
--- NOTE | 2024-11-17 08:30 | MHC.PT.DC ---
[facility] [place] Office [place] Office [place] Office [address] Layla Delgadillo [address] [phone] F: [phone] F: [phone] F: [phone] F: [phone] Physical Therapy Discharge Report Diagnosis: right ankle sprain Date of Surgery: Date of Evaluation: 08/16/24 Date of Discharge: Treatments to Date: 10 Cancellations to Date: No Shows to Date: Discharge Status: Improved Function Independent with HEP Patient Elected to Stop Discharge Summary: 10/11; Pt ankle ROM WNL. Pt has pulling with inv on lateral ankle. Pt pain free with ascending stairs reciprocally. Pt likes KT. Pt going to start [place]. Pt has 1 remaining visit before DC. 10/04/24: pt has been feeling better overall and tolerating increased activity level and increased resistance ex. we will continue to progress strength, balance, function until d/c. 09/27; Pt stated she has less pain and ache. She also feels it is more localized. Pt stated she hasn't done staairs and would like to try that NV. 09/21/24: pt continues to progress well. functional strength and ROM. minor swelling and tenderness present. pt I with HEP. 09/13; Pt challenged with EC and SLS. Pt doing exs and progressing with strength, mobility and gait. NV assess SLS and instruct lunges. 09/06; Pt fatigued after hip and stepper. Pt tender with STM, but felt better after RX. 08/30; Pt fatigued with hip ex/ Tight gastroc, HS. Pt c/o pulling with inv. Relief noted after manual RX. 08/25/24: progressing well with skilled PT. compliant with HEP. continue to progress as tolerated. Patient is a 61 year old R handed female who presents with s/s consistent with R ankle sprain. She does not work but likes to stay active and go to the movies. Patient past medical history includes anxiety and bilateral knee pain. Current impairments include pain, balance, ROM, strength, activity tolerance and functional mobility. Functional limitations include decreased ability to walk, stand, negotiate stairs, and enter into the community. Patient is motivated with good rehab potential. Skilled PT will address impairments and functional limitations in order to achieve goals. Electronically signed by: Deion Desai, PT Please sign and return to therapist. Thank you for your referral.
== END 2024-11-17 08:30 | disposition home or self-care (01) ==
LOC: HO.PTCHIC 13:00
PROVIDERS: PCP Internal Medicine
DX: S93.401A Sprain of unspecified ligament of right ankle, initial encounter (principal)
CPT/HCPCS: 97110; 97112; 97140; 97162

== ENCOUNTER 2024-10-19 13:58 | Outpatient (AMB) | payer MEDICARE, SELFPAY ==
[2024-10-19 14:15] VITALS: BP 110/88; PULSE 98; TEMP 36.7; O2SAT 94; BMI 25.2
--- NOTE | 2024-10-19 14:15 | AM.OFFWIN_ITS ---
Intake Vital Signs 10/19/24 14:15 Height 5 ft 7 in Weight 161 lb BMI 25.2 BP 110/88 Blood Pressure Location Rt brachial Position Sitting Pulse 98 Pulse Source Pulse Oximeter Temp 98.1 F Temp Source Oral Pulse Oximetry (%) 94 Oxygen Delivery Method Room Air Intake Visit Reasons: EP pimple on RT upper tigh Intake Note: Pt presents to the office today for c/o pimple on her right upper thigh. Pt was seen on 10/10/24 for the same concern. Pt states she is having some anxiety about it and just wants to make sure it is looking okay. Patient Tobacco Use Status: Former Tobacco user Allergies iodine Allergy (Intermediate, Verified 10/19/24 14:18) Rash alendronate sodium [From Fosamax] Adverse Reaction (Severe, Verified 10/19/24 14:18) Muscle Pain HPI HPI Comments 2 History of Present Illness Details History of Present Illness - The patient is a 79-year-old female pr esenting for a follow up on a skin lesion on the right upper leg. She was seen here last week for the same. - She experiences increased skin redness with the application of warm compresses, leading to a recommendation to discontinue this method. - The area on the skin feels puffy at ti mes, although there is no visible swelling noted. - Cream application initially included c overing with a Band-Aid at night, but the current approach prefers applying only the cream. - Management includes maintaining drynes s in the affected area and applying the cream twice daily as per current advice. - He denies fever, chills, discharge, bl eeding, pain or other rashes. She denies bites or joint pain. Physical Exam General: Cooperative, healthy appearing, comfortable, no acute distress and well developed Respiratory: Normal respiratory effort and able to speak in complete sentences. Clear to auscultation bilaterally Cardiovascular: Regular rate and rhythm. Normal S1 and S2 Skin: Small, flat, erythematous, non-tender, dry, blanchable, single lesion on the right upper leg. Neuro: Sensation intact Extremities: Normal to inspection, no edema noted. Patient was informed and verbally consented to the use of an ambient scribe for clinic note documentation during this visit. [facility] Medical History Bilateral primary osteoarthritis of knee Left knee pain Pain and swelling of right knee IBS (irritable bowel syndrome) Internal and external hemorrhoids without complication Constipation Back pain Diarrhea Ganglion cyst of finger Anxiety Chronic constipation Epidermal cyst Surgical History History of biopsy Hx of removal of cyst Family History Father No problems noted. Mother No problems noted. Social History Housing: Condominium Alcohol intake: current Alcohol intake frequency: holidays/special occasions only Patient Tobacco Use Status: Former Tobacco user Tobacco use type: Cigarette e-Cigarette/Vaping Use: Never Used Second Hand Smoke Exposure: Yes Advance Directives Date on File: 04/28/21 service: No Current occupational status: retired Current occupational exposures/hazards: No Cognitive needs: No Hearing needs: No Vision needs: No Female Reproductive History Menstrual Age of Menarche: 11 Review of Systems Const All systems reviewed & are unremarkable except as noted in HPI and below Physical Exam Vital Signs: Last Vital Signs Temp 98.1 F 10/19/24 14:15 Pulse 98 10/19/24 14:15 BP 110/88 10/19/24 14:15 Pulse Ox 94 10/19/24 14:15 Oxygen Delivery Method Room Air 10/19/24 14:15 BMI result Body Mass Index 25.2 Assessment & Plan Assessment & Plan (1) Lesion of lower extremity: Code(s): L98.9 - Disorder of the skin and subcutaneous tissue, unspecified Plan: Most likely healing lesion Plan - Discontinue warm compresses due to increased redness and flaring. - Continue applying the prescribed cream BID daily without a Band-Aid to keep the area dry. - Emphasize keeping the area dry and allowing it to air-dry without tight covering. - Watch for signs of infection - Follow up with PCP Coding Level of Care Code Est Pt Level 3 (95490) Diagnoses Lesion of lower extremity L98.9
== END 2024-10-19 14:42 | disposition home or self-care (01) ==
PROVIDERS: Visit Provider Physician Assistant Medical
DX: L98.9 Disorder of the skin and subcutaneous tissue, unspecified (principal)

== ENCOUNTER → 2024-10-19 13:58 | Outpatient (BNVA) | payer MEDICARE, MEDICAID, SELFPAY | PROVIDERS: Visit Provider Physician Assistant Medical | DX: K58.1 Irritable bowel syndrome with constipation (principal); K58.0 Irritable bowel syndrome with diarrhea; L98.9 Disorder of the skin and subcutaneous tissue, unspecified; F41.9 Anxiety disorder, unspecified | CPT/HCPCS: 99212 ==

== ENCOUNTER 2024-10-24 13:55 | Outpatient (AMB) | payer MEDICARE, SELFPAY ==
[2024-10-24 14:01] VITALS: BP 124/88; PULSE 94; RESP 18; TEMP 37; O2SAT 94; BMI 25.0
--- NOTE | 2024-10-24 14:01 | A.OFFPC_ITS ---
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 Required: No Accompanied by: Self / Same As Patient Allergies iodine Allergy (Intermediate, Verified 10/24/24 14:20) Rash alendronate sodium [From Fosamax] Adverse Reaction (Severe, Verified 10/24/24 14:20) Muscle Pain Medication List - Last Reconciled 10/24/24 by JUAN JOSE Torres.tears(hypromellose)(PF) 0.3% 1 drp ophthalmic (eye) Q2-4H PRN B-complex with vitamin C (Super B Complex-Vitamin C tablet) 1 tab PO DAILY calcium-vitamin D3-vitamin K 500 mg-100 unit -40 mcg 1 tab PO DAILY cholecalciferol (vitamin D3) 25 mcg PO DAILY diclofenac sodium 1% (Voltaren Arthritis Pain) 4 grams topical QID estradiol mcg vaginal estradiol 0.01%(0.1mg/gram) vaginal multivit with min-folic acid 0.4 mg (One Daily Womens 50 Plus) tabs PO soluble corn fiber-inulin 1.7 gram (Metamucil (inulin-corn fiber)) tabs PO zolpidem 5 - 10 mg (0.5 - 1 x 10 mg) PO BEDTIME Tobacco use date assessed: 10/24/24 Fall risk assessment: No Falls in past year Last assessed Fall Risk: 10/24/24 Dental Screening Dental Screen Date: 10/24/24 Did you have a dental visit in the last 12 months?: No Did you have a dental problem in the last 6 months where you did not have access to dental care?: No Was dental information given to patient?: No HPI PB Dr Hunt HPI Details The patient is a 79-year-old female presenting for transition from Dr. Hunt, who retired. She reports anxiety disorder. Recently, she has experienced worsening waves of anxiety linked to family complications. These anxiety episodes result in an increased breathing rate and resolve with self- soothing strategies. Previously, she managed anxiety with lorazepam, which she has not used for several years. The patient reports concern over recent weight loss, fearing she is becoming excessively thin, although current evaluations place her within normal limits. This weight change is partly due to dietary adjustments to manage irritable bowel syndrome. Despite her concerns, her previous provider confirmed her weight remains within a healthy range. The patient's history of borderline hyperlipidemia influences her dietary habits, and she adheres to a low-cholesterol diet despite occasional indulgences, such as consuming red meat sparingly. Past blood work shows her cholesterol levels are slightly elevated but currently not treated with medication. Regarding her postmenopausal bleeding, the patient underwent biopsies and is on an estradiol intravaginal treatment plan to stabilize endometrial lining concerns. [facility] Medical History Bilateral primary osteoarthritis of knee Left knee pain Pain and swelling of right knee IBS (irritable bowel syndrome) Internal and external hemorrhoids without complication Constipation Back pain Diarrhea Ganglion cyst of finger Anxiety Chronic constipation Epidermal cyst Surgical History History of biopsy Hx of removal of cyst Family History Father No problems noted. Mother No problems noted. Social History Housing: Condominium Alcohol intake: current Alcohol intake frequency: holidays/special occasions only Patient Tobacco Use Status: Former Tobacco user Tobacco use type: Cigarette e-Cigarette/Vaping Use: Never Used Second Hand Smoke Exposure: Yes Advance Directives Date on File: 04/28/21 service: No Current occupational status: retired Current occupational exposures/hazards: No Cognitive needs: No Hearing needs: No Vision needs: No Female Reproductive History Menstrual Age of Menarche: 11 Questionnaire Thrive Questionnaire Date Thrive assessed: 10/24/24 I am a: Patient What is your living situation today?: I have a steady place to live Within the past 12 months, did the food you bought not last and you didn't have the money to get more?: Never true Within the past 12 months, did you worry whether your food would run out before you got money to buy more?: Never true Do you have trouble paying for medicines?: No Do you have trouble getting transportation to medical appointments?: No Do you have trouble paying your heating and electricity bill?: No Do you have trouble taking care of your child, family member or friend?: No Do you have trouble with day-to-day activities such as bathing, preparing meals, shopping, managing finances, etc.?: No Are you currently unemployed and looking for a job?: No Are you interested in more education?: No Please select the resources that you would like help with: None Currently or been in a relationship where the following occur: No concerns reported THRIVE Score: 0 AUDIT C Alcohol Use Questionnaire (AUDIT-C) 1. How often do you have a drink containing alcohol?: Monthly or less 2. How many drinks containing alcohol do you have on a typical day when you are drinking?: 1 or 2 3. How often do you have six or more drinks on one occasion?: Never Total Score: 1 Score Reviewed/Action Taken: No RAVEN-7 AMB Questionnaire RAVEN-7 Date RAVEN - 7 assessed: 09/14/24 Source: Developed by Drs. Esdras Camejo, Callie Crews, Coleman Velasquez and colleagues, with an educational cecelia from [employer]. Review of Systems Const Denies headache(s) Eyes Denies loss of vision ENT Denies vertigo, Denies dizziness, Denies headache(s) and Denies sore throat Card Denies chest pain, Denies leg edema and Denies lightheadedness Resp Denies cough, Denies hemoptysis and Denies wheezing GI Denies abdominal pain, Denies melena, Denies constipation, Denies diarrhea and Denies vomiting Denies urinary frequency, Denies dysuria and Denies urinary urgency Musc Denies arthralgias, Denies joint swelling, Denies numbness and Denies tingling Neuro Denies Abnormal speech present, Denies behavioral changes, Denies vertigo, Denies dizziness, Denies headache(s), Denies loss of vision, Denies memory loss, Denies numbness and Denies tingling Psych Reports anxiety, Denies behavioral changes, Denies depression, Denies memory loss and Denies panic attacks Lalo/Lymph Denies easy bleeding and Denies easy bruising Aller/Immun Denies wheezing Physical exam (Primary Care) Vital Signs: Last Vital Signs Temp 98.6 F 10/24/24 14:01 Pulse 94 06/17/25 14:01 Resp 18 10/24/24 14:01 BP 124/88 10/24/24 14:01 Pulse Ox 94 10/24/24 14:01 Oxygen Delivery Method Room Air 10/24/24 14:01 BMI result Body Mass Index 25.0 Tobacco/Smoking Status: Tobacco use Status Tobacco use date assessed 10/24/24 10/24/24 14:11 Patient Tobacco Use Status Former Tobacco user 10/24/24 14:11 Tobacco use type Cigarette 10/24/24 14:11 e-Cigarette/Vaping Use Never Used 10/24/24 14:11 Thrive Assessment: Date of Thrive Assessment Date Thrive assessed 10/24/24 10/24/24 14:11 Currently or been in a relationship where the following occur: No concerns reported Const General: healthy appearing, no acute distress, alert and awake Nutritional Appearance: well nourished Orientation/consciousness: oriented to person, oriented to place and oriented to time HENMT Ears: TM's normal bilaterally General nose exam: Normal nasal mucous membranes and turbinates present Eyes Conjunctivae: conjunctivae normal Sclerae: sclerae normal Pupils: Equal, round and reactive pupils present Neck Neck: Yes no lymphadenopathy and Yes no JVD Thyroid: Thyroid normal Carotids: no bruits Resp Effort & Inspection: normal respiratory effort and not tachypneic Auscultation: no crackles, no rales, no rhonchi and no wheezes Cardio Rate: regular rate Rhythm: regular rhythm Heart sounds: no murmurs and normal S1 and S2 GI Palpation (GI): Soft to palpation, nontender, no hepatomegaly and no splenomegaly Auscultation: normal bowel sounds Skin General skin exam: no rashes or lesions noted and dry skin Neuro General: oriented to person, oriented to place and oriented to time Cranial nerves: Yes Equal, round and reactive pupils present Speech: No Abnormal speech present Gait exam (Neuro): Normal gait present Motor exam (neuro): no tremor noted Extrem Right upper extremity: full ROM Left upper extremity: full ROM Right lower extremity: full ROM; no edema Left lower extremity: full ROM; no edema Psych Mental Status: mental status grossly normal Speech and movement: Normal speech and movement present Affect: normal affect Attitude: cooperative Thought process: Normal thought process present Results Reviewed Results Reviewed: Laboratory Tests 10/09/24 08:53 WBC 5.4 RBC 4.43 Hgb 13.2 Hct 40.6 MCV 91.6 MCH 29.8 MCHC 32.5 RDW 13.2 Plt Count 289 Sodium 143 Potassium 4.2 Chloride 107 Carbon Dioxide 29 Anion Gap 11 L BUN 17 H Creatinine 0.76 Estimated GFR > 60 Random Glucose 110 Fasting Glucose 110 H Hemoglobin A1c % 5.8 Calcium 9.5 Total Bilirubin 0.8 AST 26 ALT 19 Alkaline Phosphatase 69 Triglycerides 60 Cholesterol 189 LDL Cholesterol, Calc 113 H HDL Cholesterol 64 Vitamin B12 726 25-OH Vitamin D Total 93.7 Folate 15.3 TSH 1.02 Free T4 1.10 Urine Color Yellow Urine Appearance Cloudy Urine pH 5.0 Ur Specific [place]son 1.020 Urine Protein Negative Urine Glucose (UA) Negative Urine Ketones Negative Urine Blood Negative Urine Nitrite Negative Ur Leukocyte Esterase Large (3+) H Urine RBC 0-2 Urine WBC 11-20 H Ur Squamous Epith Cells 6-10 Hyaline Casts 3-5 Coding Level of Care Code Est Pt Level 3 (22124) Diagnoses Insomnia, unspecified type G47.00 Insomnia type: unspecified Anxiety F41.9 Irritable bowel syndrome with both constipation and diarrhea K58.2 Irritable bowel syndrome type: with both diarrhea and constipation Menopause Z78.0 Time Spent (min) 37 Assessment & Plan Assessment & Plan (1) Insomnia: Code(s): G47.00 - Insomnia, unspecified Category: Medical Qualifiers: Insomnia type: unspecified Qualified Code(s): G47.00 - Insomnia, unspecified Plan: Reinforced sleeping hygiene Continue zolpidem 5-10 mg p.o. at HS p.r.n. (2) Anxiety: Code(s): F41.9 - Anxiety disorder, unspecified Category: Medical Plan: Encouraged CBT-reports that she has not spoken to a therapist in years; she does not think that she needs one at this time reports that this is all situational and does not last long she is able to deep breaths and control her anxiety (3) IBS (irritable bowel syndrome): Code(s): K58.9 - Irritable bowel syndrome, unspecified Category: Medical Qualifiers: Irritable bowel syndrome type: with both diarrhea and constipation Qualified Code(s): K58.2 - Mixed irritable bowel syndrome Plan: Continue increasing fluids and fiber prevent constipation Follow up gastroenterology as scheduled (4) Menopause: Code(s): Z78.0 - Asymptomatic menopausal state Category: Medical Plan: She was referred to [facility] for further evaluation by [facility]. she was biops[place] [facility] [place] with no concerned findings. Plans to treat vasomotor symptoms Continue estradiol intravaginally as ordered Follow up obgyn as scheduled Orders: Orders Complete Blood Count Auto Diff 5 Months Z00.00 - Encounter for general adult medical examination without abnormal findings Comprehensive [place]. Panel Fast 5 Months Z00.00 - Encounter for general adult medical examination without abnormal findings Vitamin D 25-OH Total 5 Months Z00.00 - Encounter for general adult medical examination without abnormal findings Lipid Panel 5 Months Z00.00 - Encounter for general adult medical examination without abnormal findings TSH reflex Free T4 5 Months Z00.00 - Encounter for general adult medical examination without abnormal findings UA CC w/rflx Micro + Cult 5 Months Z00.00 - Encounter for general adult medical examination without abnormal findings
== END 2024-10-24 14:49 | disposition home or self-care (01) ==
LOC: HO.HMCH 13:56
PROVIDERS: PCP Internal Medicine
DX: G47.00 Insomnia, unspecified (principal); F41.9 Anxiety disorder, unspecified; K58.2 Mixed irritable bowel syndrome; Z78.0 Asymptomatic menopausal state

== ENCOUNTER → 2024-10-24 13:55 | Outpatient (BNVA) | payer MEDICARE, SELFPAY | PROVIDERS: PCP Internal Medicine | DX: N95.0 Postmenopausal bleeding (principal); E78.5 Hyperlipidemia, unspecified; G47.00 Insomnia, unspecified; F41.9 Anxiety disorder, unspecified; K58.2 Mixed irritable bowel syndrome; Z78.0 Asymptomatic menopausal state | CPT/HCPCS: 99212 ==

== ENCOUNTER 2024-11-07 15:31 | Outpatient (AMB) | payer MEDICARE, SELFPAY ==
--- NOTE | 2024-11-07 15:48 | MHC.OFFVIS ---
Vital Signs 11/07/24 15:49 Height 5 ft 7 in Weight 169 lb BMI 26.5 Intake Visit Reasons: Prolapse/ vaginal irritation Building Maintenance Technician Required: No Information Interpreted: non-clinical & clinical Automotive Parts Counter Assistant: Automotive Parts Counter Assistant Present (Charmaine ESTRELLA) Accompanied by: Self / Same As Patient Allergies iodine Allergy (Intermediate, Verified 11/07/24 15:50) Rash alendronate sodium (From Fosamax) Adverse Reaction (Severe, Verified 11/07/24 15:50) Muscle Pain Post menopausal: Yes HPI Comments Details: Presenting complaining of bulge per vagina causing irritation no bleeding no vaginal discharge. The patient had a pessary trial that failed [facility] Medical History Bilateral primary osteoarthritis of knee Left knee pain Pain and swelling of right knee IBS (irritable bowel syndrome) Internal and external hemorrhoids without complication Constipation Back pain Diarrhea Ganglion cyst of finger Anxiety Chronic constipation Epidermal cyst Surgical History History of biopsy Hx of removal of cyst Family History Father No problems noted. Mother No problems noted. Social History Housing: Condominium Alcohol intake: current Alcohol intake frequency: holidays/special occasions only Patient Tobacco Use Status: Former Tobacco user Tobacco use type: Cigarette e-Cigarette/Vaping Use: Never Used Second Hand Smoke Exposure: Yes Advance Directives Date on File: 04/28/21 service: No Current occupational status: retired Current occupational exposures/hazards: No Cognitive needs: No Hearing needs: No Vision needs: No Female Reproductive History Menstrual Age of Menarche: 11 Review of Systems Const All systems reviewed & are unremarkable except as noted in HPI and below Physical Exam Vital Signs: BMI result Body Mass Index 26.5 General: Yes no CVA tenderness External Female Exam: normal external appearance and normal appearance of the urethra Speculum Exam - Vagina: normal appearance of the vagina, normal palpation, no lesions, no masses and other (Moderate Cystocele central and bilateral paravaginal defects) Speculum Exam - Cervix: normal appearance of the cervix, normal palpation, no lesions, no masses and nontender Bimanual exam- vagina & uterus: normal bimanual exam, normal palpation, uterine size normal, normal palpation, uterine shape normal, No Cervical tenderness present, non-tender and other (Uterine prolapse) Bimanual Exam- Adnexa, other: normal adnexae Back/Spine/Pelvis Back: no CVA tenderness Assessment & Plan Assessment & Plan (1) Female cystocele: Comment: Central and bilateral paravaginal defects With moderate uterine prolapse Code(s): N81.10 - Cystocele, unspecified Category: Medical Plan: Discussed with the patient the finding on pelvic exam done will refer to Urogynecology for further management. All questions answered, the patient verbalized understanding Orders: Referrals Urogynecology Referral N81.10 - Cystocele, unspecified Coding Level of Care Code Est Pt Level 3 (57358) Diagnoses Female cystocele N81.10
[2024-11-07 15:49] VITALS: BMI 26.5
== END 2024-11-07 16:13 | disposition home or self-care (01) ==
LOC: HO.HWS 15:31
PROVIDERS: Visit Provider Obstetrics & Gynecology
DX: N81.10 Cystocele, unspecified (principal)
CPT/HCPCS: 99213

== ENCOUNTER → 2024-11-07 15:31 | Outpatient (BNVA) | payer MEDICARE, SELFPAY | PROVIDERS: Visit Provider Obstetrics & Gynecology | DX: N76.89 Other specified inflammation of vagina and vulva (principal); N81.10 Cystocele, unspecified | CPT/HCPCS: 99212 ==

== ENCOUNTER 2024-12-01 10:57 | Outpatient (AMB) | payer MEDICARE, SELFPAY ==
[2024-12-01 11:01] VITALS: BP 112/60; PULSE 93; TEMP 37; O2SAT 95; BMI 25.1
--- NOTE | 2024-12-01 11:01 | AM.OFFWIN_ITS ---
Intake Vital Signs 12/01/24 11:01 Height 5 ft 7 in Weight 160 lb 6 oz BMI 25.1 BP 112/60 Blood Pressure Location Lt brachial Position Sitting Pulse 93 Pulse Source Pulse Oximeter Temp 98.6 F Temp Source Oral Pulse Oximetry (%) 95 Oxygen Delivery Method Room Air Intake Visit Reasons: EP-rt upper thigh rash Intake Note: presents with red rash like skin on her anterior thighs and bilateral feet Patient Tobacco Use Status: Former Tobacco user Allergies iodine Allergy (Intermediate, Verified 12/01/24 11:06) Rash alendronate sodium (From Fosamax) Adverse Reaction (Severe, Verified 12/01/24 11:06) Muscle Pain HPI HPI Comments History of Present Illness Details This is a 79-year-old female with a past medical history of anxiety presenting for evaluation of a red rash on her thighs and feet that she woke up with this morning. Patient states that her son opened his new pool yesterday and she sat by the pool for hours but used her SPF 100 lotion. Patient is denying any pain in her things and feet at this time. She has used Eucerin lotion only without relief of her symptoms. [facility] Medical History Bilateral primary osteoarthritis of knee Left knee pain Pain and swelling of right knee IBS (irritable bowel syndrome) Internal and external hemorrhoids without complication Constipation Back pain Diarrhea Ganglion cyst of finger Anxiety Chronic constipation Epidermal cyst Surgical History History of biopsy Hx of removal of cyst Family History Father No problems noted. Mother No problems noted. Social History Housing: Condominium Alcohol intake: current Alcohol intake frequency: holidays/special occasions only Patient Tobacco Use Status: Former Tobacco user Tobacco use type: Cigarette e-Cigarette/Vaping Use: Never Used Second Hand Smoke Exposure: Yes Advance Directives Date on File: 04/28/21 service: No Current occupational status: retired Current occupational exposures/hazards: No Cognitive needs: No Hearing needs: No Vision needs: No Female Reproductive History Menstrual Age of Menarche: 11 Review of Systems Const All systems reviewed & are unremarkable except as noted in HPI and below Denies chills and Denies fever(s) Eyes Reports no additional complaints ENT Reports no additional complaints Card Reports no additional complaints Resp Reports no additional complaints GI Reports no additional complaints Reports no additional complaints Musc Reports no additional complaints Skin/Breast Reports erythema (feet and thighs bilaterally) Neuro Reports no additional complaints Psych Reports no additional complaints Endo Reports no additional complaints Lalo/Lymph Reports no additional complaints Aller/Immun Reports no additional complaints Physical Exam Vital Signs: BMI result Body Mass Index 25.1 Patient is afebrile. Const General: cooperative, healthy appearing, comfortable, no acute distress, well developed, alert, awake and Physically active Nutritional Appearance: average body habitus Orientation/consciousness: patient oriented x3 Limitations: no limitations Skin Other: There is macular erythema that is not warm to touch across the dorsal surface of the feet bilaterally right > left and the upper thighs bilaterally right > left. No blistering or evidence of a secondary cellulitis. Neuro General: patient oriented x3 Psych Appearance: grossly normal Mental Status: mental status grossly normal Affect: Anxious affect present Insight: Fair insight present (Psych) Judgement: Good judgement present (Psych) Assessment & Plan Assessment & Plan (1) Sunburn: Comment: Patient denies having any discomfort secondary to her solar erythema and is afebrile at this time. Code(s): L55.9 - Sunburn, unspecified Plan: Tylenol or ibuprofen as needed for any discomfort that may occur, continue to use Eucerin topically. Patient is counseled to use SPF every 2 hours while outside. Coding Level of Care Code Est Pt Level 3 (76659) Diagnoses Sunburn L55.9 Time Spent (min) 20
== END 2024-12-01 11:40 | disposition home or self-care (01) ==
PROVIDERS: Visit Provider Physician Assistant
DX: L55.9 Sunburn, unspecified (principal)

== ENCOUNTER → 2024-12-01 10:57 | Outpatient (BNVA) | payer MEDICARE, SELFPAY | PROVIDERS: Visit Provider Physician Assistant | DX: M17.0 Bilateral primary osteoarthritis of knee (principal); L55.9 Sunburn, unspecified; F41.9 Anxiety disorder, unspecified | CPT/HCPCS: 99212 ==

== ENCOUNTER 2024-12-21 11:38 | Outpatient (AMB) | payer MEDICARE, SELFPAY ==
[2024-12-21 12:15] VITALS: BP 122/74; PULSE 74; TEMP 36.7; O2SAT 94; BMI 24.3
--- NOTE | 2024-12-21 12:15 | AM.OFFWIN_ITS ---
Intake Vital Signs 12/21/24 12:15 Height 5 ft 7 in Weight 155 lb BMI 24.3 BP 122/74 Blood Pressure Location Lt brachial Position Sitting Pulse 74 Pulse Source Pulse Oximeter Temp 98.1 F Temp Source Oral Pulse Oximetry (%) 94 Oxygen Delivery Method Room Air Intake Visit Reasons: EP-navel redness Intake Note: presents with concerns for navel, c/o strong foul odor yesterday, bloating to stomach around navel and redness Patient Tobacco Use Status: Former Tobacco user Allergies iodine Allergy (Intermediate, Verified 12/21/24 12:17) Rash alendronate sodium (From Fosamax) Adverse Reaction (Severe, Verified 12/21/24 12:17) Muscle Pain Do you need a note to return to daycare/school/sports/work: No HPI HPI Comments History of Present Illness Details History of Present Illness - The patient is a 79-year-old female pr esenting with redness and infection in the umbilical area. - The condition began recently, with sym ptoms of odor and abdominal fullness. - No changes in personal hygiene product s were reported. - Mild erythema was observed, suggesting an infection. - She denies fever, chills, discharge, d rainage, or warmth. - She has no new lotions, soaps, deterge nts, clothes, pets, or travel. Physical Exam General: Cooperative, healthy appearing, comfortable, no acute distress and well developed Respiratory: Normal respiratory effort and able to speak in complete sentences. Clear to auscultation bilaterally Cardiovascular: Regular rate and rhythm. Normal S1 and S2 GI: Normal to inspection. Soft to palpation and nontender. No guarding or rebound tenderness. Skin: No rashes or lesions noted, except for erythema in the umbilicus. No flaking noted. No discharge noted. No warmth noted. Patient was informed and verbally consented to the use of an ambient scribe for clinic note documentation during this visit. [facility] Medical History Bilateral primary osteoarthritis of knee Left knee pain Pain and swelling of right knee IBS (irritable bowel syndrome) Internal and external hemorrhoids without complication Constipation Back pain Diarrhea Ganglion cyst of finger Anxiety Chronic constipation Epidermal cyst Surgical History History of biopsy Hx of removal of cyst Family History Father No problems noted. Mother No problems noted. Social History Housing: Condominium Alcohol intake: current Alcohol intake frequency: holidays/special occasions only Patient Tobacco Use Status: Former Tobacco user Tobacco use type: Cigarette e-Cigarette/Vaping Use: Never Used Second Hand Smoke Exposure: Yes Advance Directives Date on File: 04/28/21 service: No Current occupational status: retired Current occupational exposures/hazards: No Cognitive needs: No Hearing needs: No Vision needs: No Female Reproductive History Menstrual Age of Menarche: 11 Review of Systems Const All systems reviewed & are unremarkable except as noted in HPI and below Physical Exam Vital Signs: Last Vital Signs Temp 98.1 F 12/21/24 12:15 Pulse 74 12/21/24 12:15 BP 122/74 12/21/24 12:15 Pulse Ox 94 12/21/24 12:15 Oxygen Delivery Method Room Air 12/21/24 12:15 BMI result Body Mass Index 24.3 Assessment & Plan Assessment & Plan (1) Navel cellulitis: Code(s): L03.316 - Cellulitis of umbilicus Plan Most likely cellulitis vs fungal Plan - Apply antibiotic ointment to the umbilical area twice daily. - Start oral antibiotics to prevent cellulitis. - Ensure thorough drying of the umbilical area post-bathing. - Advised to watch for worsening redness, fever, chills, etc Medications: New cephalexin 500 mg PO Q6H 28 caps 0RF mupirocin 2% 1 appl topical TID 22 grams 0RF Coding Level of Care Code Est Pt Level 3 (11080) Diagnoses Navel cellulitis L03.316
== END 2024-12-21 13:20 | disposition home or self-care (01) ==
PROVIDERS: Visit Provider Physician Assistant Medical
DX: L03.316 Cellulitis of umbilicus (principal)

== ENCOUNTER → 2024-12-21 11:38 | Outpatient (BNVA) | payer MEDICARE, SELFPAY | PROVIDERS: Visit Provider Physician Assistant Medical | DX: L03.316 Cellulitis of umbilicus (principal) | CPT/HCPCS: 99212 ==

== ENCOUNTER 2025-01-06 11:45 | Outpatient (AMB) | payer MEDICARE, SELFPAY ==
[2025-01-06 12:00] VITALS: BP 118/78; PULSE 79; RESP 16; TEMP 36.5; O2SAT 93; BMI 24.4
--- NOTE | 2025-01-06 12:00 | MHC.OFFWIV ---
Intake Vital Signs 01/06/25 12:00 Height 5 ft 7 in Weight 156 lb BMI 24.4 BP 118/78 Blood Pressure Location Lt brachial Position Sitting Respiration 16 Pulse 79 Pulse Source Pulse Oximeter Temp 97.7 F Temp Source Oral Pulse Oximetry (%) 93 Oxygen Delivery Method Room Air Intake Visit Reasons: EP gunk in mouth? foul taste Intake Note: Pt is here today c/o secretions on her lips and mouth Patient Tobacco Use Status: Former Tobacco user Allergies iodine Allergy (Intermediate, Verified 01/06/25 12:11) Rash alendronate sodium (From Fosamax) Adverse Reaction (Severe, Verified 01/06/25 12:11) Muscle Pain Medication List - Last Reconciled 01/06/25 by Lizbeth Waterman, [employer]GER [employer] artifi.tears(hypromellose)(PF) 0.3% 1 drp ophthalmic (eye) Q2-4H PRN calcium-vitamin D3-vitamin K 500 mg-100 unit -40 mcg 2 tabs PO DAILY cholecalciferol (vitamin D3) 25 mcg PO DAILY diclofenac sodium 1% (Voltaren Arthritis Pain) 4 grams topical QID estradiol mcg vaginal .biw npkqpxry-swksdfn-nwbr-lutein tabs PO .QD mupirocin 2% 1 appl topical TID soluble corn fiber-inulin 1.7 gram (Metamucil (inulin-corn fiber)) tabs PO vitamin B complex 1 tab PO DAILY zolpidem 5 - 10 mg (0.5 - 1 x 10 mg) PO BEDTIME HPI HPI Comments History of Present Illness Details History of Present Illness - The patient is a 79-year-old female presenting with xerostomia. - Xerostomia began approximately 3 days ago with increased oral secretions and sticky lips. - Unresponsive to nasal spray. - No sore throat - Sx are constant symptoms throughout the day. - Negative changes in dental care or products. - Frequent chapstick use Review of Systems - Oral: Reports sticky lips and secretions, denies sore throat. - Nasal: Reports fullness. - Gastrointestinal: Reports constipation secondary to antibiotic use. - Dermatologic: Reports dryness in lips; history of navel infection. - Musculoskeletal: Reports fibromyalgia. - Dental: Reports dentures with no new changes in care. Physical Exam MM Xerostomia affecting lips and tongue; dentures present; pharynx clear. Uvula midline. No ac adenopathy. Mild angular chelitis bilat. Managing secretions. Speaking in full sentences. Discussion Notes I discussed with the patient the diagnosis of xerostomia and the management plan to alleviate her symptoms. The proposed treatment includes a Nystatin solution to apply to the lips, swish in the mouth, and swallow to address the dryness. This treatment aims to provide relief by moisturizing the affected areas. We talked about using the liquid once daily for 10 days, ensuring no consumption of food or beverages for 30 minutes post-treatment to allow the medication to work effectively. The patient was informed about the fruity taste of the solution.. I advised maintaining her denture care routine and she voiced understanding of the treatment plan. No other diagnostic procedures or studies were required. Follow-up or additional consultations are not needed unless symptoms persist or worsen. Patient was given time to ask questions. All questions were answered to their satisfaction. Assessment and Plan 1. Xerostomia/Angular chelitis - Nystatin solution, daily application x 10 days, avoid intake for 30 minutes post-use. - Consider fu with PCP if no improvement Patient Instructions - Use the solution once daily for 10 days. - Apply to lips, swish in the mouth, swallow, and avoid eating/drinking for 30 minutes. - Maintain denture cleaning routine. 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. Consent Patient was informed and verbally consented to the use of an ambient scribe for clinic note documentation during this visit. [facility] Medical History Bilateral primary osteoarthritis of knee Left knee pain Pain and swelling of right knee IBS (irritable bowel syndrome) Internal and external hemorrhoids without complication Constipation Back pain Diarrhea Ganglion cyst of finger Anxiety Chronic constipation Epidermal cyst Surgical History History of biopsy Hx of removal of cyst Family History Father No problems noted. Mother No problems noted. Social History Housing: [facility] [place] Alcohol intake: current Alcohol intake frequency: holidays/special occasions only Patient Tobacco Use Status: Former Tobacco user Tobacco use type: Cigarette e-Cigarette/Vaping Use: Never Used Second Hand Smoke Exposure: Yes Advance Directives Date on File: 04/28/21 service: No Current occupational status: retired Current occupational exposures/hazards: No Cognitive needs: No Hearing needs: No Vision needs: No Female Reproductive History Menstrual Age of Menarche: 11 Physical Exam Vital Signs: Last Vital Signs Temp 97.7 F 01/06/25 12:00 Pulse 79 01/06/25 12:00 Resp 16 01/06/25 12:00 BP 118/78 01/06/25 12:00 Pulse Ox 93 01/06/25 12:00 Oxygen Delivery Method Room Air 01/06/25 12:00 BMI result Body Mass Index 24.4 Assessment & Plan Assessment & Plan (1) Xerostomia: Code(s): K11.7 - Disturbances of salivary secretion (2) Actinic cheilitis: Code(s): L56.8 - Other specified acute skin changes due to ultraviolet radiation Plan . Medications: New nystatin swish and swallow 5 mL PO DAILY 50 mL 0RF 10 days Coding Level of Care Code Est Pt Level 3 (49999) Diagnoses Xerostomia K11.7 Actinic cheilitis L56.8
== END 2025-01-06 12:34 | disposition home or self-care (01) ==
PROVIDERS: Visit Provider Nurse Practitioner Family
DX: K11.7 Disturbances of salivary secretion (principal); L56.8 Other specified acute skin changes due to ultraviolet radiation

== ENCOUNTER → 2025-01-06 11:45 | Outpatient (BNVA) | payer MEDICARE, SELFPAY | PROVIDERS: Visit Provider Nurse Practitioner Family | DX: K11.7 Disturbances of salivary secretion (principal); L56.8 Other specified acute skin changes due to ultraviolet radiation | CPT/HCPCS: 99212 ==

== ENCOUNTER 2025-01-16 11:04 | Outpatient (AMB) | payer MEDICARE, SELFPAY ==
[2025-01-16 11:09] VITALS: BP 122/80; PULSE 88; TEMP 36.9; O2SAT 99; BMI 24.4
--- NOTE | 2025-01-16 11:09 | MHC.OFFWIV ---
Intake Vital Signs 01/16/25 11:09 Height 5 ft 7 in Weight 156 lb BMI 24.4 BP 122/80 Blood Pressure Location Lt brachial Position Sitting Pulse 88 Pulse Source Pulse Oximeter Temp 98.4 F Temp Source Oral Pulse Oximetry (%) 99 Oxygen Delivery Method Room Air Intake Visit Reasons: ep secretions going into mouth no taste buds Intake Note: pt presents with film coating in your mouth, dry mouth, loss of taste Patient Tobacco Use Status: Former Tobacco user Allergies iodine Allergy (Intermediate, Verified 01/16/25 11:12) Rash alendronate sodium (From Fosamax) Adverse Reaction (Severe, Verified 01/16/25 11:12) Muscle Pain Do you need a note to return to daycare/school/sports/work: No HPI HPI Comments History of Present Illness Details History - The patient is a 79-year-old female presenting with dry mouth, loss of taste, and nasal congestion. - Dry mouth: Persistent sensation of a film in the mouth, leading to dryness due to mouth breathing. - Loss of taste: Noted for the past four days, impacting appetite and food intake. - Reports congestion in the nose with occasional coughing and clear sputum. - Previously used for dry lips, discontinued after 10 days, last use today. Physical Exam General: Cooperative, healthy appearing, comfortable and no acute distress Orientation/consciousness: Patient oriented x3 Limitations: No limitations Head: Normal to inspection Ears: Hearing grossly normal bilaterally, external ears normal and TM's normal bilaterally Nose: Normal external nose present, Normal nares present and No nasal discharge present Face and sinus: Normal facial exam and Yes sinuses nontender Mouth: Normal oral and palatal mucosa present, moist mucous membranes Throat: Yes tonsils normal, Yes uvula midline. Posterior oropharynx erythema, no exudates Eyes: Appearance normal, both eyes and all related structures Neck: Normal visual inspection, full ROM Respiratory: Clear to auscultation bilaterally. Normal respiratory effort, able to speak in complete sentences, no respiratory distress, not tachypneic, no tripod positioning and no use of accessory muscles Cardiovascular: Regular rate and rhythm. Normal S1 and S2 Skin: No rashes or lesions noted Neuro: Patient oriented x3 Extremities: Normal to inspection and Yes no clubbing, cyanosis or edema [facility] Medical History Bilateral primary osteoarthritis of knee Left knee pain Pain and swelling of right knee IBS (irritable bowel syndrome) Internal and external hemorrhoids without complication Constipation Back pain Diarrhea Ganglion cyst of finger Anxiety Chronic constipation Epidermal cyst Surgical History History of biopsy Hx of removal of cyst Family History Father No problems noted. Mother No problems noted. [facility] Alcohol intake: current Alcohol intake frequency: holidays/special occasions only Patient Tobacco Use Status: Former Tobacco user Tobacco use type: Cigarette e-Cigarette/Vaping Use: Never Used Second Hand Smoke Exposure: Yes Advance Directives Date on File: 04/28/21 service: No Current occupational status: retired Current occupational exposures/hazards: No Cognitive needs: No Hearing needs: No Vision needs: No Female Reproductive History Menstrual Age of Menarche: 11 Review of Systems Const All systems reviewed & are unremarkable except as noted in HPI and below Physical Exam Vital Signs: Last Vital Signs Temp 98.4 F 01/16/25 11:09 Pulse 88 01/16/25 11:09 BP 122/80 01/16/25 11:09 Pulse Ox 99 01/16/25 11:09 Oxygen Delivery Method Room Air 01/16/25 11:09 BMI result Body Mass Index 24.4 Assessment & Plan Assessment & Plan (1) Loss of taste: Code(s): R43.2 - Parageusia Plan: Plan Patient was informed and verbally consented to the use of an ambient scribe for clinic note documentation during this visit. - VSS, pt well appearing and PE unremarkable - With congestion and loss of taste, will be thorough, tested for covid/flu/rsv - Recommendation to use jjwi-arq-ealbqsu moisturizing sprays for dry mouth. - Suspected side effect of nystatin; advised to discontinue use and monitor for improvement. - Advised that symptoms may resolve as the effects of nystatin wear off. (2) Xerostomia: Code(s): K11.7 - Disturbances of salivary secretion Plan: as above Orders: Orders SARS-CoV2/FLU/RSV Today R09.89 - Other specified symptoms and signs involving the circulatory and respiratory systems Coding Level of Care Code Est Pt Level 3 (79400) Diagnoses Loss of taste R43.2 Xerostomia K11.7
== END 2025-01-16 12:01 | disposition home or self-care (01) ==
PROVIDERS: Visit Provider Physician Assistant
DX: R43.2 Parageusia (principal); K11.7 Disturbances of salivary secretion

== ENCOUNTER 2025-01-16 11:04 | Outpatient (REF) | payer MEDICARE, SELFPAY ==
[2025-01-16 14:16] LABS: Resp Syncy Virus RNA Qual PCR NEGATIVE (Negative); SARS COV2 PCR INHOUSE POSITIVE (Negative)
== END 2025-01-16 11:05 | disposition home or self-care (01) ==
LOC: HO.LAB 11:04
PROVIDERS: Physician Assistant
DX: K11.7 Disturbances of salivary secretion (principal); R43.2 Parageusia; R09.81 Nasal congestion; R09.89 Other specified symptoms and signs involving the circulatory and respiratory systems; R05.9 Cough, unspecified; Z87.891 Personal history of nicotine dependence
CPT/HCPCS: 87637; 99212

== ENCOUNTER 2025-03-19 08:24 | Outpatient (REF) | payer MEDICARE, SELFPAY ==
[2025-03-19 10:18] LABS: MANUAL DIFF FLAG NO
[2025-03-19 10:31] LABS: Hematocrit 42.0 % (37.0-47.0); Hemoglobin 13.3 g/dl (12.0-16.0); Imm Gran Abs Auto 0.01 X10*3/uL (0.00-0.03); Imm Gran Pct Auto 0.2 % (0.0-0.4); Lymphocytes Absolute Auto 1.2 X10*3/uL (1.2-4.9); Mean Corpuscular HGB Conc 31.7 g/dl (31.0-35.0); Mean Corpuscular Hemoglobin 29.4 pg (27.0-33.0); Mean Corpuscular Volume 92.9 fL (80.0-98.0); NRBC Abs Auto 0.000 X10*3/uL (0.0-0.012); NRBC Pct Auto 0.0 /100WBC (0.0-0.2); Platelet Count 310 X10*3/uL (160-400); Red Blood Count 4.52 X10*6/uL (4.20-5.50); White Blood Count 4.8 X10*3/uL (4.8-10.8)
[2025-03-19 10:50] LABS: Alanine Aminotransferase 18 U/L (0-31); Albumin Level 4.2 g/dL (3.5-5.0); Alkaline Phosphatase 73 U/L (39-117); Anion Gap 12 (12-20); Aspartate Amino Transferase 24 U/L (5-31); Blood Urea Nitrogen 18 mg/dL (9-16); Calcium 9.4 mg/dL (8.4-10.2); Carbon Dioxide 27 mmol/L (22-29); Chloride 106 mmol/L (96-108); Cholesterol 212 mg/dL (<200); Estimated Glomerular Filt Rate > 60; HDL Cholesterol 64 mg/dL (>40); Potassium 4.0 mmol/L (3.3-5.1); Sodium 141 mmol/L (135-145); Total Protein 6.9 g/dL (6.5-8.0); Triglycerides 89 mg/dL (<150)
[2025-03-19 14:01] LABS: Appearance Urine Clear; Glucose Urine UA Negative (Negative); PH 5.0 (5.0-9.0); Specific Gravity - Urine 1.020 (1.005-1.025); UMIC TRIGGER UACC YES
[2025-03-19 14:24] LABS: UACC Culture Trigger YES
== END 2025-03-19 08:25 | disposition home or self-care (01) ==
LOC: HO.HMGCLDS 08:24
DX: Z00.00 Encounter for general adult medical examination without abnormal findings (principal); Z13.6 Encounter for screening for cardiovascular disorders; Z13.0 Encounter for screening for diseases of the blood and blood-forming organs and certain disorders involving the immune mechanism; Z13.29 Encounter for screening for other suspected endocrine disorder; Z13.21 Encounter for screening for nutritional disorder
CPT/HCPCS: 36415; 80053; 80061; 81001; 81003; 82306; 84443; 85025; 87086

== ENCOUNTER 2025-03-26 11:30 | Outpatient (AMB) | payer MEDICARE, SELFPAY ==
[2025-03-26 11:39] VITALS: BP 124/68; PULSE 72; RESP 18; O2SAT 96; BMI 24.4
--- NOTE | 2025-03-26 11:39 | A.OFFPC_ITS ---
Vital Signs 03/26/25 11:39 Height 5 ft 7 in Weight 155 lb 8 oz BMI 24.4 BP 124/68 Blood Pressure Location Rt brachial Position Sitting Respiration 18 Pulse 72 Pulse Source Pulse Oximeter Temp Source Temporal Artery Scan Pulse Oximetry (%) 96 Oxygen Delivery Method Room Air Intake Visit Reasons: Annual Exam Allergies iodine Allergy (Intermediate, Verified 03/26/25 11:51) Rash alendronate sodium (From Fosamax) Adverse Reaction (Severe, Verified 03/26/25 11:51) Muscle Pain Medication List - Last Reconciled 03/26/25 by JUAN JOSE Torres.tears(hypromellose)(PF) 0.3% 1 drp ophthalmic (eye) Q2-4H calcium-vitamin D3-vitamin K 500 mg-100 unit -40 mcg 2 tabs PO DAILY cholecalciferol (vitamin D3) 25 mcg PO DAILY diclofenac sodium 1% (Voltaren Arthritis Pain) 4 grams topical QID kkldzqxw-oadtbwg-dkue-lutein tabs PO .QD soluble corn fiber-inulin 1.7 gram (Metamucil (inulin-corn fiber)) tabs PO vitamin B complex 1 tab PO DAILY zolpidem 5 - 10 mg (0.5 - 1 x 10 mg) PO BEDTIME Tobacco use date assessed: 03/26/25 Fall risk assessment: No Falls in past year Last assessed Fall Risk: 03/26/25 Dental Screening Dental Screen Date: 03/26/25 Did you have a dental visit in the last 12 months?: No Did you have a dental problem in the last 6 months where you did not have access to dental care?: No Was dental information given to patient?: No HPI HPI Comments History of Present Illness Details The patient is a 79-year-old female presenting for an annual physical examination and follow-up on recent and planned gynecological procedures. She has a history of postmenopausal bleeding, which she had complained about for three years to a previous provider, Dr. Beltrán. Under Dr. Beltrán's care, she underwent two traumatic and inconclusive in-office uterine biopsies. Subsequently, she was referred to Dr. Medeiros, who performed a D&C on February 07. During this procedure, a benign cyst was found to be the cause of her intermittent bleeding, and she was cleared of having cancer. The patient reports feeling tired since the surgery, which she was told is normal. The patient is now scheduled for a partial hysterectomy with another surgeon, Dr. Urbina, due to ongoing irritation and the sense that her uterus and bladder are fighting with each other for space. The scheduling for this surgery is five months out and handled by a necktie centralizing machine operator. The patient was initially anxious about anesthesia but tolerated her first experience well. Regarding health maintenance, her last mammogram was in May of this year, and she had a bone density scan in May,, that showed osteopenia. She sees an beam sealer annually, with her last visit in October, and is considering cataract surgery for her left eye. She is up to date with colonoscopy screenings and has a DNR on file. Her lab results show a slight increase in cholesterol. Her diet consists mainly of chicken and turkey, avoiding fried foods, cheese, and most pork, but she does eat hamburgers about twice a week. She tries to walk for exercise but was less active for two weeks following her recent surgery. Health Maintenance - Immunizations: The patient received an influenza vaccine (senior dose) and a tetanus vaccine during the visit. - Immunization Counseling: Discussed the importance and safety of the shingles and pneumonia vaccines, which are recommended for her in the future. - Cancer Screening: Her last mammogram w as in May and her bone density scan was also recent; she is considered up to date with colonoscopies. - Vision Screening: The patient has renzo al eye exams and wears reading glasses; she is being monitored for a cataract in her left eye. - Labs: Recent labs showed a slight elev ation in cholesterol from 113 to 131, which is thought to be related to decreased activity post-surgery. - Diet and Exercise: Discussed maintaini ng a healthy diet low in red meat and continuing to increase physical activity to help manage cholesterol. - Advance Directives: The patient has a Do Not Resuscitate (DNR) order on file, which she established through [facility]. Social History - Activity Level: The patient reports be ing out every day and gets exercise by walking, including parking far from store entrances. - Functional Status: She experienced a t emporary decline in activity for two weeks post-surgery, during which she could not drive. - Nutritional Intake: The patient avoids fried foods due to a gastrointestinal issue. - Nutritional Intake: She reports consum ing chicken and turkey, and has hamburgers about twice a week. - Nutritional Intake: She uses lactose-f ree and fat-free milk and avoids cheese. - Dental Health: The patient has denture s and does not see a dentist regularly. Results - Labs: Cholesterol is slightly elevated at 131, up from a previous level of 113. - Labs: Urinalysis results are normal. - Procedures: A D&C performed on February 07 revealed a benign uterine cyst; cancer was ruled out. - Procedures: Two prior uterine biopsies performed by a different provider were inconclusive. [facility] Medical History Bilateral primary osteoarthritis of knee Left knee pain Pain and swelling of right knee IBS (irritable bowel syndrome) Internal and external hemorrhoids without complication Constipation Back pain Diarrhea Ganglion cyst of finger Anxiety Chronic constipation Epidermal cyst Surgical History History of biopsy Hx of removal of cyst Family History Father No problems noted. Mother No problems noted. Social History Housing: Condominium Alcohol intake: current Alcohol intake frequency: holidays/special occasions only Patient Tobacco Use Status: Former Tobacco user Tobacco use type: Cigarette e-Cigarette/Vaping Use: Never Used Second Hand Smoke Exposure: Yes Advance Directives Date on File: 04/28/21 service: No Current occupational status: retired Current occupational exposures/hazards: No Cognitive needs: No Hearing needs: No Vision needs: No Female Reproductive History Menstrual Age of Menarche: 11 Questionnaire Thrive Questionnaire Date Thrive assessed: 09/14/24 I am a: Patient What is your living situation today?: I have a steady place to live Within the past 12 months, did the food you bought not last and you didn't have the money to get more?: Never true Within the past 12 months, did you worry whether your food would run out before you got money to buy more?: Never true Do you have trouble paying for medicines?: No Do you have trouble getting transportation to medical appointments?: No Do you have trouble paying your heating and electricity bill?: No Do you have trouble taking care of your child, family member or friend?: No Do you have trouble with day-to-day activities such as bathing, preparing meals, shopping, managing finances, etc.?: No Are you currently unemployed and looking for a job?: No Are you interested in more education?: No Please select the resources that you would like help with: None Currently or been in a relationship where the following occur: No concerns reported THRIVE Score: 0 RAVEN-7 AMB Questionnaire RAVEN-7 Date RAVEN - 7 assessed: 09/14/24 Source: Developed by Drs. Esdras Camejo, Callie Crews, Coleman Velasquez and colleagues, with an educational cecelia from [employer]. Review of Systems Narrative Review of Systems - Constitutional: Reports feeling tired since her surgery. - Eyes: Reports needing glasses for reading; reports being told she has a cataract in the left eye. - Genitourinary: Reports a history of postmenopausal bleeding, which is now resolved. - Genitourinary: Reports ongoing irritation due to her uterus and bladder competing for space. Const Denies headache(s) and Reports other (Feeling tired after her surgery-attributed to anesthesia) Eyes Denies loss of vision ENT Denies vertigo, Denies dizziness, Denies headache(s) and Denies sore throat Card Denies chest pain, Denies leg edema and Denies lightheadedness Resp Denies cough, Denies hemoptysis and Denies wheezing GI Denies abdominal pain, Denies melena, Denies constipation, Denies diarrhea and Denies vomiting Denies urinary frequency, Denies dysuria and Denies urinary urgency Musc Denies arthralgias, Denies joint swelling, Denies numbness and Denies tingling Neuro Denies Abnormal speech present, Denies behavioral changes, Denies vertigo, Denies dizziness, Denies headache(s), Denies loss of vision, Denies memory loss, Denies numbness and Denies tingling Psych Reports anxiety, Denies behavioral changes, Denies depression, Denies memory loss and Denies panic attacks Lalo/Lymph Denies easy bleeding and Denies easy bruising Aller/Immun Denies wheezing Physical exam (Primary Care) Vital Signs: Last Vital Signs Pulse 72 03/26/25 11:39 Resp 18 03/26/25 11:39 BP 124/68 03/26/25 11:39 Pulse Ox 96 03/26/25 11:39 Oxygen Delivery Method Room Air 03/26/25 11:39 BMI result Body Mass Index 24.4 Tobacco/Smoking Status: Tobacco use Status Tobacco use date assessed 03/26/25 03/26/25 11:46 Patient Tobacco Use Status Former Tobacco user 03/26/25 11:46 Tobacco use type Cigarette 03/26/25 11:46 e-Cigarette/Vaping Use Never Used 03/26/25 11:46 Thrive Assessment: Date of Thrive Assessment Date Thrive assessed 09/14/24 03/26/25 11:46 Currently or been in a relationship where the following occur: No concerns reported Narrative Physical Exam - General: Patient is alert and in no acute distress. - HEENT: Oropharynx is clear. - HEENT: Extraocular movements are intact. - HEENT: Cerumen noted in ear canals. - Respiratory: Lungs are clear to auscultation bilaterally. - Cardiovascular: Regular rate and rhythm. Distal pulses are 2+ and equal bilaterally in upper and lower extremities. - Cardiovascular: Capillary refill is brisk. - Abdomen: Soft, non-tender to palpation. - Extremities: No peripheral edema noted. Const General: healthy appearing, no acute distress, alert and awake Nutritional Appearance: well nourished Orientation/consciousness: oriented to person, oriented to place and oriented to time HENMT Ears: TM's normal bilaterally General nose exam: Normal nasal mucous membranes and turbinates present Eyes Conjunctivae: conjunctivae normal Sclerae: sclerae normal Pupils: Equal, round and reactive pupils present Neck Neck: Yes no lymphadenopathy and Yes no JVD Thyroid: Thyroid normal Carotids: no bruits Resp Effort & Inspection: normal respiratory effort and not tachypneic Auscultation: no crackles, no rales, no rhonchi and no wheezes Cardio Rate: regular rate Rhythm: regular rhythm Heart sounds: no murmurs and normal S1 and S2 GI Palpation (GI): Soft to palpation, nontender, no hepatomegaly and no splenomegaly Auscultation: normal bowel sounds Skin General skin exam: no rashes or lesions noted and dry skin Neuro General: oriented to person, oriented to place and oriented to time Cranial nerves: Yes Equal, round and reactive pupils present Speech: No Abnormal speech present Gait exam (Neuro): Normal gait present Motor exam (neuro): no tremor noted Deep tendon reflexes (DTR's): Right triceps reflex intensity grade: 2+, Left triceps reflex intensity grade: 2+, Rt Biceps (C5, C6): 2+, Left biceps reflex intensity grade: 2+, Right brachioradialis reflex intensity grade: 2+, Left brachioradialis reflex intensity grade: 2+, Right patellar reflex intensity grade: 2+ and Left patellar reflex intensity grade: 2+ Extrem Right upper extremity: full ROM Left upper extremity: full ROM Right lower extremity: full ROM; no edema Left lower extremity: full ROM; no edema Psych Mental Status: mental status grossly normal Speech and movement: Normal speech and movement present Affect: normal affect Attitude: cooperative Thought process: Normal thought process present Office Procedures Flu Questionnaire Does the patient have a severe egg allergy?: No Does the patient have severe life threatening allergies?: No Does the patient have a fever or illness today?: No Has the patient ever had Guillain-Stratford Syndrome?: No Has the patient ever had any past reaction to a flu shot?: No Immunizations Fluarix [id number] (PF) 45 mcg (15 mcg x 3)/0.5 mL IM syringe Performing Provider: JUAN JOSE Torres Performing Location: [facility] Administered by: Jimena Del Angel CMA on 03/26/25 12:07 Dose Route Admin Location Dispensed Lot Number Expiration Date [facility] Crop Duster 0.5 mL IM Left Deltoid 0.5 mL [id number] 11/06/25 20518-484-00 [employer]LA[employer]uet[employer] VIS Given Date VIS Provided VIS Publication Date 03/26/25 Single Vaccine 24 Eligibility Eligibility Date Funding Source Not VFC Eligible 03/26/25 Private Tenivac (PF) 5 Lf unit-2 Lf unit/0.5 mL intramuscular syringe Performing Provider: JUAN JOSE Torres Performing Location: [facility] Administered by: Margy Lozano LPN on 03/26/25 12:20 Dose Route Admin Location Dispensed Lot Number Expiration Date [place] Crop Duster 0.5 mL IM Left Deltoid 0.5 mL [id number] 02/06/27 80507-122-14 [employer]-PASTEUR Total Dispensed Waste 0.5 mL 0 % VIS Given Date VIS Provided VIS Publication Date 03/26/25 Single Vaccine 20 Eligibility Eligibility Date Funding Source Not [facility] Eligible 03/26/25 Private Results Reviewed Results Reviewed: Laboratory Tests 03/19/25 03/19/25 08:35 10:50 WBC 4.8 RBC 4.52 Hgb 13.3 Hct 42.0 MCV 92.9 MCH 29.4 MCHC 31.7 RDW 13.8 Plt Count 310 Sodium 141 Potassium 4.0 Chloride 106 Carbon Dioxide 27 Anion Gap 12 BUN 18 H Creatinine 0.84 Estimated GFR > 60 Fasting Glucose 111 H Calcium 9.4 Total Bilirubin 0.8 AST 24 ALT 18 Alkaline Phosphatase 73 Total Protein 6.9 Albumin 4.2 Triglycerides 89 Cholesterol 212 H LDL Cholesterol, Calc 131 H HDL Cholesterol 64 25-OH Vitamin D Total 73.3 TSH 1.09 Urine Color Dark Yellow Urine Appearance Clear Urine pH 5.0 Ur Specific Mineral 1.020 Urine Protein Trace Urine Glucose (UA) Negative Urine Ketones Negative Urine Blood Negative Urine Nitrite Negative Ur Leukocyte Esterase Moderate (2+) H Urine RBC 0-2 Urine WBC 0-5 Ur Squamous Epith Cells 3-5 Ur Transition Epith Cell Present Ur Renal Epithelial Cell Present Calcium Oxalate Crystal Present Urine Bacteria None Seen Hyaline Casts 3-5 Coding Level of Care Code Est Pt Prev Care >65y(01251) Diagnoses Annual physical exam Z00.00 Insomnia, unspecified type G47.00 Insomnia type: unspecified Anxiety F41.9 Irritable bowel syndrome with both constipation and diarrhea K58.2 Irritable bowel syndrome type: with both diarrhea and constipation Menopause Z78.0 Uterine cyst N85.8 Hyperlipidemia, unspecified hyperlipidemia type E78.5 Hyperlipidemia type: unspecified Time Spent (min) 38 Assessment & Plan Assessment & Plan (1) Annual physical exam: Code(s): Z00.00 - Encounter for general adult medical examination without abnormal findings Category: Medical Plan: Preventative guidelines and recent labs reviewed with the patient (2) Insomnia: Code(s): G47.00 - Insomnia, unspecified Category: Medical Qualifiers: Insomnia type: unspecified Qualified Code(s): G47.00 - Insomnia, unspecified Plan: Reinforced sleeping hygiene Continue zolpidem 5-10 mg p.o. at HS p.r.n. (3) Anxiety: Code(s): F41.9 - Anxiety disorder, unspecified Category: Medical Plan: Encouraged CBT-reports that she has not spoken to a therapist in years; she does not think that she needs one at this time reports that this is all situational and does not last long she is able to deep breaths and control her anxiety (4) IBS (irritable bowel syndrome): Code(s): K58.9 - Irritable bowel syndrome, unspecified Category: Medical Qualifiers: Irritable bowel syndrome type: with both diarrhea and constipation Qualified Code(s): K58.2 - Mixed irritable bowel syndrome Plan: Continue increasing fluids and fiber prevent constipation Follow up gastroenterology as scheduled (5) Menopause: Code(s): Z78.0 - Asymptomatic menopausal state Category: Medical Plan: She was referred to [facility] for further evaluation by [facility] [place] [facility]. she was biopsied at [facility] [place] with no concerned findings. Plans to treat vasomotor symptoms Continue estradiol intravaginally as ordered Follow up obgyn as scheduled (6) Uterine cyst: Code(s): N85.8 - Other specified noninflammatory disorders of uterus Category: Medical Plan: See below (7) HLD (hyperlipidemia): Code(s): E78.5 - Hyperlipidemia, unspecified Category: Medical Qualifiers: Hyperlipidemia type: unspecified Qualified Code(s): E78.5 - Hyperlipidemia, unspecified Plan: See below Plan Plan Patient was informed and verbally consented to the use of an ambient scribe for clinic note documentation during this visit. 1. Postmenopausal Bleeding And Benign Uterine Cyst The patient's history of postmenopausal bleeding was reviewed. The condition has resolved following a D&C on February 07, where a benign cyst was identified as the cause. No further workup for this specific issue is indicated, as the diagnostic procedure was successful and ruled out malignancy. 2. Planned Partial Hysterectomy The patient is scheduled to undergo a partial hysterectomy with Dr. Urbina due to ongoing symptoms from proximity of the uterus and bladder. Dr. Medeiros has a lready provided imaging from the D&C procedure for Dr. Urbina's use during the surgery. This visit serves as part of the pre-operative clearance, though another physical may be needed within 30 days of the surgery date. The patient will await contact from the necktie centralizing machine operator for the definitive surgery date. 3. Hypercholesterolemia Recent lab work indicates a slight increase in cholesterol, which is likely attributable to a period of reduced activity following her recent surgery. We will continue to monitor cholesterol. The patient is advised to increase her physical activity as she recovers and to continue her current diet, potentially reducing her intake of red meat. 4. Wellness And Preventive Care The patient received her senior-dose influenza vaccine and a tetanus vaccine during today's visit. We discussed the benefits of the pneumonia and shingles vaccines, which are strongly recommended for her to prevent severe illness, and she can obtain these at a pharmacy in the future. A prescription for zolpidem was refilled. An order for a mammogram will be placed as requested. Her DNR status has been noted. The patient will follow up in one year for her next annual physical unless issues arise sooner. Discussion Notes I reviewed the patient's recent gynecological history, including the D&C by Dr. Medeiros that identified a benign cyst, resolving her postmenopausal bleeding and ruling out cancer. We discussed the upcoming partial hysterectomy with Dr. Urbina and the centralized scheduling process. I administered the flu and tetanus vaccines today after confirming no contraindications. I strongly recommended she receive the shingles and pneumonia vaccines in the near future to prevent potentially severe and painful illnesses, explaining that shingles can be very dangerous, particularly when it affects the eye. We reviewed her recent lab results, noting the slight increase in cholesterol, and discussed that this is likely due to decreased activity post-surgery rather than diet. I refilled her prescription for zolpidem and explained the current regulations regarding not adding automatic refills to controlled substances, clarifying it is a general policy and not related to her age. The patient was reassured that she should continue to call for refills as needed. I instructed her on signs of a local reaction at the injection sites and advised her to call if she notices redness or significant swelling. Patient Instructions - You received a flu shot and a tetanus shot today. - Your arm may be sore for a day or two from the shots. - Please watch the injection sites for any signs of infection, such as increasing redness or swelling, and call us if you notice any. - It is highly recommended that you get the shingles and pneumonia vaccines to protect your health. - You can get the shingles and pneumonia shots at a local pharmacy. - Continue with your healthy diet and try to increase your walking and activity as you feel stronger after your recent procedure to help with your cholesterol. - We have refilled your sulphidine prescription. - Please remember to call the office for future refills, as automatic refills are no longer placed on this type of medication. - We will place an order for your next mammogram. - Please follow up in one year for your next annual physical, or sooner if any health issues arise. Orders: Orders Influenza [id number] Immunization Today Z23 - Encounter for immunization Td Immunization Today Z23 - Encounter for immunization Lipid Panel 3 Months Z00.00 - Encounter for general adult medical examination without abnormal findings TSH reflex Free T4 3 Months Z00.00 - Encounter for general adult medical examination without abnormal findings Complete Blood Count Auto Diff 3 Months Z00.00 - Encounter for general adult medical examination without abnormal findings Comprehensive [place]. Panel Fast 3 Months Z00.00 - Encounter for general adult medical examination without abnormal findings UA CC w/rflx Micro + Cult 3 Months Z00.00 - Encounter for general adult medical examination without abnormal findings Vitamin D 25-OH Total 3 Months Z00.00 - Encounter for general adult medical examination without abnormal findings Medications: Refilled zolpidem 5 - 10 mg (0.5 - 1 x 10 mg) PO BEDTIME 30 tabs 0RF G47.00 - Insomnia, unspecified
== END 2025-03-26 12:31 | disposition home or self-care (01) ==
LOC: HO.HMCH 11:31
PROVIDERS: PCP Internal Medicine
DX: Z00.00 Encounter for general adult medical examination without abnormal findings (principal); G47.00 Insomnia, unspecified; F41.9 Anxiety disorder, unspecified; K58.2 Mixed irritable bowel syndrome; Z78.0 Asymptomatic menopausal state; N85.8 Other specified noninflammatory disorders of uterus; E78.5 Hyperlipidemia, unspecified; Z23 Encounter for immunization

== ENCOUNTER → 2025-03-26 11:30 | Outpatient (BNVA) | payer MEDICARE, SELFPAY | PROVIDERS: PCP Internal Medicine | DX: Z00.00 Encounter for general adult medical examination without abnormal findings (principal); G47.00 Insomnia, unspecified; F41.9 Anxiety disorder, unspecified; K58.2 Mixed irritable bowel syndrome; N85.8 Other specified noninflammatory disorders of uterus; N95.0 Postmenopausal bleeding; E78.00 Pure hypercholesterolemia, unspecified; Z23 Encounter for immunization | CPT/HCPCS: 90471; 90472; 90656; 90714; 99397 ==